=== PATIENT | female | born 1945 | race Caucasian/White ===

== ENCOUNTER 2020-10-05 08:55 | Outpatient (CLI) | payer MEDICARE, SELFPAY | END 2020-10-05 08:56 | LOC: ANHCOVIDVC 08:55 | PROVIDERS: PCP Internal Medicine | DX: Z23 Encounter for immunization (principal) | CPT/HCPCS: 0001A; 91300 ==

== ENCOUNTER 2020-10-21 09:52 | Outpatient (CLI) | payer MEDICARE, SELFPAY ==
--- NOTE | ~2020-10-21 | US_ITS ---
US retroperitoneal comp 10/21/2020 10:19 Procedure: Realtime transabdominal ultrasound of the kidneys and bladder. Indication: Chronic kidney disease Comparison: CT dated 08/24/2015 Findings: Renal echotexture is normal bilaterally without hydronephrosis, contour deforming mass or r enal calculus. There is mild renal cortical thinning bilaterally. The right kidney measures 9 cm and left kidney measures 8.1 cm. Bladder is not distended for evaluation. Impression: 1: Mild bilateral renal cortical thinning, likely related to chronic medical renal disease. Reviewed, dictated and finalized at location B. Impression: 1: Mild bilateral renal cortical thinning, likely related to chronic medical re nal disease.
== END 2020-10-21 09:53 | disposition home or self-care (01) ==
PROVIDERS: PCP Internal Medicine; Visit Provider Internal Medicine
DX: N18.1 Chronic kidney disease, stage 1 (principal); R79.89 Other specified abnormal findings of blood chemistry
CPT/HCPCS: 76770

== ENCOUNTER 2020-10-26 08:59 | Outpatient (CLI) | payer MEDICARE, SELFPAY | END 2020-10-26 09:00 | disposition home or self-care (01) | LOC: ANHCOVIDVC 08:59 | PROVIDERS: PCP Internal Medicine | DX: Z23 Encounter for immunization (principal) | CPT/HCPCS: 0002A; 91300 ==

== ENCOUNTER 2021-10-08 08:54 | Emergency (ER) | payer MEDICARE, SELFPAY ==
[2021-10-08] VITALS (8 sets, daily range): BP systolic 133–150; BP diastolic 76–109; PULSE 97–147; RESP 18–29; TEMP 36.5; O2SAT 94–96
--- NOTE | ~2021-10-08 | XR_ITS ---
EXAMINATION: XR chest 2V 10/08/2021 09:46 INDICATION: Chest palpitations. Arrhythmia. Hypertension. PROCEDURE: PA and lateral views of the chest COMPARISON: Comparison to multiple prior studies sequentially, with oldest reviewed study dated 06/24. FINDINGS: The lungs are clear. The cardiomediastinal silhouette is within normal limits. There are no pleural effusions. There is no pneumothorax suspected. There is calcified granuloma in the right lung base. Pacemaker leads are stable. IMPRESSION: 1: NO ACUTE CARDIOPULMONARY DISEASE. Reviewed, dictated and finalized at location B.
--- NOTE | 2021-10-08 09:19 | ECG_ITS ---
Measurements Intervals [place] Rate: 109 P: [place]: 0 QRS: 11 QRSD: 82 T: -87 QT: 346 QTc: 466 Interpretive Statements ATRIAL FIBRILLATION WITH RAPID VENTRICULAR RESPONSE BASELINE ARTIFACT NOTED NONSPECIFIC ST & T-WAVE ABNORMALITY NO PREVIOUS ECG AVAILABLE FOR COMPARISON Electronically Signed On 10-08-2021 16:10:31 CDT by Felipe Vieyra M.D.
[2021-10-08] MEDS: dilTIAZem HCl INJ 25 MG/5 ML VIAL 10 MG IV PUSH (09:38)
[2021-10-08 09:46] LABS: Basophils Absolute Auto 0.1 K/mm3 (0.0-0.1); Basophils Percent Auto 0.8 % (0.2-1.2); Eosinophils Absolute Auto 0.2 K/mm3 (0-0.3); Eosinophils Percent Auto 2.4 % (0-4.4); Immature Granulocyte Absolute 0.03 K/mm3 (0.00-0.031); Immature Granulocyte Percent A 0.4 % (0-0.5); Lymphocytes Absolute Auto 1.31 K/mm3 (0.9-3.2); Lymphocytes Percent Auto 16.4 % (18.3-44.2); Mean Corpuscular HGB Conc 32.6 g/dl (32-36); Mean Corpuscular Hemoglobin 31.1 pg (26-34); Mean Corpuscular Volume 95.6 fl (80-100); Mean Platelet Volume 11.1 fl (7.4-10.4); Monocytes Absolute Auto 0.7 K/mm3 (0.1-0.6); Neutrophils Absolute Auto 5.7 K/mm3 (1.3-6.7); Platelet Count Result 202 k/mm3 (150-375); Red Cell Distribution Width 12.9 % (11.5-14.5)
[2021-10-08 09:55] LABS: INR 1.4
[2021-10-08 09:56] LABS: Partial Thromboplastin Time 30.3 SECONDS (22.3-36.8)
[2021-10-08 09:58] LABS: Anion Gap 11 mmol/L (8-16); Blood Urea Nitrogen 32 mg/dL (7-17); Calcium 9.3 mg/dL (8.4-10.2); Carbon Dioxide 27 mmol/L (22-30); Chloride 100 mmol/L (98-107); Estimated CRCL calculation 35 ml/min; Estimated Glomerular Filt Rate 54; Glucose 262 mg/dL (65-110); Potassium 4.1 mmol/L (3.4-5.0); Sodium 138 mmol/L (137-145)
--- NOTE | 2021-10-08 10:50 | ED.ARRPALP ---
HPI - Arrhythmia/Palpitations General Chief Complaint: Arrhythmia/Palpitations Stated Complaint: elevated heart rate Time Seen by Provider: 10/08/21 09:02 History of Present Illness HPI narrative: Patient is a 76-year-old female who presents ER with elevated heart rate. She went to see her PCP today and is found that she is in A. fib with RVR. Patient denies any chest pain or shortness of breath. No lower extremity swelling. No exertional weakness or fatigue. She reports that she is totally asymptomatic. She has not taken her morning medications. She also reports she occasionally misses doses of her medications. She sees Dr. Holly at [facility]. Related Data Home Medications Medication Instructions Recorded Confirmed apixaban 5 mg tablet 5 mg PO BID 08/20/19 06/10/21 metoprolol tartrate 25 mg tablet 25 mg PO BID tablet 08/20/19 06/10/21 omega-3 fatty acids 1,000 mg 2,000 mg PO BID cap 01/15/20 06/10/21 capsule diltiazem HCl 60 mg 60 mg PO TID cap 05/11/20 06/10/21 capsule,extended release 12 hr Allergies Allergy/AdvReac Type Severity Reaction Status Date / Time hydrocodone Allergy Severe LIGHT Verified 02/08/21 10:23 HEADED/VERTIGO meperidine Allergy Severe NAUSEA AND Verified 02/08/21 10:23 VOMITING propoxyphene Allergy Severe HIVES Verified 02/08/21 10:23 Sulfa (Sulfonamide Allergy Severe HIVES Verified 02/08/21 10:23 Antibiotics) Contrast Media Allergy Severe HIVES Uncoded 02/08/21 10:23 Review of Systems Review of Systems: All systems reviewed & are unremarkable except as noted in HPI and below Constitutional: Constitutional: Denies chills, Denies fever(s) and Denies weakness ENT: Denies nasal congestion and Denies sore throat Cardiovascular: Cardiovascular: Denies chest pain, Reports rapid heart rate and Denies radiating jaw, neck or arm pain Respiratory: Respiratory: Denies cough and Denies dyspnea Gastrointestinal: Gastrointestinal: Denies abdominal pain, Denies nausea and Denies vomiting PMFSH Past Medical History Medical History A-fib ASHD (arteriosclerotic heart disease) Benign essential hypertension BMI 22.0-22.9, adult BMI 23.0-23.9, adult Bronchitis Cardiac pacemaker CKD (chronic kidney disease) Diabetes with retinopathy DM type 2 (diabetes mellitus, type 2) Elevated homocysteine Encounter for Medicare annual wellness exam Encounter for routine adult health examination without abnormal findings Family history of colon cancer GERD (gastroesophageal reflux disease) Gout Iron deficiency anemia Mixed hyperlipidemia Numbness of fingers of both hands 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 HEAD: Normocephalic, atraumatic. ENT: Mucous membranes moist. CHEST: Clear to auscultation. No respiratory distress. HEART: Tachycardic with an irregular regular rate and rhythm. Normal peripheral pulses. ABDOMEN: Soft, nontender, nondistended. EXTREMITIES: Normal range of motion. No edema. SKIN: Warm, dry, no rash. NEURO: Alert and oriented x3. PSYCH: Normal mood and affect. Course Course Emergency Course: Patient's heart rate originally going up into the 150s. Now her heart rate is ranging in the low 100s and 90s. Patient is asymptomatic. Recommend she comply with home medication regimen and follow-up with her shaker tender. Patient's ve
[2021-10-08] MEDS: dilTIAZem HCL 60 MG TABLET PO (11:17)
== END 2021-10-08 11:23 | disposition home or self-care (01) ==
PROVIDERS: Emergency Provider Emergency Medicine; PCP Internal Medicine
DX: I48.91 Unspecified atrial fibrillation (principal); I25.10 Atherosclerotic heart disease of native coronary artery without angina pectoris; I12.9 Hypertensive chronic kidney disease with stage 1 through stage 4 chronic kidney disease, or unspecified chronic kidney disease; E11.22 Type 2 diabetes mellitus with diabetic chronic kidney disease; N18.9 Chronic kidney disease, unspecified; E11.319 Type 2 diabetes mellitus with unspecified diabetic retinopathy without macular edema; K21.9 Gastro-esophageal reflux disease without esophagitis; M10.9 Gout, unspecified; D50.9 Iron deficiency anemia, unspecified; E78.2 Mixed hyperlipidemia; G47.33 Obstructive sleep apnea (adult) (pediatric); Z95.0 Presence of cardiac pacemaker; Z79.84 Long term (current) use of oral hypoglycemic drugs; Z79.01 Long term (current) use of anticoagulants; Z87.891 Personal history of nicotine dependence; R94.31 Abnormal electrocardiogram [ECG] [EKG]
CPT/HCPCS: 36415; 71046; 80048; 85025; 85610; 85730; 93005; 96374; 99284; A9270

== ENCOUNTER 2023-10-21 16:24 | Emergency (ER) | payer MEDICARE, SELFPAY ==
[2023-10-21] VITALS (29 sets, daily range): BP systolic 126–163; BP diastolic 72–122; PULSE 69–141; RESP 15–37; TEMP 36.2; O2SAT 89–100
--- NOTE | ~2023-10-21 | XR_ITS ---
EXAMINATION: XR chest 2V DATE: 10/21/2023 19:16 INDICATION: Dizziness. Vomiting. TECHNIQUE: Frontal and lateral views of the chest were obtained. COMPARISON: Chest 2 views 10/08/2021, chest CT 08/24/15 FINDINGS: Calcified right lung nodules and calcified right hilar and mediastinal lymph nodes are cons istent with old granulomatous disease. No pleural effusion or pneumothorax. The heart size is normal. There is a left chest wall pacer with leads in the right atrium and right ventricle. IMPRESSION: 1. No acute cardiopulmonary disease. Reviewed, dictated and finalized at location A.
--- NOTE | ~2023-10-21 | CT_ITS ---
EXAMINATION: CT brain wo con DATE: 10/21/2023 19:25 INDICATION: Dizziness. Nausea and vomiting. TECHNIQUE: Computed tomography (CT) of the head was performed without intravenous contrast. The mA wa s adjusted according to patient size. Iterative reconstruction technique was employed. The dose-lengt h product was 681.00 mGy-cm. COMPARISON: None FINDINGS: There are scattered areas of low attenuation in the cerebral white matter, which is within normal limits for the patient's age. There is no intracranial hemorrhage, acute infarction, or abnorm al intracranial mass lesion. The ventricles are normal in size. The paranasal sinuses are clear. Ther e are likely changes of ocular lens replacement surgeries. The mastoid air cells are normal. IMPRESSION: 1. Normal aging brain. Reviewed, dictated and finalized at location A. IMPRESSION: 1. Normal aging brain.
--- NOTE | 2023-10-21 18:53 | ECG_ITS ---
Measurements Intervals [place] Rate: 92 P: [place]: 0 QRS: 93 QRSD: 81 T: 118 QT: 386 QTc: 479 Interpretive Statements ATRIAL FLUTTER/TACHYCARDIA WITH NORMAL VENTRICULAR RESPONSE BASELINE ARTIFACT- I, II, III, AVR, AVL, AVF ABNORMAL ECG COMPARED TO ECG 10/08/2021 09:29:37 ATRIAL FLUTTER NOW PRESENT Electronically Signed On 10-21-2023 21:10:20 CDT by Earnest East D.O.
[2023-10-21] MEDS: ONDANSETRON INJ 4 MG/2 ML VIAL IV PUSH ×2 (19:06→22:45)
[2023-10-21] MEDS: FAMOTIDINE 20 MG/2 ML VIAL IV PUSH (19:06)
[2023-10-21] MEDS: SODIUM CHLORIDE 0.9% IV 1,000 ML 999 ML IV CONT ×2 (19:06→20:02)
--- NOTE | 2023-10-21 19:14 | ED.DIZZY ---
HPI - Dizziness General Chief Complaint: Dizziness <JULIANA Montejo Last Filed: 10/22/23 04:08> Stated Complaint: dizzy <JULIANA Montejo Last Filed: 10/22/23 04:08> Time Seen by Provider: 10/21/23 18:52 <JULIANA Montejo Last Filed: 10/22/23 04:08> Source: patient <JULIANA Montejo Last Filed: 10/22/23 04:08> Mode of arrival: ambulatory <JULIANA Montejo Last Filed: 10/22/23 04:08> Limitations: no limitations <JULIANA Montejo Last Filed: 10/22/23 04:08> History of Present Illness HPI Narrative: Patient is an 78-year-old female who presents the ED with report of nausea, vomiting, dizziness. Patient reports she began feeling unwell last night around 1:00 a.m.. Reported having nausea and vomiting at that time. Ate a small snack and went to bed. Burna slightly nauseous when she woke up this morning, but states nausea became worse around 3:00 p.m.. She began profusely vomiting. Reported having dizziness/lightheadedness, motion sickness. Symptoms continued, so she then prompted to the ED. Denies previous hx of vertigo. Denies abdominal pain, vision changes, BHAGAT, CP, SOB, focal weakness or numbness, syncope, ear pain/tinnitus, slurred speech, confusion. Patient is on Eliquis due to history of atrial fibrillation. <JULIANA Montejo Last Filed: 10/22/23 04:08> Related Data Home Medications: Home Medications Medication Instructions Recorded Confirmed apixaban 5 mg tablet (Eliquis) 5 mg PO BID 08/20/19 07/12/23 metoprolol tartrate 25 mg tablet 25 mg PO BID 08/20/19 07/12/23 diltiazem HCl 60 mg 60 mg PO TID 05/11/20 07/12/23 capsule,extended release 12 hr acetaminophen 500 mg capsule 500 mg PO Q6H PRN 07/12/23 07/12/23 <Aleyda Porter PA-C - Last Filed: 10/22/23 04:08> Allergies/Adverse Reactions: Allergies Allergy/AdvReac Type Severity Reaction Status Date / Time hydrocodone Allergy Severe LIGHT Verified 07/12/23 08:49 HEADED/VERTIGO meperidine Allergy Severe NAUSEA AND Verified 07/12/23 08:49 VOMITING propoxyphene Allergy Severe HIVES Verified 07/12/23 08:49 Sulfa (Sulfonamide Allergy Severe HIVES Verified 07/12/23 08:49 Antibiotics) Contrast Media Allergy Severe HIVES Uncoded 07/12/23 08:49 <Aleyda Porter PA-C - Last Filed: 10/22/23 04:08> Review of Systems Review of Systems: CONSTITUTIONAL: Denies fever, chills, or sweats. ENT: Denies vision changes. CARDIOVASCULAR: Denies chest pain. RESPIRATORY: Denies dyspnea. GASTROINTESTINAL: See HPI. MUSCULOSKELETAL: Denies back pain, extremity pain, myalgia. NEUROLOGIC: See HPI. <Aleyda Porter PA-C - Last Filed: 10/22/23 04:08> All systems reviewed & are unremarkable except as noted in HPI and below <Aleyda Porter PA-C - Last Filed: 10/22/23 04:08> [facility] Past Medical History Medical History: Medical History A-fib ASHD (arteriosclerotic heart disease) Benign essential hypertension BMI 20.0-20.9, adult BMI 21.0-21.9, adult BMI 22.0-22.9, adult BMI 23.0-23.9, adult Bronchitis Cardiac pacemaker CKD (chronic kidney disease) Diabetes with retinopathy DM type 2 (diabetes mellitus, type 2) Elevated homocysteine Encounter for Medicare annual wellness exam Encounter for routine adult health examination without abnormal findings Fall with injury Family history of colon cancer GERD (gastroesophageal reflux disease) Gout Hematuria Hx of pulmonary embolus Injury of head Iron deficiency anemia Mixed hyperlipidemia Numbness of fingers of both hands 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
[2023-10-21 19:42] LABS: Basophils Absolute Auto 0.1 K/mm3 (0.0-0.1); Basophils Percent Auto 0.9 % (0.2-1.2); Eosinophils Absolute Auto 0.1 K/mm3 (0-0.3); Eosinophils Percent Auto 0.6 % (0-4.4); Hematocrit 43.4 % (37.0-47.0); Immature Granulocyte Absolute 0.03 K/mm3 (0.00-0.031); Immature Granulocyte Percent A 0.3 % (0-0.5); Lymphocytes Absolute Auto 1.22 K/mm3 (0.9-3.2); Lymphocytes Percent Auto 11.6 % (18.3-44.2); Mean Corpuscular HGB Conc 32.3 g/dl (32-36); Mean Corpuscular Hemoglobin 30.7 pg (26-34); Mean Corpuscular Volume 95.2 fl (80-100); Mean Platelet Volume 10.9 fl (7.4-10.4); Monocytes Absolute Auto 0.8 K/mm3 (0.1-0.6); Monocytes Percent Auto 7.6 % (2.6-8.5); Neutrophils Absolute Auto 8.3 K/mm3 (1.3-6.7); Platelet Count Result 205 k/mm3 (150-375); Red Blood Count 4.56 M/mm3 (4.2-5.4); Red Cell Distribution Width 13.1 % (11.5-14.5); White Blood Count 10.5 K/mm3 (4.5-10.0)
[2023-10-21 19:53] LABS: Alanine Aminotransferase 15 U/L (6-35); Albumin Level 4.3 g/dL (3.5-5.1); Alkaline Phosphatase 116 U/L (38-126); Anion Gap 6 mmol/L (4-12); Aspartate Amino Transferase 20 U/L (14-36); Bilirubin,Total 1.8 mg/dL (0.2-1.3); Blood Urea Nitrogen 26 mg/dL (7-17); Calcium 9.8 mg/dL (8.4-10.2); Carbon Dioxide 27 mmol/L (22-30); Chloride 104 mmol/L (98-107); Estimated CRCL calculation 40 ml/min; Estimated Glomerular Filt Rate > 60; Glucose 204 mg/dL (65-110); Potassium 5.2 mmol/L (3.4-5.0); Sodium 137 mmol/L (137-145)
[2023-10-21 19:56] LABS: INR 1.1; Prothrombin Time 14.8 Seconds (11.1-14.7)
[2023-10-21 19:57] LABS: Partial Thromboplastin Time 28.7 Seconds (22.3-36.8)
[2023-10-21] MEDS: MECLIZINE HCL 25 MG TABLET PO (20:02)
[2023-10-21] MEDS: CARBAMIDE PEROXIDE 6.5% OT SOLN 15 ML BTL 5 DROP EACH EAR (20:02)
[2023-10-21 20:04] LABS: Troponin I < 0.012 ng/mL (0.000-0.034)
[2023-10-21 20:07] LABS: Magnesium 2.2 mg/dL (1.6-2.3)
--- NOTE | 2023-10-21 21:50 | PC.NURSE ---
pt refused valium at this time.
[2023-10-21 21:57] LABS: Anion Gap 5 mmol/L (4-12); Blood Urea Nitrogen 23 mg/dL (7-17); Calcium 8.8 mg/dL (8.4-10.2); Carbon Dioxide 26 mmol/L (22-30); Chloride 111 mmol/L (98-107); Estimated CRCL calculation 40 ml/min; Estimated Glomerular Filt Rate > 60; Glucose 153 mg/dL (65-110); Potassium 5.3 mmol/L (3.4-5.0); Sodium 142 mmol/L (137-145)
--- NOTE | 2023-10-21 22:00 | PC.NURSE ---
Pt attempted ambulation unsuccessfully. Pt increased n/v, dizziness.
--- NOTE | 2023-10-21 22:23 | ECG_ITS ---
Measurements Intervals [place] Rate: 106 P: [place]: 0 QRS: 80 QRSD: 78 T: 163 QT: 338 QTc: 450 Interpretive Statements ATRIAL FIBRILLATION WITH RAPID VENTRICULAR RESPONSE BORDERLINE ST-T WAVE ABNORMALITY- DIFFUSE LEADS BASELINE ARTIFACT- I, II, III, AVR, AVL, AVF, V1-V6 ABNORMAL ECG COMPARED TO ECG 10/21/2023 19:05:19 A[address] NOW PRESENT [address] (T WAVE) DEVIATION NOW PRESENT Electronically Signed On 10-22-2023 8:11:17 CDT by Earnest East D.O.
[2023-10-21] MEDS: METOPROLOL TARTRATE INJ 5 MG/5 ML VIAL IV PUSH (22:45)
[2023-10-21] MEDS: diazePAM INJ (*CRX) 10 MG/2 ML SYRINGE 2 MG IV PUSH (22:53)
[2023-10-21] MEDS: dilTIAZem HCl INJ 25 MG/5 ML VIAL 10 MG IV PUSH (23:15)
[2023-10-22] VITALS (47 sets, daily range): BP systolic 107–169; BP diastolic 62–107; PULSE 91–141; RESP 9–27; O2SAT 94–100
--- NOTE | 2023-10-22 01:32 | PC.NURSE ---
[facility] updated
--- NOTE | 2023-10-22 01:37 | PC.NURSE ---
pt n/v and unable to tolerate any po medications at this time. erp masood aware. ok to hold off.
[2023-10-22] MEDS: dilTIAZem HCl INJ 25 MG/5 ML VIAL 10 MG IV PUSH (02:04)
[2023-10-22] MEDS: dilTIAZem HCL 60 MG TABLET PO (04:44)
[2023-10-22] MEDS: METOPROLOL TARTRATE 25 MG TABLET PO (04:44)
[2023-10-22] MEDS: ONDANSETRON INJ 4 MG/2 ML VIAL IV PUSH (05:22)
--- NOTE | 2023-10-22 05:43 | PC.NURSE ---
Geo @ [facility] Room - [address] - A @ [facility] [phone] RN to RN Report accepting
--- NOTE | 2023-10-22 05:53 | PC.NURSE ---
RN report to [facility]
--- NOTE | 2023-10-22 07:21 | PC.NURSE ---
RN report given to [facility].
--- NOTE | 2023-10-22 07:22 | PC.NURSE ---
Karyna Grand daughter updated. [phone]
--- NOTE | 2023-10-22 07:22 | PC.NURSE ---
Pt refused compazine at this time.
== END 2023-10-22 07:23 | disposition short-term general hospital (02) ==
PROVIDERS: Emergency Provider Physician Assistant; PCP Internal Medicine
DX: R42 Dizziness and giddiness (principal); E87.5 Hyperkalemia; I48.92 Unspecified atrial flutter; R11.2 Nausea with vomiting, unspecified; Z87.891 Personal history of nicotine dependence; I70.90 Unspecified atherosclerosis; I13.10 Hypertensive heart and chronic kidney disease without heart failure, with stage 1 through stage 4 chronic kidney disease, or unspecified chronic kidney disease; E11.22 Type 2 diabetes mellitus with diabetic chronic kidney disease; N18.9 Chronic kidney disease, unspecified; Z95.0 Presence of cardiac pacemaker; K21.9 Gastro-esophageal reflux disease without esophagitis; M10.9 Gout, unspecified; E78.2 Mixed hyperlipidemia; G47.33 Obstructive sleep apnea (adult) (pediatric); Z79.01 Long term (current) use of anticoagulants
CPT/HCPCS: 36415; 70450; 71046; 80048; 80053; 83735; 84484; 85025; 85610; 85730; 93005; 96361; 96374; 96375; 96376; 99285; A9270; J2405; J3360; J7030

== ENCOUNTER 2023-11-22 15:01 | Outpatient (CLI) | payer MEDICARE, SELFPAY ==
[2023-11-22 15:43] LABS: Basophils Absolute Auto 0.1 K/mm3 (0.0-0.1); Basophils Percent Auto 0.9 % (0.2-1.2); Eosinophils Absolute Auto 0.2 K/mm3 (0-0.3); Eosinophils Percent Auto 2.8 % (0-4.4); Hematocrit 46.1 % (37.0-47.0); Hemoglobin 14.8 g/dL (12.0-15.0); Immature Granulocyte Absolute 0.03 K/mm3 (0.00-0.031); Immature Granulocyte Percent A 0.4 % (0-0.5); Lymphocytes Absolute Auto 1.68 K/mm3 (0.9-3.2); Lymphocytes Percent Auto 19.8 % (18.3-44.2); Mean Corpuscular HGB Conc 32.1 g/dl (32-36); Mean Corpuscular Hemoglobin 31.1 pg (26-34); Mean Corpuscular Volume 96.8 fl (80-100); Mean Platelet Volume 11.1 fl (7.4-10.4); Monocytes Absolute Auto 0.7 K/mm3 (0.1-0.6); Neutrophils Absolute Auto 5.8 K/mm3 (1.3-6.7); Neutrophils Percent Auto 68.1 % (45.5-73.1); Platelet Count Result 210 k/mm3 (150-375); Red Blood Count 4.76 M/mm3 (4.2-5.4); Red Cell Distribution Width 13.6 % (11.5-14.5); White Blood Count 8.5 K/mm3 (4.5-10.0)
[2023-11-22 15:54] LABS: Alanine Aminotransferase 13 U/L (6-35); Albumin Level 4.8 g/dL (3.5-5.1); Alkaline Phosphatase 95 U/L (38-126); Anion Gap 9 mmol/L (4-12); Aspartate Amino Transferase 18 U/L (14-36); Bilirubin,Total 1.5 mg/dL (0.2-1.3); Blood Urea Nitrogen 35 mg/dL (7-17); Calcium 10.2 mg/dL (8.4-10.2); Carbon Dioxide 27 mmol/L (22-30); Chloride 104 mmol/L (98-107); Cholesterol 156 mg/dL (0-200); Estimated Glomerular Filt Rate 39; Glucose 226 mg/dL (65-110); HDL Direct 58 mg/dL; Magnesium 2.4 mg/dL (1.6-2.3); Potassium 5.1 mmol/L (3.4-5.0); Sodium 140 mmol/L (137-145); Triglycerides 131 mg/dL (<150)
[2023-11-22 16:05] LABS: LDL Cholesterol Direct 83 mg/dL
[2023-11-22 16:39] LABS: Free T4 Free Thyroxine 1.55 ng/mL (0.78-2.19); Vitamin D 25 Hydroxy 46.8 ng/mL
== END 2023-11-22 15:02 | disposition home or self-care (01) ==
LOC: ANHLAB 15:08
PROVIDERS: PCP Internal Medicine; Visit Provider Internal Medicine
DX: E78.2 Mixed hyperlipidemia (principal); I10 Essential (primary) hypertension; Z13.29 Encounter for screening for other suspected endocrine disorder; Z79.899 Other long term (current) drug therapy; I48.19 Other persistent atrial fibrillation; E55.9 Vitamin D deficiency, unspecified; E11.22 Type 2 diabetes mellitus with diabetic chronic kidney disease
CPT/HCPCS: 36415; 80053; 80061; 82306; 83036; 83735; 84439; 84443; 85025

== ENCOUNTER 2024-02-06 14:54 | Inpatient (IN) | payer MEDICARE, SELFPAY ==
[2024-02-06] VITALS (14 sets, daily range): BP systolic 107–170; BP diastolic 47–104; PULSE 67–126; RESP 14–26; TEMP 36.2–36.8; O2SAT 93–97
--- NOTE | ~2024-02-06 | CT_ITS ---
EXAMINATION: CT abdomen pelvis wo con DATE: 02/06/2024 16:14 INDICATION: Abdominal trauma TECHNIQUE: Computed tomography (CT) of the abdomen and pelvis was performed without intravenous contr ast. Automated exposure control and iterative reconstruction technique were employed. The dose-length product was 428.01 mGy-cm. COMPARISON: 08/24/2015 FINDINGS: Few scattered calcified nodules at the bilateral lung bases along with calcified Mediastinal lymph nodes and numerous small splenic calcific lesions, all consistent with old granulom atous disease. Heart size is normal. Atherosclerotic coronary artery calcific calcifications. No erum cardial effusion. Dual-lead cardiac pacemaker with lead tips in the right atrium and right ventricle. Small sliding-type hiatal hernia. Liver, gallbladder and bilateral adrenal glands are normal. There is mild to moderate bilateral hydroureteronephrosis. This is likely related to compression of the ure ters with severe pelvic floor relaxation with the entire bladder vaginal vault post likely hysterecto my located at least 3 cm below the level of the pubococcygeal line. Small amount of high attenuation material which could represent milk of calcium or tiny bladder stones in the dependent aspect of the bladder. Mild scattered diverticulosis without adjacent inflammatory stranding to suggest diverticuli tis. Normal appendix. No bowel obstruction. There is calcified atherosclerosis of the aorta and many of the other arteries. No free intraperitoneal gas or fluid. No pathologically enlarged abdominal or pelvic lymphadenopathy. Mild S-shaped thoracolumbar scoliosis with severe spondylosis. 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 No acute fractures identified. 6.8 x 3.2 x 2.2 cm lobular hematoma with dependently layering mona tocrit in the subcutaneous fat overlying the proximal tip the left greater trochanter with prominent stranding consistent with additional contusion or secondary reactive edema. IMPRESSION: 1. Subcutaneous contusion and small hematoma at the lateral left pelvis. No acute fracture or evident traumatic vascular or visceral organ injury in the abdomen or pelvis. 2. Moderate bilateral hydroureteronephrosis likely related to pelvic floor relaxation and extrinsic c ompression of the distal ureters as they extend to the bladder which is completely displaced caudal t o the pubococcygeal line. Reviewed, dictated and finalized at location A. IMPRESSION: 1. Subcutaneous contusion and small hematoma at the lateral left pelvis. No acu te fracture or evident traumatic vascular or visceral organ injury in the abdom en or pelvis. 2. Moderate bilateral hydroureteronephrosis likely related to pelvic floor rela xation and extrinsic compression of the distal ureters as they extend to the bl adder which is completely displaced caudal to the pubococcygeal line.
--- NOTE | ~2024-02-06 | XR_ITS ---
EXAMINATION: [id number] DATE: 02/07/2024 08:40 INDICATION: Lower anterior left rib pain post fall TECHNIQUE: PA view of the chest and 3 views of the left ribs were obtained. COMPARISON: Chest radiograph dated 10/21/2023 FINDINGS: Suggestion of nondisplaced fractures of the lateral left 6th-8th ribs but no definitive correlate is identified on the prior CT. Calcified nodules in the right lung base and calcified right hilar and me diastinal lymph nodes consistent with old granulomatous disease. Unchanged subtle opacity along the a nterolateral left lower lung zone correspond to a small paracardial fat pad and mild lingular atelect asis on CT from one day prior. No pleural effusion or pneumothorax. Heart size is normal. Dual lead p acemaker seen with leads projecting over the expected locations of the right atrium and right ventric le. IMPRESSION: 1. Possible nondisplaced fractures of the lateral left sixth-eighth ribs. Correlate for point tendern ess at this location. 2. no acute cardiopulmonary disease. Reviewed, dictated and finalized at location A. IMPRESSION: 1. Possible nondisplaced fractures of the lateral left sixth-eighth ribs. Corre late for point tenderness at this location. 2. no acute cardiopulmonary disease.
--- NOTE | ~2024-02-06 | CT_ITS ---
EXAMINATION: CT brain wo con DATE: 02/06/2024 16:14 INDICATION: Multiple falls TECHNIQUE: Computed tomography (CT) of the head was performed without intravenous contrast. Sagittal and coronal reconstructions were performed. The mA was adjusted according to patient size. Iterative reconstruction technique was employed. The dose-length product was 605.33 mGy-cm. COMPARISON: head CT date FINDINGS: No fracture. No acute intracranial hemorrhage, acute infarction or abnormal extra axial fluid collect ion. There is mild scattered white matter hypoattenuation which is within normal limits for age and c onsistent with chronic small vessel ischemic disease. Ventricles are normal and symmetric. No mass/m ass effect. Changes of bilateral intraocular lens replacement. The orbits, paranasal sinuses and mast oid air cells are normal. IMPRESSION: 1. Enlarging brain. No fracture or acute intracranial process. Reviewed, dictated and finalized at location A.
--- NOTE | 2024-02-06 15:09 | ECG_ITS ---
Test Date: 2024-02-06 15:23:28 Measurements Intervals [place] Rate: 117 P: 0 [place]: 0 QRS: 24 QRSD: 82 T: 59 QT: 273 QTc: 382 Interpretive Statements ATRIAL FLUTTER/TACHYCARDIA WITH RAPID VENTRICULAR RESPONSE NONSPECIFIC ST & T-WAVE ABNORMALITY- DIFFUSE LEADS BASELINE ARTIFACT- I, II, III, AVR, AVL, AVF, V1-V6 ABNORMAL ECG No previous ECG available for comparison Electronically Signed On 02-06-2024 15:29:25 CDT by Earnest East D.O.
[2024-02-06 15:22] LABS: Glucose Point of Care 32 mg/dl (65-105)
[2024-02-06] MEDS: DEXTROSE 10% 1,000 ML 50 ML IV CONT (15:39)
[2024-02-06 15:47] LABS: Basophils Absolute Auto 0.1 K/mm3 (0.0-0.1); Basophils Percent Auto 0.5 % (0.2-1.2); Eosinophils Absolute Auto 0.1 K/mm3 (0-0.3); Eosinophils Percent Auto 0.4 % (0-4.4); Hematocrit 44.1 % (37.0-47.0); Hemoglobin 14.5 g/dL (12.0-15.0); Immature Granulocyte Absolute 0.08 K/mm3 (0.00-0.031); Immature Granulocyte Percent A 0.5 % (0-0.5); Lymphocytes Absolute Auto 1.11 K/mm3 (0.9-3.2); Lymphocytes Percent Auto 7.6 % (18.3-44.2); Mean Corpuscular HGB Conc 32.9 g/dl (32-36); Mean Corpuscular Volume 94.4 fl (80-100); Mean Platelet Volume 10.7 fl (7.4-10.4); Monocytes Absolute Auto 1.2 K/mm3 (0.1-0.6); Monocytes Percent Auto 8.4 % (2.6-8.5); Neutrophils Absolute Auto 12.1 K/mm3 (1.3-6.7); Neutrophils Percent Auto 82.6 % (45.5-73.1); Platelet Count Result 201 k/mm3 (150-375); Red Blood Count 4.67 M/mm3 (4.2-5.4); Red Cell Distribution Width 12.7 % (11.5-14.5); White Blood Count 14.7 K/mm3 (4.5-10.0)
[2024-02-06 16:02] LABS: Alanine Aminotransferase 14 U/L (6-35); Albumin Level 4.6 g/dL (3.5-5.1); Alkaline Phosphatase 103 U/L (38-126); Anion Gap 13 mmol/L (4-12); Aspartate Amino Transferase 24 U/L (14-36); Bilirubin,Total 1.9 mg/dL (0.2-1.3); Blood Urea Nitrogen 26 mg/dL (7-17); Calcium 9.8 mg/dL (8.4-10.2); Carbon Dioxide 28 mmol/L (22-30); Chloride 100 mmol/L (98-107); Estimated CRCL calculation 31 ml/min; Estimated Glomerular Filt Rate 53; Glucose 46 mg/dL (65-110); Potassium 3.6 mmol/L (3.4-5.0); Sodium 141 mmol/L (137-145)
[2024-02-06] MEDS: dilTIAZem HCl INJ 25 MG/5 ML VIAL 10 MG IV PUSH (16:22)
[2024-02-06 17:06] LABS: Glucose Point of Care 98 mg/dl (65-105)
--- NOTE | 2024-02-06 17:10 | ED.GENADULT ---
HPI - General Adult General Chief complaint: Fall Stated complaint: mult falls Time Seen by Provider: 02/06/24 15:12 Source: patient Mode of arrival: EMS Limitations: no limitations History of Present Illness HPI narrative: 78-year-old with a history of hypertension, diabetes, AFib, flutter for labs presents to the ER via ambulance with the complaints of multiple falls since this morning. Patient states that 1st fall she is not quite sure how she fell but the 2nd 1 she tripped and fell over the cardboard box. Complains of pain to her left hip. She denies LOC. No no history of fever or chills. Related Data Home Medications Medication Instructions Recorded Confirmed apixaban 2.5 mg tablet 2.5 mg PO BID 10/24/23 11/22/23 glimepiride 2 mg tablet 2 mg PO QAM 10/24/23 11/22/23 metformin 500 mg tablet,extended 500 mg PO BID 10/24/23 11/22/23 release 24 hr magnesium oxide 400 mg (241.3 mg 400 mg PO DAILY 11/23/23 magnesium) tablet Allergies Allergy/AdvReac Type Severity Reaction Status Date / Time hydrocodone Allergy Severe LIGHT Verified 02/06/24 15:34 HEADED/VERTIGO meperidine Allergy Severe NAUSEA AND Verified 02/06/24 15:34 VOMITING propoxyphene Allergy Severe HIVES Verified 02/06/24 15:34 Sulfa (Sulfonamide Allergy Severe HIVES Verified 02/06/24 15:34 Antibiotics) Contrast Media Allergy Severe HIVES Uncoded 02/06/24 15:34 Review of Systems Review of Systems: All systems reviewed & are unremarkable except as noted in HPI and below Constitutional: Constitutional: Reports no additional constitutional complaints Eyes: Eyes: Reports no additional eye complaints ENT: Reports system reviewed and no additional complaints, except as documented Cardiovascular: Cardiovascular: Reports no additional cardiovascular complaints Respiratory: Respiratory: Reports no additional respiratory complaints Gastrointestinal: Gastrointestinal: Reports no additional gastrointestinal complaints Genitourinary: Genitourinary: Reports no additional female genitourinary complaints Musculoskeletal: Musculoskeletal: Reports as per HPI Neurologic: Reports system reviewed and no additional complaints, except as documented [facility] Past Medical History Medical History ASHD (arteriosclerotic heart disease) Benign essential hypertension BMI 20.0-20.9, adult BMI 21.0-21.9, adult BMI 22.0-22.9, adult BMI 23.0-23.9, adult Bronchitis Cardiac pacemaker CKD (chronic kidney disease) Diabetes with retinopathy DM type 2 (diabetes mellitus, type 2) Elevated homocysteine Encounter for Medicare annual wellness exam Encounter for routine adult health examination without abnormal findings Fall with injury Family history of colon cancer GERD (gastroesophageal reflux disease) Gout Hematuria Hx of pulmonary embolus Injury of head Iron deficiency anemia Mixed hyperlipidemia Numbness of fingers of both hands On skilled nursing drug therapy JOSUE on CPAP Persistent atrial fibrillation with RVR SOB (shortness of breath) Unexplained weight loss Urinary tract infection without hematuria Vitamin D deficiency Family History Family History Father Carcinoma of colon Mother Carcinoma of colon Family history of diabetes mellitus in first degree relative Diabetes mellitus Sibling Family history of diabetes mellitus in first degree relative Diabetes mellitus Social History Social History Smoking status: Former smoker Second hand tobacco smoke exposure: Yes Smoking end date: 07/24/74 Alcohol intake: never Lack of Transportation: YES Lack of Food: Sometimes True Current Housing: I Have Housing Concerned About Future Housing: No Difficulty Paying Gas/Electric Bills: No Difficulty Paying for Meds: No Currently Unemployed: No Education: Bachelor's Degree [employer]
--- NOTE | 2024-02-06 17:10 | PC.NURSE ---
Meal tray ordered for pt
[2024-02-06 17:16] LABS: Appearance Urine Cloudy (Clear); Bacteria Urine 4+ /hpf; Bilirubin Urine Negative (Negative); Blood Urine 3+ (Negative); Glucose Urine UA Negative (Negative); Ketones Urine Negative (Negative); Leukocyte Esterase Ur 3+ LEU/UL (Negative); Need Manual Microscopic Reviewed; Nitrate Urine Negative (Negative); Non Pathogenic Casts 0-2; Protein Urine Trace mg/dL (Negative); RBC Urine >100 /hpf (0-2); Specific Grav Ur 1.011 (1.001-1.035); Squamous Epithelial Cell Urine Occasional /hpf (Few); WBC Urine 51-100 /hpf (0-3); pH Urine 5.5 (5.0-9.0)
[2024-02-06 17:17] LABS: Color Urine Light Red (Yellow)
[2024-02-06 17:18] LABS: Add Urine Microscopic? YES
[2024-02-06 17:57] LABS: Glucose Point of Care 111 mg/dl (65-105)
--- NOTE | 2024-02-06 17:57 | PC.NURSE ---
[facility] EDP to titrate dextrose 10% to 25mL/hr
--- NOTE | 2024-02-06 18:41 | PM.IMHP ---
H&P: HPI History of Present Illness Date/Time: 02/06/24 19:45 Chief Complaint: Multiple falls this morning. Narrative: This is a pleasant 78-year-old female with hypertension, atrial fibrillation and flutter on chronic anticoagulation, type 2 diabetes mellitus, chronic kidney disease stage 3, and gastroesophageal reflux disease who presented to the emergency department via EMS from home for evaluation of multiple falls this morning. The patient provides the following history. She was ambulating in the dining room with her cane when she lost her balance and fell onto her left side. She was able to get herself up but noticed that she was having pain over the left hip however that did not limit her walking. Not long prior to arrival she had another fall, slipping and falling backwards when trying to get off of the couch. She hit her head and back in the 2nd fall and her hip pain seemed to be worse after. She was also had some pain over the left lower anterior ribs and she called EMS. She denies syncope, near syncope, fever, chills, sweats, pleuritic pain, shortness of breath, nausea, vomiting, diarrhea, and dysuria. In the ED: She was afebrile on arrival with stable blood pressures. She was in atrial tachycardia with rates in the 120s. Labs were significant for WBC count of 14.7, BUN 26, creatinine 1.00, glucose 46, total bili I 0.9. Urine was positive for 3+ blood, 3+ leukocyte esterase, greater than 100 RBC, 51 to 100 WBC, and 4+ bacteria. Head CT showed normal aging brain without acute findings. CT of the abdomen and pelvis showed a subcutaneous contusion and small hematoma at the lateral left pelvis without acute fracture or evident traumatic vascular or visceral organ injury and moderate bilateral hydroureteronephrosis likely due to pelvic floor relaxation and bladder prolapse. She was given diltiazem 10 mg IV with improvement in her heart rate. She was also started on a dextrose drip. She is being admitted in this setting for further treatment and evaluation. Review of Systems Review of Systems: 12 systems were reviewed and are negative except for as per HPI. [facility] Past Medical History Medical History Arteriosclerotic heart disease Atrial fibrillation and flutter Benign essential hypertension Chronic kidney disease, stage 3 Diabetic retinopathy Gastroesophageal reflux disease Gout Iron deficiency anemia Mixed hyperlipidemia Obstructive sleep apnea on CPAP Pulmonary embolus Type 2 diabetes mellitus Vitamin D deficiency Surgical History Surgical History History of permanent cardiac pacemaker placement Family History Family History Father Carcinoma of colon Mother Carcinoma of colon Family history of diabetes mellitus in first degree relative Diabetes mellitus Sibling Family history of diabetes mellitus in first degree relative Diabetes mellitus Social History Social History (Updated 02/06/24 @ 22:15 by Seda Shannon PA-C) Social History: Surrogate medical decision maker: Felipe Jin (son) and Karyna Menon (granddaughter). Code status: Full code. Smoking status: Former smoker Second hand tobacco smoke exposure: Yes Smoking end date: 07/24/74 Alcohol intake: never Do You Feel Safe in your Home?: Yes Lack of Transportation: YES Lack of Food: Sometimes True Current Housing: I Have Housing Concerned About Future Housing: No Difficulty Paying Gas/Electric Bills: No Difficulty Paying for Meds: No Currently Unemployed: No Education: Bachelor's Degree Difficulty w/ Childcare or Family Care: No Living arrangements: alone Additional living arrangements comments: Lives alone with her black lab in [place]. Occupation/Education: retired Spiritual care concerns: No Meds Home Medications and Aller
--- NOTE | 2024-02-06 18:48 | ADMGEN ---
This patient, Saniya Jin, was admitted to IMU Room 205-01 at 1840. Patient/family oriented to hospital policies and general routines including ID bracelet, bed and alarms, visiting hours, pain management, procedures, bathroom and other care routines, personal items, smoking policy, room service/diet, and visiting hours. Information on how to activate the Rapid Response Team has been discussed. Patient/Family are encouraged to report perceived risks to care and to ask questions if they do not understand what they are told or what they should do.
[2024-02-06 20:13] LABS: Glucose Point of Care 157 mg/dl (65-105)
[2024-02-06 22:04] LABS: Glucose Point of Care 201 mg/dl (65-105)
[2024-02-06] MEDS: ONDANSETRON INJ 4 MG/2 ML VIAL IV PUSH (23:11)
--- NOTE | 2024-02-06 23:17 | PCRCNOTE ---
RT offered patient hospital cpap unit. Pt refused and stated she has not worn one since September 2020.
--- NOTE | 2024-02-06 23:23 | PC.NURSE ---
2300 Got patient up to wheelchair to transport to XRay. Pt got really dizzy and light headed. BP check 84/56 left arm. Rechecked 5 mintues later came up to 110/75. Pt refused to go down for Xray until morning.
[2024-02-06 23:32] LABS: Glucose Point of Care 183 mg/dl (65-105)
[2024-02-07] VITALS (23 sets, daily range): BP systolic 92–123; BP diastolic 40–93; PULSE 60–106; RESP 20; TEMP 36.4–37.1; O2SAT 90–97
[2024-02-07] MEDS: SODIUM CHLORIDE 0.9% IV 1,000 ML 100 ML IV CONT (01:56)
[2024-02-07 04:26] LABS: Basophils Percent Auto 0.5 % (0.2-1.2); Eosinophils Absolute Auto 0.1 K/mm3 (0-0.3); Eosinophils Percent Auto 1.1 % (0-4.4); Hematocrit 36.9 % (37.0-47.0); Hemoglobin 11.8 g/dL (12.0-15.0); Immature Granulocyte Absolute 0.04 K/mm3 (0.00-0.031); Immature Granulocyte Percent A 0.5 % (0-0.5); Lymphocytes Absolute Auto 1.56 K/mm3 (0.9-3.2); Lymphocytes Percent Auto 19.7 % (18.3-44.2); Mean Corpuscular Hemoglobin 30.6 pg (26-34); Mean Corpuscular Volume 95.8 fl (80-100); Monocytes Absolute Auto 1.2 K/mm3 (0.1-0.6); Monocytes Percent Auto 14.8 % (2.6-8.5); Neutrophils Percent Auto 63.4 % (45.5-73.1); Platelet Count Result 180 k/mm3 (150-375); Red Blood Count 3.85 M/mm3 (4.2-5.4); Red Cell Distribution Width 12.8 % (11.5-14.5); White Blood Count 7.9 K/mm3 (4.5-10.0)
[2024-02-07 04:37] LABS: Alanine Aminotransferase 12 U/L (6-35); Albumin Level 3.5 g/dL (3.5-5.1); Alkaline Phosphatase 79 U/L (38-126); Anion Gap 7 mmol/L (4-12); Aspartate Amino Transferase 17 U/L (14-36); Bilirubin,Total 1.2 mg/dL (0.2-1.3); Blood Urea Nitrogen 25 mg/dL (7-17); Calcium 8.8 mg/dL (8.4-10.2); Carbon Dioxide 28 mmol/L (22-30); Chloride 100 mmol/L (98-107); Estimated CRCL calculation 29 ml/min; Estimated Glomerular Filt Rate 48; Glucose 191 mg/dL (65-110); Magnesium 2.1 mg/dL (1.6-2.3); Potassium 4.7 mmol/L (3.4-5.0); Sodium 135 mmol/L (137-145)
[2024-02-07 04:48] LABS: Hemoglobin A1C 7.4 % (<5.7)
[2024-02-07 05:06] LABS: Glucose Point of Care 187 mg/dl (65-105)
[2024-02-07] MEDS: CHOLECALCIFEROL 1,000 UNITS TABLET 2000 UNITS BY MOUTH (08:19)
[2024-02-07] MEDS: OMEGA 3 POLYUNSAT FATTY ACIDS 1 GM CAP 2 GM PO ×2 (08:19→16:42)
[2024-02-07] MEDS: AMIODARONE HCL 200 MG TABLET BY MOUTH (08:19)
[2024-02-07] MEDS: FOLIC ACID 1 MG TABLET BY MOUTH (08:19)
[2024-02-07] MEDS: MAGNESIUM OXIDE 400 MG TABLET PO (08:20)
[2024-02-07] MEDS: PANTOPRAZOLE 40 MG TABLET BY MOUTH (08:20)
[2024-02-07] MEDS: ATORVASTATIN 40 MG TABLET BY MOUTH (08:20)
[2024-02-07] MEDS: lisinopriL 5 MG TABLET BY MOUTH (08:20)
[2024-02-07] MEDS: CYANOCOBALAMIN 1,000 MCG TABLET 1000 MCG BY MOUTH (08:21)
[2024-02-07 09:13] LABS: Glucose Point of Care 254 mg/dl (65-105)
--- NOTE | 2024-02-07 09:31 | WPDURCON ---
Assessment and Plan Assessment and plan (1) Midline cystocele: Code(s): N81.11 - Cystocele, midline Status: Acute Assessment and Plan: Patient has severe bladder prolapse. Colpocleisis recommended many years ago, though patient declined. Given persistent symptoms, highly recommend patient reconsider and proceed with outpatient colpocleisis with Dr. Rene. Patient will consider and discuss with family. Will arrange urodynamics for preoperative evaluation (2) Vaginal vault prolapse: Code(s): N81.9 - Female genital prolapse, unspecified Status: Acute Assessment and Plan: As above (3) Hydroureteronephrosis: Code(s): N13.30 - Unspecified hydronephrosis Status: Acute Assessment and Plan: Secondary to severe better prolapse causing external ureteral compression. Patient is voiding adequately and renal function is stable. No need for acute intervention at this time. Would recommend prompt prolapse repair as discussed above to prevent worsening of hydroureteronephrosis. Urology Consult Note HPI Date Seen: 02/07/24 Requesting Physician: Mingo Bright MD Primary Care Provider: Bear Horan MD Consult Narrative Narrative: Saniya Jin is a 78 year old female with history of dear bladder and vaginal vault prolapse as well as bladder stones (s/p bladder stone removal 2016) who is currently admitted for hypoglycemia and ground level fall and is being seen in consultation for evaluation of bilateral hydronephrosis. The patient presented to the ER on 02/06/2024 after suffering a ground level fall. On arrival, she was noted to be tachycardic but additional vital signs were stable, she was severely hypoglycemic with blood sugar down to 32, white blood cell count elevated at 14.7, creatinine 1.0, UA abnormal with leukocytes, blood, 51-100 WBC, 4+ bacteria. A urine culture is pending at this time. CT of the abdomen/pelvis was completed which demonstrated mild to moderate bilateral hydroureteronephrosis secondary to external compression of bilateral ureters due to severe pelvic floor relaxation with entire bladder and vaginal vault at least 3 cm below the pubococcygeal line with small amount of material in the bladder that could be indicative of tiny bladder stones versus calcium. At the time my evaluation, the patient is feeling well. She states that she is able to void spontaneously and feels that she mostly empties her bladder well, though she is frequently incontinent of urine. She has known about her severe prolapse states 2016 at which time culture local ice this was recommended though she did not which has not need further follow-up since that time. She states that in order to urinate, sometimes she has to lift the prolapse out of the way, though she is not able to reduce the prolapse in any way. She sometimes has discomfort with sitting down if she is directly on the prolapse but resolves promptly if she changes position. She denies vaginal or pelvic pain. Denies nausea, vomiting, fever, or chills. Review of Systems Review of Systems: All systems reviewed & are unremarkable except as noted in HPI and below PMFSH Past Medical History Medical History Arteriosclerotic heart disease Atrial fibrillation and flutter Benign essential hypertension Chronic kidney disease, stage 3 Diabetic retinopathy Gastroesophageal reflux disease Gout Iron deficiency anemia Mixed hyperlipidemia Obstructive sleep apnea on CPAP Pulmonary embolus Type 2 diabetes mellitus Vitamin D deficiency Surgical History Surgical History History of permanent cardiac pacemaker placement Family History Family History Father Carcinoma of colon Mother Carcinoma of colon Family history of diabetes mellitus in first
--- NOTE | 2024-02-07 09:49 | PC.NURSE ---
Alert and oriented at this time. Sitting up in bed. Very pleasant, and aware of current medication regime. Denies pain or discomfort at this time, including chest pain. Vital signs are stable at this time. Denies dizziness or lightheadedness at this time. No acute distress noted. Family at bedside.
--- NOTE | 2024-02-07 09:52 | PC.NURSE ---
D10 IV infusion stopped at 0800am related to elevated blood glucose level. aware.
[2024-02-07] MEDS: INSULIN ASPART (*BKC) 100 UNITS/ML SUB-Q (12:01)
--- NOTE | 2024-02-07 13:01 | PM.IMPN ---
Progress Note: A&P Assessment and Plan (1) Midline cystocele: Code(s): N81.11 - Cystocele, midline Status: Acute (2) Vaginal vault prolapse: Code(s): N81.9 - Female genital prolapse, unspecified Status: Acute (3) Hydroureteronephrosis: Code(s): N13.30 - Unspecified hydronephrosis Status: Acute Plan The patient presented to the emergency department for evaluation after 2 falls today as detailed in HPI. Labs, imaging, EKG, and all reports were personally reviewed. She ambulates with a cane in historically has not had issues with falls. I wonder if perhaps her falls were caused by the hypoglycemia however she reports that she was not feeling symptoms of such. She is currently on a dextrose drip with frequent Accu-Cheks. Metformin and glimepiride are on hold. She has a good size hematoma on the left lateral hip from the fall and apixaban will be held for now. She will need PT/OT evaluation once feeling better and medically cleared. Hydroureteronephrosis was noted on CT scan which may be related to her bladder prolapse and urology has been consulted for recommendations. Urine does show greater than 50 WBC and 4+ bacteria however occasional squamous cells are also noted. As her WBC count is elevated she has been started on ceftriaxone, pending urine culture. She is in a sinus rhythm currently with occasional ectopy. Continue amiodarone. Blood pressures were reviewed and they are stable. Her kidney function is stable on review of previous labs. Her home medications will be reviewed and resumed as appropriate. Findings and treatment plan were discussed with the patient. Questions were solicited and answered to satisfaction. The patient's medical management will be taken over by the hospitalist team in a.m. 02/07/24 -white count is normal. Glucose better controlled. She is not eating much. Will add Ensure. Urology has been consulted and appreciate their input. Continue Rocephin for UTI. Will stop IV fluids with dextrose given the elevated glucose now. Start PT and OT. DVT prophylaxis -SCDs Code status -full Subjective Date/time seen: 02/07/24 13:01 Interval history: 78-year-old female with hypertension, atrial fibrillation and flutter on chronic anticoagulation, type 2 diabetes mellitus, chronic kidney disease stage 3, and gastroesophageal reflux disease who presented to the emergency department via EMS from home for evaluation of multiple falls this morning and found to be hypoglycemic and hypotensive. Assuming care. Chart reviewed. Patient slept poorly last night. She has not been out of bed yet. She has a poor appetite and does state that she has had some weight loss recently. No overt hypoglycemia since she does not check her sugars but does feel nauseous at times the improved with taking hard candy. Exam Narrative: Afebrile. Systolic blood pressure supine 104, sitting 92, standing 117 General: Awake, alert, comfortable, no acute distress HEENT: Normocephalic, atraumatic Respiratory: Normal respiratory effort, no accessory muscle use CV: Irregularly irregular. Telemetry showing probable atrial flutter and paced rhythm Abdomen: Nondistended, soft, nontender : deferred; urology exam noted. Ext; no edema Skin: Normal coloration, warm and dry Neurologic: No focal neuro deficits noted Psychiatric: Appropriate mood and affect, judgment and insight intact Objective Data Vital Signs Vital Signs: Vital Signs - 24 hr 02/06/24 14:52 02/06/24 16:29 02/06/24 17:02 Temperature 97.5 F L Pulse Rate 126 H 104 H 84 Respiratory Rate 26 H 23 H 14 Blood Pressure 128/104 H 117/92 H 109/67 Pulse Oximetry 95 97 95 Oxygen Delivery Room Air 02/06/24 17:20 02/06/24 18:04 02/06/24 18:18 Temperature 97.6 F Pulse Rate 97 89 108 H Respiratory Rate 17 14 Blood Pressure 107/70 107/70 Pulse Oximetry 97 95 Oxygen Delivery 02/06/24 18:40 02/06/24 19:44 02/06/24 19:52
[2024-02-07 14:46] LABS: Glucose Point of Care 280 mg/dl (65-105)
[2024-02-07] MEDS: ACETAMINOPHEN 325 MG TABLET 650 MG PO (15:10)
[2024-02-07 16:31] LABS: Glucose Point of Care 198 mg/dl (65-105)
[2024-02-07 20:21] LABS: Glucose Point of Care 171 mg/dl (65-105)
[2024-02-08] VITALS (17 sets, daily range): BP systolic 98–114; BP diastolic 42–65; PULSE 88–117; RESP 12–20; TEMP 36.6–36.9; O2SAT 91–97
[2024-02-08 04:59] LABS: Basophils Absolute Auto 0.1 K/mm3 (0.0-0.1); Basophils Percent Auto 0.9 % (0.2-1.2); Eosinophils Absolute Auto 0.3 K/mm3 (0-0.3); Eosinophils Percent Auto 3.7 % (0-4.4); Hematocrit 32.1 % (37.0-47.0); Hemoglobin 10.1 g/dL (12.0-15.0); Immature Granulocyte Absolute 0.03 K/mm3 (0.00-0.031); Immature Granulocyte Percent A 0.4 % (0-0.5); Lymphocytes Absolute Auto 2.39 K/mm3 (0.9-3.2); Lymphocytes Percent Auto 31.6 % (18.3-44.2); Mean Corpuscular HGB Conc 31.5 g/dl (32-36); Mean Corpuscular Hemoglobin 30.7 pg (26-34); Mean Corpuscular Volume 97.6 fl (80-100); Mean Platelet Volume 10.9 fl (7.4-10.4); Monocytes Absolute Auto 1.1 K/mm3 (0.1-0.6); Monocytes Percent Auto 14.2 % (2.6-8.5); Neutrophils Absolute Auto 3.7 K/mm3 (1.3-6.7); Neutrophils Percent Auto 49.2 % (45.5-73.1); Platelet Count Result 154 k/mm3 (150-375); Red Blood Count 3.29 M/mm3 (4.2-5.4); White Blood Count 7.6 K/mm3 (4.5-10.0)
[2024-02-08 05:44] LABS: Albumin Level 3.1 g/dL (3.5-5.1); Anion Gap 8 mmol/L (4-12); Blood Urea Nitrogen 31 mg/dL (7-17); Calcium 8.8 mg/dL (8.4-10.2); Carbon Dioxide 28 mmol/L (22-30); Chloride 101 mmol/L (98-107); Estimated CRCL calculation 24 ml/min; Estimated Glomerular Filt Rate 39; Glucose 88 mg/dL (65-110); Magnesium 2.2 mg/dL (1.6-2.3); Phosphorus 4.3 mg/dL (2.5-4.5); Potassium 4.4 mmol/L (3.4-5.0); Sodium 137 mmol/L (137-145)
[2024-02-08 06:34] LABS: Glucose Point of Care 76 mg/dl (65-105)
[2024-02-08] MEDS: CHOLECALCIFEROL 1,000 UNITS TABLET 2000 UNITS BY MOUTH (08:49)
[2024-02-08] MEDS: FOLIC ACID 1 MG TABLET BY MOUTH (08:49)
[2024-02-08] MEDS: CYANOCOBALAMIN 1,000 MCG TABLET 1000 MCG BY MOUTH (08:49)
[2024-02-08] MEDS: ATORVASTATIN 40 MG TABLET BY MOUTH (08:49)
[2024-02-08] MEDS: AMIODARONE HCL 200 MG TABLET BY MOUTH (08:49)
[2024-02-08] MEDS: OMEGA 3 POLYUNSAT FATTY ACIDS 1 GM CAP 2 GM PO ×2 (08:50→17:25)
[2024-02-08] MEDS: PANTOPRAZOLE 40 MG TABLET BY MOUTH (08:50)
[2024-02-08] MEDS: MAGNESIUM OXIDE 400 MG TABLET PO (08:50)
[2024-02-08] MEDS: ACETAMINOPHEN 325 MG TABLET 650 MG PO ×2 (08:50→20:11)
--- NOTE | 2024-02-08 09:57 | WPDUROPN2 ---
Progress Note: A&P Assessment and Plan (1) Midline cystocele: Code(s): N81.11 - Cystocele, midline Status: Acute Assessment and Plan: Patient has severe bladder prolapse. Colpocleisis recommended many years ago, though patient declined. Given persistent symptoms, highly recommend patient reconsider and proceed with outpatient colpocleisis with Dr. Rene. Patient will consider and discuss with family, though unsure she would like to do this. Will arrange urodynamics for preoperative evaluation (2) Vaginal vault prolapse: Code(s): N81.9 - Female genital prolapse, unspecified Status: Acute Assessment and Plan: As above (3) Hydroureteronephrosis: Code(s): N13.30 - Unspecified hydronephrosis Status: Acute Assessment and Plan: Secondary to severe bladder prolapse causing external ureteral compression. Patient is voiding adequately and renal function is stable (slight bump today but relatively consistent with baseline - continue to monitor) No need for acute intervention at this time. Would recommend prompt prolapse repair as discussed above to prevent worsening of hydroureteronephrosis. Discussed risks of ongoing kidney injury if untreated and patient is aware Subjective Subjective Date/Time Seen: 02/08/24 09:57 Interval history: Saniya reports she is doing well today. She is voiding spontaneously, getting up to commode but reports near constant leakage aside from this. We discussed surgical intervention for her severe prolapse at length but she is unsure she would like to proceed with any type of surgery. Discussed that there are no other options for management at this point given severity. She would like to discuss with her daughter and granddaughter. Review of Systems Review of Systems: All systems reviewed & are unremarkable except as noted in HPI and below Exam Narrative: General: Awake, alert, comfortable, no acute distress HEENT: Normocephalic, atraumatic, sclerae anicteric Respiratory: Normal respiratory effort, no accessory muscle use Abdomen: Nondistended, soft, nontender Skin: Normal coloration, warm and dry Neurologic: No focal neuro deficits noted Psychiatric: Appropriate mood and affect, judgment and insight intact Objective Data Vital Signs Vital Signs: Vital Signs - 24 hr 02/07/24 10:00 02/07/24 11:40 02/07/24 12:00 Temperature 98.1 F Pulse Rate 93 97 106 H Respiratory Rate 20 Blood Pressure 103/57 L Pulse Oximetry 94 Oxygen Delivery Fraction of Inspired Oxygen 02/07/24 12:00 02/07/24 15:55 02/07/24 16:00 Temperature 98.7 F Pulse Rate 97 70 70 Respiratory Rate 20 20 Blood Pressure 99/44 L Pulse Oximetry 94 94 Oxygen Delivery Room Air Fraction of Inspired Oxygen 02/07/24 16:00 02/07/24 18:00 02/07/24 20:02 Temperature 97.6 F Pulse Rate 70 60 73 Respiratory Rate 20 20 Blood Pressure 105/48 L Pulse Oximetry 94 90 Oxygen Delivery Room Air Fraction of Inspired Oxygen 02/07/24 20:06 02/07/24 20:07 02/07/24 20:00 Temperature 97.6 F Pulse Rate 70 70 Respiratory Rate 20 Blood Pressure 105/48 L 99/40 L Pulse Oximetry 91 Oxygen Delivery Fraction of Inspired Oxygen 02/07/24 20:00 02/07/24 21:23 02/07/24 23:47 Temperature 97.6 F Pulse Rate 70 70 102 H Respiratory Rate 20 20 Blood Pressure 123/93 H Pulse Oximetry 91 97 Oxygen Delivery Room Air Fraction of Inspired Oxygen 02/08/24 00:00 02/08/24 00:00 02/08/24 02:18 Temperature Pulse Rate 117 H 117 H Respiratory Rate 20 Blood Pressure Pulse Oximetry 97 97 Oxygen Delivery Room Air Room Air Fraction of Inspired Oxygen 02/08/24 02:00 02/08/24 04:00 02/08/24 04:00 Temperature Pulse Rate 98 88 88 Respiratory Rate 20 Blood Pressure Pulse Oximetry 97 Oxygen Delivery Room Air Fraction of Inspired Oxygen 02/08/24 04:53 02/08/24 05:53 01/21
[2024-02-08 12:26] LABS: Glucose Point of Care 213 mg/dl (65-105)
[2024-02-08] MEDS: INSULIN ASPART (*BKC) 100 UNITS/ML SUB-Q ×2 (13:06→17:26)
--- NOTE | 2024-02-08 16:05 | PCPTNOTE ---
On 02/08/24, the student, [Nasra Melo], provided care and completed [facility] documentation on this patient. I have reviewed the student's documentation and agree with the findings.
[2024-02-08 16:22] LABS: Glucose Point of Care 264 mg/dl (65-105)
--- NOTE | 2024-02-08 17:23 | PM.IMPN ---
Progress Note: A&P Assessment and Plan (1) Hypotension: Code(s): I95.9 - Hypotension, unspecified Status: Acute (2) Hypoglycemia: Code(s): E16.2 - Hypoglycemia, unspecified Status: Acute (3) Atrial fibrillation and flutter: Code(s): I48.91 - Unspecified atrial fibrillation; I48.92 - Unspecified atrial flutter Status: Acute (4) Midline cystocele: Code(s): N81.11 - Cystocele, midline Status: Acute (5) Vaginal vault prolapse: Code(s): N81.9 - Female genital prolapse, unspecified Status: Acute (6) Hydroureteronephrosis: Code(s): N13.30 - Unspecified hydronephrosis Status: Acute (7) Contusion of left hip: Code(s): S70.02XA - Contusion of left hip, initial encounter Status: Acute (8) Multiple falls: Code(s): R29.6 - Repeated falls Status: Acute (9) Abnormal urinalysis: Code(s): R82.90 - Unspecified abnormal findings in urine Status: Acute (10) Type 2 diabetes mellitus: Code(s): E11.9 - Type 2 diabetes mellitus without complications Status: Acute (11) Chronic kidney disease, stage 3: Code(s): N18.30 - Chronic kidney disease, stage 3 unspecified Status: Acute (12) Obstructive sleep apnea on CPAP: Code(s): G47.33 - Obstructive sleep apnea (adult) (pediatric) Status: Acute (13) Benign essential hypertension: Code(s): I10 - Essential (primary) hypertension Status: Acute Plan The patient presented to the emergency department for evaluation after 2 falls today as detailed in HPI. Labs, imaging, EKG, and all reports were personally reviewed. She ambulates with a cane in historically has not had issues with falls. I wonder if perhaps her falls were caused by the hypoglycemia however she reports that she was not feeling symptoms of such. She is currently on a dextrose drip with frequent Accu-Cheks. Metformin and glimepiride are on hold. She has a good size hematoma on the left lateral hip from the fall and apixaban will be held for now. She will need PT/OT evaluation once feeling better and medically cleared. Hydroureteronephrosis was noted on CT scan which may be related to her bladder prolapse and urology has been consulted for recommendations. Urine does show greater than 50 WBC and 4+ bacteria however occasional squamous cells are also noted. As her WBC count is elevated she has been started on ceftriaxone, pending urine culture. She is in a sinus rhythm currently with occasional ectopy. Continue amiodarone. Blood pressures were reviewed and they are stable. Her kidney function is stable on review of previous labs. Her home medications will be reviewed and resumed as appropriate. Findings and treatment plan were discussed with the patient. Questions were solicited and answered to satisfaction. The patient's medical management will be taken over by the hospitalist team in a.m. 02/07/24 -white count is normal. Glucose better controlled. She is not eating much. Will add Ensure. Urology has been consulted and appreciate their input. Continue Rocephin for UTI. Will stop IV fluids with dextrose given the elevated glucose now. Start PT and OT. 02/08/24 - Patietn with uncontrolled rate with activity related to being off of her metoprolol. UA noted but UCx negative so will stop abx. She is not eating much still. She is on a regular diet with dietary supplements. Glucose remains normal off of her home anti-hyperglycemic meds. Check cortisol and TSH. Add midodrine and resume low dose metoprolol. DVT prophylaxis -SCDs Code status -full Subjective Date/time seen: 02/08/24 17:23 Interval history: 78-year-old female with hypertension, atrial fibrillation and flutter on chronic anticoagulation, type 2 diabetes mellitus, chronic kidney disease stage 3, and gastroesophageal reflux disease who presented to the emergency department via EMS from home for evaluation of multiple falls th
[2024-02-08] MEDS: MIDODRINE HCL 2.5 MG TABLET 5 MG PO (18:31)
[2024-02-08] MEDS: METOPROLOL TARTRATE 12.5 MG TABLET PO (20:11)
[2024-02-08 20:12] LABS: Glucose Point of Care 177 mg/dl (65-105)
[2024-02-09] VITALS (12 sets, daily range): BP systolic 106–142; BP diastolic 40–54; PULSE 70–98; RESP 16–24; TEMP 36.4–37.1; O2SAT 94–98; BMI 22.4
[2024-02-09 05:14] LABS: Anion Gap 5 mmol/L (4-12); Blood Urea Nitrogen 29 mg/dL (7-17); Calcium 9.1 mg/dL (8.4-10.2); Carbon Dioxide 33 mmol/L (22-30); Chloride 100 mmol/L (98-107); Estimated CRCL calculation 24 ml/min; Estimated Glomerular Filt Rate 39; Glucose 93 mg/dL (65-110); Potassium 5.5 mmol/L (3.4-5.0); Sodium 138 mmol/L (137-145)
[2024-02-09 06:48] LABS: Glucose Point of Care 93 mg/dl (65-105)
[2024-02-09 08:13] LABS: Glucose Point of Care 97 mg/dl (65-105)
[2024-02-09 08:27] LABS: Potassium 4.5 mmol/L (3.4-5.0)
[2024-02-09] MEDS: AMIODARONE HCL 200 MG TABLET BY MOUTH (08:44)
[2024-02-09] MEDS: CHOLECALCIFEROL 1,000 UNITS TABLET 2000 UNITS BY MOUTH (08:44)
[2024-02-09] MEDS: ATORVASTATIN 40 MG TABLET BY MOUTH (08:44)
[2024-02-09] MEDS: FOLIC ACID 1 MG TABLET BY MOUTH (08:44)
[2024-02-09] MEDS: PANTOPRAZOLE 40 MG TABLET BY MOUTH (08:44)
[2024-02-09] MEDS: MAGNESIUM OXIDE 400 MG TABLET PO (08:44)
[2024-02-09] MEDS: METOPROLOL TARTRATE 12.5 MG TABLET PO (08:44)
[2024-02-09] MEDS: CYANOCOBALAMIN 1,000 MCG TABLET 1000 MCG BY MOUTH (08:44)
[2024-02-09] MEDS: OMEGA 3 POLYUNSAT FATTY ACIDS 1 GM CAP 2 GM PO (08:45)
[2024-02-09 12:45] LABS: Glucose Point of Care 144 mg/dl (65-105)
--- NOTE | 2024-02-09 16:12 | PM.DS ---
DS: Admitting Diagnosis Discharge Date 02/09/24 Admitting Diagnosis Falls DS: Discharge Diagnosis Discharge Diagnosis (1) Hypotension: Code(s): I95.9 - Hypotension, unspecified Status: Acute (2) Hypoglycemia: Code(s): E16.2 - Hypoglycemia, unspecified Status: Acute (3) Atrial fibrillation and flutter: Code(s): I48.91 - Unspecified atrial fibrillation; I48.92 - Unspecified atrial flutter Status: Acute (4) Midline cystocele: Code(s): N81.11 - Cystocele, midline Status: Acute (5) Vaginal vault prolapse: Code(s): N81.9 - Female genital prolapse, unspecified Status: Acute (6) Hydroureteronephrosis: Code(s): N13.30 - Unspecified hydronephrosis Status: Acute (7) Contusion of left hip: Code(s): S70.02XA - Contusion of left hip, initial encounter Status: Acute (8) Multiple falls: Code(s): R29.6 - Repeated falls Status: Acute (9) Abnormal urinalysis: Code(s): R82.90 - Unspecified abnormal findings in urine Status: Acute (10) Type 2 diabetes mellitus: Code(s): E11.9 - Type 2 diabetes mellitus without complications Status: Acute (11) Chronic kidney disease, stage 3: Code(s): N18.30 - Chronic kidney disease, stage 3 unspecified Status: Acute (12) Obstructive sleep apnea on CPAP: Code(s): G47.33 - Obstructive sleep apnea (adult) (pediatric) Status: Acute (13) Benign essential hypertension: Code(s): I10 - Essential (primary) hypertension Status: Acute DS: Summary Hospital Course Reason for hospitalization: 78-year-old female with hypertension, atrial fibrillation and flutter on chronic anticoagulation, type 2 diabetes mellitus, chronic kidney disease stage 3, and gastroesophageal reflux disease who presented to the emergency department via EMS from home for evaluation of multiple falls this morning and found to be hypoglycemic and hypotensive. Please see H&P for details Hospital Course: The patient presented to the emergency department for evaluation after 2 falls. She ambulates with a cane normally and has not had issues with falls. She was noted to have hypoglycemia treated with a dextrose drip with frequent Accu-Cheks. Metformin and glimepiride were held. Head CT showing normal aging brain but no acute findings. CT Abd/pelvis showing subcutaneous contusion and small hematoma at the lateral left pelvis. No acute fracture or evident traumatic vascular or visceral organ injury in the abdomen or pelvis. She also had moderate bilateral hydroureteronephrosis likely related to pelvic floor relaxation and extrinsic compression of the distal ureters as they extend to the bladder which is completely displaced caudal to the pubococcygeal line. Urology was consulted. UA noted but UCx was negative. Ceftriaxone started but stopped after culture returned negative. EKG showing AFlutter and nonspecific ST-T wave changes. Her blood pressure became soft and metoprolol held. Blood pressure did improve and heart rate remained stable until she was active causing tachycardia. She was started on lower dose metoprolol which she tolerated well. WBC was elevated on admission but normalized and probably stress response. Glucose better controlled and was weaned off IV dextrose fluids. She was not eating much so supplements added. Urology recommended patient reconsider surgery for her prolapse. She worked with PT and OT and has been up walking in the halls without symptoms. Her heart rate has remained stable. Cortisol and TSH levels okay. She did well and was able to be discharged on 02/09/24 Status at Discharge Cognitive/behavioral status at discharge: stable Time Spent with Patient Time attestation: Total time spent providing and/or coordinating discharge services: 36 minutes Time spent: Greater than 30 minutes Exam Narrative: AF 98.2 141/51 70 24 98% ra Gen - NARD Chest -
== END 2024-02-09 17:45 | disposition home health service (06) | DRG 315 ==
LOC: ANHED 17:16 → ANHIMU 17:53
PROVIDERS: Physician Assistant; Admitting Provider Internal Medicine; Emergency Provider Family Medicine; PCP Internal Medicine; Visit Provider Internal Medicine
DX: I95.9 Hypotension, unspecified (principal); I48.19 Other persistent atrial fibrillation; I48.92 Unspecified atrial flutter; N13.30 Unspecified hydronephrosis; E11.649 Type 2 diabetes mellitus with hypoglycemia without coma; I25.10 Atherosclerotic heart disease of native coronary artery without angina pectoris; I12.9 Hypertensive chronic kidney disease with stage 1 through stage 4 chronic kidney disease, or unspecified chronic kidney disease; N18.30 Chronic kidney disease, stage 3 unspecified; D50.9 Iron deficiency anemia, unspecified; E11.319 Type 2 diabetes mellitus with unspecified diabetic retinopathy without macular edema; E11.22 Type 2 diabetes mellitus with diabetic chronic kidney disease; E55.9 Vitamin D deficiency, unspecified; E78.2 Mixed hyperlipidemia; S70.02XA Contusion of left hip, initial encounter; W01.0XXA Fall on same level from slipping, tripping and stumbling without subsequent striking against object, initial encounter; N81.11 Cystocele, midline; R82.90 Unspecified abnormal findings in urine; K21.9 Gastro-esophageal reflux disease without esophagitis; G47.33 Obstructive sleep apnea (adult) (pediatric); R00.0 Tachycardia, unspecified; R29.6 Repeated falls; M10.9 Gout, unspecified; Z79.01 Long term (current) use of anticoagulants; Z95.0 Presence of cardiac pacemaker; Z80.0 Family history of malignant neoplasm of digestive organs; Z86.711 Personal history of pulmonary embolism; Z79.899 Other long term (current) drug therapy
CPT/HCPCS: 36415; 70450; 71101; 74176; 80048; 80053; 80069; 80076; 81001; 82533; 82948; 83036; 83735; 84132; 84443; 85025; 87086; 93005; 96366; 96367; 96374; 96375; 97110; 97161; 97165; 97530; 99285; A9270; G0378; J0696; J1815; J2405; J7030

== ENCOUNTER 2024-02-27 11:46 | Outpatient (CLI) | payer MEDICARE, SELFPAY ==
[2024-02-27 12:32] LABS: Anion Gap 10 mmol/L (4-12); Blood Urea Nitrogen 32 mg/dL (7-17); Calcium 9.9 mg/dL (8.4-10.2); Carbon Dioxide 29 mmol/L (22-30); Chloride 98 mmol/L (98-107); Estimated Glomerular Filt Rate 39; Glucose 356 mg/dL (65-110); Potassium 5.3 mmol/L (3.4-5.0); Sodium 137 mmol/L (137-145)
== END 2024-02-27 11:47 | disposition home or self-care (01) ==
LOC: ANHLAB 11:52
PROVIDERS: PCP Internal Medicine; Visit Provider Internal Medicine
DX: I10 Essential (primary) hypertension (principal)
CPT/HCPCS: 36415; 80048

== ENCOUNTER 2024-04-10 14:57 | Outpatient (CLI) | payer MEDICARE, SELFPAY ==
[2024-04-10 16:44] LABS: Alanine Aminotransferase 15 U/L (6-35); Albumin Level 4.4 g/dL (3.5-5.1); Alkaline Phosphatase 107 U/L (38-126); Anion Gap 13 mmol/L (4-12); Aspartate Amino Transferase 19 U/L (14-36); Bilirubin,Total 1.1 mg/dL (0.2-1.3); Blood Urea Nitrogen 39 mg/dL (7-17); Calcium 9.9 mg/dL (8.4-10.2); Carbon Dioxide 26 mmol/L (22-30); Chloride 96 mmol/L (98-107); Cholesterol 183 mg/dL (0-200); Estimated Glomerular Filt Rate 43; Glucose 365 mg/dL (65-110); HDL Direct 72 mg/dL; Potassium 4.6 mmol/L (3.4-5.0); Sodium 135 mmol/L (137-145); Triglycerides 143 mg/dL (<150)
[2024-04-10 16:55] LABS: LDL Cholesterol Direct 88 mg/dL
[2024-04-10 17:12] LABS: Thyroid Stimulating Hormone 0.812 uIU/mL (0.465-4.680)
[2024-04-10 19:20] LABS: Free T4 Free Thyroxine 2.05 ng/mL (0.78-2.19)
[2024-04-10 20:54] LABS: Hemoglobin A1C 11.6 % (<5.7)
== END 2024-04-10 14:58 | disposition home or self-care (01) ==
LOC: ANHLAB 15:02
PROVIDERS: PCP Internal Medicine; Visit Provider Internal Medicine
DX: I12.9 Hypertensive chronic kidney disease with stage 1 through stage 4 chronic kidney disease, or unspecified chronic kidney disease (principal); N18.30 Chronic kidney disease, stage 3 unspecified; E11.9 Type 2 diabetes mellitus without complications
CPT/HCPCS: 36415; 80053; 80061; 83036; 84439; 84443

== ENCOUNTER 2025-01-08 17:39 | Inpatient (IN) | payer MEDICARE, SELFPAY ==
[2025-01-08] VITALS (9 sets, daily range): BP systolic 74–118; BP diastolic 46–96; PULSE 68–84; RESP 13–18; TEMP 36.4; O2SAT 94–100
--- NOTE | ~2025-01-08 | US_ITS ---
US renal BI Ordering provider: Ricarda Encarnacion APRN History: . RENETTA, hx hydronephrosis . Comparison: None. Technique: Ultrasound bilateral kidneys. Findings: RIGHT KIDNEY: Measures 11x 5.5x 5.3 cm in length which is normal in size. No renal cysts. No renal ma ss or visualized echogenic stones. Otherwise, normal echotexture and contour. Severe hydronephrosis. Normal renal cortical thickness. LEFT KIDNEY: Measures 9.4x 5.6x 4.7 cm in length which is normal in size. No renal cysts. No renal ma ss or visualized echogenic stones. Otherwise, normal echotexture and contour. Severe hydronephrosis. Normal renal cortical thickness. BLADDER: Wall thickness is 0.5 cm. Large amount of echogenic material seen. Ureteral jets were not se en bilaterally. IMPRESSION: Bilateral severe hydronephrotic changes. Echogenic material in the urinary bladder which may be blood or due to infection. Further evaluation advised. Thickened wall of the urinary bladder which may indicate cystitis. Reviewed, dictated and finalized at location A. IMPRESSION: Bilateral severe hydronephrotic changes. Echogenic material in the urinary bladder which may be blood or due to infectio n. Further evaluation advised. Thickened wall of the urinary bladder which may indicate cystitis.
--- NOTE | ~2025-01-08 | XR_ITS ---
CHEST RADIOGRAPH CLINICAL HISTORY: WEAKNESS . COMPARISON: 02/07/2024 TECHNIQUE: Single portable view of the chest. FINDINGS The left mid lung is partially obscured due to pacemaker generator. Wires project over the right atrium and right ventricle. The remainder of the cardiomediastinal silhouette is otherwise unremarkable. Calcified granuloma projects over the right lower lobe. Increased interstitial markings are identified bilaterally, findings suggesting mild pulmonary vascul ar congestion. The lungs are otherwise clear. IMPRESSION: Mild pulmonary vascular congestion, without focal infiltrate or effusion. Reviewed, dictated and finalized at location A.
--- NOTE | ~2025-01-08 | XR_ITS ---
EXAMINATION: XR chest 1V portable Exam Date/Time: 01/18/2025 12:30 CDT HISTORY: new oxygen requirement Comparison: 01/08/2025. RESULT: Lines, tubes, and devices: Left chest pacer with intact leads. Lungs and pleura: Segmental right lower airspace disease. Streaky left upper lung opacities. Streaky and patchy opacities in the right upper lung. Mild bilateral costophrenic angle blunting. Moderate d iffuse reticular opacities. Senescent/emphysematous change. Calcified granuloma in the right lower jason ng. Cardiomediastinal silhouette: Stable. Other: No acute osseous or upper abdominal finding. IMPRESSION: Segmental right lower lung and subsegmental bilateral upper lung atelectasis/consolidation. Moderate interstitial edema. Small bilateral pleural effusions. Reviewed, dictated and finalized at location K. IMPRESSION: Segmental right lower lung and subsegmental bilateral upper lung atelectasis/co nsolidation. Moderate interstitial edema. Small bilateral pleural effusions.
--- OUTSIDE RECORDS SUMMARY | 2025-01-08 17:51 | XMS_ITS | Clinical Summary ---
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 Dyehouse Worker Name Role Phone Bear Horan MD Primary Care Provider [phone] Allergies Active Allergy Reactions Criticality Noted Date Comments Iodinated Contrast Media Hives Medium 10/22/2023 Propoxyphene Nausea only Low 09/16/2014 Sulfa (Sulfonamide Antibiotics) Medications atorvastatin (LIPITOR) 40 mg tablet Take 1 tablet (40 mg total) by mouth daily Active cholecalciferol (VITAMIN D-3) 2000 unit tablet Take 1 tablet (2,000 Units total) by mouth daily Active cyanocobalamin (Vitamin B-12) 1,000 mcg sublingual tablet Take 1 tablet (1,000 mcg total) by mouth daily Active folic acid (FOLVITE) 1 mg tablet Take 1 tablet (1,000 mcg total) by mouth daily Active furosemide (LASIX) 20 mg tablet Take 1 tablet (20 mg total) by mouth every other day Active lisinopriL (PRINIVIL,ZESTRI L) 5 mg tablet Take 1 tablet (5 mg total) by mouth daily Active metFORMIN XR (GLUCOPHAGE XR) 500 mg 24 hr tablet Take 1 tablet (500 mg total) by mouth 2 (two) times a day Active pantoprazole DR (PROTONIX) 40 mg EC tablet Take 1 tablet (40 mg total) by mouth every morning Active magnesium oxide (MAG-OX) 400 mg (241.3 mg elemental magnesium) tablet Take 1 tablet (400 mg total) by mouth 2 (two) times a day 3 Active apixaban (Eliquis) 5 mg tablet Take 0.5 tablets (2.5 mg total) by mouth 2 (two) times a day 4 Active ferrous fumarate 325 mg (106 mg iron) tablet Take 1 tablet (325 mg total) by mouth daily with breakfast Active fish ova-oxwbf-3-vit C-vit E 2,000-650-12 mg/2.5 gram emulsion in packet Take by mouth Active metoprolol tartrate (LOPRESSOR) 25 mg immediate release tablet Take 0.5 tablets (12.5 mg total) by mouth 2 (two) times a day 4 Active amiodarone (PACERONE) 200 mg tabletIndication s:Essential (primary) hypertension,Atr ial fibrillation and flutter (HCC),Hypertensi on associated with diabetes (HCC),Chronic systolic CHF (congestive heart failure) (HCC) Take 1 tablet (200 mg total) by mouth daily 30 tablet 3 5 12/28/19 26 Active amiodarone (PACERONE) 200 mg tabletIndication s:Essential (primary) hypertension,Atr ial fibrillation and flutter (HCC),Hypertensi on associated with diabetes (HCC),Chronic systolic CHF (congestive heart failure) (HCC) Take 1 tablet (200 mg total) by mouth daily 30 tablet 11 4 12/28/19 25 Discontin ued(Reord er) Active Problems Problem Noted Date Diagnosed Date Chronic anticoagulation 01/09/2024 JOSUE (obstructive sleep apnea) 01/09/2024 Dizziness 10/22/2023 Assessment & Plan (10/23/2023 2:00 PM CDT): Pro-dromal: patient recalled position change, nausea, and vomiting, but denied stress, heat exposure, noxious stimuli, micturition, and defecation Post-dromal: patient noted to have fatigue, but denied urinary incontinence and fecal incontinence Neurological exam: unremarkable Cardiac exam: irregular rhythm, no murmur Medications that could have contributed include: metoprolol, diltiazem Labs: NTproBNP >7000, electrolytes okay EKG: Afib with occasional PVCs TTE: 03/2023: Abnormal septal motion consistent with pacemaker or ICD implant , elevated LVEDP, LVEF 50% , non-specific thickening of the mitral valve leaflets, mild to moderate mitral valve regurgitation, right ventricular systolic pressure is consistent with mild pulmonary hypertension. Imaging: Per OSH, CTH WO Contrast with NAIA. CXR with very mild bibasilar atelectasis. Differential diagnosis includes: dysrhythmia, hypovolemic orthostatic hypotension, idiopathic, or medication-related syncope. Unlikely that dysrhythmia is causing these episodes as she has had Afib/aflutter with intermittent RVR since February per most recent pacemaker interrogation. Given that her symptoms have occurred following in the same pattern following taking her diltiazem in the setting of having low PO fluid intake, it is likely that her symptoms are secondary to hypovolemic orthostatic hypotension and/or medication-related. Plan: -orthostatic vital signs -PT evaluation -fall precautions -telemetry Hyperlipidemia associated with type 2 diabetes rina knowles 10/22/2023 Assessment & Plan (10/22/2023 2:47 PM CDT): Home meds: atorvastatin 40 mg daily. -continue atorvastatin Elevated bilirubin 10/22/2023 Assessment & Plan (10/23/2023 2:05 PM CDT): Initial labs on 10/22/2023 notable for elevated total Bilirubin 1.7. Albumin 4.2; Alk phos 113; ALT 12; AST 20. Repeat labs later that day revealed normalization with total bilirubin 1.2; direct 0.3. Albumin, Alk phos, ALT and AST remained wnl. Cardiac pacemaker in situ 10/22/2023 Overview (01/12/2024): Biotronik Edora Dual Pacemaker. Dx; Tachy/Bob, Afib/Aflutter. DOI 01/03/2018-elsewhere. Biotronik remote. Assessment & Plan (10/23/2023 2:05 PM CDT): Type: PPM; DDD No. of leads: 2 Yardage Control Clerk: Biotronik via Pacemaker Annemarie Last interrogation on file: 10/23/2023 - Showed high burden of Atrial flutter. Patient's heart rate has been in the 100s since February. Chronic systolic CHF (congestive heart failure) 12/23/2022 Assessment & Plan (10/23/2023 2:03 PM CDT): 03/2023: Abnormal septal motion consistent with pacemaker or ICD implant , elevated LVEDP, LVEF 50% , non-specific thickening of the mitral valve leaflets, mild to moderate mitral valve regurgitation, right ventricular systolic pressure is consistent with mild pulmonary hypertension. 10/22/2023: NT-proBNP 7,095 Home GDMT: lisinopril 5 mg daily, metoprolol tartrate 25 mg BID Plan -continue lisinopril. 10/22 increase metoprolol to 50 mg BID (see Atrial fibrillation and flutter for assessment). -10/21 furosemide 20 mg started due to concern for HF exacerbation. 10/22 exam showed no evidence of volume overload and creatinine increased from 0.97 -> 1.23. Decision was made to hold furosemide due to lack of clinical evidence of HF exacerbation. -telemetry -trend BMP, Mg -low Na diet Primary pulmonary hypertension 01/03/2020 Tricuspid regurgitation 01/03/2020 Iron deficiency anemia, unspecified 03/22/2019 Atrial fibrillation and flutter 09/16/2014 Assessment & Plan (10/23/2023 3:08 PM CDT): Home meds: apixaban 5 mg BID, metoprolol tartrate 25 mg BID, diltiazem 60 mg TID. -continue apixaban -10/22 increase metoprolol to 50 mg BID. Patient has been tachycardic to the 110- 130s while on the floor. Since we decided to discontinue diltiazem, we sought to better rate control her afib with RVR by increasing her metoprolol. -Discontinue diltiazem as it is counterproductive to treatment of her HFrEF. - Based off of pharmacy recommendations we decreased her Apixaban from 5mg BID to 2.5mg BID Diabetes mellitus 09/16/2014 Assessment & Plan (10/23/2023 2:04 PM CDT): 10/22/2023: Hgb A1C 7.4 Home meds: metformin 500 mg BID. -HOLD metformin, will continue on discharge -bee check SGLT2i is $500, so will not switch to SGLT2i -SSI Hypertension associated with diabetes 09/16/2014 Assessment & Plan (10/23/2023 2:04 PM CDT): Home meds: lisinopril 5 mg daily, metoprolol tartrate 25 mg BID, diltiazem 60 mg TID. - Continue lisinopril. 10/22 Increased metoprolol to 50 mg BID (see Atrial fibrillation and flutter for assessment). - Discontinued diltiazem as it is counterproductive to treatment of her HFrEF. Encounters Date Type Department Care Team Description 01/07/2025 Telephone [facility] [address] [place] [phone] Flavio Royal MD 12/27/2024 Telephone [facility] [address] [place] [phone] Flavio Royal MD Amiodarone refill 11/05/2024 9:45 AM CDT Ancillary Procedure [facility] [address] [place] [phone] Atrial fibrillation and flutter (HCC) [I48.91, I48.92] (Primary Dx); Cardiac pacemaker in situ; Tachy-bob syndrome (HCC) from Last 3 Months Surgical History Surgery Date Site/Laterality Comments INSERT / REPLACE / REMOVE PACEMAKER Medical History Medical History Date Comments Diabetes mellitus (HCC) Hyperlipidemia Hypertension Anemia Arthritis Family History Medical History Relation Name Comments Cancer Father Family history of malignant neoplasm - (Added by TW Conv) Cancer Mother Family history of malignant neoplasm - (Added by TW Conv) Diabetes Mother Family history of diabetes mellitus - (Added by TW Conv) Hypertension Mother Family history of hypertension - (Added by TW Conv) Relation Name Status Comments Father Mother Social History Tobacco Use Types Packs/Day Years Used Date Smoking Tobacco: Former Smokeless Tobacco: Never Tobacco Cessation:Counseling Given: Not Answered PHQ-2 Answer Date Recorded PHQ-2 Total Score (If total score is 3 or more points, staff should administer the PHQ-9) 0 10/22/2023 PHQ-9 Answer Date Recorded PHQ-9 Total Score 3 10/22/2023 Personal Safety Answer Date Recorded Have you ever been in or are you currently in a harmful physical or emotional relationship or is someone making you feel afraid or unsafe? 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 Gender Identity Not on file Sexual Orientation Not on file Obstetrics History Last Filed Vital Signs Vital Sign Reading Time Taken Comments Blood Pressure 140/62 02/23/2024 1:39 PM CDT Pulse 70 02/23/2024 1:39 PM CDT Temperature 36.6 C (97.9 F) 10/23/2023 3:18 PM CDT Respiratory Rate 18 10/23/2023 3:18 PM CDT Oxygen Saturation 95% 02/23/2024 1:13 PM CDT Inhaled Oxygen Concentration - - Weight 52.6 kg (116 lb) 02/23/2024 1:13 PM CDT Height 162.6 cm (5' 4) 02/23/2024 1:13 PM CDT Body Mass Index 19.91 02/23/2024 1:13 PM CDT Plan of Treatment Health Maintenance Due Date Last Done Comments Albumin Creatinine Ratio, Urine 1943 Osteoporosis Screening-Bone Density Scan 1943 Dilated Eye Exam 1943 Foot Exam 1943 DTaP/Tdap/Td Vaccine (1 - Tdap) 1954 Hepatitis B Screening 1961 Pneumococcal vaccine 65+ (1 of 2 - PCV) 1962 Zoster Vaccine (1 of 2) 1993 Well Visit 65+ 2008 Covid-19 Vaccine (4 - 2023-2 5 season) 2024 07/15/2021, 10/26/2020, 10/05/2020 Hemoglobin A1C 04/22/2024 10/22/2023 Depression Screening 10/21/2024 10/22/2023, 10/22/19 24 eGFR 10/21/2024 10/22/2023, 10/22/2023 Fall Risk Assessment 10/22/2024 10/23/2023 Lipid Panel 11/21/2024 11/22/2023, 03/07/2023, 08/11/2014 Influenza Vaccine (Season Ended) 2025 05/31/2023, 05/13/2022, 05/11/2021, Additional history exists Procedures Procedure Name Priority Date/Time Associated Diagnosis Comments DEVICE CHECK - REMOTE Routine 11/05/2024 9:35 AM CDT 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 Dx; Tachy/Bob, Afib/Aflutter. DOI 01/03/2018-elsewhere. Biotronik remote. Routine DDD Pacemaker Remote. Transmission attached. Battery status: Ok, 40% remaining battery life to CONSTANZA. Stable lead impedances, pacing and sensing thresholds. Presenting rhythm: AP VS. AP-88%, MANAGER OF IT-3%. No AT/AF episodes noted. No Ventricular high rate episodes detected. Medications: Eliquis, Pacerone, Lopressor. See scanned report. Office pacemaker follow up: 02/05/2025. Biotronik remote f/u due in 6 months. Deborah Kothari RN Flavio Royal MD [facility] Final Result * Lipid panel (11/22/2023 11:55 AM CDT) SCRIBED Cholesterol, Total 156 0 - 200 EXTERNAL LAB SCRIBED HDL 58 40 - 100 EXTERNAL LAB SCRIBED LDL 83 0 - 100 EXTERNAL LAB SCRIBED Triglycerides 131 0 - 150 EXTERNAL LAB Blood Historical Provider LAB BLOOD ORDERABLES Edit ed Result - Final EXTERNAL LAB * (ABNORMAL) eGFR (10/22/2023 9:05 AM CDT) eGFR 59(L) >=60 mL/min/1. 73 m2 Comment: Interpretive Data Reference Interval Normal >/= 90 mL/min/1.73m2 Mildly decreased* 60 - 89 mL/min/1.73m2 Mildly to moderately decreased 45 - 59 mL/min/1.73m2 Moderately to severely decreased 30 - 44 mL/min/1.73m2 Severely decreased 15 - 29 mL/min/1.73m2 Kidney Failure < 15 mL/min/1.73m2 *Relative to young adult level Estimated glomerular filtration rate is determined by the 2020 CKD-EPI equation recommended by the National Kidney Foundation (A Unifying Approach to GFR Estimation: Recommendations of the NKF-ASK Task Force on Reassessing the Inclusion of Race in Diagnosing Kidney Disease, JASN 2020). The CKD-EPI equation should not be used for patients with unstable renal function and has not been validated in children and those over 70. Current interpretive data was last reviewed 2021. Blood 10/22/2023 9:05 AM CDT 10/22/2023 9:45 AM CDT us Richard Newsome MD LAB BLOOD ORDERABLES Final Resul t [facility] Department [place] [address] * (ABNORMAL) Hemoglobin A1c (10/22/2023 9:05 AM CDT) Hgb A1C 7.4(H) 4.0 - 5.6 % Estimated Average Glucose 166 mg/dL [facility] Comment: The ADA recommends reporting an estimated Average Glucose (eAG) with all Hemoglobin A1c results using the equation derived from a study of 507 normal and diabetic adults. Minority populations were underrepresented and children were not included. (Diabetes Care 2020; 43(S1): S66-S76). The eAG is not equivalent to a fasting glucose. Blood 10/22/2023 9:05 AM CDT 10/22/2023 9:34 AM CDT us Richard Newsome MD LAB BLOOD ORDERABLES Final Resul t [facility] Department [place] [address] from Last 3 Months or Most Recently Relevant to Health Maintenance Insurance MEDICARE [facility] [id number] [facility] MEDICARE SUPPLEMENT Advance Directives For more information, please contact: [phone] * Full Code (Latest Code Status on File) Date Activated Date Inactivated Comments 10/22/2023 8:14 AM 10/23/2023 9:30 PM Care Teams Dyehouse Worker Relationship Specialty Start Date End Date Bear Horan MD [address] [facility] [address] [place] [address] PCP - General Internal Medicine 07/13/23
--- OUTSIDE RECORDS SUMMARY | 2025-01-08 17:51 | XMS_ITS | CONTINUITY OF CARE DOCUMENT ---
Author Name caesar maynard Address Unknown Organization [facility] Address [address] [place] [address] Phone [phone] Care Team Providers Care Continuous Improvement Lead Name Role Phone Jose OLIVARES, Timo Hess Unavailable HARITHA OLIVARES, MARCEL Unavailable [phone] HARITHA OLIVARES, MARCEL Unavailable PROBLEMS Condition Status Date Provider Notes Shortness of breath (SOB) active Charlie Verdugo DualPacemaker (MRI safe) - Biotronik active Dimitri Ortiz Other symptoms involving cardiovascular system active Joe Barnhart MD Atrial fib active Joe Barnhart MD Diabetes mellitus active Joe Barnhart MD HTN essential active Joe Barnhart MD Hyperlipidemia active ? Joe Barnhart MD Hypertension active ? Joe Barnhart MD HTN essential active Timo Garcia MD Atrial fib paroxysmal active Timo moreno MD Fatigue active Timo Garcia MD Abnormal echocardiogram-NOS active Timo Garcia MD Fatigue active Timo Garcia MD Preop cardiovasc. examination completed 20 09/05/16 - Josef Kyte Dizziness active Essence Munoz Anemia iron deficiency active Timo grant MD Pulmonary HTN idiopathic active Timo mitchell MD Tricuspid regurgitation active Timo swann MD CHF - systolic active Timo Garcia MD Valvular heart disease active Kiran bailey ENCOUNTERS Date Type Provider Location Encounter Diag nosis - In-person encounter Office Visit Timo Garcia MD [facility] - In-person encounter Office Visit Timo Garcia MD [facility] Valvular heart disease - In-person encounter Office Visit Timo Garcia MD [facility] CHF - systolic - In-person encounter Office Visit Timo Garcia MD [facility] - In-person encounter Office Visit Timo Garcia MD [facility] - In-person encounter Office Visit Timo Garcia MD [facility] - In-person encounter Office Visit Timo Garcia MD [facility] - In-person encounter Office Visit Timo Garcia MD [facility] - In-person encounter Office Visit Timo Garcia MD [facility] Pulmonary HTN idiopathicTricuspid regurgitation - In-person encounter Office Visit Timo Garcia MD [facility] - In-person encounter Office Visit Timo Garcia MD [facility] Anemia iron deficiency - In-person encounter Office Visit Timo Garcia MD [facility] - In-person encounter Office Visit Timo Garcia MD [facility] - In-person encounter Office Visit Hernán Oliva MD [facility] - In-person encounter Office Visit Hernán Oliva MD [facility] Preop cardiovasc. examination - In-person encounter Office Visit Phyllis Ramos MD [facility] - In-person encounter Office Visit Timo Garcia MD [facility] - In-person encounter Office Visit Timo Garcia MD [facility] Dizziness - In-person encounter Office Visit Timo Garcia MD [facility] - In-person encounter Office Visit Timo Garcia MD [facility] - In-person encounter Office Visit Timo Garcia MD [facility] Abnormal echocardiogram-NOSFatigue - In-person encounter Office Visit Timo Garcia MD [facility] - In-person encounter Office Visit Timo Garcia MD [facility] Fatigue - In-person encounter Office Visit Timo Garcia MD [facility] - In-person encounter Office Visit Timo Garcia MD [facility] HTN essentialAtrial fib paroxysmal - In-person encounter Office Visit Joe Barnhart MD [facility] Other symptoms involving cardiovascular systemAtrial fibDiabetes mellitusHTN essentialHyperlipidemiaHypertension VITAL SIGNS Date Observation Value Provider Body Mass Index (Ratio) 19.30 kg/m2 Nick as Bar blood pressure, diastolic 67 mm[Hg] Li nkLogic blood pressure, systolic 120 mm[Hg] Kalpana kLogic weight E&M 116 [lb_av] Britney Schaefer respiratory rate E&M 16 /min Britney Villatoro iller pulse rate 70 /min Britney Schaefer blood pressure, cuff size regular Fa cornel Schaefer blood pressure, diastolic 67 mm[Hg] Darrion Schaefer blood pressure, systolic 120 mm[Hg] Dickson christensen Silvano oxygen saturation, oximetry 94 % Britney Schaefer height E&M 65 [in_i] Britney Schaefer Body Mass Index (Ratio) 19.80 kg/m2 Marissa Malone blood pressure, diastolic 60 mm[Hg] Li nkLogic blood pressure, systolic 106 mm[Hg] Kalpana kLogic weight E&M 119 [lb_av] Juana Reynoso pulse rate 70 /min Juanareginaldo Reynoso blood pressure, diastolic 60 mm[Hg] Sh paula Reynoso blood pressure, systolic 106 mm[Hg] She rry Angeles respiratory rate E&M 20 /min Juana Reynoso oxygen saturation, oximetry 96 % Juana Reynoso blood pressure, cuff size regular paula Reynoso height E&M 65 [in_i] Juana Reynoso Body Mass Index (Ratio) 19.63 kg/m2 Mariusz Garcia MD blood pressure, diastolic -1 mm[Hg] Li nkLogic blood pressure, systolic 120 mm[Hg] Kalpana kLogic blood pressure, diastolic -1 mm[Hg] Li nkLog blood pressure, systolic 120 mm[Hg] Kalpana kLogic blood pressure, diastolic 62 mm[Hg] paula Reynoso blood pressure, systolic 120 mm[Hg] She rry [place] pulse rate 70 /min Juana Reynoso respiratory rate E&M 18 /min Juana Reynoso oxygen saturation, oximetry 96 % Juanareginaldo Reynoso weight E&M 118 [lb_av] Juana Reynoso blood pressure, cuff size regular paula Reynoso height E&M 65 [in_i] Juana Reynoso Body Mass Index (Ratio) 19.80 kg/m2 Dakota Pelayo blood pressure, diastolic 62 mm[Hg] An gabby Sabino blood pressure, systolic 114 mm[Hg] Any betito Sabino pulse rate 69 /min Marsha Sabino oxygen saturation, oximetry 98 % Marsha Sabino blood pressure, cuff size large An gabby Sabino weight E&M 119 [lb_av] Marsha Sabino height E&M 65 [in_i] Marsha Sabino Body Mass Index (Ratio) 19.13 kg/m2 Mariusz Garcia MD blood pressure, diastolic 71 mm[Hg] Zenia [facility] blood pressure, systolic 113 mm[Hg] Kalpana [facility] blood pressure, diastolic 71 mm[Hg] [facility] blood pressure, systolic 113 mm[Hg] Kalpana [facility] pulse rate 114 /min Gen wilkerson blood pressure, cuff size regular Ch ristopher Jessup blood pressure, diastolic 71 mm[Hg] Ch ristopher Jessup blood pressure, systolic 113 mm[Hg] [facility], oximetry 98 % [facility] weight E&M 115 [lb_av] Gen wilkerson height E&M 65 [in_i] Gen wilkerson Body Mass Index (Ratio) 21.13 kg/m2 Mariusz Garcia MD blood pressure, diastolic 58 mm[Hg] Li nkLogcory blood pressure, systolic 109 mm[Hg] Kalpana [facility] blood pressure, diastolic 58 mm[Hg] Ca therine Vaiden blood pressure, systolic 109 mm[Hg] Cat herine Remberto oxygen saturation, oximetry 97 % Saray Remberto respiratory rate E&M 16 /min Catheri ne Remberto pulse rate 75 /min Saray Vaiden weight E&M 127 [lb_av] Saray Remberto blood pressure, cuff size regular Ca therine Remberto height E&M 65 [in_i] Saray Vaiden Body Mass Index (Ratio) 21.80 kg/m2 Mariusz Garcia MD blood pressure, diastolic 69 mm[Hg] Rh onda Mervat blood pressure, systolic 126 mm[Hg] Rho ndbetito Crowell oxygen saturation, oximetry 96 % Deedee Crowell pulse rate 90 /min Deedee Crowell weight E&M 131 [lb_av] Deedeebetito Crowell respiratory rate E&M 18 /min Deedee Crowell blood pressure, resting Yes Britany Queen blood pressure, cuff size regular Rh onaxel Crowell height E&M 65 [in_i] Deedeeebtito Crowell Body Mass Index (Ratio) 21.63 kg/m2 Mariusz Garcia MD blood pressure, diastolic 60 mm[Hg] Zeina Bond blood pressure, systolic 102 mm[Hg] Ilana Bond oxygen saturation, oximetry 95 % Robin Bond respiratory rate E&M 16 /min Madai Bond pulse rate 84 /min Robin hendrix weight E&M 130 [lb_av] Robin Nghia ruma height E&M 65 [in_i] Robin hendrix Body Mass Index (Ratio) 21.63 kg/m2 Mariusz Garcia MD blood pressure, diastolic 74 mm[Hg] To keren Govea blood pressure, systolic 131 mm[Hg] Ton juan Govea oxygen saturation, oximetry 96 % Tonsha Govea weight E&M 130 [lb_av] Tonsha Govea respiratory rate E&M 16 /min Tonsha Govea pulse rate 71 /min Tonsha Govea height E&M 65 [in_i] Tonsha Govea temperature site temporal Meera Tank sley temperature E&M 97.5 [degF] Meera Tanks vaishnavi Body Mass Index (Ratio) 21.30 kg/m2 Mariusz Garcia MD oxygen saturation, oximetry 94 % Chastity Yecenia pulse rate 71 /min Chastity Yecenia blood pressure, diastolic 64 mm[Hg] Ch astity Yecenia blood pressure, systolic 130 mm[Hg] Betsy stity Yecenia respiratory rate E&M 16 /min Chastit y Yecenia weight E&M 128 [lb_av] Chastity Yecenia height E&M 65 [in_i] Chastity Yecenia Body Mass Index (Ratio) 21.46 kg/m2 Mariusz Garcia MD blood pressure, diastolic 66 mm[Hg] Er ica Ken-Sergio blood pressure, systolic 188 mm[Hg] Cinthia ag Rogers-Sergio oxygen saturation, oximetry 96 % Penny Rollins pulse rate 69 /min Penny Kne- Sergio weight E&M 129 [lb_av] Penny Ken- Sergio height E&M 65 [in_i] Penny Ken- Sergio Body Mass Index (Ratio) 21.80 kg/m2 Mariusz Garcia MD blood pressure, cuff size regular Ke rri Sugey blood pressure, diastolic 70 mm[Hg] Ke rri Sugey blood pressure, systolic 140 mm[Hg] Ker ri Sugey oxygen saturation, oximetry 96 % Soni Leighlissluanronal respiratory rate E&M 18 /min Soni Vick anishaundreaselvin pulse rate 70 /min Soni Sewell celinaer weight E&M 131 [lb_av] Soni Sewell lder height E&M 65 [in_i] Soni Sewell er Body Mass Index (Ratio) 22.36 kg/m2 Mariusz Garcia MD blood pressure, diastolic 63 mm[Hg] Zeina Bond blood pressure, systolic 110 mm[Hg] Ilana Bond oxygen saturation, oximetry 97 % Robin Bond respiratory rate E&M 18 /min Madai Bond pulse rate 77 /min Robin Agrawal yonihemant weight E&M 134.4 [lb_av] Robin mancinion height E&M 65 [in_i] Robin Agrawal yonion Body Mass Index (Ratio) 20.30 kg/m2 Willy Blue NP blood pressure, cuff size regular Cy ambrosio Lentz blood pressure, diastolic 60 mm[Hg] Cy ambrosio Lentz blood pressure, systolic 138 mm[Hg] Courtney Lentz oxygen saturation, oximetry 97 % Brielle Lentz respiratory rate E&M 16 /min Brielle Lentz pulse rate 71 /min Brielle Ivanbel l weight E&M 122 [lb_av] Brielle Campbel l height E&M 65 [in_i] Brielle Campbel l Body Mass Index (Ratio) 20.30 kg/m2 Primitivo Wilkins blood pressure, cuff size large Ke rri Gruenenfelder blood pressure, diastolic 80 mm[Hg] Ke rri Gruenenfelder blood pressure, systolic 130 mm[Hg] Kaur Lundelder oxygen saturation, oximetry 98 % Soni Lundelder respiratory rate E&M 20 /min Soni guptanfelder pulse rate 143 /min Soni Sewell er weight E&M 122 [lb_av] Soni Sewell er height E&M 65 [in_i] Soni Sewell [facility] Body Mass Index (Ratio) 19.63 kg/m2 Mariusz Garcia MD oxygen saturation, oximetry 96 % Kel [facility] blood pressure, diastolic 60 mm[Hg] Kiko Corderoadvanced care [facility] mex[facility]opaul blood pressure, systolic 140 mm[Hg] Cindy guillen [facility] pulse rate 57 /min [facility] weight E&M 118 [lb_av] [facility] respiratory rate E&M 16 /min [facility] height E&M 65 [in_i] [facility] Body Mass Index (Ratio) 35.34 kg/m2 Yessy Munoz blood pressure, diastolic 66 mm[Hg] Zeina Bond blood pressure, systolic 116 mm[Hg] Ilana Bond oxygen saturation, oximetry 96 % Robin Bond respiratory rate E&M 18 /min Madai Bond pulse rate 127 /min Robin hendrix weight E&M 212.4 [lb_av] Robin mishra height E&M 65 [in_i] Robin hendrix Body Mass Index (Ratio) 19.63 kg/m2 Mariusz Garcia MD blood pressure, diastolic 58 mm[Hg] Da radha Muñoz blood pressure, systolic 112 mm[Hg] Dac ia Toni oxygen saturation, oximetry 94 % Any Toni respiratory rate E&M 16 /min Any V oss pulse rate 63 /min Any Toni weight E&M 118 [lb_av] Any Toni height E&M 65 [in_i] Any Toni Body Mass Index (Ratio) 19.67 kg/m2 Mariusz Garcia MD blood pressure, resting Yes Liliya Quinonez Varun blood pressure, diastolic 55 mm[Hg] Zeina Cummingsjimena Bond blood pressure, systolic 129 mm[Hg] Ilana Washington Varun oxygen saturation, oximetry 98 % Robin Bond respiratory rate E&M 20 /min Madai agustin Bond pulse rate 65 /min Robin Agrawal ruma weight E&M 118.2 [lb_av] Robin Nascimento danica height E&M 65 [in_i] Robin Agrawal nshemant Body Mass Index (Ratio) 18.64 kg/m2 Mariusz Garcia MD blood pressure, diastolic 60 mm[Hg] Da radha Toni blood pressure, systolic 108 mm[Hg] Dac ia Toni oxygen saturation, oximetry 96 % Any Toni respiratory rate E&M 16 /min Any V oss pulse rate 72 /min Any Toni weight E&M 112 [lb_av] Any Toni height E&M 65 [in_i] Any Toni blood pressure, diastolic 60 mm[Hg] Dereje Mayes blood pressure, systolic 110 mm[Hg] Kaur Mayes pulse rate 73 /min Soni palumbo oxygen saturation, oximetry 96 % Soni Mayes respiratory rate E&M 16 /min Soni Vick kizzy Body Mass Index (Ratio) 18.47 kg/m2 Mo higuera Sugey weight E&M 111 [lb_av] Soni Tompkinsluanbill er blood pressure, diastolic 60 mm[Hg] Zeina Keagan Nascimentoenson blood pressure, systolic 148 mm[Hg] Ilana Felix Bond pulse rate 69 /min Robin Nascimentoe nson oxygen saturation, oximetry 96 % Robin Bond respiratory rate E&M 16 /min LiliyaGiuliana velez Bond Body Mass Index (Ratio) 18.80 kg/m2 Liliya Bond weight E&M 113 [lb_av] Robin Nascimentoe nson blood pressure, diastolic 76 mm[Hg] Zeina Keagan Bond blood pressure, systolic 161 mm[Hg] Ilana Felix Bond pulse rate 71 /min Robin Nascimentoe nson oxygen saturation, oximetry 97 % Robin Varun respiratory rate E&M 16 /min LiliyaGiuliana velez Bond Body Mass Index (Ratio) 18.34 kg/m2 Liliya Bond weight E&M 110.2 [lb_av] Robin Azam enson blood pressure, diastolic 80 mm[Hg] Zeina Keagan Nascimentoenson blood pressure, systolic 196 mm[Hg] Ilana Felix Nascimentoenson pulse rate 81 /min Robin Nghia nson oxygen saturation, oximetry 97 % Robin Nascimentoenson respiratory rate E&M 16 /min Madai Nascimentoenson Body Mass Index (Ratio) 18.97 kg/m2 Jennifer Bond weight E&M 114 [lb_av] Robin Nascimentoe nson Body Mass Index (Ratio) 21.63 kg/m2 Anea christina Brown blood pressure, diastolic, left arm 81 mm [Hg] Aneatris [facility] blood pressure, systolic, left arm 155 mm [Hg] Aneatris [facility] blood pressure, diastolic, right arm 82 m m[Hg] Aneatris [facility] blood pressure, systolic, right arm 166 m m[Hg] Aneatris [facility] blood pressure, diastolic 82 mm[Hg] An eatris [facility] blood pressure, systolic 166 mm[Hg] Ane atris [facility] pulse rate 89 /min Aneatris [facility] oxygen saturation, oximetry 98 % Aneatris [facility] respiratory rate E&M 18 /min Aneatri s [facility] weight E&M 130 [lb_av] Aneatris [facility] height E&M 65 [in_i] [facility] ALLERGIES Allergy Name Onset Date Reaction Criticality Status DARVON Low Criticality active SULFA Low Criticality active IVP DYE Low Criticality active RESULTS Date Observation Value Provider Reference Range Interpretation Location B-type natriuretic peptide 440 pg/mL LinkLogic <100 High alanine aminotransferase (SGPT), serum 11 1/L LinkLogic 6-29 Normal aspartate aminotransferase (SGOT), serum 13 1/L LinkLogic 10-35 Normal alkaline phosphatase, serum 105 1/L LinkLogic 37-153 Normal bilirubin, serum, total 1.0 mg/dL LinkLogic 0.2-1.2 Normal albumin/globulin ratio, serum 1.4 (calc) LinkLogic 1.0-2.5 Normal globulins, serum, total 3.0 G/DL (CALC) LinkLogic 1.9-3.7 Normal albumin, serum 4.2 g/dL LinkLogic 3.6-5.1 Normal protein, total, serum 7.2 g/dL LinkLogic 6.1-8.1 Normal calcium, serum 9.8 mg/dL LinkLogic 8.6-10.4 Normal carbon dioxide, venous blood 29 mmol/L LinkLogic 20-32 Normal chloride, serum 105 mmol/L Link[facility]ic 98-110 Normal potassium, serum 4.4 mmol/L LinkLogic 3.5-5.3 Normal sodium, serum 143 mmol/L LinkLogic 135-146 Normal urea nitrogen/creatinine ratio, serum 25 (calc) LinkLogic 6-22 High Estimated Glomerular Filtration Rate (calc) 53 mL/min/{1 .73_m2} LinkLogic > OR = 60 Low creatinine, serum 1.16 mg/dL LinkLogic 0.60-0.93 High urea nitrogen, blood 29 mg/dL LinkLogic 7-25 High blood glucose, random 150 mg/dL LinkLogic 65-99 High cholesterol, non-HDL, total 73 MG/DL (CALC) LinkLogic <130 Normal cholesterol/HDL ratio, serum, percent 2.3 (calc) LinkLogic <5.0 Normal LDL cholesterol, serum 56 MG/DL (CALC) LinkLogic Normal triglyceride, serum, fasting 83 mg/dL LinkLogic <150 Normal HDL cholesterol, serum 55 mg/dL LinkLogic > OR = 50 Normal cholesterol, serum 128 mg/dL LinkLogic <200 Normal magnesium, serum 2.1 mg/dL LinkLogic 1.6-2.3 prothrombin time (patient) 11.4 s LinkLogic 9.1-12.0 international normalized ratio (INR) 1.1 LinkLogic 0.8-1.2 calcium, serum 9.5 mg/dL LinkLogic 8.7-10.3 carbon dioxide, venous blood 25 mmol/L LinkLogic 20-29 chloride, serum 103 mmol/L LinkLogic 96-106 potassium, serum 4.7 mmol/L LinkLogic 3.5-5.2 sodium, serum 142 mmol/L LinkLogic 051-137 2539/07 /06 urea nitrogen/creatinine ratio, serum 22 LinkLogic 12-28 eGFR if 76 mL/min/{1 .73_m2} LinkLogic >59 eGFR if not 66 mL/min/{1 .73_m2} LinkLogic >59 creatinine, serum 0.87 mg/dL LinkLogic 0.57-1.00 urea nitrogen, blood 19 mg/dL LinkLogic 8-27 blood glucose, random 163 mg/dL LinkLogic 65-99 High coagulation managed by Eduardo Herron RN international normalized ratio (INR) 1.5 Any Toni Normal prothrombin time (patient) 17.4 s Any Toni coagulation managed by Trina Patino RN international normalized ratio (INR) 1.9 Soni Grjavineselvin Normal prothrombin time (patient) 22.7 s Soni Sugey international normalized ratio (INR) 1.6 Any Toni Normal prothrombin time (patient) 19.1 s Any Toni prothrombin time (patient) 51.1 s Kel Corbin international normalized ratio (INR) 4.3 Kel Corbin High coagulation managed by Iqra Vanessa international normalized ratio (INR) 2.9 Any Toni Normal prothrombin time (patient) 34.9 s Any Toni coagulation managed by Eduardo Herron RN international normalized ratio (INR) 2.4 Any Toni Normal prothrombin time (patient) 2.4 s Any Toni coagulation managed by Eduardo Herron RN international normalized ratio (INR) 4.2 Any Toni Normal prothrombin time (patient) 51.0 s Any Toni coagulation managed by Preeti Stokes RN Preeti Stokes RN coagulation managed by Eduardo Herron RN international normalized ratio (INR) 2.0 Any Toni Normal prothrombin time (patient) 24.1 s Any Toni HISTORY OF MEDICATION USE Medication Status Instructions Dates Provider Indications Com [facility] metoprolol tartrate 25 mg tablet active TAKE 1 TABLET BY MOUTH TWICE DAILY Marsha Gallo Eliquis 5 mg tablet active Take 1 tablet by mouth twice a day Deedee Valencia [id number] inderjit/apixaban completed - Deedee Valencia diltiazem HCl 60 mg tablet active TAKE 1 TABLET BY MOUTH THREE TIMES DAILY [facility] Specialist atorvastatin 40 mg tablet active TAKE 1 TABLET BY MOUTH AT BEDTIME Janna [place] lisinopril 5 mg tablet active TAKE 1 TABLET BY MOUTH EVERY DAY Wendy Beck diltiazem HCl 60 mg tablet completed Take 1 tablet by mouth three times a day - [facility] Specialist magnesium oxide 400 mg (241.3 mg magnesium) tablet active Take 1 tablet by mouth twice a day Soni Mayes metoprolol tartrate 25 mg tablet completed Take 1 tablet by mouth twice a day - Marsha Gallo cholecalciferol (vitamin D3) 50 mcg (2,000 unit) tablet active TAKE 1 TABLET BY MOUTH DAILY Misti TIMMONS metoprolol tartrate 25 mg tablet completed TAKE 1 TABLET BY MOUTH TWICE A DAY - Soni Mayes diltiazem HCl 60 mg tablet completed TAKE 1 TABLET BY MOUTH THREE TIMES A DAY - Soni Mayes magnesium oxide 400 mg (241.3 mg magnesium) tablet completed TAKE 1 TABLET BY MOUTH TWICE A DAY - Soni Mayes furosemide 20 mg tablet active Misti Álvarezmiglia [facility] metformin 500 mg tablet extended release 24 hr active TAKE 2 TABLETS BY MOUTH ONCE DAILY Misti Henriramyabbetty [facility] lisinopril 5 mg tablet completed - Janna [place] cyanocobalamin (vitamin B-12) 1,000 mcg tablet, sublingual active PLACE 1 TABLET UNDER THE TONGUE ONCE DAILY, LET DISSOLVE FOR AT LEAST 30 SECONDS BEFORE SWALLOWING Misti Clint REZAP atorvastatin 40 mg tablet completed - Janna [place] folic acid 1 mg tablet active TAKE 1 TABLET BY MOUTH EVERY DAY Misti Clint [facility] glimepiride 2 mg tablet active TAKE 1 TABLET BY MOUTH EVERY DAY [facility] Fish Oil 120-180 mg capsule active Take 1 capsule by mouth once a day Misti Clint [facility] Xarelto 20 mg tablet completed Take 1 tablet by mouth once a day - Roly Damon RN Januvia 100 mg tablet completed Take 1 tablet by mouth once a day - Timo Garcia MD Amaryl 2 mg tablet completed TAKE 1 TABLET BY MOUTH EVERY DAY - Timo Garcia MD lisinopril 5 mg tablet completed TAKE 1 TABLET BY MOUTH EVERY DAY - Timo Garcia MD Lipitor 40 mg tablet completed TAKE 1 TABLET BY MOUTH EVERY NIGHT AT BEDTIME - Timo Garcia MD Lasix 20 mg tablet completed TAKE 1 TABLET BY MOUTH DAILY - Timo Garcia MD Eliquis 5 mg tablet completed Take 1 tablet by mouth twice a day TAKE ONE TABLET BY MOUTH TWICE DAILY - Timo Garcia MD Januvia 100 mg tablet completed once a day - Robin Bond Amaryl 2 mg tablet completed once a day - Robin Bond Lipitor 40 mg tablet completed 1 tablet once a day - Paula Keene Lasix 20 mg tablet completed 1 once a day - Timo Garcia MD magnesium oxide 400 mg (241.3 mg magnesium) tablet completed Take 1 tablet by mouth twice a day - Timo Garcia MD diltiazem HCl 60 mg tablet completed 1 tablet three times a day - Timo Garcia MD Eliquis 5 mg tablet completed 1 tablet twice a day - Soni Mayes COUMADIN 3 MG ORAL TABLET completed one tab on - - Mon- Mon-Mon ONLY - Soni Mayes COUMADIN 2 MG ORAL TABLET completed one tab on Mon and Wed ONLY - Soni Mayes ASPIRIN ADULT LOW DOSE 81 MG ORAL TABLET DELAYED RELEASE completed One Tab By Mouth Daily - Soni Maeys COUMADIN 5 MG ORAL TABLET completed 1/2 tab daily - Eduardo Herron RN STARTING COUMADIN PER SS ACTOS 30 MG ORAL TABLET completed take one tablet daily - Penny Rollins JANUVIA 100 MG ORAL TABLET completed take one tablet daily - Timo Garcia MD TRADJENTA 5 MG ORAL TABLET completed once daily - Any Toni NORVASC 5 MG ORAL TABLET completed ONE TAB. DAILY - Soni Mayes AMLODIPINE BESYLATE 5 MG ORAL TABLET completed one a day instad of nifedipine - Soni Mayes PROCARDIA XL 30 MG ORAL TABLET EXTENDED RELEASE 24 HOUR completed one per day - Liliya Huntley RN lisinopril 5 mg tablet completed 1 tablet once a day - Timo Garcia MD GLIMEPIRIDE 2 MG ORAL TABLET completed once daily - Robin Bond METOCLOPRAMIDE HCL 5 MG ORAL TABLET completed 1 tab three times daily - Robin Bond DOCQLACE 100 MG ORAL CAPSULE completed 1 tab twice daily - Soni Mayes TRAMADOL HCL 50 MG ORAL TABLET completed 1 tab every 8 hours - Robin Bond ASPIRIN 325 MG ORAL TABLET completed ONE TAB. DAILY - Preeti Stokes RN Changed to 81mg daily, on coumadin as well. PRAVASTATIN SODIUM 80 MG ORAL TABLET completed 1 tab once daily - Paula Keene metoprolol tartrate 25 mg tablet completed Take 1 tablet twice a day - Timo Garcia MD TYLENOL EXTRA STRENGTH TABLET active as needed Deedee Crowell VITAMIN D (ERGOCALCIFEROL) 79516 UNIT ORAL CAPSULE completed once weekly - Soni Mayes [facility] SENNA 8.6 MG ORAL TABLET completed twice daily - Robin Bond Protonix 40 mg tablet,delayed release (DR/EC) active once a day Deedee Valencia METFORMIN HCL 500 MG ORAL TABLET completed twice daily - Robin Bond SOCIAL HISTORY Date Observation Value Provider drug use no [facility] alcohol use no [facility] passive cigarette sm dodie exposure no [facility] smoking/tobacco cessation, patient education and counseling contraindicated [facility] smoking, year quit 1971 [facility] smoking, date started 1960 [facility] smoking history, tot al pack/year 10 [facility] smoking history, tot al pack/day 1pk we [facility] cigarette use yes [facility] smoking status Former smoker [facility] smoking history, tot al pack/year 10 Deedee Valencia smoking history, tot al pack/year 10 Deedee Valencia social history revie wed E&M reviewed - no changes required Mai Segovialeo SAMPLE PASTER social history E&M Marital Statu s: John su: 2 O ccupation: retired Smoking History: P atjcarlos is a former smoker. Mai Segovialeo SAMPLE PASTER smoking status Former smoker Mai Segovia leo SAMPLE PASTER social history E&M Marital Statu s: John su: 2 O ccupation: retired Smoking History: U nknown if patient has ever smoked. 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 Timo Garcia MD social history revie wed E&M reviewed - no changes required Timo Garcia MD social history E&M Marital Statu s: John su: 2 O ccupation: retired Smoking History: P uzma is a former smoker. Timo Garcia MD social history revie wed E&M reviewed - no changes required Timo Garcia MD passive cigarette sm dodie exposure no Saray Vaiden smoking, year quit 1971 Saray Vaiden smoking, date started 1960 Kojo brown Vaiden smoking history, tot al pack/year 57 Saray Vaiden smoking history, tot al pack/day 1pk we Saray Remberto cigarette use yes Saray Vaiden smoking status Former smoker Saray Ot is social history E&M Marital Statu s: John cartwrighten: 2 O ccupation: retired Smoking History: P atient is a former smoker. Timo Garcia MD social history revie wed E&M reviewed - no changes required Timo Garcia MD smoking status Former smoker Deedee Crowell social history E&M Marital Statu s: John cartwrighten: 2 O ccupation: retired Smoking History: P atient is a former smoker. Timo Garcia MD social history revie wed E&M reviewed - no changes required Timo Garcia MD passive cigarette sm dodie exposure no Robin Bond smoking, year quit 1971 Robin Bond smoking, date started 1960 Danny Bond smoking history, tot al pack/year 57 Robin Bond smoking history, tot al pack/day 1pk we Robin Bond cigarette use yes Robin mishra smoking status Former smoker Robin Leonardo social history E&M Marital Statu s: John su: 2 O ccupation: retired Smoking History: P atient is a former smoker. Timo Garcia MD social history revie wed E&M reviewed - no changes required Timo Garcia MD passive cigarette sm dodie exposure no Tonsha Govea smoking, year quit 1971 Tonsha Mo ss smoking, date started 1960 Tonsha Govea smoking history, tot al pack/year 57 Tonsha Govea smoking history, tot al pack/day 1pk we Tonsha Govea cigarette use yes Tonsha Govea smoking status Former smoker Tonsha Govea social history E&M Marital Statu s: John su: 2 O ccupation: retired Smoking History: Naun gusman is a former smoker. Timo Garcia MD social history revie wed E&M reviewed - no changes required Timo Garcia MD passive cigarette sm dodie exposure no Chastity Yecenia smoking, year quit 1970 Chastity Yecenia smoking, date started 1960 Chasti ty Yecenia smoking history, tot al pack/year 57 Chastity Yecenia smoking history, tot al pack/day 1pk we Chastity Yecenia cigarette use yes Chastity Yecenia smoking status Former smoker Chastity Hog ue social history E&M Marital Statu s: John su: 2 O ccupation: retired Smoking History: Naun gusman is a former smoker. Timo Garcia MD passive cigarette sm dodie exposure no Penny Rogers-Sergio smoking, year quit 1971 Penny glasson-Sergio smoking, date started 1962 Penny Rogers-Sergio smoking history, tot al pack/year 57 Penny Rogers-Sergio smoking history, tot al pack/day 1pk we Penny Rogers-Sergio cigarette use yes Penny Rogers -Sergio smoking status Former smoker Penny Evonne on-Sergio social history revie wed E&M reviewed - no changes required Penny Rogers-Sergio social history revie wed E&M reviewed - no changes required Timo Garcia MD social history E&M Marital Statu s: C hildren: 2 O ccupation: retired Smoking History: P uzma is a former smoker. Timo Garcia MD alcohol use no Soni Lulissharjit palumbo passive cigarette sm dodie exposure no Soni Currannegraluanronal smoking, year quit 1970 Soni Hoffmann teresa smoking, date started 1960 Soni Curranjavilissselvin smoking history, tot al pack/year 57 Soni Lunddayoer smoking history, tot al pack/day 1pk we Soni Curranaure cigarette use yes Soni Curranjavilissluan villeda smoking status Former smoker Soni Tompkins selvin alcohol use no Izzy garcia passive cigarette sm dodie exposure no Izzy Rasmussen smoking, year quit 1970 Izzy Luna smoking, date started 1960 Izzy Rasmussen smoking history, tot al pack/year 57 Izzy Rasmussen smoking history, tot al pack/day 1pk we Izzyhemant Rasmussen smoking status Former smoker Izzy Charity muse cigarette use yes Izzy conley number of grandchildren Timo Garcia MD social history E&M Marital Statu s: C garzynadren: 2 O ccupation: retired Smoking History: P uzma is a former smoker. Timo Garcia MD social history revie wed E&M reviewed - no changes required Timo Garcia MD alcohol use no Robin hendrix passive cigarette sm dodie exposure no Robin Bond smoking, year quit 1971 Robin Bond smoking, date started 1960 Danny Bond smoking history, tot al pack/year 57 Robin Bond smoking history, tot al pack/day 1pk we Robin Bond cigarette use yes Robin mishra smoking status Former smoker Robin Leonardo alcohol use no Brielle weiss passive cigarette sm dodie exposure no Brielle Lentz smoking, year quit 1971 Brielle crum smoking, date started 1960 Nataly Lentz smoking history, tot al pack/year 57 Brielle Lentz smoking history, tot al pack/day 1pk we Brielle Lentz cigarette use yes Brielle Luque ll smoking status Former smoker Brielle monson number of grandchildren Hernán Wilkins social history E&M Marital Statu s: John su: 2 O ccupation: retired Smoking History: Naun gusman is a former smoker. Josef Wilkins social history revie wed E&M reviewed - no changes required Josef Wilkins alcohol use no Soni Tompkinsluanbill celinaer passive cigarette sm dodie exposure no Soni Curranaure smoking, year quit 1970 Soni Curranbrandi moore smoking, date started 1960 Soni Curranjanaer smoking history, tot al pack/year 57 Sonileo Alemaner smoking history, tot al pack/day 1pk we Soni Sugey cigarette use yes Soni Lund ronal smoking status Former smoker Soni Currannegra rolandelder smoking history, tot al pack/year 57 Dimitri Ortiz social history revie wed E&M reviewed - no changes required Timo Garcia MD smoking history, tot al pack/year 57 Preeti Stokes RN smoking history, tot al pack/year 57 Preeti Stokes RN social history E&M Marital Statu s: C hildren: 2 O ccupation: retired Smoking History: Naun gusman is a former smoker. Timo Garcia MD social history revie wed E&M reviewed - no changes required Timo Garcia MD alcohol use no Robin Agrawal nson passive cigarette sm dodie exposure no Robin Bond smoking, year quit 1971 Robin Bond smoking, date started 1960 Danny Bond smoking history, tot al pack/day 1pk we Robin Bond cigarette use yes Robin Nascimento on smoking status Former smoker Robin Agrawal kandy social history E&M Marital Statu s: John cartwrighten: 2 O ccupation: retired Smoking History: Naun gusman is a former smoker. Timo Garcia MD social history revie wed E&M reviewed - no changes required Timo Garcia MD alcohol use no Any Toni passive cigarette sm dodie exposure no Any Toni smoking, year quit 1971 Any Apncho s smoking, date started 1960 Any Toni smoking history, tot al pack/day 1pk we Any Toni cigarette use yes Any Toni smoking status Former smoker Any Toni Underweight no Timo cisse MD number of grandchildren Timo Garcia MD social history revie wed E&M reviewed - no changes required Timo Garcia MD alcohol use no Robin Agrawal yonion passive cigarette sm dodie exposure no Robin Bond smoking, year quit 1971 Robin Bond smoking, date started 1960 Danny Bond smoking history, tot al pack/day 1pk we Robin Bond cigarette use yes Robin Nascimento enson smoking status Former smoker Robin Leonardo Underweight yes Timo cisse MD social history revie wed E&M reviewed - no changes required Timo Garcia MD alcohol use no Any Toni passive cigarette sm dodie exposure no Any Toni smoking, year quit 1971 Any Pancho s smoking, date started 1960 Any Toni smoking history, tot al pack/day 1pk we Any Toni cigarette use yes Any Toni smoking status Former smoker Any Toni social history revie wed E&M reviewed - no changes required Timo Garcia MD alcohol use no Soni Tompkinsharjit lder smoking status Former smoker Soni Tompkins nfelder social history revie wed E&M reviewed - no changes required Timo Garcia MD alcohol use no Robin Agrawal nson passive cigarette sm dodie exposure no Robin Bond smoking, year quit 1971 Robin Bond smoking, date started 1960 Danny Bond smoking history, tot al pack/day 1pk we Robinjimena Bond cigarette use yes RobinDevi mancinion smoking status Former smoker Robin Leonardo alcohol use no Robin Nascimentoe nson passive cigarette sm dodie exposure no Robin Nascimentoenson smoking, year quit 1971 RobinDevi Nascimentoenson smoking, date started 1960 Danny Nascimentoenson smoking history, tot al pack/day 1pk we Robin Bond cigarette use yes Robin Nascimento on smoking status Former smoker Robin Leonardo social history revie wed E&M reviewed - no changes required Timo Garcia MD alcohol use no Robin hendrix passive cigarette sm dodie exposure no Robin Bond smoking, year quit 1971 Robin Bond smoking, date started 1960 Danny Bond smoking history, tot al pack/day 1pk we Robin Bond cigarette use yes Robin mishra smoking status Former smoker Robin Leonardo smoking/tobacco cessation, patient education and counseling No Joe Barnhart MD alcohol use no Joe Sexton passive cigarette sm dodie exposure no Joe Barnhart MD social history E&M Marital Statu s: John su: 2 O ccupation: retired Joe Barnhart MD social history revie wed E&M reviewed - no changes required Joe Barnhart MD smoking, year quit 1971 Nannette Damon smoking, date started 1962 Guicho Damon smoking history, tot al pack/day 1pk we Shruthicelestino Damon cigarette use yes Nannette Damon smoking status Former smoker Nannette esquivel FAMILY HISTORY Family Member Condition Father Family History of Co bere Cancer: Mother Family History of Yvonne ng Cancer: Mother Family History of Co bere Cancer: INSURANCE PROVIDERS Payer name Policy type / Coverage type [place] red green party ID [facility] [id number] [place] Medicare [id number] ADVANCE DIRECTIVES Name Date DISCUSSED - NO DECISION MADE TREATMENT PLAN Date Name Performer [id number],C, H ad an echo done today. Final report pending. W ill order WILFREDO to eval MR and TR noted on echo. Mai Woo NP [id number],C, M ildly reduced EF in the past. Had an echo done today, final report pending. Mai Woo NP [id number],C, N ormal device function on device check 03/31/23 Mai Woo NP [id number],C, H er updated medication list for this problem includes: Atorvastatin 40 Mg Tablet (Atorvastatin) ..... Take 1 tablet by mouth at bedtime Mai Woo KELECHI [id number],C, B P today: 106/60 P rior BP: 120/-1 (12/23/2022) Mai Woo KELECHI [id number],C, On AC with OCEANs AFib. N o bleeding concerns/issues S he is A-paced on EKG today Mai Segovialeo LORENZ [id number],C, M ildly reduced EF in the past, has not had Echo done for evalu Timo Garcia MD [id number],C, w ith normal device function per last remote check December 23, 2022 O n Paced rhythm today. Timo Garcia MD [id number],B, Timo swann MD [id number],C, H er updated medication list for this problem includes: Atorvastatin 40 Mg Tablet (Atorvastatin) Timo Garcia MD [id number],C, H as not had Echo done recently. O n AC with OCEANs AFib. Timo Garcia MD [id number],C, B P today: 120/62 P rior BP: 114/62 (09/28/2022) Prior 10 Yr Risk Heart Disease: Not enough information (07/10/2015) Labs Reviewed: C reat: 1.16 (01/11/2020) C hol: 128 (01/11/2020) HDL: 55 (01/11/2020) LDL: 56 MG/DL (CALC) (01/11/2020) T (01/11/2020) Timo Garcia MD [id number],C, H er updated medication list for this problem includes: Metformin 500 Mg Tablet Extended Release 24 Hr (Metformin) ..... Take 2 tablets by mouth once daily Lisinopril 5 Mg Tablet (Lisinopril) Glimepiride 2 Mg Tablet (Glimepiride) ..... Take 1 tablet by mouth every day [facility] [id number],C,w ith normal device function per last remote check [facility] [id number],C, H er updated medication list for this problem includes: Atorvastatin 40 Mg Tablet (Atorvastatin) [facility] [id number],C,B P 114/62 today and at goal. Will continue present medication regimen. H er updated medication list for this problem includes: Metoprolol Tartrate 25 Mg Tablet (Metoprolol tartrate) ..... Take 1 tablet by mouth twice a day Diltiazem Hcl 60 Mg Tablet (Diltiazem hcl) ..... Take 1 tablet by mouth three times a day Furosemide 20 Mg Tablet (Furosemide) Lisinopril 5 Mg Tablet (Lisinopril) [facility] [id number],C,r emains in AF on EKG today. AF burden is 76% of the time on device check. She remains on Eliquis for AC as her CHADSVASC2 score is 5. She does have trouble affording medication and will plan to enroll her in [place] AF study. H er updated medication list for this problem includes: Metoprolol Tartrate 25 Mg Tablet (Metoprolol tartrate) ..... Take 1 tablet by mouth twice a day [facility] [id number],C, H er updated medication list for this problem includes: Januvia 100 Mg Tablet (Sitagliptin) ..... Take 1 tablet by mouth once a day Amaryl 2 Mg Tablet (Glimepiride) ..... Take 1 tablet by mouth every day Lisinopril 5 Mg Tablet (Lisinopril) ..... Take 1 tablet by mouth every day Labs Reviewed: C reat: 1.16 (01/11/2020) Timo Garcia MD [id number],C, H er updated medication list for this problem includes: Metoprolol Tartrate 25 Mg Tablet (Metoprolol tartrate) ..... Take 1 tablet twice a day Diltiazem Hcl 60 Mg Tablet (Diltiazem hcl) ..... 1 tablet three times a day Lisinopril 5 Mg Tablet (Lisinopril) ..... Take 1 tablet by mouth every day Lasix 20 Mg Tablet (Furosemide) ..... Take 1 tablet by mouth daily Timo Garcia MD [id number],C, n ormal function ppn April 12, 2022 6 0% left on pacer Timo Garcia MD [id number],C, r ate control with carlos barnhart Her updated medication list for this problem includes: Metoprolol Tartrate 25 Mg Tablet (Metoprolol tartrate) ..... 1 tablet twice a day April 12, 2022 N eeds to switch from Eliquis to Xarelto if pricing is better Timo Garcia MD [id number],C, H as improved since she has been getting supplementaton of vitamins. Timo Garcia MD [id number],C, n ormal function ppn Timo Garcia MD [id number],C,7 .6 A1c L abs Reviewed: C reat: 1.16 (01/11/2020) Her updated medication list for this problem includes: Januvia 100 Mg Tablet (Sitagliptin) ..... Take 1 tablet by mouth once a day Amaryl 2 Mg Tablet (Glimepiride) ..... Take 1 tablet by mouth every day Lisinopril 5 Mg Tablet (Lisinopril) ..... Take 1 tablet by mouth every day Timo Garcia MD [id number],C, r ate control with carlos barnhart Her updated medication list for this problem includes: Metoprolol Tartrate 25 Mg Tablet (Metoprolol tartrate) ..... 1 tablet twice a day Timo Garcia MD [id number],C, B P today: 109/58 P rior BP: 126/69 (02/24/2021) Prior 10 Yr Risk Heart Disease: Not enough information (07/10/2015) Labs Reviewed: C reat: 1.16 (01/11/2020) C hol: 128 (01/11/2020) HDL: 55 (01/11/2020) LDL: 56 MG/DL (CALC) (01/11/2020) T (01/11/2020) Timo Garcia MD [id number],C, G ets iron from PCP. Timo Garcia MD [id number],S,normal functi on ppn Timo Garcia MD [id number],C, T tisha Yates. Rate controlled overall. EF was roughly 50%. H er updated medication list for this problem includes: Metoprolol Tartrate 25 Mg Oral Tablet (Metoprolol tartrate) ..... One tab twice daily Timo Garcia MD [id number],C, H er updated medication list for this problem includes: Lipitor 40 Mg Tablet (Atorvastatin) ..... 1 tablet once a day Timo Garcia MD [id number],C,r ate control with carlos barnhart Her updated medication list for this problem includes: Metoprolol Tartrate 25 Mg Tablet (Metoprolol tartrate) ..... 1 tablet twice a day Timo Garcia MD [id number],C, B P today: 126/69 P rior BP: 102/60 (07/31/2020) Prior 10 Yr Risk Heart Disease: Not enough information (07/10/2015) Labs Reviewed: C reat: 1.16 (01/11/2020) C hol: 128 (01/11/2020) HDL: 55 (01/11/2020) LDL: 56 MG/DL (CALC) (01/11/2020) T (01/11/2020) Her updated medication list for this problem includes: Lasix 20 Mg Tablet (Furosemide) ..... 1 once a day Metoprolol Tartrate 25 Mg Tablet (Metoprolol tartrate) ..... 1 tablet twice a day Diltiazem Hcl 60 Mg Tablet (Diltiazem hcl) ..... 1 tablet three times a day Lisinopril 5 Mg Tablet (Lisinopril) ..... 1 tablet once a day Timo Garcia MD Cardiology: H er updated medication list for this problem includes: Lisinopril 5 Mg Tablet (Lisinopril) ..... Take 1 tablet by mouth every day Metformin 500 Mg Tablet Extended Release 24 Hr (Metformin) ..... Take 2 tablets by mouth once daily Glimepiride 2 Mg Tablet (Glimepiride) ..... Take 1 tablet by mouth every day Timo Garcia MD Cardiology:Issues wi th affording eliquis, was in [employer] study that is now closed. Will see if we can provide eliquis samples H er updated medication list for this problem includes: Metoprolol Tartrate 25 Mg Tablet (Metoprolol tartrate) ..... Take 1 tablet by mouth twice daily Timo Garcia MD Cardiology: H er updated medication list for this problem includes: Atorvastatin 40 Mg Tablet (Atorvastatin) ..... Take 1 tablet by mouth at bedtime C HOL: 128 (01/11/2020) LDL: 56 MG/DL (CALC) (01/11/2020) HDL: 55 (01/11/2020) T (01/11/2020) Timo Garcia MD Cardiology Timo Garcia MD Cardiology:Echo revi ewed from 04/15 C ONCLUSIONS: 1 . Abnormal septal motion consistent with pacemaker or ICD implant . Normal left ventricular size. Normal left ventricular w all thickness. Mitral inflow Doppler demonstrates pseudonormal pattern consistent with diastolic dysfunction. Abnormal E /E`, suggestive of elevated LVEDP. 16.3 Left ventricular ejection fraction is measured at 50 %. 2 . Normal right ventricular size. Normal right ventricular systolic function. Linear artifact seen in the right ventricle is s uggestive of a catheter, pacer lead, or ICD lead. 3 . There is non-specific thickening of the mitral valve leaflets. Mild to moderate mitral valve regurgitation. 4 . Normal appearing tricuspid valve leaflets. There is mild to moderate tricuspid regurgitation. Right ventricular systolic p ressure is consistent with mild pulmonary hypertension. IVC is normal in size with normal respiratory response. The RA p ressure is estimated at 5.0 mmHg Estimated peak pulmonary artery systolic pressure is 52.0 mmHg. 5 . The pulmonic valve is not well visualized. Normal pulmonic valve velocities by Doppler. There is mild pulmonic r egurgitation. Timo Garcia MD Cardiology: H er updated medication list for this problem includes: Metoprolol Tartrate 25 Mg Tablet (Metoprolol tartrate) ..... Take 1 tablet by mouth twice daily Diltiazem Hcl 60 Mg Tablet (Diltiazem hcl) ..... Take 1 tablet by mouth three times daily Lisinopril 5 Mg Tablet (Lisinopril) ..... Take 1 tablet by mouth every day Furosemide 20 Mg Tablet (Furosemide) BP today: 120/67 P rior BP: 106/60 (03/31/2023) Prior 10 Yr Risk Heart Disease: Not enough information (07/10/2015) Labs Reviewed: C reat: 1.16 (01/11/2020) C hol: 128 (01/11/2020) HDL: 55 (01/11/2020) LDL: 56 MG/DL (CALC) (01/11/2020) T (01/11/2020) Timo Garcia MD Cardiology: H ad an echo done today. Final report pending. W ill order WILFREDO to eval MR and TR noted on echo. Mai Woo NP Cardiology: M ildly reduced EF in the past. Had an echo done today, final report pending. Mai Woo NP Cardiology: N ormal device function on device check 03/31/23 Mai Woo NP Cardiology: H er updated medication list for this problem includes: Atorvastatin 40 Mg Tablet (Atorvastatin) ..... Take 1 tablet by mouth at bedtime Mai Segovialeo LORENZ Cardiology: B P today: 106/60 P rior BP: 120/-1 (12/23/2022) Mai Woo SAMPLE PASTER Cardiology: On AC with OCEANs AFib. N o bleeding concerns/issues S he is A-paced on EKG today Mai Segovialeo LORENZ Cardiology: M ildly reduced EF in the past, has not had Echo done for evalu Timo Garcia MD Cardiology: w ith normal device function per last remote check December 23, 2022 O n Paced rhythm today. Timo Garcia MD Cardiology Timo Garcia MD Cardiology: H er updated medication list for this problem includes: Atorvastatin 40 Mg Tablet (Atorvastatin) Timo Garcia MD Cardiology: H as not had Echo done recently. O n AC with OCEANs AFib. Timo Garcia MD Cardiology: B P today: 120/62 P rior BP: 114/62 (09/28/2022) Prior 10 Yr Risk Heart Disease: Not enough information (07/10/2015) Labs Reviewed: C reat: 1.16 (01/11/2020) Chol: 128 (01/11/2020) HDL: 55 (01/11/2020) LDL: 56 MG/DL (CALC) (01/11/2020) T (01/11/2020) Timo Garcia MD Cardiology: H er updated medication list for this problem includes: Metformin 500 Mg Tablet Extended Release 24 Hr (Metformin) ..... Take 2 tablets by mouth once daily Lisinopril 5 Mg Tablet (Lisinopril) Glimepiride 2 Mg Tablet (Glimepiride) ..... Take 1 tablet by mouth every day Misti Jaramillo [facility] Cardiology:with norm al device function per last remote check Misti Jaramillo [facility] Cardiology: H er updated medication list for this problem includes: Atorvastatin 40 Mg Tablet (Atorvastatin) Mistijuan a Jaramillo [facility] Cardiology:BP 114/62 today and at goal. Will continue present medication regimen. H er updated medication list for this problem includes: Metoprolol Tartrate 25 Mg Tablet (Metoprolol tartrate) ..... Take 1 tablet by mouth twice a day Diltiazem Hcl 60 Mg Tablet (Diltiazem hcl) ..... Take 1 tablet by mouth three times a day Furosemide 20 Mg Tablet (Furosemide) Lisinopril 5 Mg Tablet (Lisinopril) Mistijuan a Jaramillo [facility] Cardiology:remains i n AF on EKG today. AF burden is 76% of the time on device check. She remains on Eliquis for AC as her CHADSVASC2 score is 5. She does have trouble affording medication and will plan to enroll her in [place] AF study. H er updated medication list for this problem includes: Metoprolol Tartrate 25 Mg Tablet (Metoprolol tartrate) ..... Take 1 tablet by mouth twice a day Mistijuan a Jaramillo [facility] Cardiology: H er updated medication list for this problem includes: Januvia 100 Mg Tablet (Sitagliptin) ..... Take 1 tablet by mouth once a day Amaryl 2 Mg Tablet (Glimepiride) ..... Take 1 tablet by mouth every day Lisinopril 5 Mg Tablet (Lisinopril) ..... Take 1 tablet by mouth every day Labs Reviewed: C reat: 1.16 (01/11/2020) Timo Garcia MD Cardiology: H er updated medication list for this problem includes: Metoprolol Tartrate 25 Mg Tablet (Metoprolol tartrate) ..... Take 1 tablet twice a day Diltiazem Hcl 60 Mg Tablet (Diltiazem hcl) ..... 1 tablet three times a day Lisinopril 5 Mg Tablet (Lisinopril) ..... Take 1 tablet by mouth every day Lasix 20 Mg Tablet (Furosemide) ..... Take 1 tablet by mouth daily Timo Garcia MD Cardiology: n ormal function ppn April 12, 2022 6 0% left on pacer Timo Garcia MD Cardiology: r ate control with carlos barnhart Her updated medication list for this problem includes: Metoprolol Tartrate 25 Mg Tablet (Metoprolol tartrate) ..... 1 tablet twice a day April 12, 2022 N eeds to switch from Eliquis to Xarelto if pricing is better Timo Garcia MD Cardiology: H as improved since she has been getting supplementaton of vitamins. Timo aGrcia MD Cardiology: n ormal function ppn Timo Garcia MD Cardiology:7.6 A1c L abs Reviewed: C reat: 1.16 (01/11/2020) Her updated medication list for this problem includes: Januvia 100 Mg Tablet (Sitagliptin) ..... Take 1 tablet by mouth once a day Amaryl 2 Mg Tablet (Glimepiride) ..... Take 1 tablet by mouth every day Lisinopril 5 Mg Tablet (Lisinopril) ..... Take 1 tablet by mouth every day Timo Garcia MD Cardiology: r ate control with carlos barnhart Her updated medication list for this problem includes: Metoprolol Tartrate 25 Mg Tablet (Metoprolol tartrate) ..... 1 tablet twice a day Timo Garcia MD Cardiology: B P today: 109/58 P rior BP: 126/69 (02/24/2021) Prior 10 Yr Risk Heart Disease: Not enough information (07/10/2015) Labs Reviewed: C reat: 1.16 (01/11/2020) Chol: 128 (01/11/2020) HDL: 55 (01/11/2020) LDL: 56 MG/DL (CALC) (01/11/2020) T (01/11/2020) Timo Garcia MD Cardiology: G ets iron from PCP. Timo Garcia MD Cardiology:normal function ppn S naman Garcia MD Cardiology: Abdirahman Yates. Rate controlled overall. EF was roughly 50%. H er updated medication list for this problem includes: Metoprolol Tartrate 25 Mg Oral Tablet (Metoprolol tartrate) ..... One tab twice daily Timo Garcia MD Cardiology: H er updated medication list for this problem includes: Lipitor 40 Mg Tablet (Atorvastatin) ..... 1 tablet once a day Timo Garcia MD Cardiology:rate cont rol with carlos barnhart Her updated medication list for this problem includes: Metoprolol Tartrate 25 Mg Tablet (Metoprolol tartrate) ..... 1 tablet twice a day Timo Garcia MD Cardiology: B P today: 126/69 P rior BP: 102/60 (07/31/2020) Prior 10 Yr Risk Heart Disease: Not enough information (07/10/2015) Labs Reviewed: C reat: 1.16 (01/11/2020) Chol: 128 (01/11/2020) HDL: 55 (01/11/2020) LDL: 56 MG/DL (CALC) (01/11/2020) T (01/11/2020) Her updated medication list for this problem includes: Lasix 20 Mg Tablet (Furosemide) ..... 1 once a day Metoprolol Tartrate 25 Mg Tablet (Metoprolol tartrate) ..... 1 tablet twice a day Diltiazem Hcl 60 Mg Tablet (Diltiazem hcl) ..... 1 tablet three times a day Lisinopril 5 Mg Tablet (Lisinopril) ..... 1 tablet once a day Timo Garcia MD Cardiology: H as improved since she has been getting supplementaton of vitamins. Timo Garcia MD Cardiology: H er updated medication list for this problem includes: Lipitor 40 Mg Oral Tablet (Atorvastatin calcium) ..... One tab once daily C HOL: 128 (01/11/2020) LDL: 56 MG/DL (CALC) (01/11/2020) HDL: 55 (01/11/2020) T (01/11/2020) Timo Garcia MD Cardiology: H er updated medication list for this problem includes: Lasix 20 Mg Oral Tablet (Furosemide) ..... One once daily Diltiazem Hcl 60 Mg Oral Tablet (Diltiazem hcl) ..... One tab three times a day Lisinopril 5 Mg Oral Tablet (Lisinopril) ..... One tab. daily Metoprolol Tartrate 25 Mg Oral Tablet (Metoprolol tartrate) ..... One tab twice daily BP today: 102/60 P rior BP: 131/74 (01/03/2020) Prior 10 Yr Risk Heart Disease: Not enough information (07/10/2015) Labs Reviewed: C reat: 1.16 (01/11/2020) C hol: 128 (01/11/2020) HDL: 55 (01/11/2020) LDL: 56 MG/DL (CALC) (01/11/2020) T (01/11/2020) Timo Garcia MD Cardiology: C ould be related to afib. January 03, 2020 H as improved compared to before. Has PA pressures that is up. Timo Garcia MD Cardiology: B iotronik. Dual chamber. Timo Garcia MD Cardiology:Moderate to severe on Echo, PAP 56. Timo Garcia MD Cardiology:Gets iron from PCP. S naman Garcia MD Cardiology:PA pressu res are up, they have been persistently elevated on several echos. Current RVSP is 56, was as high as 70 before. Has mild MR and moderate to severe TR. Will check home sleep. Timo Garcia MD Cardiology:Takes Vicenta fanny. Rate controlled overall. EF was roughly 50%. H er updated medication list for this problem includes: Metoprolol Tartrate 25 Mg Oral Tablet (Metoprolol tartrate) ..... One tab twice daily Timo Garcia MD Cardiology: H er updated medication list for this problem includes: Lisinopril 5 Mg Oral Tablet (Lisinopril) ..... One tab. daily Timo Garcia MD Cardiology: H er updated medication list for this problem includes: Lipitor 40 Mg Oral Tablet (Atorvastatin calcium) ..... One tab once daily Timo Garcia MD Cardiology: H er updated medication list for this problem includes: Lasix 20 Mg Oral Tablet (Furosemide) ..... One once daily Diltiazem Hcl 60 Mg Oral Tablet (Diltiazem hcl) ..... One tab three times a day Lisinopril 5 Mg Oral Tablet (Lisinopril) ..... One tab. daily Metoprolol Tartrate 25 Mg Oral Tablet (Metoprolol tartrate) ..... One tab twice daily BP today: 131/74 P rior BP: 130/64 (09/27/2019) Prior 10 Yr Risk Heart Disease: Not enough information (07/10/2015) Labs Reviewed: C reat: 0.87 (01/26/2018) Timo Garcia MD Cardiology:Has impro placido since she has been getting supplementaton of vitamins. Timo Garcia MD Cardiology: B iotronik. Dual chamber. Timo Garcia MD Cardiology: C ould be related to afib. January 03, 2020 H as improved compared to before. Has PA pressures that is up. Timo Garcia MD Cardiology:Iron deff iciency anemia. Will need EGDM: ok to proceed. Timo Garcia MD Cardiology:Eliquis f or AC. H er updated medication list for this problem includes: Metoprolol Tartrate 25 Mg Oral Tablet (Metoprolol tartrate) ..... One tab twice daily Timo Garcia MD Cardiology:May benef it from either iron infusion or iron supplements. Seeing GI. OK for colonoscopy from my standpoint and OK to hold Elifanny in the interm of 5 days pre and post foir procedure. Timo Garcia MD Cardiology:Biotronik. Dual chamb er. Timo Garcia MD Cardiology: A trially paced. Timo Garcia MD Cardiology:Could be related to afib. Timo Garcia MD Cardiology Hospital Follow up : A serg had sleep study done at [facility] and was told she had moderate JOSUE, advised her to be started on CPAP. H er updated medication list for this problem includes: Diltiazem Hcl 60 Mg Oral Tablet (Diltiazem hcl) ..... One tab three times a day Lisinopril 5 Mg Oral Tablet (Lisinopril) ..... One tab. daily Metoprolol Tartrate 25 Mg Oral Tablet (Metoprolol tartrate) ..... One tab three times daily Timo Garcia MD Cardiology Hospital Follow up : H er updated medication list for this problem includes: Pravastatin Sodium 80 Mg Oral Tablet (Pravastatin sodium) ..... 1 tab once daily Timo Garcia MD Cardiology Hospital Follow up : H er updated medication list for this problem includes: Actos 30 Mg Oral Tablet (Pioglitazone hcl) ..... Take one tablet daily Januvia 100 Mg Oral Tablet (Sitagliptin phosphate) ..... Take one tablet daily Lisinopril 5 Mg Oral Tablet (Lisinopril) ..... One tab. daily Timo Garcia MD Cardiology Hospital Follow up :She can come off of eliquis as needed if she needs injections for her back pain. H er updated medication list for this problem includes: Metoprolol Tartrate 25 Mg Oral Tablet (Metoprolol tartrate) ..... One tab three times daily Timo Garcia MD Cardiology Hospital Follow up :Seems to have majority of it driven from pain in lower back, where she sustained a traumatic injury to L hip. Currently experiencing pain from that, that is limiting ambulation. She is not inclined to have ortho surgery b/c she does not want to undergo anesthesia. Ideally, she needs to get surgery done, but in reality, if she chooses not to, she needs to see a pain specialist. Timo Garcia MD Cardiology Hospital Follow up :A trially paced. Timo Garcia MD Cardiology: H er updated medication list for this problem includes: Pravastatin Sodium 80 Mg Oral Tablet (Pravastatin sodium) ..... 1 tab once daily Timo Garcia MD Cardiology:BP well-c ontrolled. Her updated medication list for this problem includes: Diltiazem Hcl 60 Mg Oral Tablet (Diltiazem hcl) ..... One tab three times a day Lisinopril 5 Mg Oral Tablet (Lisinopril) ..... One tab. daily Metoprolol Tartrate 25 Mg Oral Tablet (Metoprolol tartrate) ..... One tab three times daily BP today: 110/63 P rior BP: 138/60 (02/16/2018) Prior 10 Yr Risk Heart Disease: Not enough information (07/10/2015) Labs Reviewed: C reat: 0.87 (01/26/2018) Timo Garcia MD Cardiology:Belia hankins had sleep study done at [facility] and was told she had moderate JOSUE, advised her to be started on CPAP. H er updated medication list for this problem includes: Diltiazem Hcl 60 Mg Oral Tablet (Diltiazem hcl) ..... One tab three times a day Lisinopril 5 Mg Oral Tablet (Lisinopril) ..... One tab. daily Metoprolol Tartrate 25 Mg Oral Tablet (Metoprolol tartrate) ..... One tab three times daily Timo Garcia MD Cardiology: R ecommend WILFREDO/CV. Her updated medication list for this problem includes: Metoprolol Tartrate 25 Mg Oral Tablet (Metoprolol tartrate) ..... One tab three times daily Orders: E KG (CPT-13810) 9 9245 HIGH Complex (CPT-38891) F VC - 27916 (31164) F RC - 99423 (00314) D LCO - 19486 (27153) T EE/CV - GC (*) B ASIC METABOLIC PANEL W/EGFR (51647) P ROTHROMBIN TIME WITH INR (8847) M AGNESIUM (622) Timo Garcia MD Cardiology Hospital follow up :Manged per PCP H er updated medication list for this problem includes: Actos 30 Mg Oral Tablet (Pioglitazone hcl) ..... Take one tablet daily Januvia 100 Mg Oral Tablet (Sitagliptin phosphate) ..... Take one tablet daily Lisinopril 5 Mg Oral Tablet (Lisinopril) ..... One tab. daily Juana Mirza NP Cardiology Hospital follow up :BP stable. H er updated medication list for this problem includes: Diltiazem Hcl 60 Mg Oral Tablet (Diltiazem hcl) ..... One tab three times a day Lisinopril 5 Mg Oral Tablet (Lisinopril) ..... One tab. daily Metoprolol Tartrate 25 Mg Oral Tablet (Metoprolol tartrate) ..... One tab three times daily Juana Mirza LORENZ Cardiology Hospital follow up :Pacer interrogation shows spontaneous conversion to NSR at [id number] today. Continue BB, CCB and Trudy Her updated medication list for this problem includes: Metoprolol Tartrate 25 Mg Oral Tablet (Metoprolol tartrate) ..... One tab three times daily Juana Mirza LORENZ Electrophysiology Fo llow up :Recommend WILFREDO/CV. Her updated medication list for this problem includes: Metoprolol Tartrate 25 Mg Oral Tablet (Metoprolol tartrate) ..... One tab three times daily Orders: E KG (CPT-34415) 9 9245 HIGH Complex (CPT-15285) F VC - 41431 (41086) F RC - 88092 (92052) D LCO - 88926 (55364) T EE/CV - GC (*) B ASIC METABOLIC PANEL W/EGFR (55478) P ROTHROMBIN TIME WITH INR (8847) M AGNESIUM (622) Josef Kyte Electrophysiology Fo llow up : O rders: 9 9245 HIGH Complex (CPT-81490) B ASIC METABOLIC PANEL W/EGFR (00736) P ROTHROMBIN TIME WITH INR (8847) M AGNESIUM (622) Josef Kyte Electrophysiology Fo llow up : O rders: 9 9245 HIGH Complex (CPT-24948) Josef Kyte Electrophysiology Fo llow up :Healing well. Orders: 9 9245 HIGH Complex (CPT-01219) T EE/CV - GC (*) Josef Kyte Electrophysiology Fo llow up :Recommend WILFREDO/CV. Her updated medication list for this problem includes: Metoprolol Tartrate 25 Mg Oral Tablet (Metoprolol tartrate) ..... One tab three times daily Josefrebecca Wilkins Cardiology:Negative carotid. C T head without acute events. Timo Garcia MD Cardiology:Echo EF 5 5%, nl. H eart valves with mild TR, PAP 41. Timo Garcia MD Cardiology:Currently SR has tele on. On AC. Timo Garcia MD Cardiology:Still non compliant Timo Garcia MD Cardiology Essence Paris hess Cardiology Timo Garcia MD Cardiology:Get CT of the head done today to exclude presence of CVA. She has been having episodes of dizziness. Timo Garcia MD Cardiology:Controlle d. H er updated medication list for this problem includes: Amlodipine Besylate 5 Mg Oral Tablet (Amlodipine besylate) ..... One a day instad of nifedipine Lisinopril 5 Mg Oral Tablet (Lisinopril) ..... One tab. daily Aspirin 325 Mg Oral Tablet (Aspirin) ..... One tab. daily Metoprolol Tartrate 25 Mg Oral Tablet (Metoprolol tartrate) ..... One tab three times daily Timo Garcia MD Cardiology:Currently in afib. Has a right eye bleed. Spoke with PCP. Needs to be on A/C Eliquis. High CHADS score.High risk for CVA. JOSUE untreated is likely the underlying problem. She does not want to pursue CPAP. Discusses with PCP, he will contact eye surgeon regarding her retinal bleed. Ideally, we would like A/C started MELCHOR. Timo Garcia MD Cardiology:Currently in afib. Has a right eye bleed. Spoke with PCP. Needs to be on A/C Eliquis. High CHADS score.High risk for CVA. JOSUE untreated is likely the underlying problem. She does not want to pursue CPAP. Discusses with PCP, he will contact eye surgeon regarding her retinal bleed. Ideally, we would like A/C started MELCHOR. CONTINUE WITH ASA FOR NOW AND IF ABLE TO GET ON ANTICOAGULATION THE PCP WILL START YOU ON ELIQUIS WAS DISCUSSED WITH HIM TODAY H er updated medication list for this problem includes: Aspirin 325 Mg Oral Tablet (Aspirin) ..... One tab. daily Metoprolol Tartrate 25 Mg Oral Tablet (Metoprolol tartrate) ..... One tab three times daily Timo Garcia MD Cardiology follow up :Controlled. H er updated medication list for this problem includes: Amlodipine Besylate 5 Mg Oral Tabs (Amlodipine besylate) ..... One a day instad of nifedipine Lisinopril 5 Mg Tabs (Lisinopril) ..... One tab. daily Aspirin 325 Mg Tabs (Aspirin) ..... One tab. daily Metoprolol Tartrate 25 Mg Tabs (Metoprolol tartrate) ..... One tab three times daily Timo Garcia MD Cardiology follow up :Nuclear Stress January 21, 2016 1 . Normal myocardial perfusion imaging after vasodilator stress with Regadenoson. 2 . Normal left ventricular systolic function with a calculated ejection fraction of 66%. 3 . No obvious significant scintigraphic evidence of myocardial ischemia or scar. Echo 01/21/2016: 1 . There is hypokinesis in the : basal anteroseptal wall and mid anteroseptal wall. Left ventricular s ystolic function is at the lower limits of normal. Normal left ventricular size. Normal left ventricular w all thickness. There is E to A wave reversal consistent with impaired LV relaxation. Normal E/E` 1 1.9. Left ventricular ejection fraction is estimated at 50 %. 2 . The left atrium is normal in size. 3 . There is non-specific thickening of the mitral valve leaflets. Moderate mitral valve regurgitation. 4 . Mildly thickened aortic valve leaflets. Velocities, as well as gradients across the aortic valve are n ormal. No evidence of aortic insufficiency. 5 . Normal appearing tricuspid valve leaflets. There is mild tricuspid regurgitation. Right ventricular s ystolic pressure is within normal limits. IVC is normal in size with normal respiratory response. E stimated peak pulmonary artery systolic pressure is 26. Patient has elected not to proceed with CT angio or cardiac cath due to dye allergy issues and hence testing is based on noninvasive studies. REVIEWED PTS NONINVASIVE TESTING. PT IS DEEMED AN ACCEPTABLE CANDIDATE FOR THE PLANNED SURGICAL PROCEDURE WITH THE LIMITED INFORMATION THAT IS AVAIABLE LISTED ABOVE. RECOMMEND TO KEEP HEART RATE IN RANGE OF 60-100BPM AND SYSTOLIC BLOOD PRESSURE IN RANGE OF 110-140MMHG. OK TO USE BETA BLOCKERS/ CALCIUM CHANNEL BLOCKERS/ NITRATES/ AFTERLOAD REDUCING AGENTS TO MAINTAIN THE AFOREMENTIONED HEMODYNAMIC PARAMETERS. RECOMMEND PERIOPERATIVE TELE MONITORING IF PATIENT HAS HISTORY OF ARRHYTHMIA AND A POSTOPERATIVE EKG. Timo Garcia MD Cardiology:Will need to evaluate for CPAP Timo Garcia MD Cardiology: C urrently in sinus rhythm. No palpitations. H er updated medication list for this problem includes: Aspirin 325 Mg Tabs (Aspirin) ..... One tab. daily Metoprolol Tartrate 25 Mg Tabs (Metoprolol tartrate) ..... One tab three times daily Timo Garcia MD Cardiology Timo Garcia MD Cardiology:For pre-o p eval, will need to have either a cath or CT angio done. Timo Garcia MD Cardiology Timo Garcia MD Cardiology follow up :Currently in sinus rhythm. No palpitations. H er updated medication list for this problem includes: Aspirin 325 Mg Tabs (Aspirin) ..... One tab. daily Metoprolol Tartrate 25 Mg Tabs (Metoprolol tartrate) ..... One tab three times daily Timo Garcia MD Cardiology follow up : H er updated medication list for this problem includes: Actos 30 Mg Oral Tabs (Pioglitazone hcl) ..... Take one tablet daily Januvia 100 Mg Oral Tabs (Sitagliptin phosphate) ..... Take one tablet daily Tradjenta 5 Mg Oral Tabs (Linagliptin) ..... Once daily Lisinopril 5 Mg Tabs (Lisinopril) ..... One tab. daily Aspirin 325 Mg Tabs (Aspirin) ..... One tab. daily Timo Garcia MD Cardiology follow up Timo mitchell MD Cardiology follow up :fatigue has improved, most likely related to sleep apnea. Sleep testing has been done at [place], will have them follow up on it. Timo Garcia MD Cardiology follow up :At present although she has had a normal stress test does not want to pursue invasive workup on the basis of the abnormal echo Timo Garcia MD Cardiology Follow up : H er updated medication list for this problem includes: Tradjenta 5 Mg Oral Tabs (Linagliptin) ..... Once daily Lisinopril 5 Mg Tabs (Lisinopril) ..... One tab. daily Aspirin 325 Mg Tabs (Aspirin) ..... One tab. daily Timo Garcia MD Cardiology Follow up Timo mitchell MD Cardiology Follow up Timo mitchell MD Cardiology:SCHEDULE NUCLEAR STRESS ADENOSINE TO EVAL FOR ISCHEMIA SHE HAS FATUGUE AND BACK PAIN WITH TEXERTION Timo Garcia MD Cardiology: T he following medications were removed from the medication list: Glimepiride 2 Mg Tabs (Glimepiride) ..... Once daily Metformin Hcl 500 Mg Tabs (Metformin hcl) ..... Twice daily Her updated medication list for this problem includes: Tradjenta 5 Mg Oral Tabs (Linagliptin) ..... Once daily Lisinopril 5 Mg Tabs (Lisinopril) ..... One tab. daily Aspirin 325 Mg Tabs (Aspirin) ..... One tab. daily Orders: 9 9215 HIGH Complex (CPT-92865) S TR - Adenosine (68622) C omplete Echo (CPT-83142) H EMOGLOBIN A1c (496) Timo Garcia MD Cardiology: H er updated medication list for this problem includes: Norvasc 5 Mg Tabs (Amlodipine besylate) ..... One tab. daily Amlodipine Besylate 5 Mg Oral Tabs (Amlodipine besylate) ..... One a day instad of nifedipine Lisinopril 5 Mg Tabs (Lisinopril) ..... One tab. daily Aspirin 325 Mg Tabs (Aspirin) ..... One tab. daily Metoprolol Tartrate 25 Mg Tabs (Metoprolol tartrate) ..... One tab three times daily Timo Garcia MD Cardiology:SR ON EKG ON ASA H er updated medication list for this problem includes: Aspirin 325 Mg Tabs (Aspirin) ..... One tab. daily Metoprolol Tartrate 25 Mg Tabs (Metoprolol tartrate) ..... One tab three times daily Orders: S NOMED-CT: [id number] Current Medications Documented ([id number]) E KG (CPT-61272) Timo Garcia MD Cardiology: H er updated medication list for this problem includes: Pravastatin Sodium 80 Mg Oral Tabs (Pravastatin sodium) ..... 1/2 tab twice daily [facility] Cardiology: H er updated medication list for this problem includes: Procardia Xl 30 Mg Tb24 (Nifedipine) ..... One per day Lisinopril 5 Mg Tabs (Lisinopril) ..... One tab. daily Aspirin 325 Mg Tabs (Aspirin) ..... One tab. daily Metoprolol Tartrate 25 Mg Tabs (Metoprolol tartrate) ..... One tab three times daily [facility] Cardiology: H er updated medication list for this problem includes: Lisinopril 5 Mg Tabs (Lisinopril) ..... One tab. daily Glimepiride 2 Mg Tabs (Glimepiride) ..... Once daily Aspirin 325 Mg Tabs (Aspirin) ..... One tab. daily Metformin Hcl 500 Mg Tabs (Metformin hcl) ..... Twice daily [facility] Cardiology:remains i n NSR H er updated medication list for this problem includes: Aspirin 325 Mg Tabs (Aspirin) ..... One tab. daily Metoprolol Tartrate 25 Mg Tabs (Metoprolol tartrate) ..... One tab three times daily [facility] Cardiology: H er updated medication list for this problem includes: Lisinopril 5 Mg Tabs (Lisinopril) ..... One tab. daily Glimepiride 2 Mg Tabs (Glimepiride) ..... Once daily Aspirin 325 Mg Tabs (Aspirin) ..... One tab. daily Metformin Hcl 500 Mg Tabs (Metformin hcl) ..... 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 One tab. daily Metoprolol Tartrate 25 Mg Tabs (Metoprolol tartrate) ..... One tab three times daily Joe Barnhart MD hospital follow up Joe Barnhart MD hospital follow up Joe Barnhart MD hospital follow up Joe Barnhart MD Date Name EKG Complete Echo EKG EKG Sleep Study Home B TYPE NATRIURETIC P EPTIDE (BNP) LIPID PANEL COMPREHENSIVE METABO LIC PANEL, W/EGFR Complete Echo MAGNESIUM PROTHROMBIN TIME WIT H INR BASIC METABOLIC PANE L W/EGFR WILFREDO/CV - GC DLCO - 31784 FRC - 81930 FVC - 92680 Mobile Cardiac Tele Carotid Duplex Bilat eral Complete Echo CT Head without cont rast Sleep Study Home HEMOGLOBIN A1c Complete Echo STR - Adenosine STR - Adenosine HISTORY OF PROCEDURES Procedure Date Procedure Name Provider Procedure Notes S tatus EKG Timo Garcia MD completed EKG Timo Garcia MD completed EKG Timo Garcia MD completed EKG Timo Garcia MD completed EKG Timo Garcia MD completed EKG Timo Garcia MD completed ICM Interrogation, Remote (Prof) Timo Garcia MD INTERROGATION EVAL REMOTE </30 D CV MNTR SYS completed ICM Interrogation, Remote (Tech) Timo Garcia MD INTERROGATION EVAL REMOTE </30 D TECH REVIEW completed EKG Timo Garcia MD completed ICM Interrogation, Remote (Prof) Timo Garcia MD INTERROGATION EVAL REMOTE </30 D CV MNTR SYS completed ICM Interrogation, Remote (Tech) Timo Garcia MD INTERROGATION EVAL REMOTE </30 D TECH REVIEW completed ICM Interrogation, Remote (Prof) Timo Garcia MD INTERROGATION EVAL REMOTE </30 D CV MNTR SYS completed Pacemaker Interrogation, Remote (Tech) Timo Garcia MD INTERROGATION REMOTE </90 D MAGNETIC PROSPECTOR REVIEW completed Pacemaker Interrogation, Remote (Prof) Timo Garcia MD INTERROGATION EVAL REMOTE </90 D 1/2/CRIME DATA SPECIALIST LEAD P completed ICM Interrogation, Remote (Prof) Timo Garcia MD INTERROGATION EVAL REMOTE </30 D CV MNTR SYS completed ICM Interrogation, Remote (Tech) Timo Garcia MD INTERROGATION EVAL REMOTE </30 D TECH REVIEW completed ICM Interrogation, Remote (Prof) Timo Garcia MD INTERROGATION EVAL REMOTE </30 D CV MNTR SYS completed ICM Interrogation, Remote (Tech) Timo Garcia MD INTERROGATION EVAL REMOTE </30 D TECH REVIEW completed EKG Timo Garcia MD completed ICM Interrogation, Remote (Prof) Timo Garcia MD INTERROGATION EVAL REMOTE </30 D CV MNTR SYS completed Pacemaker Interrogation, Remote (Tech) Timo Garcia MD INTERROGATION REMOTE </90 D MAGNETIC PROSPECTOR REVIEW completed Pacemaker Interrogation, Remote (Prof) Timo Garcia MD INTERROGATION EVAL REMOTE </90 D 1/2/CRIME DATA SPECIALIST LEAD P completed ICM Interrogation, Remote (Prof) Timo Garcia MD INTERROGATION EVAL REMOTE </30 D CV MNTR SYS completed ICM Interrogation, Remote (Tech) Timo Garcia MD INTERROGATION EVAL REMOTE </30 D TECH REVIEW completed ICM Interrogation, Remote (Prof) Timo Garcia MD INTERROGATION EVAL REMOTE </30 D CV MNTR SYS completed ICM Interrogation, Remote (Tech) Timo Garcia MD INTERROGATION EVAL REMOTE </30 D TECH REVIEW completed EKG Timo Garcia MD completed ICM Interrogation, Remote (Prof) Timo Garcia MD INTERROGATION EVAL REMOTE </30 D CV MNTR SYS completed Pacemaker Interrogation, Remote (Tech) Timo Garcia MD INTERROGATION REMOTE </90 D MAGNETIC PROSPECTOR REVIEW completed Pacemaker Interrogation, Remote (Prof) Timo Garcia MD INTERROGATION EVAL REMOTE </90 D 1/2/CRIME DATA SPECIALIST LEAD P completed ICM Interrogation, Remote (Prof) Timo Garcia MD INTERROGATION EVAL REMOTE </30 D CV MNTR SYS completed ICM Interrogation, Remote (Tech) Timo Garcia MD INTERROGATION EVAL REMOTE </30 D TECH REVIEW completed ICM Interrogation, Remote (Prof) Timo Garcia MD INTERROGATION EVAL REMOTE </30 D CV MNTR SYS completed ICM Interrogation, Remote (Tech) Timo Garcia MD INTERROGATION EVAL REMOTE </30 D TECH REVIEW completed EKG Timo Garcia MD completed FVC / MVV with bronchodilator - 84129 Timo Garcia MD completed BLOOD COUNT HEMOGLOBIN Timo Garcia MD completed FRC - 60322 Timo Garcia MD completed SpO2 w/o 6min walk/titration Timo Garcia MD completed DLCO - 03926 Timo Garcia MD completed ICM Interrogation, Remote (Prof) Hernán Oliva MD INTERROGATION EVAL REMOTE </30 D CV MNTR SYS completed Pacemaker Interrogation, Remote (Tech) Hernán Oliva MD INTERROGATION REMOTE </90 D MAGNETIC PROSPECTOR REVIEW completed Pacemaker Interrogation, Remote (Prof) Hernán Oliva MD INTERROGATION EVAL REMOTE </90 D 1/2/CRIME DATA SPECIALIST LEAD P completed EKG Hernán doty MD completed Protjeffrey Garcia MD completed Protjeffrey Garcia MD completed Ariadna Garcia MD completed Ariadna doty MD completed EKG Timo Garcia MD completed Ariadna Garcia MD completed Ariadna Garcia MD completed Protjeffrey Garcia MD completed Protime Timo Garcia MD completed Mobile Cardiac Telemetry - Tech Daljit Lara completed Mobile Cardiac Telemetry - Prof Daljit Lara completed EKG Timo Garcia MD completed EKG Timo Garcia MD completed SNOMED-CT: [id number] Current Medications Documented Timo Garcia MD completed EKG Timo Garcia MD completed SNOMED-CT: 306973543445874 Current Medications Documented Timo Gracia MD completed EKG Timo Garcia MD completed SNOMED-CT: 276413868736994 Current Medications Documented Timo Garcia MD completed SNOMED-CT: 66695478 Physical Exam, Performed: Pulse Exam of Foot Timo Garcia MD completed EKG Timo Garcia MD completed SNOMED-CT: 248566308428808 Current Medications Documented Timo Garcia MD completed Stress EKG Leandro Pinedo MD complete d Regadenoson, 4 units Timo mitchell MD completed Cardiolite, 2 units Timo swann MD completed SPECT Images Timo Garcia MD completed SNOMED-CT: 697130193715120 Current Medications Documented Timo Garcia MD completed SNOMED-CT: 29336627 Physical Exam, Performed: Pulse Exam of Foot Timo Garcia MD completed EKG Timo Garcia MD completed SNOMED-CT: 678871479782018 Current Medications Documented Timo Garcia MD completed SNOMED-CT: 741965829322986 Current Medications Documented Timo Garcia MD completed EKG Timo Garcia MD completed SNOMED-CT: 243129637220136 Current Medications Documented Timo Garcia MD completed EKG Timo Garcia MD completed
--- OUTSIDE RECORDS SUMMARY | 2025-01-08 17:51 | XMS_ITS | Continuity of Care Document ---
Author Organization [facility] Address [address] [place] [address] [place] [address] Phone Care Team Providers Care Apprentice Technician Name Role Phone [facility] [employer] Unavailable Unavail able Gerson Bustamante Unavailable Unavailable Advance Directives Directive Yes / No Effective Date File Name No Information Encounters Encounter Description Practice Location Reason(s) For Visit Diagnoses Date Provider Providers Copied on Encounter Merged with [facility], [address], [place], [place], [id number], [place] tel:[phone] [facility] No Information Aug- [address] [facility] [address] [facility], [address], [place], [place], [id number] , [place]. tel:[phone] Consulting Provider: Gerson Bustamante, [address] [facility], [place], [address]. tel:[phone] Family History Family Member Type Diagnosis Age At Onset No Information Payers Payer name Insurance type Covered green party ID Authoriza tion(s) No Information Social History Type Description Quantity Date Captured Comments Sex Female Smoking Status No Information Chief Complaint And Reason For Visit No Information Reason For Referral Reason For Referral No Information History Of Present Illness Encounter Date Complaint History Of Prese nt Illness No Information Functional Status Date Functional Assessmen t No Information Instructions Date Instruction Additional Infor mation No Information Assessments Type Assessment Date No Information Patient Care Teams Name Effective Dates (start - stop) Status Members No Information
--- OUTSIDE RECORDS SUMMARY | 2025-01-08 17:51 | XMS_ITS | Referral Summary ---
Author Organization [facility] [address] [place] Address [address] [place] [address] Care Team Providers Care Lacer And Tier Name Role Phone Bear Horan MD Primary Care Provider [phone] Encounters Date Type Department Care Team Description 01/07/2025 Telephone [facility] Cardiology [address] [place] [phone] Flavio Royal MD 12/27/2024 Telephone [facility] Cardiology [address] [place] [address] [place] [phone] Flavio Royal MD Amiodarone refill 11/05/2024 9:45 AM CDT Ancillary Procedure [facility] Cardiology [address] [place] [phone] Atrial fibrillation and flutter (HCC) [I48.91, I48.92] (Primary Dx); Cardiac pacemaker in situ; Tachy-bob syndrome (HCC) from Last 3 Months Allergies Active Allergy Reactions Criticality Noted Date [...] by mouth daily with breakfast Active fish vnp-griou-2-vit C-vit E 2,000-650-12 mg/2.5 gram emulsion in [...] Type: PPM; DDD No. of leads: 2 Unit Leader: [employer] via Pacemaker Annemarie Last interrogation on [...] is counterproductive to treatment of her HFrEF. 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 Presenting rhythm: AP VS. 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 No AT/AF episodes noted. No Ventricular high rate episodes detected. Medications: Eliquis, Pacerone, Lopressor. See scanned report. Office pacemaker follow up: 02/05/2025. Bi[employer]ronik remote f/u due in 6 months. Deborah Kothari RN Flavio Royal MD CV CARDIAC SERVICES PROCE [facility] Final Result * Lipid panel (11/22/2023 11:55 AM CDT) SCRIBED Cholesterol, Total 156 0 - 200 EXTERNAL LAB SCRIBED HDL 58 40 - 100 EXTERNAL LAB SCRIBED LDL 83 0 - 100 EXTERNAL LAB SCRIBED Triglycerides 131 0 - 150 EXTERNAL LAB Blood us Historical Provider LAB BLOOD ORDERABLES Edit ed [...] LAB BLOOD ORDERABLES Final Resul t [facility] Department [place] [address] * (ABNORMAL) Hemoglobin A1c (10/22/2023 9:05 AM CDT) Hgb A1C 7.4(H) 4.0 - 5.6 % Estimated Average Glucose 166 mg/dL [facility] Comment: The ADA recommends reporting an estimated [...] LAB BLOOD ORDERABLES Final Resul t [facility] [place] [address] from Last 3 Months or Most Recently Relevant to Health Maintenance Insurance MEDICARE [facility] MEDICARE [facility] MEDICARE SUPPLEMENT Advance Directives For more information, please contact: [phone] * Full Code (Latest Code Status on File) Date Activated Date Inactivated Comments 10/22/2023 8:14 AM 10/23/2023 9:30 PM Care Teams Lacer And Tier Relationship Specialty Start Date End Date Bear Horan MD [address] [facility] [address] [facility] [address] [place] [address] PCP - General Internal Medicine 07/13/23
--- OUTSIDE RECORDS SUMMARY | 2025-01-08 17:51 | XMS_ITS | Encounter Summary ---
Author Organization [facility] Healthcare Address [address] [place] [address] Care Team Providers Care Target Trimmer Name Role Phone Bear Horan MD Primary Care Provider [phone] Encounter Details Date Type Department Care Team (Late st Contact Info) Description 01/07/2025 Telephone [facility] Medical Group Cardiology [address] [place] [phone] Flavio Royal MD [address] [place] [address] [address] [place] [address] Social History Tobacco Use Types Packs/Day Years Used Date Smoking Tobacco: Former Smokeless Tobacco: Never PHQ-2 Answer Date Recorded PHQ-2 Total Score [...] on file 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 and I wanted to inform her that her pacemaker remote monitor is not communicating with her pacemaker. It appears that her remote monitor is disconnected per website notification. However I was unable to leave a message due to her phone memory is full. documented in this encounter Plan of Treatment Not on file documented as of this encounter Visit Diagnoses Not on filedocumented in this encounter Care Teams Target Trimmer Relationship Specialty Start Date End Date Bear Horan MD [address] [place] [address] PCP - General Internal Medicine 07/13/23 documented as of this encounter
--- NOTE | 2025-01-08 18:49 | ED.WEAKNESS ---
HPI - Weakness General Chief complaint: Weakness Stated complaint: Nausea/vomiting, weakness for past week.BS 580 Time Seen by Provider: 01/08/25 18:49 Source: patient and EMS Mode of arrival: EMS Limitations: no limitations History of Present Illness HPI Narrative: 79 years old white female came from home with her family complaining of general weakness, multiple falls in the last 4 weeks. History of diabetes, hypertension, hyperlipidemia, atrial fibrillation and pacemaker. Patient does not take her medication as prescribed because cannot afford does not remember when the last time had metformin or Eliquis or her blood pressure medication She denies any fever, chills, nausea, vomiting, chest pain or shortness of breath. Related Data Home Medications ?Medication ?Instructions ?Recorded ?Confirmed ?Last Taken ?Type apixaban 2.5 mg tablet 2.5 mg PO BID 10/24/23 05/23/24 Unknown History amiodarone 200 mg tablet 200 mg DAILY 02/06/24 05/23/24 Unknown History omega-3 fatty acids 2,000 mg PO BID 02/06/24 05/23/24 Unknown History acetaminophen 500 mg capsule 1,000 mg PO Q6H PRN 02/13/24 05/23/24 Unknown History Allergies Allergy/AdvReac Type Severity Reaction Status Date / Time hydrocodone Allergy Severe LIGHT Verified 01/08/25 19:01 HEADED/VERTIGO meperidine Allergy Severe NAUSEA AND Verified 01/08/25 19:01 VOMITING propoxyphene Allergy Severe HIVES Verified 01/08/25 19:01 Sulfa (Sulfonamide Allergy Severe HIVES Verified 01/08/25 19:01 Antibiotics) Contrast Media Allergy Severe HIVES Uncoded 01/08/25 19:01 Review of Systems Review of Systems: All systems reviewed & are unremarkable except as noted in HPI and below PMFSH Past Medical History Medical History Impaired functional mobility, balance, gait, and endurance Kyphosis HUI (dyspnea on exertion) Adult BMI 19-24 kg/sq m Chronic kidney disease, stage 3 Hydroureteronephrosis Atrial fibrillation and flutter Diabetic retinopathy Pulmonary embolus Type 2 diabetes mellitus Arteriosclerotic heart disease Contusion of hip, left Vitamin D deficiency Gout Iron deficiency anemia Mixed hyperlipidemia Benign essential hypertension Surgical History Surgical History History of permanent cardiac pacemaker placement Family History Family History Father Carcinoma of colon Mother Carcinoma of colon Family history of diabetes mellitus in first degree relative Diabetes mellitus Sibling Family history of diabetes mellitus in first degree relative Diabetes mellitus Social History Social History Social History: Surrogate medical decision maker: Felipe Jin (son) and Karyna Menon (granddaughter). Code status: Full code. Smoking status: Former smoker Second hand tobacco smoke exposure: Yes Smoking end date: 07/24/74 Alcohol intake: never Do You Feel Safe in your Home?: Yes Lack of Transportation: YES Lack of Food: Sometimes True Current Housing: I Have Housing Concerned About Future Housing: No Difficulty Paying Gas/Electric Bills: No Difficulty Paying for Meds: No Currently Unemployed: No Education: Bachelor's Degree Difficulty w/ Childcare or Family Care: No Living arrangements: alone Additional living arrangements comments: Lives alone with her black tete in [place]. Occupation/Education: retired Spiritual care concerns: No Exam Narrative: General appearance: Well-developed, well-nourished Skin: Normal color Head: Normocephalic, nontraumatic Eyes: Clear conjunctiva ENT: Oropharynx normal, ears normal, nose normal Neck: Supple, nontender Chest and respiratory: Airway patent, no respiratory distress, no accessory muscle use Heart: Regular rate/rhythm Abdomen: Soft, nontender, no organomegaly, quiet bowel sounds Vascular: Normal peripheral pulses, normal capillary refill. 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[employer] is normal as tested, no gross motor deficit Course Vital Signs Vital signs: Vital Signs Temperature 36.4 C L 01/08/25 18:20 Pulse Rate 68 01/08/25 18:20 Respiratory Rate 16 01/08/25 18:20 Blood Pressure 74/47 L 01/08/25 18:20 Pulse Oximetry 100 01/08/25 18:20 Oxygen Delivery Room Air 01/08/25 18:20 Temperature 36.4 C L 01/08/25 18:20 Pulse Rate 84 01/08/25 22:44 Respiratory Rate 15 01/08/25 22:30 Blood Pressure 100/52 L 01/08/25 22:30 Pulse Oximetry 95 01/08/25 22:30 Oxygen Delivery Room Air 01/08/25 19:45 MDM - Weakness MDM Narrative Medical decision making narrative: Patient came with general weakness and multiple falls. Patient does not take her medications because cannot afford. Vital signs showing blood pressure 74/47, otherwise within normal limit Physical examination showing malnourished patient, pacemaker in place, otherwise unremarkable Differential diagnosis include diabetic hyperglycemia, electrolyte imbalance, dehydration, noncompliance with medications Blood workup today includes CBC, CMP, of showed WBC 12.6, BLOOD GLUCOSE 418, VENOUS BLOOD GAS SHOWED PH OF 7.34 Urinalysis showed EVIDENCE OF INFECTION EKG showed A FLUTTER/TACHYCARDIA WITH RVR, NONSPECIFIC ST T-WAVE ABNORMALITY DIAGNOSIS FAILURE TO THRIVE, NONCOMPLIANCE WITH MEDICATION, URINARY TRACT INFECTION, DEHYDRATION ADMIT TO HOSPITALIST Differential Diagnosis Differential diagnosis: Likely other ( ABOVE) Lab Data Attestation: I reviewed the patient's lab results. 01/08/25 20:01 01/08/25 22:17 Labs: Lab Results 01/08/25 01/08/25 01/08/25 Range/Units 18:45 19:38 20:01 WBC 12.6 H (4.5-10.0) K/mm3 RBC 4.60 (4.2-5.4) M/mm3 Hgb 14.2 D (12.0-15.0) g/dL Hct 43.5 (37.0-47.0) % MCV 94.6 (80-100) fl MCH 30.9 (26-34) pg MCHC 32.6 (32-36) g/dl RDW 12.6 (11.5-14.5) % Plt Count 226 (150-375) k/mm3 MPV 10.9 H (7.4-10.4) fl Immature Gran % (Auto) 1.0 H (0-0.5) % Neut % (Auto) 80.1 H (45.5-73.1) % Lymph % (Auto) 8.1 L (18.3-44.2) % Carver % (Auto) 10.0 H (2.6-8.5) % Eos % (Auto) 0.3 (0-4.4) % Baso % (Auto) 0.5 (0.2-1.2) % Lymph # (Auto) 1.02 (0.9-3.2) K/mm3 Carver # (Auto) 1.3 H (0.1-0.6) K/mm3 Eos # (Auto) 0.0 (0-0.3) K/mm3 Baso # (Auto) 0.1 (0.0-0.1) K/mm3 Abs Immat Gran (auto) 0.12 H (0.00-0.031) K/mm3 Absolute Neuts (auto) 10.1 H (1.3-6.7) K/mm3 Absolute Nucleated RBC 0.000 (0.0-0.012) K/mm3 Nucleated RBC % 0.0 (0.0-0.2) % Sodium (137-145) mmol/L Potassium (3.4-5.0) mmol/L Chloride (98-107) mmol/L Carbon Dioxide (22-30) mmol/L Anion Gap (4-12) mmol/L BUN (7-17) mg/dL Creatinine (0.7-1.0) mg/dL Estim Creat Clear Calc ml/min Estimated GFR (59 - ) Glucose (65-110) mg/dL POC Capillary Glucose > 500 H* 418 H (65-105) mg/dl Calcium (8.4-10.2) mg/dL Phosphorus (2.5-4.5) mg/dL Magnesium (1.6-2.3) mg/dL Total Bilirubin (0.2-1.3) mg/dL AST (14-36) U/L ALT (6-35) U/L Alkaline Phosphatase (38-126) U/L Total Protein (6.3-8.2) g/dL Albumin (3.5-5.1) g/dL Beta-Hydroxybutyrate/Acetoacetate (0.02-0.27) mmol/L Urine Color (Yellow) Urine Appearance (Clear) Urine pH (5.0-9.0) Ur Specific S[place] (1.001-1.035) Urine Protein (Negative) mg/dL Urine Glucose (UA) (Negative) mg/dL Urine Ketones (Negative) mg/dL Ur Blood (Man) (Negative) Urine Nitrate (Negative) Urine Bilirubin (Negative) Urine Urobilinogen (<2.0) mg/dL Leukocyte Esterase Rfl (Negative) GERARD/UL Urine RBC (0-2) /hpf Urine WBC (0-3) /hpf Urine WBC Clumps (None) /HPF Ur Squamous Epith Cells (Few) /hpf Urine Bacteria /hpf Urine Casts Urine Yeast (Budding) (None) /hpf 01/08/25 01/08/25 Range/Units 20:44 22:17 WBC (4.5-10.0) K/mm3 RBC (4.2-5.4) M/mm3 Hgb (12.0-15.0) g/dL Hct (37.0-47.0) % MCV (80-100) fl MCH (26-34) pg MCHC (32-36) g/dl RDW (11.5-14.5) % Plt Count (150-375) k/mm3 MPV (7.4-10.4) fl Immature Gran % (Auto) (0-0.5) % Neut % (Auto) (45.5-73.1) % Lymph % (Auto) (18.3-44.2) % Carver % (Auto) (2.6-8.5) % Eos % (Auto) (0-4.4) % Baso % (Auto) (0.2-1.2) % Lymph # (Auto) (0.9-3.2) K/mm3 Carver # (Auto) (0.1-0.6) K/mm3 Eos # (Auto) (0-0.3) K/mm3 Baso # (Auto) (0.0-0.1) K/mm3 Abs Immat Gran (auto) (0.00-0.031) K/mm3 Absolute Neuts (auto) (1.3-6.7) K/mm3 Absolute Nucleated RBC (0.0-0.012) K/mm3 Nucleated RBC % (0.0-0.2) % Sodium 136 L (137-145) mmol/L Potassium 4.2 (3.4-5.0) mmol/L Chloride 102 (98-107) mmol/L Carbon Dioxide 24 (22-30) mmol/L Anion Gap 10 (4-12) mmol/L BUN 32 H (7-17) mg/dL Creatinine 1.22 H (0.7-1.0) mg/dL Estim Creat Clear Calc 25 ml/min Estimated GFR 42 L (59 - ) Glucose 300 H (65-110) mg/dL POC Capillary Glucose (65-105) mg/dl Calcium 9.3 (8.4-10.2) mg/dL Phosphorus 3.6 (2.5-4.5) mg/dL Magnesium 2.0 (1.6-2.3) mg/dL Total Bilirubin 1.0 (0.2-1.3) mg/dL AST 91 H (14-36) U/L ALT 144 H (6-35) U/L Alkaline Phosphatase 104 (38-126) U/L Total Protein 6.7 (6.3-8.2) g/dL Albumin 3.4 L (3.5-5.1) g/dL Beta-Hydroxybutyrate/Acetoacetate 1.11 H (0.02-0.27) mmol/L Urine Color Yellow (Yellow) Urine Appearance Turbid H (Clear) Urine pH 5.0 (5.0-9.0) Ur Specific Saco 1.026 (1.001-1.035) Urine Protein 1+ H (Negative) mg/dL Urine Glucose (UA) 3+ H (Negative) mg/dL Urine Ketones Negative (Negative) mg/dL Ur Blood (Man) 3+ H (Negative) Urine Nitrate Negative (Negative) Urine Bilirubin Negative (Negative) Urine Urobilinogen 0.2 (<2.0) mg/dL Leukocyte Esterase Rfl 2+ H (Negative) GERARD/UL Urine RBC >100 H (0-2) /hpf Urine WBC >100 H (0-3) /hpf Urine WBC Clumps Present H (None) /HPF Ur Squamous Epith Cells Few (Few) /hpf Urine Bacteria 4+ H /hpf Urine Casts 11-20 Urine Yeast (Budding) Present H (None) /hpf ABG Data ABG results: 01/08/25 20:01 VBG pH 7.346 VBG pCO2 41.7 L VBG pO2 33.0 L VBG HCO3 22.3 L O2 Delivery Device Not Reportable O2 Liters/Min Not Reportable FiO2 21 Critical Care Time Critical Care Time Critical Care Time: Yes Total Critical Care Time: 30 Discharge Plan Discharge Clinical Impression: Urinary tract infection, Dehydration, Non-compliance Patient Disposition: Still a Patient Condition: Stable Patient Language: Hungarian Prescriptions: No Action mirtazapine 30 mg tablet 30 mg PO QHS Qty: 90 1RF Rx Instructions: Please D/C the Mirtazapine 15mg. Thank you metformin 500 mg tablet extended release 24 hr 500 mg PO BID Qty: 180 1RF omega-3 fatty acids Capsule 2,000 mg PO BID amiodarone 200 mg tablet 200 mg DAILY ferrous sulfate 325 mg (65 mg iron) tablet See Rx Instructions .ROUTE .COMPLEX Qty: 180 0RF Dose Instruction: TAKE 1 TABLET BY MOUTH TWICE A DAY Rx Instructions: TAKE 1 TABLET BY MOUTH TWICE A DAY furosemide 20 mg tablet See Rx Instructions .ROUTE .COMPLEX Qty: 90 0RF Dose Instruction: TAKE 1 TABLET BY MOUTH EVERY DAY IN THE MORNING Rx Instructions: TAKE 1 TABLET BY MOUTH EVERY OTHER MORNING apixaban 2.5 mg tablet 2.5 mg PO BID acetaminophen 500 mg capsule 1,000 mg PO Q6H PRN Rx Instructions: do not exceed 4,000 mg in 24 hours cyanocobalamin (vitamin B-12) 1,000 mcg lozenge See Rx Instructions .ROUTE .COMPLEX Qty: 90 0RF Dose Instruction: PLACE 1 TABLET UNDER THE TONGUE ONCE DAILY, LET DISSOLVE FOR AT LEAST 30 SECONDS BEFORE SWALLOWING Rx Instructions: PLACE 1 TABLET UNDER THE TONGUE ONCE DAILY, LET DISSOLVE FOR AT LEAST 30 SECONDS BEFORE SWALLOWING lisinopril 5 mg tablet See Rx Instructions .ROUTE .COMPLEX Qty: 90 1RF Dose Instruction: TAKE 1 TABLET BY MOUTH EVERY DAY Rx Instructions: TAKE 1 TABLET BY MOUTH EVERY DAY cholecalciferol (vitamin D3) 50 mcg (2,000 unit) tablet See Rx Instructions .ROUTE .COMPLEX Qty: 90 0RF Dose Instruction: TAKE 1 TABLET BY MOUTH DAILY Rx Instructions: TAKE 1 TABLET BY MOUTH DAILY metoprolol tartrate 25 mg tablet 12.5 mg PO Q12H Qty: 45 3RF pantoprazole 40 mg tablet,delayed release (DR/EC) See Rx Instructions .ROUTE .COMPLEX Qty: 90 1RF Dose Instruction: TAKE 1 TABLET BY MOUTH EVERY MORNING Rx Instructions: TAKE 1 TABLET BY MOUTH EVERY MORNING atorvastatin 40 mg tablet See Rx Instructions .ROUTE .COMPLEX Qty: 90 1RF Dose Instruction: TAKE 1 TABLET BY MOUTH EVERY DAY Rx Instructions: TAKE 1 TABLET BY MOUTH EVERY DAY folic acid 1 mg tablet See Rx Instructions .ROUTE .COMPLEX Qty: 90 1RF Dose Instruction: TAKE 1 TABLET BY MOUTH EVERY DAY Rx Instructions: TAKE 1 TABLET BY MOUTH EVERY DAY magnesium oxide 400 mg (241.3 mg magnesium) tablet 400 mg PO DAILY Qty: 90 1RF Follow-up/Referrals: Bear Horan MD [Primary Care Provider] -
[2025-01-08] MEDS: SODIUM CHLORIDE 0.9% IV 1,000 ML 999 ML IV CONT (18:58)
[2025-01-08] MEDS: INSULIN HUMAN REGULAR (*BKC) 100 UNITS/ML 7 UNITS IV PUSH (18:58)
[2025-01-08 20:06] LABS: Hematocrit 43.5 % (37.0-47.0); Hemoglobin 14.2 g/dL (12.0-15.0); Immature Granulocyte Percent A 1.0 % (0-0.5); Lymphocytes Absolute Auto 1.02 K/mm3 (0.9-3.2); Mean Corpuscular HGB Conc 32.6 g/dl (32-36); Mean Corpuscular Hemoglobin 30.9 pg (26-34); Mean Corpuscular Volume 94.6 fl (80-100); Nucleated Red Blood Cells Absolute Auto 0.000 K/mm3 (0.0-0.012); Nucleated Red Blood Cells Perc 0.0 % (0.0-0.2); Platelet Count Result 226 k/mm3 (150-375); Red Blood Count 4.60 M/mm3 (4.2-5.4); White Blood Count 12.6 K/mm3 (4.5-10.0)
--- NOTE | 2025-01-08 20:10 | PC.NURSE ---
This RN to bedside to attempt lab draw. Per staff, pt has been stuck multiple times without success. This RN unsuccessful as well x 2. Placed call to phlebotomy with no answer. Dr Erickson notified and states he will attempt femoral stick to obtain labs.
--- OUTSIDE RECORDS SUMMARY | 2025-01-08 20:13 | XMS_ITS | Encounter Summary ---
Author Organization [facility] Healthcare Address [address] [place] [address] Care Team Providers Care Coating Technician Name Role Phone Bear Horan MD Primary Care Provider [phone] Encounter Details Date Type Department Care Team (Late st Contact Info) Description 01/07/2025 Telephone [facility] Medical Group Cardiology [address] [place] [phone] Flavio Royal MD [address] [place] [address] [address] [place] [address] Social History Tobacco Use Types Packs/Day Years [...] on file 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
--- OUTSIDE RECORDS SUMMARY | 2025-01-08 20:13 | XMS_ITS | Clinical Summary ---
Author Organization [facility] [address] [place] Address [address] [place] [id number] Care Team Providers Care National Facilities Manager Name Role Phone Bear Horan MD Primary Care Provider [phone] Allergies Active Allergy Reactions Criticality Noted Date [...] by mouth daily with breakfast Active fish ovy-tvtzo-4-vit C-vit E 2,000-650-12 mg/2.5 gram emulsion in [...] Type: PPM; DDD No. 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 Presenting rhythm: AP VS. 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 No AT/AF episodes noted. No Ventricular high [...] MD LAB BLOOD ORDERABLES Final Resul t [facility] Department [place] [address] * (ABNORMAL) Hemoglobin A1c (10/22/2023 9:05 AM CDT) Hgb A1C 7.4(H) 4.0 - 5.6 % Estimated Average Glucose 166 mg/dL [facility] Comment: The ADA recommends reporting an estimated [...] LAB BLOOD ORDERABLES Final Resul t [facility] Department [place] [address] from Last 3 Months or Most Recently Relevant to Health Maintenance Insurance MEDICARE [facility] [id number] MEDICARE [facility] MEDICARE SUPPLEMENT Advance Directives For more information, please contact: [phone] * Full Code (Latest Code Status on File) Date Activated Date Inactivated Comments 10/22/2023 8:14 AM 10/23/2023 9:30 PM Care Teams National Facilities Manager Relationship Specialty Start Date End Date Bear Horan MD [address] [facility] [address] [place] [address] PCP - General Internal Medicine 07/13/23
--- OUTSIDE RECORDS SUMMARY | 2025-01-08 20:13 | XMS_ITS | Referral Summary ---
Author Organization [facility] [address] [place] Address [address] [place] [phone] Care Team Providers Care Inspector Conveyor Line Name Role Phone Bear Horan MD Primary Care Provider [phone] Encounters Date Type Department Care Team Description 01/07/2025 Telephone [facility] Cardiology [address] [place] [phone] Flavio Royal MD 12/27/2024 Telephone [facility] Cardiology [address] [place] [address] [place] [phone] Flavio Royal MD Amiodarone refill 11/05/2024 9:45 AM CDT Ancillary Procedure [facility] Cardiology [address] [place] [phone] Atrial fibrillation and flutter (HCC) [I48.91, [...] by mouth daily with breakfast Active fish lio-megbw-9-vit C-vit E 2,000-650-12 mg/2.5 gram emulsion in [...] Type: PPM; DDD No. 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 Presenting rhythm: AP VS. AP-88%, SERVICE OFFICER-3%. No AT/AF episodes noted. No Ventricular high rate episodes detected. Medications: Eliquis, Pacerone, Lopressor. See scanned report. Office pacemaker follow up: 02/05/2025. Biotronik remote f/u due in 6 months. Deborah Kothari RN Flavio Royal MD [facility]E [facility] Final Result * Lipid panel (11/22/2023 11:55 [...] LAB BLOOD ORDERABLES Final Resul t [facility] Department [place] [address] * (ABNORMAL) Hemoglobin A1c (10/22/2023 9:05 AM [...] ORDERABLES Final Resul t [facility] [place] [address] from Last 3 Months or Most Recently Relevant to Health Maintenance Insurance MEDICARE [facility] MEDICARE [facility] MEDICARE SUPPLEMENT Advance Directives For more information, please contact: [phone] * Full Code (Latest Code Status on File) Date Activated Date Inactivated Comments 10/22/2023 8:14 AM 10/23/2023 9:30 PM Care Teams Inspector Conveyor Line Relationship Specialty Start Date End Date Bear Horan MD [address] [facility] [address] [facility] [address] [place] [address] PCP - General Internal Medicine 07/13/23
--- OUTSIDE RECORDS SUMMARY | 2025-01-08 20:13 | XMS_ITS | Continuity of Care Document ---
Author Organization [facility] Address [address] [place] [address] [place] [address] [place] [address] Phone Care Team Providers Care Assistant Press Operator Offset Name Role Phone [facility] [employer] Unavailable Unavail able Gerson Bustamante Unavailable Unavailable Advance Directives Directive Yes / No Effective Date File Name No Information Encounters Encounter Description Practice Location Reason(s) For Visit Diagnoses Date Provider Providers Copied on Encounter [facility], [address], [place], [place], [id number], [place] tel:[phone] SEC [facility] No Information Aug- [address] [facility] [address] [facility], [address], [place], [place], [id number] , [place]. tel:[phone] Consulting Provider: Gerson Bustamante, [address] [facility], [place], [address]. tel:[phone] Family History Family Member Type Diagnosis Age At Onset No Information Payers Payer name Insurance type Covered republican ID Authoriza tion(s) No Information Social History [...]
[2025-01-08 20:18] LABS: Fractional Inspired Oxygen 21 %; HCO3 VBG 22.3 mEq/l (24.0-30.0); PCO2 VBG 41.7 mmHg (42.0-48.0); PO2 VBG 33.0 mmHg (35.0-45.0); pH VBG 7.346 (7.300-7.400)
--- NOTE | 2025-01-08 20:30 | PC.NURSE ---
This RN attempted to ge a urine sample from pt. Pt currently has a prolapsed uterus and states that she was at a hospital before and they couldn't do a straight catheter on her then so she does not want one now. This RN attempted to have pt use a hat and sent urine sample down.
[2025-01-08 21:25] LABS: Add Urine Microscopic? YES; Appearance Urine Turbid (Clear); Glucose Urine UA 3+ mg/dL (Negative); Leukocyte Esterase Ur 2+ LEU/UL (Negative); Nitrate Urine Negative (Negative); Specific Grav Ur 1.026 (1.001-1.035)
[2025-01-08 21:26] LABS: Budding Yeast Urine Present /hpf
[2025-01-08 22:32] LABS: Alanine Aminotransferase 144 U/L (6-35); Albumin Level 3.4 g/dL (3.5-5.1); Alkaline Phosphatase 104 U/L (38-126); Anion Gap 10 mmol/L (4-12); Aspartate Amino Transferase 91 U/L (14-36); Bilirubin,Total 1.0 mg/dL (0.2-1.3); Blood Urea Nitrogen 32 mg/dL (7-17); Calcium 9.3 mg/dL (8.4-10.2); Carbon Dioxide 24 mmol/L (22-30); Chloride 102 mmol/L (98-107); Estimated CRCL calculation 25 ml/min; Estimated Glomerular Filt Rate 42; Glucose 300 mg/dL (65-110); Magnesium 2.0 mg/dL (1.6-2.3); Potassium 4.2 mmol/L (3.4-5.0); Sodium 136 mmol/L (137-145); Total Protein 6.7 g/dL (6.3-8.2)
[2025-01-08 22:37] LABS: Beta-Hydroxybutyrate/Acetoace. 1.11 mmol/L (0.02-0.27)
[2025-01-09] VITALS (13 sets, daily range): BP systolic 104–162; BP diastolic 47–84; PULSE 68–76; RESP 16–22; TEMP 36.3–36.6; O2SAT 95–100; BMI 16.0
[2025-01-09] MEDS: SODIUM CHLORIDE 0.9% IV 1,000 ML 150 ML IV CONT ×3 (01:02→16:23)
--- NOTE | 2025-01-09 01:41 | PC.NURSE ---
Pt states her daughter in law has her medication list.
--- NOTE | 2025-01-09 01:48 | ADMGEN ---
This patient, Saniya Jin, was admitted to Medical Room 255-. Patient/family oriented to hospital policies and general routines including ID bracelet, bed and alarms, visiting hours, pain management, procedures, bathroom and other care routines, personal items, smoking policy, room service/diet, and visiting hours. Information on how to activate the Rapid Response Team has been discussed. Patient/Family are encouraged to report perceived risks to care and to ask questions if they do not understand what they are told or what they should do.
[2025-01-09 06:32] LABS: Hemoglobin A1C 12.9 % (<5.7)
[2025-01-09] MEDS: MAGNESIUM OXIDE 400 MG TABLET PO (08:43)
[2025-01-09] MEDS: METOPROLOL TARTRATE 12.5 MG TABLET PO ×2 (08:43→21:29)
[2025-01-09] MEDS: APIXABAN 2.5 MG TABLET PO ×2 (08:43→16:23)
[2025-01-09] MEDS: AMIODARONE HCL 200 MG TABLET PO (08:43)
[2025-01-09] MEDS: FOLIC ACID 1 MG TABLET PO (08:43)
[2025-01-09] MEDS: ATORVASTATIN 40 MG TABLET PO (08:43)
[2025-01-09] MEDS: PANTOPRAZOLE 40 MG TABLET PO (08:44)
[2025-01-09 08:46] LABS: Hematocrit 37.3 % (37.0-47.0); Hemoglobin 12.0 g/dL (12.0-15.0); Immature Granulocyte Percent A 1.1 % (0-0.5); Lymphocytes Absolute Auto 1.54 K/mm3 (0.9-3.2); Mean Corpuscular HGB Conc 32.2 g/dl (32-36); Mean Corpuscular Hemoglobin 31.3 pg (26-34); Mean Corpuscular Volume 97.1 fl (80-100); Nucleated Red Blood Cells Absolute Auto 0.000 K/mm3 (0.0-0.012); Nucleated Red Blood Cells Perc 0.0 % (0.0-0.2); Platelet Count Result 205 k/mm3 (150-375); Red Blood Count 3.84 M/mm3 (4.2-5.4); White Blood Count 8.5 K/mm3 (4.5-10.0)
[2025-01-09] MEDS: INSULIN ASPART (*BKC) 100 UNITS/ML SUB-Q ×4 (08:50→21:30)
[2025-01-09 08:55] LABS: Iron 75 ug/dL (37-170)
[2025-01-09 09:05] LABS: Alanine Aminotransferase 137 U/L (6-35); Albumin Level 3.1 g/dL (3.5-5.1); Alkaline Phosphatase 90 U/L (38-126); Anion Gap 8 mmol/L (4-12); Aspartate Amino Transferase 93 U/L (14-36); Bilirubin,Total 0.9 mg/dL (0.2-1.3); Blood Urea Nitrogen 33 mg/dL (7-17); Calcium 8.9 mg/dL (8.4-10.2); Carbon Dioxide 24 mmol/L (22-30); Chloride 105 mmol/L (98-107); Estimated CRCL calculation 23 ml/min; Estimated Glomerular Filt Rate 47; Glucose 243 mg/dL (65-110); Magnesium 2.0 mg/dL (1.6-2.3); Percent Iron Saturation 43 % (20-50); Potassium 3.8 mmol/L (3.4-5.0); Sodium 137 mmol/L (137-145); Total Protein 6.4 g/dL (6.3-8.2)
[2025-01-09 09:45] LABS: Vitamin B12 > 1000.0 pg/mL (239-931)
[2025-01-09] MEDS: FERROUS SULFATE 325 MG TABLET DR BY MOUTH ×2 (10:07→16:23)
[2025-01-09] MEDS: OMEGA 3 POLYUNSAT FATTY ACIDS 1 GM CAP 2 GM PO ×2 (10:07→16:23)
[2025-01-09] MEDS: CHOLECALCIFEROL (VITAMIN D3) 25 MCG (1,000 UNITS) TABLET 50 MCG PO (10:07)
--- NOTE | 2025-01-09 10:16 | P.HP_ITS ---
H&P: HPI History of Present Illness Date/Time: 01/09/25 10:16 Chief Complaint: Nausea/vomiting, weakness for past week. Narrative: Patient is an 79 year old female that came to the hospital with weakness, nausea, and vomiting. Patient denies chest pain, palpitations, headache, dizziness, nausea, or vomiting. Patient reports that she has had a decreased appetite for a year. Patient knows that in April of last year her weight was 109 lb. Patient reports falling twice recently at sons. Patient reports lower back pain that is a 3, frequent, and aching. Patients granddaughter buys her groceries. Patient reports that she has not been taking all of her medications due to cost. Patient taking Metformin off and on due to causing diarrhea. Patient reports that her doctor told her to eat whatever she would like. ED work up showed: WBC 12.6. Blood gas: pH 7.346, pC02 41.7, p02 33.0, HCO3 22.3. Na+ 136, BUN 32, Creatinine 1.22, GFR 42, HgbA1C 12.9%, AST 91, ALT 144. Urine turbid with 1+ protein, 3+ glucose, 3+ blood, 2+ leukocytes, RBC >100. WBC >100, WBC clumps present, 4+ bacteria, and yeast present. Urine culture pending. Chest X-ray showed mild pulmonary vascular congestion, without focal infiltrate or effusion. Review of Systems Review of Systems: All systems reviewed & are unremarkable except as noted in HPI and below PMFSH Past Medical History Medical History Impaired functional mobility, balance, gait, and endurance Kyphosis HUI (dyspnea on exertion) Adult BMI 19-24 kg/sq m Chronic kidney disease, stage 3 Hydroureteronephrosis Atrial fibrillation and flutter Diabetic retinopathy Pulmonary embolus Type 2 diabetes mellitus Arteriosclerotic heart disease Contusion of hip, left Vitamin D deficiency Gout Iron deficiency anemia Mixed hyperlipidemia Benign essential hypertension Surgical History Surgical History History of permanent cardiac pacemaker placement Family History Family History (Updated 01/09/25 @ 02:18 by Jacqui Arciniega RN) Father Carcinoma of colon Mother Diabetes mellitus Family history of diabetes mellitus in first degree relative Carcinoma of colon Lung cancer Sibling Alzheimer dementia Diabetes mellitus Heart disease Family history of diabetes mellitus in first degree relative Social History Social History Social History: Surrogate medical decision maker: Felipe Jin (son) and Karyna Menon (granddaughter). Code status: Full code. Smoking packs per day: 0 Smoking cigarettes per day: 0.0 Years smoked: 10 Smoking pack-years: 0.00 Smoking status: Former smoker Tobacco type: cigarettes Second hand tobacco smoke exposure: Yes Smoking end date: 07/24/74 Alcohol intake: former Substance use: never Substance use type: does not use Do You Feel Safe in your Home?: Yes Lack of Transportation: No Lack of Food: Never True Current Housing: I Have Housing Concerned About Future Housing: No Difficulty Paying Gas/Electric Bills: No Difficulty Paying for Meds: YES Currently Unemployed: No Education: Trade/Vocational Certificate Difficulty w/ Childcare or Family Care: No Living arrangements: alone Additional living arrangements comments: Lives alone with her black tete in [place]. Occupation/Education: retired Spiritual care concerns: No Meds Home Medications and Allergies Home Medications ?Medication ?Instructions ?Recorded ?Confirmed ?Type ferrous sulfate 325 mg (65 mg See Rx Instructions .Route 12/28/22 01/09/25 Rx iron) tablet .COMPLEX #180 tabs furosemide 20 mg tablet See Rx Instructions .Route 04/10/23 01/09/25 Rx .COMPLEX #90 tabs apixaban 2.5 mg tablet 2.5 mg PO BID 10/24/23 01/09/25 History amiodarone 200 mg tablet 200 mg PO DAILY 02/06/24 01/09/25 History omega-3 fatty acids 2,000 mg PO BID 02/06/24 01/09/25 History acetaminophen 500 mg capsule 1,000 mg PO Q6H PRN pain 02/13/24 01/09/25 History cyanocobalamin (vitamin B-12) See Rx Instructions .Route 02/22/24 01/09/25 Rx 1,000 mcg sublingual lozenge .COMPLEX #90 sandro lisinopril 5 mg tablet See Rx Instructions .Route 02/26/24 01/09/25 Rx .COMPLEX #90 tabs metformin 500 mg tablet,extended 500 mg PO BID #180 tabs 04/10/24 01/09/25 Rx release 24 hr mirtazapine 30 mg tablet 30 mg PO QHS #90 tabs 05/23/24 01/09/25 Rx cholecalciferol (vitamin D3) 50 See Rx Instructions .Route 06/18/24 01/09/25 Rx mcg (2,000 unit) tablet .COMPLEX #90 tabs metoprolol tartrate 25 mg tablet 12.5 mg (1/2 x 25 mg) PO Q12H #45 09/30/24 01/09/25 Rx tabs atorvastatin 40 mg tablet See Rx Instructions .Route 12/23/24 01/09/25 Rx .COMPLEX #90 tabs folic acid 1 mg tablet See Rx Instructions .Route 12/23/24 01/09/25 Rx .COMPLEX #90 tabs magnesium oxide 400 mg (241.3 mg 400 mg PO DAILY #90 tabs 12/23/24 01/09/25 Rx magnesium) tablet pantoprazole 40 mg tablet,delayed See Rx Instructions .Route 12/23/24 01/09/25 Rx release .COMPLEX #90 tabs Allergies Allergy/AdvReac Type Severity Reaction Status Date / Time hydrocodone Allergy Severe LIGHT Verified 01/09/25 02:26 HEADED/VERTIGO iohexol (From contrast - CT, Allergy Severe Anaphylaxis Verified 01/09/25 02:26 X-RAY) meperidine Allergy Severe NAUSEA AND Verified 01/09/25 02:26 VOMITING propoxyphene Allergy Severe HIVES Verified 01/09/25 02:26 Sulfa (Sulfonamide Allergy Severe HIVES Verified 01/09/25 02:26 Antibiotics) Contrast Media Allergy Severe HIVES Uncoded 01/09/25 02:26 Vital Signs Vital Signs - 24 hr 01/08/25 18:20 01/08/25 18:43 01/08/25 19:45 Temperature 97.5 F L Pulse Rate 68 70 Respiratory Rate 16 13 Blood Pressure 74/47 L 118/65 Pulse Oximetry 100 97 94 Oxygen Delivery Room Air Room Air 01/08/25 20:45 01/08/25 21:01 01/08/25 21:16 Temperature Pulse Rate 70 70 70 Respiratory Rate 14 16 18 Blood Pressure 116/96 H 115/46 L 107/48 L Pulse Oximetry 100 96 95 Oxygen Delivery 01/08/25 22:30 01/08/25 22:44 01/08/25 23:30 Temperature Pulse Rate 70 84 70 Respiratory Rate 15 13 Blood Pressure 100/52 L 112/51 L Pulse Oximetry 95 97 Oxygen Delivery 01/09/25 00:00 01/09/25 01:00 01/09/25 01:37 Temperature Pulse Rate 70 70 70 Respiratory Rate 16 22 H 18 Blood Pressure 104/51 L 120/47 L 123/50 L Pulse Oximetry 95 98 96 Oxygen Delivery 01/09/25 01:55 01/09/25 02:58 01/09/25 04:00 Temperature 97.8 F Pulse Rate 72 70 Respiratory Rate 16 Blood Pressure 162/84 H Pulse Oximetry 100 Oxygen Delivery Room Air 01/09/25 08:43 01/09/25 08:43 01/09/25 08:45 Temperature Pulse Rate 76 76 Respiratory Rate Blood Pressure Pulse Oximetry Oxygen Delivery Room Air Exam Const: General: comfortable and no acute distress Eyes: Sclera: sclerae normal Resp: Effort & Inspection: normal respiratory effort Auscultation: clear to auscultation bilaterally Cardio: Rate: regular rate Rhythm: regular rhythm Other: Paced 70. GI: GI Palp: Yes Soft to palpation Auscultation: normal bowel sounds Neuro: Speech: normal speech Extrem: General: no pedal edema Psych: Mental Status: mental status grossly normal Affect: normal affect H&P: Results Labs Labs: Short CBC 01/08/25 01/09/25 Range/Units 20:01 08:24 WBC 12.6 H 8.5 (4.5-10.0) K/mm3 Hgb 14.2 D 12.0 (12.0-15.0) g/dL Hct 43.5 37.3 (37.0-47.0) % Plt Count 226 205 (150-375) k/mm3 [facility] 01/08/25 01/09/25 22:17 08:24 Sodium 136 L 137 Potassium 4.2 3.8 Chloride 102 105 Carbon Dioxide 24 24 BUN 32 H 33 H Creatinine 1.22 H 1.12 H Glucose 300 H 243 H Calcium 9.3 8.9 Liver Function 01/08/25 01/09/25 Range/Units 22:17 08:24 Total Bilirubin 1.0 0.9 (0.2-1.3) mg/dL AST 91 H 93 H (14-36) U/L ALT 144 H 137 H (6-35) U/L Alkaline Phosphatase 104 90 (38-126) U/L Albumin 3.4 L 3.1 L (3.5-5.1) g/dL Urine 01/08/25 Range/Units 20:44 Urine Color Yellow (Yellow) Urine Appearance Turbid H (Clear) Urine pH 5.0 (5.0-9.0) Ur Specific [place] 1.026 (1.001-1.035) Urine Protein 1+ H (Negative) mg/dL Urine Glucose (UA) 3+ H (Negative) mg/dL Assessment and Plan Assessment and plan (1) Urinary tract infection: Code(s): N39.0 - Urinary tract infection, site not specified Status: Acute Assessment and Plan: * Urine turbid with 1+ protein, 3+ glucose, 3+ blood, 2+ leukocytes, RBC >100. WBC >100, WBC clumps present, 4+ bacteria, and yeast present. * Urine culture pending. * Ceftriaxone 1 gram IVPB daily. * Encourage water intake. * NS @ 150 ml/hour. (2) RENETTA (acute kidney injury): Code(s): N17.9 - Acute kidney failure, unspecified Status: Acute Assessment and Plan: * Creatinine 1.22 on admission, last check 1.12. * Normal saline 150 ml/hr. (3) Transaminitis: Code(s): R74.01 - Elevation of levels of liver transaminase levels Status: Acute Assessment and Plan: * AST 91>93 * ALT 144>137. (4) Multiple falls: Code(s): R29.6 - Repeated falls Status: Acute Assessment and Plan: * PT/OT for strengthening and balance. (5) DM type 2 (diabetes mellitus, type 2): Qualifiers: Diabetes mellitus remote computer terminal operator insulin use: without custodial use Diabetes mellitus complication status: with kidney complications Diabetes mellitus complication detail: with chronic kidney disease Chronic kidney disease stage: stage 2 (mild) Qualified Code(s): E11.22 - Type 2 diabetes mellitus with diabetic chronic kidney disease; N18.2 - Chronic kidney disease, stage 2 (mild) Code(s): E11.9 - Type 2 diabetes mellitus without complications Status: Acute Assessment and Plan: * HgbA1C 12.9%. * High dose SSI, hypoglycemic protocol, and accuchecks qid. * nurse informatics educator. (6) Severe protein-calorie malnutrition: Code(s): E43 - Unspecified severe protein-calorie malnutrition Status: Acute Assessment and Plan: * Increased protein-energy needs in setting of chronic disease as evidenced by minimal oral intake for >1-2 months, significant weight loss 21 lbs(18%) 10 months: moderate subcutaneous fat loss (orbital fat pads) and severe muscle wasting (temporalis, clavicle). * Protein level 6.4. * Mold Designer consult, appreciate recommendations. * Glucerna 1 bottle BID. * Encourage oral intake. (7) BMI < 18.5: Code(s): Z68.1 - Body mass index [BMI] 19.9 or less, adult Status: Acute Assessment and Plan: * Encourage oral intake. * Mold Designer consult. * Glucerna shake BID. Quality VTE Prophylaxis VTE prophylaxis: pharmacologic ordered Hospitalist MIPS Advance Care Plan I have confirmed that the patient's Advanced Care Plan is present, code status is documented, or surrogate decision maker is listed in patient medical record.: Yes Medication Reconciliation I have utilized all available resources to obtain, update and review the patients current medications (includes all prescriptions, OTC, herbals, can nabis, and nutritional supplements).: Yes
[2025-01-09] MEDS: MIRTAZAPINE 15 MG TABLET PO (21:29)
[2025-01-10] VITALS (10 sets, daily range): BP systolic 133–140; BP diastolic 55–63; PULSE 69–80; RESP 18–20; TEMP 36.3–36.4; O2SAT 97–100; BMI 17.2
[2025-01-10] MEDS: SODIUM CHLORIDE 0.9% IV 1,000 ML 150 ML IV CONT ×2 (00:01→07:45)
[2025-01-10 05:38] LABS: Hematocrit 35.3 % (37.0-47.0); Hemoglobin 11.2 g/dL (12.0-15.0); Immature Granulocyte Percent A 1.3 % (0-0.5); Lymphocytes Absolute Auto 1.69 K/mm3 (0.9-3.2); Mean Corpuscular HGB Conc 31.7 g/dl (32-36); Mean Corpuscular Hemoglobin 30.9 pg (26-34); Mean Corpuscular Volume 97.5 fl (80-100); Nucleated Red Blood Cells Absolute Auto 0.000 K/mm3 (0.0-0.012); Nucleated Red Blood Cells Perc 0.0 % (0.0-0.2); Platelet Count Result 180 k/mm3 (150-375); Red Blood Count 3.62 M/mm3 (4.2-5.4); White Blood Count 7.2 K/mm3 (4.5-10.0)
[2025-01-10 05:51] LABS: Alanine Aminotransferase 98 U/L (6-35); Albumin Level 2.6 g/dL (3.5-5.1); Alkaline Phosphatase 75 U/L (38-126); Anion Gap 2 mmol/L (4-12); Aspartate Amino Transferase 60 U/L (14-36); Bilirubin,Total 0.4 mg/dL (0.2-1.3); Blood Urea Nitrogen 25 mg/dL (7-17); Calcium 8.2 mg/dL (8.4-10.2); Carbon Dioxide 25 mmol/L (22-30); Chloride 109 mmol/L (98-107); Estimated CRCL calculation 23 ml/min; Estimated Glomerular Filt Rate 46; Glucose 206 mg/dL (65-110); Magnesium 1.8 mg/dL (1.6-2.3); Potassium 3.5 mmol/L (3.4-5.0); Sodium 136 mmol/L (137-145); Total Protein 5.4 g/dL (6.3-8.2)
[2025-01-10] MEDS: ATORVASTATIN 40 MG TABLET PO (08:40)
[2025-01-10] MEDS: FOLIC ACID 1 MG TABLET PO (08:40)
[2025-01-10] MEDS: METOPROLOL TARTRATE 12.5 MG TABLET PO ×2 (08:40→21:14)
[2025-01-10] MEDS: PANTOPRAZOLE 40 MG TABLET PO (08:41)
[2025-01-10] MEDS: FERROUS SULFATE 325 MG TABLET DR BY MOUTH ×2 (08:41→17:18)
[2025-01-10] MEDS: OMEGA 3 POLYUNSAT FATTY ACIDS 1 GM CAP 2 GM PO ×2 (08:41→17:18)
[2025-01-10] MEDS: APIXABAN 2.5 MG TABLET PO ×2 (08:41→17:18)
[2025-01-10] MEDS: MAGNESIUM OXIDE 400 MG TABLET PO (08:41)
[2025-01-10] MEDS: CHOLECALCIFEROL (VITAMIN D3) 25 MCG (1,000 UNITS) TABLET 50 MCG PO (08:41)
[2025-01-10] MEDS: AMIODARONE HCL 200 MG TABLET PO (08:41)
--- NOTE | 2025-01-10 10:11 | P.PNIM_ITS ---
Progress Note: A&P Assessment and Plan (1) Urinary tract infection: Code(s): N39.0 - Urinary tract infection, site not specified Status: Acute Assessment and Plan: * Urine turbid with 1+ protein, 3+ glucose, 3+ blood, 2+ leukocytes, RBC >100. WBC >100, WBC clumps present, 4+ bacteria, and yeast present. * Urine culture negative, recollect UA with reflex. * Ceftriaxone 1 gram IVPB daily. * Encourage water intake. * NS @ 75 ml/hour. (2) RENETTA (acute kidney injury): Code(s): N17.9 - Acute kidney failure, unspecified Status: Acute Assessment and Plan: * Creatinine 1.22 on admission, last check 1.12. * Normal saline 150 ml/hr. (3) Transaminitis: Code(s): R74.01 - Elevation of levels of liver transaminase levels Status: Acute Assessment and Plan: * AST 91>93>60. * ALT 144>137>98. (4) Multiple falls: Code(s): R29.6 - Repeated falls Status: Acute Assessment and Plan: * PT/OT for strengthening and balance. 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 * High dose SSI, hypoglycemic protocol, and accuchecks qid. 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 (6) Severe protein-calorie malnutrition: Code(s): E43 - Unspecified severe protein-calorie malnutrition Status: Acute Assessment and Plan: * Increased protein-energy needs in setting of chronic disease as evidenced by minimal oral intake for >1-2 months, significant weight loss 21 lbs(18%) 10 months: moderate subcutaneous fat loss (orbital fat pads) and severe muscle wasting (temporalis, clavicle). * Protein level 5.4. * Dehydration Plant Operator consult, appreciate recommendations. * Glucerna 1 bottle BID. * Encourage oral intake. * Mirtazapine 15 mg PO HS. (7) BMI < 18.5: Code(s): Z68.1 - Body mass index [BMI] 19.9 or less, adult Status: Acute Assessment and Plan: * Encourage oral intake. * Dehydration Plant Operator consult. * Glucerna shake BID. * Mirtazapine 15 mg PO HS. Subjective Date/time seen: 01/10/25 10:11 Interval history: Patient sitting up. Patient denies chest pain, palpitations, headache, dizziness, nausea, or vomiting. Patient reports not a big appetite for breakfast. Review of Systems Review of Systems: All systems reviewed & are unremarkable except as noted in HPI and below Exam Const: General: comfortable and no acute distress Resp: Effort & Inspection: normal respiratory effort Auscultation: clear to auscultation bilaterally Cardio: Rate: regular rate Rhythm: regular rhythm Other: Telemetry-SR 73. GI: GI Palp: Yes Soft to palpation Auscultation: normal bowel sounds Neuro: Speech: normal speech Extrem: General: no pedal edema Psych: Mental Status: mental status grossly normal Affect: normal affect Objective Data Vital Signs Vital Signs: Vital Signs - 24 hr 01/09/25 12:00 01/09/25 14:00 01/09/25 14:33 Temperature 97.9 F Pulse Rate 70 68 Respiratory Rate 16 Blood Pressure 131/57 L Pulse Oximetry 98 Oxygen Delivery Room Air 01/09/25 15:31 01/09/25 16:00 01/09/25 20:00 Temperature Pulse Rate 70 70 Respiratory Rate Blood Pressure Pulse Oximetry Oxygen Delivery Room Air 01/09/25 20:44 01/09/25 21:18 01/09/25 21:29 Temperature 97.4 F L Pulse Rate 70 70 Respiratory Rate 20 Blood Pressure 149/56 H Pulse Oximetry 100 Oxygen Delivery Room Air 01/10/25 00:00 01/10/25 04:00 01/10/25 04:35 Temperature 97.6 F Pulse Rate 70 70 70 Respiratory Rate 18 Blood Pressure 135/55 L Pulse Oximetry 97 Oxygen Delivery 01/10/25 08:40 01/10/25 08:40 01/10/25 08:41 Temperature Pulse Rate 76 80 Respiratory Rate Blood Pressure Pulse Oximetry Oxygen Delivery Room Air Intake/Output Intake/Output: Intake & Output 06/01/08/25 01/09/25 01/10/25 23:59 23:59 23:59 23:59 Intake Total 1000 3890 1290 Output Total 0 Balance 1000 3890 1290 Meds/Results Medications: Active Medications Generic Name Dose Route Start Last Admin Trade Name Freq PRN Reason Stop Dose Admin Acetaminophen 1,000 mg 01/09/25 07:38 Acetaminophen 500 Mg Tablet PO Q6H PRN pain Amiodarone HCl 200 mg 01/09/25 09:00 01/10/25 08:41 Amiodarone Hcl 200 Mg Tablet PO 200 mg DAILY JACKIE Administration Apixaban 2.5 mg 01/09/25 09:00 01/10/25 08:41 Apixaban 2.5 Mg Tablet PO 2.5 mg BID JACKIE Administration Atorvastatin Calcium 40 mg 01/09/25 09:00 01/10/25 08:40 Atorvastatin 40 Mg Tablet PO 40 mg DAILY JACKIE Administration Dextrose 12.5 gm 01/09/25 01:22 Dextrose 50% 25 Gm/50 Ml Syringe IV PUSH PRN PRN Hypoglycemia Protocol Docusate Sodium 100 mg 01/09/25 10:33 Docusate Sodium 100 Mg Capsule PO Q12H PRN Constipation Ferrous Sulfate 325 mg 01/09/25 09:15 01/10/25 08:41 Ferrous Sulfate [address] BY MOUTH 325 mg BID JACKIE Administration Fish Oil 2 gm 01/09/25 09:45 01/10/25 08:41 [place] 3 Polyunsat Fatty Acids 1 Gm Cap PO 2 gm BID JACKIE Administration Folic Acid 1 mg 01/09/25 09:00 01/10/25 08:40 Folic Acid 1 Mg Tablet PO 1 mg DAILY JACKIE Administration Glucagon 1 mg 01/09/25 01:22 Glucagon For Inj 1 Mg Vial IM PRN PRN Hypoglycemia Protocol Glucose 15 gm 01/09/25 01:22 Glucose Oral Gel 15 Gm Of Glucse In 37.5 Gm Tube PO PRN PRN Hypoglycemia Protocol Ceftriaxone Sodium 1 gm in 50 mls @ 100 mls/hr 01/09/25 23:00 01/10/25 00:31 Rocephin 1 Gm/Ns 50 Ml IVPB Infused Q24H JACKIE Infusion Sodium Chloride 1,000 mls @ 150 mls/hr 01/08/25 23:40 01/10/25 09:06 Normal Saline Iv IV CONT Not Given .[id number] [facility] Dextrose 1,000 mls @ 100 mls/hr 01/09/25 01:22 Dextrose 5% 1,000 Ml IVPB PRN PRN Hypoglycemia Protocol Insulin Aspart 4 - 8 units 01/09/25 08:00 01/10/25 08:02 Insulin Aspart (*Bkc) 100 Units/Ml SUB-Q Not Given TIDWM [facility] Protocol Insulin Aspart 2 - 4 units 01/09/25 21:00 01/09/25 21:30 Insulin Aspart (*Bkc) 100 Units/Ml SUB-Q 2 units HS JACKIE Administration Protocol Lisinopril 5 mg 01/09/25 09:00 01/10/25 08:41 Lisinopril 5 Mg Tablet PO 5 mg DAILY JACKIE Administration Magnesium Oxide 400 mg 01/09/25 09:00 01/10/25 08:41 Magnesium Oxide 400 Mg Tablet PO 400 mg DAILY JACKIE Administration Metoprolol Tartrate 12.5 mg 01/09/25 09:00 01/10/25 08:40 Metoprolol Tartrate 12.5 Mg Tablet PO 12.5 mg Q12HR JACKIE Administration Mirtazapine 15 mg 01/09/25 21:00 01/09/25 21:29 Mirtazapine 15 Mg Tablet PO 15 mg HS JACKIE Administration Ondansetron HCl 4 mg 01/09/25 10:39 Ondansetron Inj 4 Mg/2 Ml Vial IV PUSH Q6H PRN Nausea And Vomiting Pantoprazole Sodium 40 mg 01/09/25 09:00 01/10/25 08:41 Pantoprazole 40 Mg Tablet PO 40 mg DAILY JACKIE Administration Polyethylene Glycol 17 gm 01/09/25 10:35 01/10/25 08:42 Polyethylene Glycol 3350 17 Gm Powd.Pack PO 17 gm QAM JACKIE Administration Vitamin D 50 mcg 01/09/25 09:45 01/10/25 08:41 Cholecalciferol (Vitamin D3) 25 Mcg (1,000 Units) Tablet PO 50 mcg DAILY JACKIE Administration Radiology Results: ITS Impressions Chest X-Ray 01/09/25 00:04 IMPRESSION: Mild pulmonary vascular congestion, without focal infiltrate or effusion. Labs Labs: Laboratory Results - last 24 hr 01/09/25 01/09/25 01/09/25 12:23 16:50 20:43 WBC RBC Hgb Hct MCV MCH MCHC RDW Plt Count MPV Immature Gran % (Auto) Neut % (Auto) Lymph % (Auto) [place] % (Auto) Eos % (Auto) Baso % (Auto) Lymph # (Auto) [place] # (Auto) Eos # (Auto) Baso # (Auto) Abs Immat Gran (auto) Absolute Neuts (auto) Absolute Nucleated RBC Nucleated RBC % Sodium Potassium Chloride Carbon Dioxide Anion Gap BUN Creatinine Estim Creat Clear Calc Estimated GFR Glucose POC Capillary Glucose 379 H 224 H 274 H Calcium Magnesium Total Bilirubin AST ALT Alkaline Phosphatase Total Protein Albumin 01/10/25 01/10/25 05:18 07:47 WBC 7.2 RBC 3.62 L Hgb 11.2 L Hct 35.3 L MCV 97.5 MCH 30.9 MCHC 31.7 L RDW 12.7 Plt Count 180 MPV 10.3 Immature Gran % (Auto) 1.3 H Neut % (Auto) 60.7 Lymph % (Auto) 23.6 [place] % (Auto) 10.1 H Eos % (Auto) 3.5 Baso % (Auto) 0.8 Lymph # (Auto) 1.69 [place] # (Auto) 0.7 H Eos # (Auto) 0.3 Baso # (Auto) 0.1 Abs Immat Gran (auto) 0.09 H Absolute Neuts (auto) 4.4 Absolute Nucleated RBC 0.000 Nucleated RBC % 0.0 Sodium 136 L Potassium 3.5 Chloride 109 H Carbon Dioxide 25 Anion Gap 2 L BUN 25 H Creatinine 1.13 H Estim Creat Clear Calc 23 Estimated GFR 46 L Glucose 206 H POC Capillary Glucose 198 H Calcium 8.2 L Magnesium 1.8 Total Bilirubin 0.4 AST 60 H ALT 98 H Alkaline Phosphatase 75 Total Protein 5.4 L Albumin 2.6 L Quality VTE Prophylaxis VTE prophylaxis: pharmacologic ordered
[2025-01-10] MEDS: INSULIN ASPART (*BKC) 100 UNITS/ML SUB-Q ×2 (12:53→17:18)
[2025-01-10 18:11] LABS: Add Urine Microscopic? YES; Appearance Urine Turbid (Clear); Budding Yeast Urine Present /hpf; Glucose Urine UA 3+ mg/dL (Negative); Leukocyte Esterase Ur 3+ LEU/UL (Negative); Need Manual Microscopic Reviewed; Nitrate Urine Negative (Negative); Non Pathogenic Casts 0-2; Specific Grav Ur 1.016 (1.001-1.035)
[2025-01-10] MEDS: MIRTAZAPINE 15 MG TABLET PO (21:14)
[2025-01-11] VITALS (7 sets, daily range): BP systolic 150–157; BP diastolic 57–70; PULSE 68–70; RESP 16–20; TEMP 36.4–36.9; O2SAT 91–99
[2025-01-11] MEDS: SODIUM CHLORIDE 0.9% IV 1,000 ML 75 ML IV CONT (01:12)
[2025-01-11 05:58] LABS: Hematocrit 34.2 % (37.0-47.0); Hemoglobin 10.8 g/dL (12.0-15.0); Immature Granulocyte Percent A 1.8 % (0-0.5); Lymphocytes Absolute Auto 1.95 K/mm3 (0.9-3.2); Mean Corpuscular HGB Conc 31.6 g/dl (32-36); Mean Corpuscular Hemoglobin 30.7 pg (26-34); Mean Corpuscular Volume 97.2 fl (80-100); Nucleated Red Blood Cells Absolute Auto 0.000 K/mm3 (0.0-0.012); Nucleated Red Blood Cells Perc 0.0 % (0.0-0.2); Platelet Count Result 172 k/mm3 (150-375); Red Blood Count 3.52 M/mm3 (4.2-5.4); White Blood Count 8.8 K/mm3 (4.5-10.0)
[2025-01-11 06:18] LABS: Alanine Aminotransferase 84 U/L (6-35); Albumin Level 2.5 g/dL (3.5-5.1); Alkaline Phosphatase 73 U/L (38-126); Anion Gap 3 mmol/L (4-12); Aspartate Amino Transferase 42 U/L (14-36); Bilirubin,Total 0.4 mg/dL (0.2-1.3); Blood Urea Nitrogen 18 mg/dL (7-17); Calcium 8.5 mg/dL (8.4-10.2); Carbon Dioxide 26 mmol/L (22-30); Chloride 109 mmol/L (98-107); Estimated CRCL calculation 30 ml/min; Estimated Glomerular Filt Rate 57; Glucose 210 mg/dL (65-110); Magnesium 1.8 mg/dL (1.6-2.3); Potassium 4.9 mmol/L (3.4-5.0); Sodium 138 mmol/L (137-145); Total Protein 5.3 g/dL (6.3-8.2)
[2025-01-11] MEDS: CHOLECALCIFEROL (VITAMIN D3) 25 MCG (1,000 UNITS) TABLET 50 MCG PO (08:43)
[2025-01-11] MEDS: APIXABAN 2.5 MG TABLET PO ×2 (08:43→17:37)
[2025-01-11] MEDS: AMIODARONE HCL 200 MG TABLET PO (08:44)
[2025-01-11] MEDS: ATORVASTATIN 40 MG TABLET PO (08:44)
[2025-01-11] MEDS: FERROUS SULFATE 325 MG TABLET DR BY MOUTH ×2 (08:44→17:37)
[2025-01-11] MEDS: FOLIC ACID 1 MG TABLET PO (08:44)
[2025-01-11] MEDS: OMEGA 3 POLYUNSAT FATTY ACIDS 1 GM CAP 2 GM PO ×2 (08:44→17:37)
[2025-01-11] MEDS: MAGNESIUM OXIDE 400 MG TABLET PO (08:44)
[2025-01-11] MEDS: PANTOPRAZOLE 40 MG TABLET PO (08:44)
[2025-01-11] MEDS: METOPROLOL TARTRATE 12.5 MG TABLET PO ×2 (08:44→21:15)
--- NOTE | 2025-01-11 12:00 | P.PNIM_ITS ---
Progress Note: A&P Assessment and Plan (1) Urinary tract infection: Code(s): N39.0 - Urinary tract infection, site not specified Status: Acute Assessment and Plan: * Urine turbid with 1+ protein, 3+ glucose, 3+ blood, 2+ leukocytes, RBC >100. WBC >100, WBC clumps present, 4+ bacteria, and yeast present. * Urine culture negative, recollect UA with reflex. Urine culture pending. * Ceftriaxone 1 gram IVPB daily. * Encourage water intake. * NS @ 75 ml/hour. (2) RENETTA (acute kidney injury): Code(s): N17.9 - Acute kidney failure, unspecified Status: Acute Assessment and Plan: * Creatinine 1.22 on admission, last check 0.94. * Normal saline 75 ml/hr. (3) Transaminitis: Code(s): R74.01 - Elevation of levels of liver transaminase levels Status: Acute Assessment and Plan: * AST 91>93>60>42. * ALT 144>137>98>84. (4) Multiple falls: Code(s): R29.6 - Repeated falls Status: Acute Assessment and Plan: * PT/OT for strengthening and balance. 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 * High dose SSI, hypoglycemic protocol, and accuchecks qid. 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 (6) Severe protein-calorie malnutrition: Code(s): E43 - Unspecified severe protein-calorie malnutrition Status: Acute Assessment and Plan: * Increased protein-energy needs in setting of chronic disease as evidenced by minimal oral intake for >1-2 months, significant weight loss 21 lbs(18%) 10 months: moderate subcutaneous fat loss (orbital fat pads) and severe muscle wasting (temporalis, clavicle). * Protein level 5.3. * Training Personnel Supervisor consult, appreciate recommendations. * Glucerna 1 bottle BID. * Encourage oral intake. * Mirtazapine 15 mg PO HS. (7) BMI < 18.5: Code(s): Z68.1 - Body mass index [BMI] 19.9 or less, adult Status: Acute Assessment and Plan: * Encourage oral intake. * Training Personnel Supervisor consult. * Glucerna shake BID. * Mirtazapine 15 mg PO HS. Subjective Date/time seen: 01/11/25 12:00 Interval history: Patient lying in bed. Patient denies chest pain, palpitations, headache, dizziness, nausea, or vomiting. Patient reports not a big appetite for breakfast. Review of Systems Review of Systems: All systems reviewed & are unremarkable except as noted in HPI and below Exam Const: General: comfortable and no acute distress Resp: Effort & Inspection: normal respiratory effort Auscultation: clear to auscultation bilaterally Cardio: Rate: regular rate Rhythm: regular rhythm GI: GI Palp: Yes Soft to palpation Auscultation: normal bowel sounds Neuro: Speech: normal speech Extrem: General: no pedal edema Psych: Mental Status: mental status grossly normal Affect: normal affect Objective Data Vital Signs Vital Signs: Vital Signs - 24 hr 01/10/25 13:32 01/10/25 20:00 01/10/25 20:53 Temperature 97.3 F L 97.5 F L Pulse Rate 69 70 70 Respiratory Rate 18 20 20 Blood Pressure 140/62 133/63 Pulse Oximetry 100 98 98 Oxygen Delivery Room Air 01/10/25 21:14 01/11/25 04:21 01/11/25 08:44 Temperature 97.8 F Pulse Rate 70 70 70 Respiratory Rate 20 Blood Pressure 150/57 H Pulse Oximetry 91 Oxygen Delivery 01/11/25 08:44 01/11/25 08:50 Temperature Pulse Rate 70 Respiratory Rate Blood Pressure Pulse Oximetry Oxygen Delivery Room Air Intake/Output Intake/Output: Intake & Output 01/08/25 01/09/25 01/10/25 01/11/25 23:59 23:59 23:59 23:59 Intake Total 1000 3890 2700 480 Output Total 0 200 Balance 1000 3890 2500 480 Meds/Results Medications: Active Medications Generic Name Dose Route Start Last Admin Trade Name Freq PRN Reason Stop Dose Admin Acetaminophen 1,000 mg 01/09/25 07:38 Acetaminophen 500 Mg Tablet PO Q6H PRN pain Amiodarone HCl 200 mg 01/09/25 09:00 01/11/25 08:44 Amiodarone Hcl 200 Mg Tablet PO 200 mg DAILY JACKIE Administration Apixaban 2.5 mg 01/09/25 09:00 01/11/25 08:43 Apixaban 2.5 Mg Tablet PO 2.5 mg BID JACKIE Administration Atorvastatin Calcium 40 mg 01/09/25 09:00 01/11/25 08:44 Atorvastatin 40 Mg Tablet PO 40 mg DAILY JACKIE Administration Dextrose 12.5 gm 01/09/25 01:22 Dextrose 50% 25 Gm/50 Ml Syringe IV PUSH PRN PRN Hypoglycemia Protocol Docusate Sodium 100 mg 01/09/25 10:33 Docusate Sodium 100 Mg Capsule PO Q12H PRN Constipation Ferrous Sulfate 325 mg 01/09/25 09:15 01/11/25 08:44 Ferrous Sulfate [address] BY MOUTH 325 mg BID JACKIE Administration Fish Oil 2 gm 01/09/25 09:45 01/11/25 08:44 [place] 3 Polyunsat Fatty Acids 1 Gm Cap PO 2 gm BID JACKIE Administration Folic Acid 1 mg 01/09/25 09:00 01/11/25 08:44 Folic Acid 1 Mg Tablet PO 1 mg DAILY JACKIE Administration Glucagon 1 mg 01/09/25 01:22 Glucagon For Inj 1 Mg Vial IM PRN PRN Hypoglycemia Protocol Glucose 15 gm 01/09/25 01:22 Glucose Oral Gel 15 Gm Of Glucse In 37.5 Gm Tube PO PRN PRN Hypoglycemia Protocol Ceftriaxone Sodium 1 gm in 50 mls @ 100 mls/hr 01/09/25 23:00 01/10/25 23:42 Rocephin 1 Gm/Ns 50 Ml IVPB Infused Q24H JACKIE Infusion Sodium Chloride 1,000 mls @ 75 mls/hr 01/08/25 23:40 01/11/25 01:12 Normal Saline Iv IV CONT 75 mls/hr .[id number] JACKIE Administration Dextrose 1,000 mls @ 100 mls/hr 01/09/25 01:22 Dextrose 5% 1,000 Ml IVPB PRN PRN Hypoglycemia Protocol Insulin Aspart 4 - 8 units 01/09/25 08:00 01/11/25 08:43 Insulin Aspart (*Bkc) 100 Units/Ml SUB-Q Not Given TIDWM [facility] Protocol Insulin Aspart 1 - 2 units 01/10/25 21:00 01/10/25 21:15 Insulin Aspart (*Bkc) 100 Units/Ml SUB-Q Not Given HS [facility] Protocol Lisinopril 5 mg 01/09/25 09:00 01/11/25 08:44 Lisinopril 5 Mg Tablet PO 5 mg DAILY JACKIE Administration Magnesium Oxide 400 mg 01/09/25 09:00 01/11/25 08:44 Magnesium Oxide 400 Mg Tablet PO 400 mg DAILY JACKIE Administration Metoprolol Tartrate 12.5 mg 01/09/25 09:00 01/11/25 08:44 Metoprolol Tartrate 12.5 Mg Tablet PO 12.5 mg Q12HR JACKIE Administration Mirtazapine 15 mg 01/09/25 21:00 01/10/25 21:14 Mirtazapine 15 Mg Tablet PO 15 mg HS JACKIE Administration Ondansetron HCl 4 mg 01/09/25 10:39 Ondansetron Inj 4 Mg/2 Ml Vial IV PUSH Q6H PRN Nausea And Vomiting Pantoprazole Sodium 40 mg 01/09/25 09:00 01/11/25 08:44 Pantoprazole 40 Mg Tablet PO 40 mg DAILY JACKIE Administration Polyethylene Glycol 17 gm 01/09/25 10:35 01/11/25 08:44 Polyethylene Glycol 3350 17 Gm Powd.Pack PO 17 gm QAM JACKIE Administration Vitamin D 50 mcg 01/09/25 09:45 01/11/25 08:43 Cholecalciferol (Vitamin D3) 25 Mcg (1,000 Units) Tablet PO 50 mcg DAILY JACKIE Administration Radiology Results: ITS Impressions Chest X-Ray 01/09/25 00:04 IMPRESSION: Mild pulmonary vascular congestion, without focal infiltrate or effusion. Labs Labs: Laboratory Results - last 24 hr 01/10/25 01/10/25 01/10/25 12:11 17:16 17:52 WBC RBC Hgb Hct MCV MCH MCHC RDW Plt Count MPV Immature Gran % (Auto) Neut % (Auto) Lymph % (Auto) [place] % (Auto) Eos % (Auto) Baso % (Auto) Lymph # (Auto) [place] # (Auto) Eos # (Auto) Baso # (Auto) Abs Immat Gran (auto) Absolute Neuts (auto) Absolute Nucleated RBC Nucleated RBC % Sodium Potassium Chloride Carbon Dioxide Anion Gap BUN Creatinine Estim Creat Clear Calc Estimated GFR Glucose POC Capillary Glucose 273 H 299 H Calcium Magnesium Total Bilirubin AST ALT Alkaline Phosphatase Total Protein Albumin Urine Color Yellow Urine Appearance Turbid H Urine pH 5.0 Ur Specific [place] 1.016 Urine Protein Trace Urine Glucose (UA) 3+ H Urine Ketones Negative Ur Blood (Man) 1+ H Urine Nitrate Negative Urine Bilirubin Negative Urine Urobilinogen 0.2 Add Ur Microanalysis Reviewed Leukocyte Esterase Rfl 3+ H Urine RBC 21-50 H Urine WBC >100 H Ur Squamous Epith Cells None seen Urine Bacteria 4+ H Urine Casts 0-2 Urine Mucus Present Urine Yeast (Budding) Present H 01/10/25 01/11/25 01/11/25 21:00 05:33 07:55 WBC 8.8 RBC 3.52 L Hgb 10.8 L Hct 34.2 L MCV 97.2 MCH 30.7 MCHC 31.6 L RDW 12.9 Plt Count 172 MPV 10.8 H Immature Gran % (Auto) 1.8 H Neut % (Auto) 62.7 Lymph % (Auto) 22.2 [place] % (Auto) 9.4 H Eos % (Auto) 3.0 Baso % (Auto) 0.9 Lymph # (Auto) 1.95 [place] # (Auto) 0.8 H Eos # (Auto) 0.3 Baso # (Auto) 0.1 Abs Immat Gran (auto) 0.16 H Absolute Neuts (auto) 5.5 Absolute Nucleated RBC 0.000 Nucleated RBC % 0.0 Sodium 138 Potassium 4.9 Chloride 109 H Carbon Dioxide 26 Anion Gap 3 L BUN 18 H Creatinine 0.94 Estim Creat Clear Calc 30 Estimated GFR 57 L Glucose 210 H POC Capillary Glucose 173 H 187 H Calcium 8.5 Magnesium 1.8 Total Bilirubin 0.4 AST 42 H ALT 84 H Alkaline Phosphatase 73 Total Protein 5.3 L Albumin 2.5 L Urine Color Urine Appearance Urine pH Ur Specific [place] Urine Protein Urine Glucose (UA) Urine Ketones Ur Blood (Man) Urine Nitrate Urine Bilirubin Urine Urobilinogen Add Ur Microanalysis Leukocyte Esterase Rfl Urine RBC Urine WBC Ur Squamous Epith Cells Urine Bacteria Urine Casts Urine Mucus Urine Yeast (Budding) Quality VTE Prophylaxis VTE prophylaxis: pharmacologic ordered
[2025-01-11] MEDS: INSULIN ASPART (*BKC) 100 UNITS/ML SUB-Q ×3 (12:14→21:15)
[2025-01-11] MEDS: MIRTAZAPINE 15 MG TABLET PO (21:15)
[2025-01-12] VITALS (7 sets, daily range): BP systolic 134–157; BP diastolic 60–75; PULSE 69–76; RESP 16–17; TEMP 36.3–36.4; O2SAT 96–98
[2025-01-12] MEDS: SODIUM CHLORIDE 0.9% IV 1,000 ML 75 ML IV CONT ×2 (04:35→17:32)
[2025-01-12 06:02] LABS: Alanine Aminotransferase 72 U/L (6-35); Albumin Level 2.5 g/dL (3.5-5.1); Alkaline Phosphatase 70 U/L (38-126); Anion Gap 8 mmol/L (4-12); Aspartate Amino Transferase 41 U/L (14-36); Bilirubin,Total 0.5 mg/dL (0.2-1.3); Blood Urea Nitrogen 18 mg/dL (7-17); Calcium 8.7 mg/dL (8.4-10.2); Carbon Dioxide 18 mmol/L (22-30); Chloride 110 mmol/L (98-107); Estimated CRCL calculation 29 ml/min; Estimated Glomerular Filt Rate 57; Glucose 200 mg/dL (65-110); Magnesium 2.1 mg/dL (1.6-2.3); Potassium 4.4 mmol/L (3.4-5.0); Sodium 136 mmol/L (137-145); Total Protein 5.2 g/dL (6.3-8.2)
[2025-01-12 06:26] LABS: Hematocrit 34.9 % (37.0-47.0); Hemoglobin 11.2 g/dL (12.0-15.0); Immature Granulocyte Percent A 1.8 % (0-0.5); Lymphocytes Absolute Auto 1.59 K/mm3 (0.9-3.2); Mean Corpuscular HGB Conc 32.1 g/dl (32-36); Mean Corpuscular Hemoglobin 30.8 pg (26-34); Mean Corpuscular Volume 95.9 fl (80-100); Nucleated Red Blood Cells Absolute Auto 0.000 K/mm3 (0.0-0.012); Nucleated Red Blood Cells Perc 0.0 % (0.0-0.2); Platelet Count Result 168 k/mm3 (150-375); Red Blood Count 3.64 M/mm3 (4.2-5.4); White Blood Count 9.0 K/mm3 (4.5-10.0)
[2025-01-12] MEDS: PANTOPRAZOLE 40 MG TABLET PO (08:41)
[2025-01-12] MEDS: ATORVASTATIN 40 MG TABLET PO (08:42)
[2025-01-12] MEDS: OMEGA 3 POLYUNSAT FATTY ACIDS 1 GM CAP 2 GM PO ×2 (08:42→16:51)
[2025-01-12] MEDS: FOLIC ACID 1 MG TABLET PO (08:42)
[2025-01-12] MEDS: FERROUS SULFATE 325 MG TABLET DR BY MOUTH ×2 (08:42→16:52)
[2025-01-12] MEDS: METOPROLOL TARTRATE 12.5 MG TABLET PO ×2 (08:42→21:20)
[2025-01-12] MEDS: AMIODARONE HCL 200 MG TABLET PO (08:42)
[2025-01-12] MEDS: CHOLECALCIFEROL (VITAMIN D3) 25 MCG (1,000 UNITS) TABLET 50 MCG PO (08:42)
[2025-01-12] MEDS: MAGNESIUM OXIDE 400 MG TABLET PO (08:43)
[2025-01-12] MEDS: APIXABAN 2.5 MG TABLET PO ×2 (08:43→16:52)
[2025-01-12] MEDS: INSULIN ASPART (*BKC) 100 UNITS/ML SUB-Q ×3 (12:00→21:21)
--- NOTE | 2025-01-12 13:05 | P.PNIM_ITS ---
Progress Note: A&P Assessment and Plan (1) Urinary tract infection: Code(s): N39.0 - Urinary tract infection, site not specified Status: Acute Assessment and Plan: * Urine turbid with 1+ protein, 3+ glucose, 3+ blood, 2+ leukocytes, RBC >100. WBC >100, WBC clumps present, 4+ bacteria, and yeast present. * Urine culture negative, recollect UA with reflex. Urine culture pending. * Ceftriaxone 1 gram IVPB daily. * Encourage water intake. * NS @ 75 ml/hour. (2) RENETTA (acute kidney injury): Code(s): N17.9 - Acute kidney failure, unspecified Status: Acute Assessment and Plan: * Creatinine 1.22 on admission, last check 0.94. * Normal saline 75 ml/hr. (3) Transaminitis: Code(s): R74.01 - Elevation of levels of liver transaminase levels Status: Acute Assessment and Plan: * AST 91>93>60>42>41. * ALT 144>137>98>84>72. (4) Multiple falls: Code(s): R29.6 - Repeated falls Status: Acute Assessment and Plan: * PT/OT for strengthening and balance. (5) DM type 2 (diabetes mellitus, type 2): Qualifiers: Diabetes mellitus watermelon inspector insulin use: without halfway use Diabetes mellitus complication status: with kidney complications Diabetes mellitus complication detail: with chronic kidney disease Chronic kidney disease stage: stage 2 (mild) Qualified Code(s): E11.22 - Type 2 diabetes mellitus with diabetic chronic kidney disease; N18.2 - Chronic kidney disease, stage 2 (mild) Code(s): E11.9 - Type 2 diabetes mellitus without complications Status: Acute Assessment and Plan: * HgbA1C 12.9%. * High dose SSI, hypoglycemic protocol, and accuchecks qid. * certified adapted physical educator. (6) Severe protein-calorie malnutrition: Code(s): E43 - Unspecified severe protein-calorie malnutrition Status: Acute Assessment and Plan: * Increased protein-energy needs in setting of chronic disease as evidenced by minimal oral intake for >1-2 months, significant weight loss 21 lbs(18%) 10 months: moderate subcutaneous fat loss (orbital fat pads) and severe muscle wasting (temporalis, clavicle). * Protein level 5.3. * Credit Office Manager consult, appreciate recommendations. * Glucerna 1 bottle BID. * Encourage oral intake. * Mirtazapine 15 mg PO HS. (7) BMI < 18.5: Code(s): Z68.1 - Body mass index [BMI] 19.9 or less, adult Status: Acute Assessment and Plan: * Encourage oral intake. * Credit Office Manager consult. * Glucerna shake BID. * Mirtazapine 15 mg PO HS. * Weight 97 pounds today. Subjective Date/time seen: 01/12/25 13:05 Interval history: Patient sitting up in chair. Patient reports back pain that is a 5, frequent, and aching. Patient reports that her appetite is a little better today but her legs feel like rubber when she got up to the bathroom. Patient denies chest pain, palpitations, headache, dizziness, nausea, or vomiting. Review of Systems Review of Systems: All systems reviewed & are unremarkable except as noted in HPI and below Exam Const: General: comfortable and no acute distress Resp: Effort & Inspection: normal respiratory effort Auscultation: clear to auscultation bilaterally Cardio: Rate: regular rate Rhythm: regular rhythm GI: GI Palp: Yes Soft to palpation Auscultation: normal bowel sounds Neuro: Speech: normal speech Extrem: General: no pedal edema Psych: Mental Status: mental status grossly normal Affect: normal affect Objective Data Vital Signs Vital Signs: Vital Signs - 24 hr 01/11/25 14:00 01/11/25 20:00 01/11/25 21:07 Temperature 97.6 F 98.4 F Pulse Rate 68 70 70 Respiratory Rate 18 16 16 Blood Pressure 157/70 H 151/60 H Pulse Oximetry 99 97 97 Oxygen Delivery Room Air 01/11/25 21:15 01/12/25 04:40 01/12/25 08:42 Temperature 97.6 F Pulse Rate 70 70 76 Respiratory Rate 16 Blood Pressure 157/75 H Pulse Oximetry 96 Oxygen Delivery 01/12/25 08:42 01/12/25 08:43 Temperature Pulse Rate 76 Respiratory Rate 16 Blood Pressure Pulse Oximetry 96 Oxygen Delivery Room Air Intake/Output Intake/Output: Intake & Output 01/09/25 01/10/25 01/11/25 01/12/25 23:59 23:59 23:59 23:59 Intake Total 3890 2700 2009 780 Output Total 0 200 Balance 3890 2500 2009 780 Meds/Results Medications: Active Medications Generic Name Dose Route Start Last Admin Trade Name Freq PRN Reason Stop Dose Admin Acetaminophen 1,000 mg 01/09/25 07:38 Acetaminophen 500 Mg Tablet PO Q6H PRN pain Amiodarone HCl 200 mg 01/09/25 09:00 01/12/25 08:42 Amiodarone Hcl 200 Mg Tablet PO 200 mg DAILY JACKIE Administration Apixaban 2.5 mg 01/09/25 09:00 01/12/25 08:43 Apixaban 2.5 Mg Tablet PO 2.5 mg BID JACKIE Administration Atorvastatin Calcium 40 mg 01/09/25 09:00 01/12/25 08:42 Atorvastatin 40 Mg Tablet PO 40 mg DAILY JACKIE Administration Dextrose 12.5 gm 01/09/25 01:22 Dextrose 50% 25 Gm/50 Ml Syringe IV PUSH PRN PRN Hypoglycemia Protocol Docusate Sodium 100 mg 01/09/25 10:33 Docusate Sodium 100 Mg Capsule PO Q12H PRN Constipation Ferrous Sulfate 325 mg 01/09/25 09:15 01/12/25 08:42 Ferrous Sulfate [address] BY MOUTH 325 mg BID JACKIE Administration Fish Oil 2 gm 01/09/25 09:45 01/12/25 08:42 [place]cels[place] 3 Polyunsat Fatty Acids 1 Gm Cap PO 2 gm BID JACKIE Administration Folic Acid 1 mg 01/09/25 09:00 01/12/25 08:42 Folic Acid 1 Mg Tablet PO 1 mg DAILY JACKIE Administration Glucagon 1 mg 01/09/25 01:22 Glucagon For Inj 1 Mg Vial IM PRN PRN Hypoglycemia Protocol Glucose 15 gm 01/09/25 01:22 Glucose Oral Gel 15 Gm Of Glucse In 37.5 Gm Tube PO PRN PRN Hypoglycemia Protocol Ceftriaxone Sodium 1 gm in 50 mls @ 100 mls/hr 01/09/25 23:00 01/11/25 23:45 Rocephin 1 Gm/Ns 50 Ml IVPB Infused Q24H JACKIE Infusion Sodium Chloride 1,000 mls @ 75 mls/hr 01/08/25 23:40 01/12/25 04:35 Normal Saline Iv IV CONT 75 mls/hr .[id number] JACKIE Administration Dextrose 1,000 mls @ 100 mls/hr 01/09/25 01:22 Dextrose 5% 1,000 Ml IVPB PRN PRN Hypoglycemia Protocol Insulin Aspart 4 - 8 units 01/09/25 08:00 01/12/25 12:00 Insulin Aspart (*Bkc) 100 Units/Ml SUB-Q 6 units TIDWM JACKIE Administration Protocol Insulin Aspart 1 - 2 units 01/10/25 21:00 01/11/25 21:15 Insulin Aspart (*Bkc) 100 Units/Ml SUB-Q 1 units HS JACKIE Administration Protocol Lisinopril 5 mg 01/09/25 09:00 01/12/25 08:42 Lisinopril 5 Mg Tablet PO 5 mg DAILY JACKIE Administration Magnesium Oxide 400 mg 01/09/25 09:00 01/12/25 08:43 Magnesium Oxide 400 Mg Tablet PO 400 mg DAILY JACKIE Administration Metoprolol Tartrate 12.5 mg 01/09/25 09:00 01/12/25 08:42 Metoprolol Tartrate 12.5 Mg Tablet PO 12.5 mg Q12HR JACKIE Administration Mirtazapine 15 mg 01/09/25 21:00 01/11/25 21:15 Mirtazapine 15 Mg Tablet PO 15 mg HS JACKIE Administration Ondansetron HCl 4 mg 01/09/25 10:39 Ondansetron Inj 4 Mg/2 Ml Vial IV PUSH Q6H PRN Nausea And Vomiting Pantoprazole Sodium 40 mg 01/09/25 09:00 01/12/25 08:41 Pantoprazole 40 Mg Tablet PO 40 mg DAILY JACKIE Administration Polyethylene Glycol 17 gm 01/09/25 10:35 01/12/25 08:43 Polyethylene Glycol 3350 17 Gm Powd.Pack PO 17 gm QAM JACKIE Administration Vitamin D 50 mcg 01/09/25 09:45 01/12/25 08:42 Cholecalciferol (Vitamin D3) 25 Mcg (1,000 Units) Tablet PO 50 mcg DAILY JACKIE Administration Radiology Results: ITS Impressions Chest X-Ray 01/09/25 00:04 IMPRESSION: Mild pulmonary vascular congestion, without focal infiltrate or effusion. Labs Labs: Laboratory Results - last 24 hr 01/11/25 01/11/25 01/12/25 16:54 21:09 04:52 WBC RBC Hgb Hct MCV MCH MCHC RDW Plt Count MPV Immature Gran % (Auto) Neut % (Auto) Lymph % (Auto) [place] % (Auto) Eos % (Auto) Baso % (Auto) Lymph # (Auto) [place] # (Auto) Eos # (Auto) Baso # (Auto) Abs Immat Gran (auto) Absolute Neuts (auto) Absolute Nucleated RBC Nucleated RBC % Sodium 136 L Potassium 4.4 Chloride 110 H Carbon Dioxide 18 L Anion Gap 8 BUN 18 H Creatinine 0.94 Estim Creat Clear Calc 29 Estimated GFR 57 L Glucose 200 H POC Capillary Glucose 269 H 228 H Calcium 8.7 Magnesium 2.1 Total Bilirubin 0.5 AST 41 H ALT 72 H Alkaline Phosphatase 70 Total Protein 5.2 L Albumin 2.5 L 01/12/25 01/12/25 01/12/25 06:22 08:09 11:42 WBC 9.0 RBC 3.64 L Hgb 11.2 L Hct 34.9 L MCV 95.9 MCH 30.8 MCHC 32.1 RDW 12.9 Plt Count 168 MPV 10.3 Immature Gran % (Auto) 1.8 H Neut % (Auto) 66.2 Lymph % (Auto) 17.7 L [place] % (Auto) 10.7 H Eos % (Auto) 2.8 Baso % (Auto) 0.8 Lymph # (Auto) 1.59 [place] # (Auto) 1.0 H Eos # (Auto) 0.3 Baso # (Auto) 0.1 Abs Immat Gran (auto) 0.16 H Absolute Neuts (auto) 5.9 Absolute Nucleated RBC 0.000 Nucleated RBC % 0.0 Sodium Potassium Chloride Carbon Dioxide Anion Gap BUN Creatinine Estim Creat Clear Calc Estimated GFR Glucose POC Capillary Glucose 193 H 323 H Calcium Magnesium Total Bilirubin AST ALT Alkaline Phosphatase Total Protein Albumin Quality VTE Prophylaxis VTE prophylaxis: pharmacologic ordered
[2025-01-12] MEDS: MIRTAZAPINE 15 MG TABLET PO (21:20)
[2025-01-13] VITALS (8 sets, daily range): BP systolic 136–194; BP diastolic 54–80; PULSE 70–107; RESP 16–24; TEMP 36.3–37.2; O2SAT 91–97
[2025-01-13 05:13] LABS: Hematocrit 35.6 % (37.0-47.0); Hemoglobin 11.4 g/dL (12.0-15.0); Immature Granulocyte Percent A 1.0 % (0-0.5); Lymphocytes Absolute Auto 2.19 K/mm3 (0.9-3.2); Mean Corpuscular HGB Conc 32.0 g/dl (32-36); Mean Corpuscular Hemoglobin 31.9 pg (26-34); Mean Corpuscular Volume 99.7 fl (80-100); Nucleated Red Blood Cells Absolute Auto 0.020 K/mm3 (0.0-0.012); Nucleated Red Blood Cells Perc 0.2 % (0.0-0.2); Platelet Count Result 209 k/mm3 (150-375); Red Blood Count 3.57 M/mm3 (4.2-5.4); White Blood Count 10.9 K/mm3 (4.5-10.0)
[2025-01-13 05:32] LABS: Alanine Aminotransferase 67 U/L (6-35); Albumin Level 2.8 g/dL (3.5-5.1); Alkaline Phosphatase 79 U/L (38-126); Anion Gap 8 mmol/L (4-12); Aspartate Amino Transferase 40 U/L (14-36); Bilirubin,Total 0.4 mg/dL (0.2-1.3); Blood Urea Nitrogen 16 mg/dL (7-17); Calcium 9.1 mg/dL (8.4-10.2); Carbon Dioxide 24 mmol/L (22-30); Chloride 106 mmol/L (98-107); Estimated CRCL calculation 30 ml/min; Estimated Glomerular Filt Rate 56; Glucose 268 mg/dL (65-110); Magnesium 2.0 mg/dL (1.6-2.3); Potassium 4.5 mmol/L (3.4-5.0); Sodium 138 mmol/L (137-145); Total Protein 5.9 g/dL (6.3-8.2)
[2025-01-13] MEDS: SODIUM CHLORIDE 0.9% IV 1,000 ML 75 ML IV CONT ×2 (08:00→21:25)
[2025-01-13] MEDS: INSULIN ASPART (*BKC) 100 UNITS/ML SUB-Q ×4 (08:27→21:25)
[2025-01-13] MEDS: PANTOPRAZOLE 40 MG TABLET PO (09:14)
[2025-01-13] MEDS: FERROUS SULFATE 325 MG TABLET DR BY MOUTH ×2 (09:14→16:23)
[2025-01-13] MEDS: APIXABAN 2.5 MG TABLET PO ×2 (09:14→16:23)
[2025-01-13] MEDS: METOPROLOL TARTRATE 12.5 MG TABLET PO ×2 (09:14→21:26)
[2025-01-13] MEDS: ATORVASTATIN 40 MG TABLET PO (09:14)
[2025-01-13] MEDS: FOLIC ACID 1 MG TABLET PO (09:14)
[2025-01-13] MEDS: CHOLECALCIFEROL (VITAMIN D3) 25 MCG (1,000 UNITS) TABLET 50 MCG PO (09:15)
[2025-01-13] MEDS: MAGNESIUM OXIDE 400 MG TABLET PO (09:15)
[2025-01-13] MEDS: AMIODARONE HCL 200 MG TABLET PO (09:15)
[2025-01-13] MEDS: OMEGA 3 POLYUNSAT FATTY ACIDS 1 GM CAP 2 GM PO ×2 (09:15→16:23)
[2025-01-13] MEDS: ACETAMINOPHEN 500 MG TABLET 1000 MG PO (09:23)
--- NOTE | 2025-01-13 09:57 | P.PNIM_ITS ---
Progress Note: A&P Assessment and Plan (1) Urinary tract infection: Code(s): N39.0 - Urinary tract infection, site not specified Status: Acute Assessment and Plan: * Urine turbid with 1+ protein, 3+ glucose, 3+ blood, 2+ leukocytes, RBC >100. WBC >100, WBC clumps present, 4+ bacteria, and yeast present. * Urine culture negative, recollect UA with reflex. Urine grew Alexia Glabrata. Fluconazole 100 mg PO QAM for 14 days started. * Ceftriaxone 1 gram IVPB daily discontinued today, switched to Augmentin 875- 125 mg 1 tab q 12. * Encourage water intake. * NS @ 75 ml/hour. (2) RENETTA (acute kidney injury): Code(s): N17.9 - Acute kidney failure, unspecified Status: Acute Assessment and Plan: * Creatinine 1.22 on admission, last check 0.95. * Normal saline 75 ml/hr. (3) Transaminitis: Code(s): R74.01 - Elevation of levels of liver transaminase levels Status: Acute Assessment and Plan: * AST 91>93>60>42>41>40. * ALT 144>137>98>84>72>67. (4) Multiple falls: Code(s): R29.6 - Repeated falls Status: Acute Assessment and Plan: * PT/OT for strengthening and balance. (5) DM type 2 (diabetes mellitus, type 2): Qualifiers: Diabetes mellitus remote computer terminal operator insulin use: without remote computer terminal operator use Diabetes mellitus complication status: with kidney complications Diabetes mellitus complication detail: with chronic kidney disease Chronic kidney disease stage: stage 2 (mild) Qualified Code(s): E11.22 - Type 2 diabetes mellitus with diabetic chronic kidney disease; N18.2 - Chronic kidney disease, stage 2 (mild) Code(s): E11.9 - Type 2 diabetes mellitus without complications Status: Acute Assessment and Plan: * HgbA1C 12.9%. * High dose SSI, hypoglycemic protocol, and accuchecks qid. * ict educator. (6) Severe protein-calorie malnutrition: Code(s): E43 - Unspecified severe protein-calorie malnutrition Status: Acute Assessment and Plan: * Increased protein-energy needs in setting of chronic disease as evidenced by minimal oral intake for >1-2 months, significant weight loss 21 lbs(18%) 10 months: moderate subcutaneous fat loss (orbital fat pads) and severe muscle wasting (temporalis, clavicle). * Protein level 5.9. * Ring Maker consult, appreciate recommendations. * Glucerna 1 bottle BID. * Encourage oral intake. * Mirtazapine 15 mg PO HS. (7) BMI < 18.5: Code(s): Z68.1 - Body mass index [BMI] 19.9 or less, adult Status: Acute Assessment and Plan: * Encourage oral intake. * Ring Maker consult. * Glucerna shake BID. * Mirtazapine 15 mg PO HS. * Weight 102 lb 5 oz today. (8) JOSUE on CPAP: Code(s): G47.33 - Obstructive sleep apnea (adult) (pediatric); Z99.89 - Dependence on other enabling machines and devices Status: Acute Assessment and Plan: * CPAP Subjective Date/time seen: 01/13/25 09:57 Interval history: Patient sitting up in chair. Patient reports back pain that is a 5, frequent, and aching. Patient reports that her legs feel like rubber when she got up to the bathroom on her way back from the bathroom. Patient denies chest pain, palpitations, headache, dizziness, nausea, or vomiting. Review of Systems Review of Systems: All systems reviewed & are unremarkable except as noted in HPI and below Exam Const: General: no acute distress and uncomfortable Resp: Effort & Inspection: normal respiratory effort Auscultation: clear to auscultation bilaterally Cardio: Rate: regular rate Rhythm: regular rhythm GI: GI Palp: Yes Soft to palpation Auscultation: normal bowel sounds Neuro: Speech: normal speech Extrem: General: no pedal edema Psych: Mental Status: mental status grossly normal Affect: normal affect Objective Data Vital Signs Vital Signs: Vital Signs - 24 hr 01/12/25 14:00 01/12/25 19:43 01/12/25 20:00 Temperature 97.6 F 97.4 F L Pulse Rate 73 69 69 Respiratory Rate 16 17 17 Blood Pressure 134/60 150/65 H Pulse Oximetry 97 98 98 Oxygen Delivery Room Air 01/12/25 21:20 01/13/25 04:55 01/13/25 09:14 Temperature 97.4 F L Pulse Rate 69 70 72 Respiratory Rate 16 Blood Pressure 159/67 H Pulse Oximetry 93 Oxygen Delivery 01/13/25 09:15 Temperature Pulse Rate 72 Respiratory Rate Blood Pressure Pulse Oximetry Oxygen Delivery Intake/Output Intake/Output: Intake & Output 01/10/25 01/11/25 01/12/25 01/13/25 23:59 23:59 23:59 23:59 Intake Total 2700 2009 2401.3 1340 Output Total 200 Balance 2500 2009 2401.3 1340 Meds/Results Medications: Active Medications Generic Name Dose Route Start Last Admin Trade Name Freq PRN Reason Stop Dose Admin Acetaminophen 1,000 mg 01/09/25 07:38 01/13/25 09:23 Acetaminophen 500 Mg Tablet PO 1,000 mg Q6H PRN Administration pain Amiodarone HCl 200 mg 01/09/25 09:00 01/13/25 09:15 Amiodarone Hcl 200 Mg Tablet PO 200 mg DAILY JACKIE Administration Apixaban 2.5 mg 01/09/25 09:00 01/13/25 09:14 Apixaban 2.5 Mg Tablet PO 2.5 mg BID JACKIE Administration Atorvastatin Calcium 40 mg 01/09/25 09:00 01/13/25 09:14 Atorvastatin 40 Mg Tablet PO 40 mg DAILY JACKIE Administration Dextrose 12.5 gm 01/09/25 01:22 Dextrose 50% 25 Gm/50 Ml Syringe IV PUSH PRN PRN Hypoglycemia Protocol Docusate Sodium 100 mg 01/09/25 10:33 Docusate Sodium 100 Mg Capsule PO Q12H PRN Constipation Ferrous Sulfate 325 mg 01/09/25 09:15 01/13/25 09:14 Ferrous Sulfate [address] BY MOUTH 325 mg BID JACKIE Administration Fish Oil 2 gm 01/09/25 09:45 01/13/25 09:15 [place] 3 Polyunsat Fatty Acids 1 Gm Cap PO 2 gm BID JACKIE Administration Folic Acid 1 mg 01/09/25 09:00 01/13/25 09:14 Folic Acid 1 Mg Tablet PO 1 mg DAILY JACKIE Administration Glucagon 1 mg 01/09/25 01:22 Glucagon For Inj 1 Mg Vial IM PRN PRN Hypoglycemia Protocol Glucose 15 gm 01/09/25 01:22 Glucose Oral Gel 15 Gm Of Glucse In 37.5 Gm Tube PO PRN PRN Hypoglycemia Protocol Ceftriaxone Sodium 1 gm in 50 mls @ 100 mls/hr 01/09/25 23:00 01/12/25 23:09 Rocephin 1 Gm/Ns 50 Ml IVPB Infused Q24H JACKIE Infusion Sodium Chloride 1,000 mls @ 75 mls/hr 01/08/25 23:40 01/13/25 08:00 Normal Saline Iv IV CONT 75 mls/hr .[id number] JACKIE Administration Dextrose 1,000 mls @ 100 mls/hr 01/09/25 01:22 Dextrose 5% 1,000 Ml IVPB PRN PRN Hypoglycemia Protocol Insulin Aspart 4 - 8 units 01/09/25 08:00 01/13/25 08:27 Insulin Aspart (*Bkc) 100 Units/Ml SUB-Q 5 units TIDWM JACKIE Administration Protocol Insulin Aspart 1 - 2 units 01/10/25 21:00 01/12/25 21:21 Insulin Aspart (*Bkc) 100 Units/Ml SUB-Q 2 units HS JACKIE Administration Protocol Lisinopril 5 mg 01/09/25 09:00 01/13/25 09:15 Lisinopril 5 Mg Tablet PO 5 mg DAILY JACKIE Administration Magnesium Oxide 400 mg 01/09/25 09:00 01/13/25 09:15 Magnesium Oxide 400 Mg Tablet PO 400 mg DAILY JACKIE Administration Metoprolol Tartrate 12.5 mg 01/09/25 09:00 01/13/25 09:14 Metoprolol Tartrate 12.5 Mg Tablet PO 12.5 mg Q12HR JACKIE Administration Mirtazapine 15 mg 01/09/25 21:00 01/12/25 21:20 Mirtazapine 15 Mg Tablet PO 15 mg HS JACKIE Administration Ondansetron HCl 4 mg 01/09/25 10:39 Ondansetron Inj 4 Mg/2 Ml Vial IV PUSH Q6H PRN Nausea And Vomiting Pantoprazole Sodium 40 mg 01/09/25 09:00 01/13/25 09:14 Pantoprazole 40 Mg Tablet PO 40 mg DAILY JACKIE Administration Polyethylene Glycol 17 gm 01/09/25 10:35 01/13/25 09:15 Polyethylene Glycol 3350 17 Gm Powd.Pack PO Not Given QAM JACKIE Vitamin D 50 mcg 01/09/25 09:45 01/13/25 09:15 Cholecalciferol (Vitamin D3) 25 Mcg (1,000 Units) Tablet PO 50 mcg DAILY JACKIE Administration Radiology Results: ITS Impressions Chest X-Ray 01/09/25 00:04 IMPRESSION: Mild pulmonary vascular congestion, without focal infiltrate or effusion. Labs Labs: Laboratory Results - last 24 hr 01/12/25 01/12/25 01/12/25 11:42 16:47 19:40 WBC RBC Hgb Hct MCV MCH MCHC RDW Plt Count MPV Immature Gran % (Auto) Neut % (Auto) Lymph % (Auto) [place] % (Auto) Eos % (Auto) Baso % (Auto) Lymph # (Auto) [place] # (Auto) Eos # (Auto) Baso # (Auto) Abs Immat Gran (auto) Absolute Neuts (auto) Absolute Nucleated RBC Nucleated RBC % Sodium Potassium Chloride Carbon Dioxide Anion Gap BUN Creatinine Estim Creat Clear Calc Estimated GFR Glucose POC Capillary Glucose 323 H 311 H 310 H Calcium Magnesium Total Bilirubin AST ALT Alkaline Phosphatase Total Protein Albumin 01/13/25 01/13/25 04:57 08:01 WBC 10.9 H RBC 3.57 L Hgb 11.4 L Hct 35.6 L MCV 99.7 MCH 31.9 MCHC 32.0 RDW 13.1 Plt Count 209 MPV 11.7 H Immature Gran % (Auto) 1.0 H Neut % (Auto) 64.5 Lymph % (Auto) 20.1 [place] % (Auto) 10.9 H Eos % (Auto) 2.7 Baso % (Auto) 0.8 Lymph # (Auto) 2.19 [place] # (Auto) 1.2 H Eos # (Auto) 0.3 Baso # (Auto) 0.1 Abs Immat Gran (auto) 0.11 H Absolute Neuts (auto) 7.0 H Absolute Nucleated RBC 0.020 H Nucleated RBC % 0.2 Sodium 138 Potassium 4.5 Chloride 106 Carbon Dioxide 24 Anion Gap 8 BUN 16 Creatinine 0.95 Estim Creat Clear Calc 30 Estimated GFR 56 L Glucose 268 H POC Capillary Glucose 267 H Calcium 9.1 Magnesium 2.0 Total Bilirubin 0.4 AST 40 H ALT 67 H Alkaline Phosphatase 79 Total Protein 5.9 L Albumin 2.8 L Quality VTE Prophylaxis VTE prophylaxis: pharmacologic ordered
[2025-01-13] MEDS: FLUCONAZOLE 100 MG TABLET PO (11:09)
--- NOTE | 2025-01-13 18:30 | PCRCNOTE ---
Pt. was asked if she would like an S9 she stated that she hasn't worn a cpap device since 2020 and is not going to start now. Device not in room.
[2025-01-13] MEDS: MIRTAZAPINE 15 MG TABLET PO (21:26)
[2025-01-14 04:17] VITALS: BP 170/60; PULSE 70; RESP 20; TEMP 36.6; O2SAT 92
[2025-01-14 05:34] LABS: Hematocrit 31.1 % (37.0-47.0); Hemoglobin 10.1 g/dL (12.0-15.0); Immature Granulocyte Percent A 1.1 % (0-0.5); Lymphocytes Absolute Auto 1.48 K/mm3 (0.9-3.2); Mean Corpuscular HGB Conc 32.5 g/dl (32-36); Mean Corpuscular Hemoglobin 31.5 pg (26-34); Mean Corpuscular Volume 96.9 fl (80-100); Nucleated Red Blood Cells Absolute Auto 0.000 K/mm3 (0.0-0.012); Nucleated Red Blood Cells Perc 0.0 % (0.0-0.2); Platelet Count Result 188 k/mm3 (150-375); Red Blood Count 3.21 M/mm3 (4.2-5.4); White Blood Count 9.1 K/mm3 (4.5-10.0)
[2025-01-14] MEDS: MAGNESIUM OXIDE 400 MG TABLET PO (08:10)
[2025-01-14] MEDS: FERROUS SULFATE 325 MG TABLET DR BY MOUTH ×2 (08:10→17:02)
[2025-01-14] MEDS: PANTOPRAZOLE 40 MG TABLET PO (08:10)
[2025-01-14] MEDS: ATORVASTATIN 40 MG TABLET PO (08:10)
[2025-01-14] MEDS: APIXABAN 2.5 MG TABLET PO ×2 (08:10→17:02)
[2025-01-14] MEDS: CHOLECALCIFEROL (VITAMIN D3) 25 MCG (1,000 UNITS) TABLET 50 MCG PO (08:10)
[2025-01-14 08:11] VITALS: PULSE 70; RESP 20; O2SAT 92
[2025-01-14] MEDS: FLUCONAZOLE 100 MG TABLET PO (08:11)
[2025-01-14] MEDS: METOPROLOL TARTRATE 12.5 MG TABLET PO ×2 (08:11→21:12)
[2025-01-14] MEDS: AMIODARONE HCL 200 MG TABLET PO (08:11)
[2025-01-14] MEDS: FOLIC ACID 1 MG TABLET PO (08:11)
[2025-01-14 08:24] LABS: Alanine Aminotransferase 55 U/L (6-35); Albumin Level 2.5 g/dL (3.5-5.1); Alkaline Phosphatase 75 U/L (38-126); Anion Gap 5 mmol/L (4-12); Aspartate Amino Transferase 38 U/L (14-36); Bilirubin,Total 0.4 mg/dL (0.2-1.3); Blood Urea Nitrogen 16 mg/dL (7-17); Calcium 8.5 mg/dL (8.4-10.2); Carbon Dioxide 21 mmol/L (22-30); Chloride 110 mmol/L (98-107); Estimated CRCL calculation 30 ml/min; Estimated Glomerular Filt Rate 54; Glucose 242 mg/dL (65-110); Magnesium 1.8 mg/dL (1.6-2.3); Potassium 3.5 mmol/L (3.4-5.0); Sodium 136 mmol/L (137-145); Total Protein 5.5 g/dL (6.3-8.2)
[2025-01-14] MEDS: INSULIN ASPART (*BKC) 100 UNITS/ML SUB-Q ×3 (08:24→21:13)
--- NOTE | 2025-01-14 09:29 | PCNFU ---
Nutrition Follow-Up Complete: Severe Protein Calorie Malnutrition as related to inadequate protein energy intake with increased protein-energy needs in setting of chronic disease as evidenced by minimal oral intake for > 1-2 months; significant weight loss 21 ibs (18%) 10 months; moderate subcutaneous fat loss (orbital fat pads) and severe muscle wasting (temporalis, clavicle). Goal: Meet estimated nutritional needs Patient is progressing towards goal. We will continue current goal. Pt current nutrition is DBCC with Glucerna shakes BID. Last recorded weight is 48.2 kg, up from 42.4 kg on admit. Bowel Motility: +BM reported 01/13 Labs Reviewed:Glu 268 Meds Noted:Miralax, Fish Oil, Vit D, Lipitor, NovoLog Skin: WNL Additional Notes:Patient remains on a DBCC diet. Tolerating current diet orders with 25-100% of meals consumed. Diet supplements provided BID for additional 240 kcal and 10 gm protein. Agree with diet orders. Will monitor weight, labs, skin, diet orders, meds every 5 days.
[2025-01-14] MEDS: SODIUM CHLORIDE 0.9% IV 1,000 ML 75 ML IV CONT (10:14)
--- NOTE | 2025-01-14 11:18 | P.PNIM_ITS ---
Progress Note: A&P Assessment and Plan (1) Urinary tract infection: Code(s): N39.0 - Urinary tract infection, site not specified Status: Acute Assessment and Plan: * Urine turbid with 1+ protein, 3+ glucose, 3+ blood, 2+ leukocytes, RBC >100. WBC >100, WBC clumps present, 4+ bacteria, and yeast present. * Urine culture negative, recollect UA with reflex. Urine grew Alexia Glabrata. Fluconazole 100 mg PO QAM for 14 days started. * Ceftriaxone 1 gram IVPB daily discontinued today, switched to Augmentin 875- 125 mg 1 tab q 12. * Encourage water intake. (2) CHF (congestive heart failure): Code(s): I50.9 - Heart failure, unspecified Status: Acute Assessment and Plan: * BNP 7,610. * Furosemide 20 mg ivp x 1 given. * Start Furosemide 20 mg PO daily tomorrow. (3) RENETTA (acute kidney injury): Code(s): N17.9 - Acute kidney failure, unspecified Status: Acute Assessment and Plan: * Creatinine 1.22 on admission, last check 0.98. (4) Transaminitis: Code(s): R74.01 - Elevation of levels of liver transaminase levels Status: Acute Assessment and Plan: * AST 91>93>60>42>41>40>38. * ALT 144>137>98>84>72>67>55. (5) Multiple falls: Code(s): R29.6 - Repeated falls Status: Acute Assessment and Plan: * PT/OT for strengthening and balance. (6) DM type 2 (diabetes mellitus, type 2): Qualifiers: Diabetes mellitus learn to swim instructor insulin use: without learn to swim instructor use Diabetes mellitus complication status: with kidney complications Diabetes mellitus complication detail: with chronic kidney disease Chronic kidney disease stage: stage 2 (mild) Qualified Code(s): E11.22 - Type 2 diabetes mellitus with diabetic chronic kidney disease; N18.2 - Chronic kidney disease, stage 2 (mild) Code(s): E11.9 - Type 2 diabetes mellitus without complications Status: Acute Assessment and Plan: * HgbA1C 12.9%. * High dose SSI, hypoglycemic protocol, and accuchecks qid. * community health educator. (7) Severe protein-calorie malnutrition: Code(s): E43 - Unspecified severe protein-calorie malnutrition Status: Acute Assessment and Plan: * Increased protein-energy needs in setting of chronic disease as evidenced by minimal oral intake for >1-2 months, significant weight loss 21 lbs(18%) 10 months: moderate subcutaneous fat loss (orbital fat pads) and severe muscle wasting (temporalis, clavicle). * Protein level 5.5. * Sludge Filtration Operator consult, appreciate recommendations. * Glucerna 1 bottle BID. * Encourage oral intake. * Mirtazapine 15 mg PO HS. (8) BMI < 18.5: Code(s): Z68.1 - Body mass index [BMI] 19.9 or less, adult Status: Acute Assessment and Plan: * Encourage oral intake. * Sludge Filtration Operator consult. * Glucerna shake BID. * Mirtazapine 15 mg PO HS. * Weight 106 lb 4 oz today. (9) JOSUE on CPAP: Code(s): G47.33 - Obstructive sleep apnea (adult) (pediatric); Z99.89 - Dependence on other enabling machines and devices Status: Acute Assessment and Plan: * CPAP patient having difficulty wearing. * Check apnea link overnight. Subjective Date/time seen: 01/14/25 11:18 Interval history: Patient sitting up in chair. Patient reports shortness of breath earlier while in bed. Patient reports lightheadedness at times when getting up. Patient agreeable to start Metformin 500 mg PO twice daily, she does not think she could do insulin at home due to her sight. Patient cannot afford over $ 500 a month for Apixaban or Xarelto patient is going to discuss with family and think about if she wants to go on Warfarin. Patient denies chest pain, palpitations, headache, dizziness, nausea, or vomiting. Review of Systems Review of Systems: All systems reviewed & are unremarkable except as noted in HPI and below Exam Const: General: no acute distress Resp: Effort & Inspection: normal respiratory effort Auscultation: diminished lung sounds Cardio: Rate: regular rate Rhythm: regular rhythm GI: GI Palp: Yes Soft to palpation Auscultation: normal bowel sounds Neuro: Speech: normal speech Extrem: General: no pedal edema Psych: Mental Status: mental status grossly normal Affect: normal affect Objective Data Vital Signs Vital Signs: Vital Signs - 24 hr 01/13/25 14:01 01/13/25 19:49 01/13/25 20:00 Temperature 97.5 F L 98.9 F Pulse Rate 70 107 H 70 Respiratory Rate 17 24 H 20 Blood Pressure 136/54 L 136/80 Pulse Oximetry 97 91 91 Oxygen Delivery Room Air 01/13/25 20:30 01/13/25 21:26 01/14/25 04:17 Temperature 97.5 F L 97.9 F Pulse Rate 87 70 70 Respiratory Rate 20 20 Blood Pressure 194/69 H 170/60 H Pulse Oximetry 91 92 Oxygen Delivery 01/14/25 08:11 01/14/25 08:11 Temperature Pulse Rate 70 70 Respiratory Rate Blood Pressure Pulse Oximetry Oxygen Delivery Intake/Output Intake/Output: Intake & Output 01/11/25 01/12/25 01/13/25 01/14/25 23:59 23:59 23:59 23:59 Intake Total 2009 2401.3 3180 1381.3 Balance 2009 2401.3 3180 1381.3 Meds/Results Medications: Active Medications Generic Name Dose Route Start Last Admin Trade Name Freq PRN Reason Stop Dose Admin Acetaminophen 1,000 mg 01/09/25 07:38 01/13/25 09:23 Acetaminophen 500 Mg Tablet PO 1,000 mg Q6H PRN Administration pain Amiodarone HCl 200 mg 01/09/25 09:00 01/14/25 08:11 Amiodarone Hcl 200 Mg Tablet PO 200 mg DAILY JACKIE Administration Amoxicillin/Clavulanate Potassium 1 tablet 01/13/25 21:00 01/14/25 08:09 Amoxicillin/Clavulanate K 875-125 Mg Tab PO 01/15/25 09:01 1 tablet Q12HR JACKIE Administration Apixaban 2.5 mg 01/09/25 09:00 01/14/25 08:10 Apixaban 2.5 Mg Tablet PO 2.5 mg BID JACKIE Administration Atorvastatin Calcium 40 mg 01/09/25 09:00 01/14/25 08:10 Atorvastatin 40 Mg Tablet PO 40 mg DAILY JACKIE Administration Dextrose 12.5 gm 01/09/25 01:22 Dextrose 50% 25 Gm/50 Ml Syringe IV PUSH PRN PRN Hypoglycemia Protocol Docusate Sodium 100 mg 01/09/25 10:33 Docusate Sodium 100 Mg Capsule PO Q12H PRN Constipation Ferrous Sulfate 325 mg 01/09/25 09:15 01/14/25 08:10 Ferrous Sulfate [address] BY MOUTH 325 mg BID JACKIE Administration Fish Oil 2 gm 01/09/25 09:45 01/14/25 08:16 [place] 3 Polyunsat Fatty Acids 1 Gm Cap PO Not Given BID JACKIE Fluconazole 100 mg 01/13/25 10:00 01/14/25 08:11 Fluconazole 100 Mg Tablet PO 01/26/25 09:01 100 mg QAM JACKIE Administration Folic Acid 1 mg 01/09/25 09:00 01/14/25 08:11 Folic Acid 1 Mg Tablet PO 1 mg DAILY JACKIE Administration Glucagon 1 mg 01/09/25 01:22 Glucagon For Inj 1 Mg Vial IM PRN PRN Hypoglycemia Protocol Glucose 15 gm 01/09/25 01:22 Glucose Oral Gel 15 Gm Of Glucse In 37.5 Gm Tube PO PRN PRN Hypoglycemia Protocol Sodium Chloride 1,000 mls @ 75 mls/hr 01/08/25 23:40 01/14/25 10:14 Normal Saline Iv IV CONT 75 mls/hr .[id number] JACKIE Administration Dextrose 1,000 mls @ 100 mls/hr 01/09/25 01:22 Dextrose 5% 1,000 Ml IVPB PRN PRN Hypoglycemia Protocol Insulin Aspart 4 - 8 units 01/09/25 08:00 01/14/25 08:24 Insulin Aspart (*Bkc) 100 Units/Ml SUB-Q 4 units TIDWM JACKIE Administration Protocol Insulin Aspart 1 - 2 units 01/10/25 21:00 01/13/25 21:25 Insulin Aspart (*Bkc) 100 Units/Ml SUB-Q 2 units HS JACKIE Administration Protocol Lisinopril 5 mg 01/09/25 09:00 01/14/25 08:11 Lisinopril 5 Mg Tablet PO 5 mg DAILY JACKIE Administration Magnesium Oxide 400 mg 01/09/25 09:00 01/14/25 08:10 Magnesium Oxide 400 Mg Tablet PO 400 mg DAILY JACKIE Administration Metoprolol Tartrate 12.5 mg 01/09/25 09:00 01/14/25 08:11 Metoprolol Tartrate 12.5 Mg Tablet PO 12.5 mg Q12HR JACKIE Administration Mirtazapine 15 mg 01/09/25 21:00 01/13/25 21:26 Mirtazapine 15 Mg Tablet PO 15 mg HS JACKIE Administration Ondansetron HCl 4 mg 06/19/25 10:39 Ondansetron Inj 4 Mg/2 Ml Vial IV PUSH Q6H PRN Nausea And Vomiting Pantoprazole Sodium 40 mg 01/09/25 09:00 01/14/25 08:10 Pantoprazole 40 Mg Tablet PO 40 mg DAILY JACKIE Administration Polyethylene Glycol 17 gm 01/09/25 10:35 01/14/25 08:12 Polyethylene Glycol 3350 17 Gm Powd.Pack PO Not Given QAM JACKIE Vitamin D 50 mcg 01/09/25 09:45 01/14/25 08:10 Cholecalciferol (Vitamin D3) 25 Mcg (1,000 Units) Tablet PO 50 mcg DAILY JACKIE Administration Radiology Results: ITS Impressions Chest X-Ray 01/09/25 00:04 IMPRESSION: Mild pulmonary vascular congestion, without focal infiltrate or effusion. Labs Labs: Laboratory Results - last 24 hr 01/13/25 01/13/25 01/13/25 12:23 17:16 20:06 WBC RBC Hgb Hct MCV MCH MCHC RDW Plt Count MPV Immature Gran % (Auto) Neut % (Auto) Lymph % (Auto) [place] % (Auto) Eos % (Auto) Baso % (Auto) Lymph # (Auto) [place] # (Auto) Eos # (Auto) Baso # (Auto) Abs Immat Gran (auto) Absolute Neuts (auto) Absolute Nucleated RBC Nucleated RBC % Sodium Potassium Chloride Carbon Dioxide Anion Gap BUN Creatinine Estim Creat Clear Calc Estimated GFR Glucose POC Capillary Glucose 202 H 283 H 315 H Calcium Magnesium Total Bilirubin AST ALT Alkaline Phosphatase Total Protein Albumin 01/14/25 01/14/25 05:07 08:04 WBC 9.1 RBC 3.21 L Hgb 10.1 L Hct 31.1 L MCV 96.9 MCH 31.5 MCHC 32.5 RDW 13.2 Plt Count 188 MPV 10.6 H Immature Gran % (Auto) 1.1 H Neut % (Auto) 66.5 Lymph % (Auto) 16.4 L [place] % (Auto) 12.0 H Eos % (Auto) 3.2 Baso % (Auto) 0.8 Lymph # (Auto) 1.48 [place] # (Auto) 1.1 H Eos # (Auto) 0.3 Baso # (Auto) 0.1 Abs Immat Gran (auto) 0.10 H Absolute Neuts (auto) 6.0 Absolute Nucleated RBC 0.000 Nucleated RBC % 0.0 Sodium 136 L Potassium 3.5 Chloride 110 H Carbon Dioxide 21 L Anion Gap 5 BUN 16 Creatinine 0.98 Estim Creat Clear Calc 30 Estimated GFR 54 L Glucose 242 H POC Capillary Glucose 240 H Calcium 8.5 Magnesium 1.8 Total Bilirubin 0.4 AST 38 H ALT 55 H Alkaline Phosphatase 75 Total Protein 5.5 L Albumin 2.5 L Quality VTE Prophylaxis VTE prophylaxis: pharmacologic ordered
[2025-01-14 11:56] LABS: NT Pro B Type Natriuretic Pept 7610 pg/mL (19.9-100)
[2025-01-14] MEDS: FUROSEMIDE INJ 40 MG/4 ML VIAL 20 MG IV PUSH (12:33)
[2025-01-14 14:00] VITALS: BP 136/60; PULSE 70; RESP 12; TEMP 37; O2SAT 97
[2025-01-14] MEDS: MIRTAZAPINE 15 MG TABLET PO (21:12)
[2025-01-14 21:34] VITALS: BP 141/51; PULSE 70; RESP 18; TEMP 36.6; O2SAT 96
[2025-01-14 23:11] VITALS: PULSE 70; O2SAT 96
[2025-01-15 05:53] LABS: Hematocrit 31.7 % (37.0-47.0); Hemoglobin 10.0 g/dL (12.0-15.0); Immature Granulocyte Percent A 1.0 % (0-0.5); Lymphocytes Absolute Auto 1.70 K/mm3 (0.9-3.2); Mean Corpuscular HGB Conc 31.5 g/dl (32-36); Mean Corpuscular Hemoglobin 30.8 pg (26-34); Mean Corpuscular Volume 97.5 fl (80-100); Nucleated Red Blood Cells Absolute Auto 0.000 K/mm3 (0.0-0.012); Nucleated Red Blood Cells Perc 0.0 % (0.0-0.2); Platelet Count Result 195 k/mm3 (150-375); Red Blood Count 3.25 M/mm3 (4.2-5.4); White Blood Count 9.0 K/mm3 (4.5-10.0)
[2025-01-15 06:00] VITALS: BP 150/60; PULSE 69; RESP 20; TEMP 36.8; O2SAT 95
[2025-01-15 06:36] LABS: Alanine Aminotransferase 55 U/L (6-35); Albumin Level 2.6 g/dL (3.5-5.1); Alkaline Phosphatase 66 U/L (38-126); Anion Gap 5 mmol/L (4-12); Aspartate Amino Transferase 44 U/L (14-36); Bilirubin,Total 0.5 mg/dL (0.2-1.3); Blood Urea Nitrogen 17 mg/dL (7-17); Calcium 8.5 mg/dL (8.4-10.2); Carbon Dioxide 26 mmol/L (22-30); Chloride 107 mmol/L (98-107); Estimated CRCL calculation 28 ml/min; Estimated Glomerular Filt Rate 47; Glucose 147 mg/dL (65-110); Magnesium 1.8 mg/dL (1.6-2.3); Potassium 4.4 mmol/L (3.4-5.0); Sodium 138 mmol/L (137-145); Total Protein 5.6 g/dL (6.3-8.2)
[2025-01-15 08:35] VITALS: PULSE 76
[2025-01-15] MEDS: METOPROLOL TARTRATE 12.5 MG TABLET PO ×2 (08:35→21:07)
[2025-01-15] MEDS: PANTOPRAZOLE 40 MG TABLET PO (08:35)
[2025-01-15 08:36] VITALS: PULSE 76
[2025-01-15] MEDS: APIXABAN 2.5 MG TABLET PO ×2 (08:36→17:26)
[2025-01-15] MEDS: ATORVASTATIN 40 MG TABLET PO (08:36)
[2025-01-15] MEDS: AMIODARONE HCL 200 MG TABLET PO (08:36)
[2025-01-15] MEDS: FERROUS SULFATE 325 MG TABLET DR BY MOUTH ×2 (08:36→17:26)
[2025-01-15] MEDS: FOLIC ACID 1 MG TABLET PO (08:36)
[2025-01-15] MEDS: CHOLECALCIFEROL (VITAMIN D3) 25 MCG (1,000 UNITS) TABLET 50 MCG PO (08:36)
[2025-01-15] MEDS: FUROSEMIDE 20 MG TABLET PO (08:36)
[2025-01-15] MEDS: FLUCONAZOLE 100 MG TABLET PO (08:36)
[2025-01-15] MEDS: MAGNESIUM OXIDE 400 MG TABLET PO (08:36)
[2025-01-15] MEDS: OMEGA 3 POLYUNSAT FATTY ACIDS 1 GM CAP 2 GM PO ×2 (08:36→17:26)
--- NOTE | 2025-01-15 09:16 | P.PNIM_ITS ---
Progress Note: A&P Assessment and Plan (1) Urinary tract infection: Code(s): N39.0 - Urinary tract infection, site not specified Status: Acute Assessment and Plan: * Urine turbid with 1+ protein, 3+ glucose, 3+ blood, 2+ leukocytes, RBC >100. WBC >100, WBC clumps present, 4+ bacteria, and yeast present. * Urine culture negative, recollect UA with reflex. Urine grew Alexia Glabrata. Fluconazole 100 mg PO QAM for 14 days started. * Ceftriaxone 1 gram IVPB daily discontinued today, switched to Augmentin 875- 125 mg 1 tab q 12. * Encourage water intake. (2) CHF (congestive heart failure): Code(s): I50.9 - Heart failure, unspecified Status: Acute Assessment and Plan: * BNP 7,610. * Furosemide 20 mg ivp x 1 given. * Start Furosemide 20 mg PO daily tomorrow. (3) RENETTA (acute kidney injury): Code(s): N17.9 - Acute kidney failure, unspecified Status: Acute Assessment and Plan: * Creatinine 1.22 on admission, last check 0.98. (4) Transaminitis: Code(s): R74.01 - Elevation of levels of liver transaminase levels Status: Acute Assessment and Plan: * AST 91>93>60>42>41>40>38. * ALT 144>137>98>84>72>67>55. (5) Multiple falls: Code(s): R29.6 - Repeated falls Status: Acute Assessment and Plan: * PT/OT for strengthening and balance. (6) DM type 2 (diabetes mellitus, type 2): Qualifiers: Chronic kidney disease stage: stage 2 (mild) Diabetes mellitus complication detail: with chronic kidney disease Diabetes mellitus complication status: with kidney complications Diabetes mellitus custodial insulin use: without custodial use Qualified Code(s): E11.22 - Type 2 diabetes mellitus with diabetic chronic kidney disease; N18.2 - Chronic kidney disease, stage 2 (mild) Code(s): E11.9 - Type 2 diabetes mellitus without complications Status: Acute Assessment and Plan: * HgbA1C 12.9%. * High dose SSI, hypoglycemic protocol, and accuchecks qid. * director cpg. (7) Severe protein-calorie malnutrition: Code(s): E43 - Unspecified severe protein-calorie malnutrition Status: Acute Assessment and Plan: * Increased protein-energy needs in setting of chronic disease as evidenced by minimal oral intake for >1-2 months, significant weight loss 21 lbs(18%) 10 months: moderate subcutaneous fat loss (orbital fat pads) and severe muscle wasting (temporalis, clavicle). * Protein level 5.5. * Building Architect consult, appreciate recommendations. * Glucerna 1 bottle BID. * Encourage oral intake. * Mirtazapine 15 mg PO HS. (8) BMI < 18.5: Code(s): Z68.1 - Body mass index [BMI] 19.9 or less, adult Status: Acute Assessment and Plan: * Encourage oral intake. * Building Architect consult. * Glucerna shake BID. * Mirtazapine 15 mg PO HS. * Weight 106 lb 4 oz today. (9) JOSUE on CPAP: Code(s): G47.33 - Obstructive sleep apnea (adult) (pediatric); Z99.89 - Dependence on other enabling machines and devices Status: Acute Assessment and Plan: * CPAP patient having difficulty wearing. * Check apnea link overnight. Time Spent With Patient Time: 59 Subjective Date/time seen: 01/15/25 09:16 Interval history: Transient nausea this morning and poor appetite. Otherwise no acute complaints Apixaban monthly cost is $500. Patient hesitant to pay for it. Discussed bee checking home INR device because part of the barrier to warfarin is transportation Review of Systems Review of Systems: All systems reviewed & are unremarkable except as noted in HPI and below Exam Narrative: General - Awake and alert. No acute distress Eyes - PERRLA, EOM intact ENT - No thrush, No erythema Neck - No noticeable or palpable swelling Lymph Nodes - No lymphadenopathy Cardiovascular - RRR no m/r/g, no JVD Lungs: Clear to auscultation, No wheezing, use of accessory muscles, no crackles Skin - Skin warm and dry, no wounds or rashes Abdomen - Normal bowel sounds, abdomen soft and nontender Extremities - No edema, cyanosis or clubbing Musculoskeletal - 5/5 strength, normal range of motion, no swollen or erythematous joints. Neurological ? Alert and oriented x 3, CN 2-12 grossly intact. Psych: Normal mood and affect Objective Data Vital Signs Vital Signs: Vital Signs - 24 hr 01/14/25 14:00 01/14/25 21:34 01/14/25 23:11 Temperature 98.6 F 98 F Pulse Rate 70 70 70 Respiratory Rate 12 18 Blood Pressure 136/60 141/51 H Pulse Oximetry 97 96 96 Oxygen Delivery Room Air 01/15/25 06:00 01/15/25 08:35 01/15/25 08:36 Temperature 98.3 F Pulse Rate 69 76 76 Respiratory Rate 20 Blood Pressure 150/60 H Pulse Oximetry 95 Oxygen Delivery 01/15/25 08:40 Temperature Pulse Rate Respiratory Rate Blood Pressure Pulse Oximetry Oxygen Delivery Room Air Intake/Output Intake/Output: Intake & Output 01/12/25 01/13/25 01/14/25 01/15/25 23:59 23:59 23:59 23:59 Intake Total 2401.3 3180 3273.3 560 Balance 2401.3 3180 3273.3 560 Meds/Results Medications: Active Medications Generic Name Dose Route Start Last Admin Trade Name Freq PRN Reason Stop Dose Admin Acetaminophen 1,000 mg 01/09/25 07:38 01/13/25 09:23 Acetaminophen 500 Mg Tablet PO 1,000 mg Q6H PRN Administration pain Albuterol 2 puff 01/14/25 11:20 Albuterol Sulfate (*Sp) Aerosol 1 Puff INHALATION Q6HRT PRN Shortness Of Breath Amiodarone HCl 200 mg 01/09/25 09:00 01/15/25 08:36 Amiodarone Hcl 200 Mg Tablet PO 200 mg DAILY JACKIE Administration Apixaban 2.5 mg 01/09/25 09:00 01/15/25 08:36 Apixaban 2.5 Mg Tablet PO 2.5 mg BID JACKIE Administration Atorvastatin Calcium 40 mg 01/09/25 09:00 01/15/25 08:36 Atorvastatin 40 Mg Tablet PO 40 mg DAILY JACKIE Administration Dextrose 12.5 gm 01/09/25 01:22 Dextrose 50% 25 Gm/50 Ml Syringe IV PUSH PRN PRN Hypoglycemia Protocol Docusate Sodium 100 mg 01/09/25 10:33 Docusate Sodium 100 Mg Capsule PO Q12H PRN Constipation Ferrous Sulfate 325 mg 01/09/25 09:15 01/15/25 08:36 Ferrous Sulfate [address] BY MOUTH 325 mg BID JACKIE Administration Fish Oil 2 gm 01/09/25 09:45 01/15/25 08:36 [place] 3 Polyunsat Fatty Acids 1 Gm Cap PO 2 gm BID JACKIE Administration Fluconazole 100 mg 01/13/25 10:00 01/15/25 08:36 Fluconazole 100 Mg Tablet PO 01/26/25 09:01 100 mg QAM JACKIE Administration Folic Acid 1 mg 01/09/25 09:00 01/15/25 08:36 Folic Acid 1 Mg Tablet PO 1 mg DAILY JACKIE Administration Furosemide 20 mg 01/15/25 09:00 01/15/25 08:36 Furosemide 20 Mg Tablet PO 20 mg DAILY JACKIE Administration Glucagon 1 mg 01/09/25 01:22 Glucagon For Inj 1 Mg Vial IM PRN PRN Hypoglycemia Protocol Glucose 15 gm 01/09/25 01:22 Glucose Oral Gel 15 Gm Of Glucse In 37.5 Gm Tube PO PRN PRN Hypoglycemia Protocol Dextrose 1,000 mls @ 100 mls/hr 01/09/25 01:22 Dextrose 5% 1,000 Ml IVPB PRN PRN Hypoglycemia Protocol Insulin Aspart 4 - 8 units 01/09/25 08:00 01/15/25 08:35 Insulin Aspart (*Bkc) 100 Units/Ml SUB-Q Not Given TIDWM JACKIE Protocol Insulin Aspart 1 - 2 units 01/10/25 21:00 01/14/25 21:13 Insulin Aspart (*Bkc) 100 Units/Ml SUB-Q 2 units HS JACKIE Administration Protocol Lisinopril 5 mg 01/09/25 09:00 01/15/25 08:36 Lisinopril 5 Mg Tablet PO 5 mg DAILY JACKIE Administration Magnesium Oxide 400 mg 01/09/25 09:00 01/15/25 08:36 Magnesium Oxide 400 Mg Tablet PO 400 mg DAILY JACKIE Administration Metformin HCl 500 mg 01/14/25 17:00 01/15/25 08:36 Metformin Hcl 500 Mg Tablet PO 500 mg BIDWM JACKIE Administration Metoprolol Tartrate 12.5 mg 01/09/25 09:00 01/15/25 08:35 Metoprolol Tartrate 12.5 Mg Tablet PO 12.5 mg Q12HR JACKIE Administration Mirtazapine 15 mg 01/09/25 21:00 01/14/25 21:12 Mirtazapine 15 Mg Tablet PO 15 mg HS JACKIE Administration Ondansetron HCl 4 mg 01/09/25 10:39 Ondansetron Inj 4 Mg/2 Ml Vial IV PUSH Q6H PRN Nausea And Vomiting Pantoprazole Sodium 40 mg 01/09/25 09:00 01/15/25 08:35 Pantoprazole 40 Mg Tablet PO 40 mg DAILY JACKIE Administration Polyethylene Glycol 17 gm 01/09/25 10:35 01/15/25 08:36 Polyethylene Glycol 3350 17 Gm Powd.Pack PO 17 gm QAM JACKIE Administration Vitamin D 50 mcg 01/09/25 09:45 01/15/25 08:36 Cholecalciferol (Vitamin D3) 25 Mcg (1,000 Units) Tablet PO 50 mcg DAILY JACKIE Administration Radiology Results: ITS Impressions Chest X-Ray 01/09/25 00:04 IMPRESSION: Mild pulmonary vascular congestion, without focal infiltrate or effusion. Labs Labs: Laboratory Results - last 24 hr 01/14/25 01/14/25 01/14/25 05:03 12:03 16:34 WBC RBC Hgb Hct MCV MCH MCHC RDW Plt Count MPV Immature Gran % (Auto) Neut % (Auto) Lymph % (Auto) [place] % (Auto) Eos % (Auto) Baso % (Auto) Lymph # (Auto) [place] # (Auto) Eos # (Auto) Baso # (Auto) Abs Immat Gran (auto) Absolute Neuts (auto) Absolute Nucleated RBC Nucleated RBC % Sodium Potassium Chloride Carbon Dioxide Anion Gap BUN Creatinine Estim Creat Clear Calc Estimated GFR Glucose POC Capillary Glucose 154 H 328 H Calcium Magnesium Total Bilirubin AST ALT Alkaline Phosphatase NT-Pro-B Natriuret Pep 7610 H Total Protein Albumin 01/14/25 01/15/25 01/15/25 20:57 05:40 08:07 WBC 9.0 RBC 3.25 L Hgb 10.0 L Hct 31.7 L MCV 97.5 MCH 30.8 MCHC 31.5 L RDW 13.3 Plt Count 195 MPV 10.0 Immature Gran % (Auto) 1.0 H Neut % (Auto) 63.5 Lymph % (Auto) 18.9 [place] % (Auto) 12.8 H Eos % (Auto) 3.0 Baso % (Auto) 0.8 Lymph # (Auto) 1.70 [place] # (Auto) 1.2 H Eos # (Auto) 0.3 Baso # (Auto) 0.1 Abs Immat Gran (auto) 0.09 H Absolute Neuts (auto) 5.7 Absolute Nucleated RBC 0.000 Nucleated RBC % 0.0 Sodium 138 Potassium 4.4 Chloride 107 Carbon Dioxide 26 Anion Gap 5 BUN 17 Creatinine 1.11 H Estim Creat Clear Calc 28 Estimated GFR 47 L Glucose 147 H POC Capillary Glucose 216 H 154 H Calcium 8.5 Magnesium 1.8 Total Bilirubin 0.5 AST 44 H ALT 55 H Alkaline Phosphatase 66 NT-Pro-B Natriuret Pep Total Protein 5.6 L Albumin 2.6 L Quality VTE Prophylaxis VTE prophylaxis: pharmacologic ordered
[2025-01-15] MEDS: INSULIN ASPART (*BKC) 100 UNITS/ML SUB-Q ×2 (12:51→17:26)
[2025-01-15] MEDS: ACETAMINOPHEN 500 MG TABLET 1000 MG PO (12:53)
--- NOTE | 2025-01-15 13:16 | P.CDI_ITS ---
CDI Query Clarification Request Please specify type and acuity of heart failure if known. * Acute * Chronic * Acute on Chronic * Unknown * Systolic * Diastolic * Combined Systolic and Diastolic * Unknown The medical chart reflects the following: (2) CHF (congestive heart failure): Code(s): I50.9 - Heart failure, unspecified Status: Acute Assessment and Plan: * BNP 7,610. * Furosemide 20 mg ivp x 1 given. * Start Furosemide 20 mg PO daily tomorrow. <Misti Hernandez RN - Last Filed: 01/15/25 13:17> Clarified Diagnosis Clarified Diagnosis: heart failure exacerbation likely fluid overload 2/2 RENETTA, acute on chronic urinary obstruction <Ricarda Encarnacion APRN - Last Filed: 01/19/25 18:45>
--- NOTE | 2025-01-15 13:16 | WPDCDIQUERY2 ---
CDI Query Clarification Request Please specify type and acuity of heart failure if known. Acute Chronic Acute on Chronic Unknown Systolic Diastolic Combined Systolic and Diastolic Unknown The medical chart reflects the following: (2) CHF (congestive heart failure): Code(s): I50.9 - Heart failure, unspecified Status: Acute Assessment and Plan: BNP 7,610. Furosemide 20 mg ivp x 1 given. Start Furosemide 20 mg PO daily tomorrow. <Misti Hernandez RN - Last Filed: 01/15/25 13:17> Clarified Diagnosis Clarified Diagnosis: heart failure exacerbation likely fluid overload 2/2 RENETTA, acute on chronic urinary obstruction <Ricarda Encarnacion APRN - Last Filed: 01/19/25 18:45>
[2025-01-15 14:00] VITALS: BP 126/57; PULSE 68; RESP 12; TEMP 37.3; O2SAT 100
[2025-01-15] MEDS: MIRTAZAPINE 15 MG TABLET PO (21:07)
[2025-01-15 21:20] VITALS: BP 150/56; PULSE 70; RESP 18; TEMP 36.4; O2SAT 96
[2025-01-15 21:27] VITALS: PULSE 69; RESP 20; O2SAT 90
[2025-01-16] VITALS (7 sets, daily range): BP systolic 133–154; BP diastolic 51–64; PULSE 70–85; RESP 16–20; TEMP 36.4–36.9; O2SAT 95–96
[2025-01-16 05:52] LABS: Hematocrit 32.9 % (37.0-47.0); Hemoglobin 10.3 g/dL (12.0-15.0); Immature Granulocyte Percent A 1.4 % (0-0.5); Lymphocytes Absolute Auto 1.65 K/mm3 (0.9-3.2); Mean Corpuscular HGB Conc 31.3 g/dl (32-36); Mean Corpuscular Hemoglobin 31.1 pg (26-34); Mean Corpuscular Volume 99.4 fl (80-100); Nucleated Red Blood Cells Absolute Auto 0.000 K/mm3 (0.0-0.012); Nucleated Red Blood Cells Perc 0.0 % (0.0-0.2); Platelet Count Result 221 k/mm3 (150-375); Red Blood Count 3.31 M/mm3 (4.2-5.4); White Blood Count 10.4 K/mm3 (4.5-10.0)
[2025-01-16 06:18] LABS: Alanine Aminotransferase 55 U/L (6-35); Albumin Level 2.7 g/dL (3.5-5.1); Alkaline Phosphatase 74 U/L (38-126); Anion Gap 6 mmol/L (4-12); Aspartate Amino Transferase 46 U/L (14-36); Bilirubin,Total 0.6 mg/dL (0.2-1.3); Blood Urea Nitrogen 19 mg/dL (7-17); Calcium 9.0 mg/dL (8.4-10.2); Carbon Dioxide 24 mmol/L (22-30); Chloride 107 mmol/L (98-107); Estimated CRCL calculation 21 ml/min; Estimated Glomerular Filt Rate 36; Glucose 125 mg/dL (65-110); Magnesium 1.8 mg/dL (1.6-2.3); Potassium 4.4 mmol/L (3.4-5.0); Sodium 137 mmol/L (137-145); Total Protein 5.8 g/dL (6.3-8.2)
[2025-01-16] MEDS: OMEGA 3 POLYUNSAT FATTY ACIDS 1 GM CAP 2 GM PO (08:11)
[2025-01-16] MEDS: PANTOPRAZOLE 40 MG TABLET PO (08:11)
[2025-01-16] MEDS: APIXABAN 2.5 MG TABLET PO ×2 (08:11→16:57)
[2025-01-16] MEDS: FERROUS SULFATE 325 MG TABLET DR BY MOUTH ×2 (08:11→16:57)
[2025-01-16] MEDS: FUROSEMIDE 20 MG TABLET PO (08:11)
[2025-01-16] MEDS: MAGNESIUM OXIDE 400 MG TABLET PO (08:11)
[2025-01-16] MEDS: METOPROLOL TARTRATE 12.5 MG TABLET PO ×2 (08:11→20:18)
[2025-01-16] MEDS: ATORVASTATIN 40 MG TABLET PO (08:11)
[2025-01-16] MEDS: FLUCONAZOLE 100 MG TABLET PO (08:11)
[2025-01-16] MEDS: AMIODARONE HCL 200 MG TABLET PO (08:11)
[2025-01-16] MEDS: CHOLECALCIFEROL (VITAMIN D3) 25 MCG (1,000 UNITS) TABLET 50 MCG PO (08:11)
[2025-01-16] MEDS: FOLIC ACID 1 MG TABLET PO (08:11)
--- NOTE | 2025-01-16 09:47 | P.PNIM_ITS ---
Progress Note: A&P Assessment and Plan (1) Urinary tract infection: Code(s): N39.0 - Urinary tract infection, site not specified Status: Acute Assessment and Plan: * Completed Ceftriaxone 1 gram IVPB changed to Augmentin 875-125 mg 1 tab q 12 * Urine turbid with 1+ protein, 3+ glucose, 3+ blood, 2+ leukocytes, RBC >100. WBC >100, WBC clumps present, 4+ bacteria, and yeast present. * Urine culture negative, recollect UA with reflex. Urine grew Alexia Glabrata. Fluconazole 100 mg started but unclear if true infection since no dysuria, so discontinued. If grows again would send for susceptibilities since not always susceptible to fluconazole * 1 liter NS today * Repeat UA/Culture (2) CHF (congestive heart failure): Code(s): I50.9 - Heart failure, unspecified Status: Acute Assessment and Plan: * BNP 7,610. * Furosemide 20 mg ivp x 1 given. * Start Furosemide 20 mg PO daily tomorrow. 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 Urology had been consulted and Chronic changes likely contributing to UTI's * Creatinine 1.22 on admission> 0.98, Up to 1.42 * Of note, patient would be not be interested in dialysis, although not a short term concern * Renal US done today, showed: Bilateral severe hydronephrotic changes.Echogenic material in the urinary bladder which may be blood or due to infection. Further evaluation advised. Thickened wall of the urinary bladder which may indicate cystitis. * Repeat UA, Na, Creatinine. Urine culture pending * Holding off on repeat CT 2/2 RENETTA * Urology consult for hydronephrosis. Hold apixaban (4) Transaminitis: Code(s): R74.01 - Elevation of levels of liver transaminase levels Status: Acute Assessment and Plan: * AST 91>93>60>42>41>40>38. * ALT 144>137>98>84>72>67>55. (5) Multiple falls: Code(s): R29.6 - Repeated falls Status: Acute Assessment and Plan: * PT/OT for strengthening and balance. (6) DM type 2 (diabetes mellitus, type 2): Qualifiers: Diabetes mellitus fci insulin use: without roasterman use Diabetes mellitus complication status: with kidney complications Diabetes mellitus complication detail: with chronic kidney disease Chronic kidney disease stage: stage 2 (mild) Qualified Code(s): E11.22 - Type 2 diabetes mellitus with diabetic chronic kidney disease; N18.2 - Chronic kidney disease, stage 2 (mild) Code(s): E11.9 - Type 2 diabetes mellitus without complications Status: Acute Assessment and Plan: * HgbA1C 12.9%. * High dose SSI, hypoglycemic protocol, and accuchecks qid. 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 (7) Severe protein-calorie malnutrition: Code(s): E43 - Unspecified severe protein-calorie malnutrition Status: Acute Assessment and Plan: * Increased protein-energy needs in setting of chronic disease as evidenced by minimal oral intake for >1-2 months, significant weight loss 21 lbs(18%) 10 months: moderate subcutaneous fat loss (orbital fat pads) and severe muscle wasting (temporalis, clavicle). * Protein level 5.5. * Associate Professor Of Philosophy consult, appreciate recommendations. * Glucerna 1 bottle BID. * Encourage oral intake. * Mirtazapine 15 mg PO HS. (8) BMI < 18.5: Code(s): Z68.1 - Body mass index [BMI] 19.9 or less, adult Status: Acute Assessment and Plan: * Encourage oral intake. * Associate Professor Of Philosophy consult. * Glucerna shake BID. * Mirtazapine 15 mg PO HS. * Weight 106 lb 4 oz today. (9) JOSUE on CPAP: Code(s): G47.33 - Obstructive sleep apnea (adult) (pediatric); Z99.89 - Dependence on other enabling machines and devices Status: Acute Assessment and Plan: * CPAP patient having difficulty wearing. * Check apnea link evaluation period was too short. Outpatitn sleep study Time Spent With Patient Time: 46 minutes Subjective Date/time seen: 01/16/25 09:47 Interval history: Feeling fatigued but no urinary symptoms. Reports she was drinking well yesterday but nauseated today Creatinine up to 1.4. Started fluidsx 1 L Interested in warfarin for home if meter is affordable, sent a bee check Review of Systems Review of Systems: All systems reviewed & are unremarkable except as noted in HPI and below Exam Narrative: General - Awake and alert. No acute distress Eyes - PERRLA, EOM intact ENT - No thrush, No erythema Neck - No noticeable or palpable swelling Lymph Nodes - No lymphadenopathy Cardiovascular - RRR no m/r/g, no JVD Lungs: Clear to auscultation, No wheezing, use of accessory muscles, no crackles Skin - Skin warm and dry, no wounds or rashes Abdomen - Normal bowel sounds, abdomen soft and nontender Extremities - No edema, cyanosis or clubbing Musculoskeletal - 5/5 strength, normal range of motion, no swollen or erythematous joints. Neurological ? Alert and oriented x 3, CN 2-12 grossly intact. Psych: Normal mood and affect Objective Data Vital Signs Vital Signs: Vital Signs - 24 hr 01/15/25 14:00 01/15/25 20:00 01/15/25 21:20 Temperature 99.1 F 97.5 F L Pulse Rate 68 70 Respiratory Rate 12 18 Blood Pressure 126/57 L 150/56 H Pulse Oximetry 100 96 Oxygen Delivery Room Air Fraction of Inspired Oxygen 01/15/25 21:27 01/16/25 05:28 01/16/25 08:11 Temperature 97.7 F Pulse Rate 69 70 70 Respiratory Rate 20 20 Blood Pressure 142/56 H Pulse Oximetry 90 95 Oxygen Delivery Room Air Fraction of Inspired Oxygen 01/16/25 08:11 01/16/25 08:15 Temperature Pulse Rate 70 Respiratory Rate Blood Pressure Pulse Oximetry Oxygen Delivery Room Air Fraction of Inspired Oxygen Intake/Output Intake/Output: Intake & Output 01/13/25 01/14/25 01/15/25 01/16/25 23:59 23:59 23:59 23:59 Intake Total 3180 3273.3 1360 350 Balance 3180 3273.3 1360 350 Meds/Results Medications: Active Medications Generic Name Dose Route Start Last Admin Trade Name Freq PRN Reason Stop Dose Admin Acetaminophen 1,000 mg 01/09/25 07:38 01/15/25 12:53 Acetaminophen 500 Mg Tablet PO 1,000 mg Q6H PRN Administration pain Albuterol 2 puff 01/14/25 11:20 Albuterol Sulfate (*Sp) Aerosol 1 Puff INHALATION Q6HRT PRN Shortness Of Breath Amiodarone HCl 200 mg 01/09/25 09:00 01/16/25 08:11 Amiodarone Hcl 200 Mg Tablet PO 200 mg DAILY JACKIE Administration Apixaban 2.5 mg 01/09/25 09:00 01/16/25 08:11 Apixaban 2.5 Mg Tablet PO 2.5 mg BID JACKIE Administration Atorvastatin Calcium 40 mg 01/09/25 09:00 01/16/25 08:11 Atorvastatin 40 Mg Tablet PO 40 mg DAILY JACKIE Administration Dextrose 12.5 gm 01/09/25 01:22 Dextrose 50% 25 Gm/50 Ml Syringe IV PUSH PRN PRN Hypoglycemia Protocol Docusate Sodium 100 mg 01/09/25 10:33 Docusate Sodium 100 Mg Capsule PO Q12H PRN Constipation Ferrous Sulfate 325 mg 01/09/25 09:15 01/16/25 08:11 Ferrous Sulfate [address] BY MOUTH 325 mg BID JACKIE Administration Fish Oil 2 gm 01/09/25 09:45 01/16/25 08:11 [place] 3 Polyunsat Fatty Acids 1 Gm Cap PO 2 gm BID JACKIE Administration Folic Acid 1 mg 01/09/25 09:00 01/16/25 08:11 Folic Acid 1 Mg Tablet PO 1 mg DAILY JACKIE Administration Furosemide 20 mg 01/15/25 09:00 01/16/25 08:11 Furosemide 20 Mg Tablet PO 20 mg DAILY JACKIE Administration Glucagon 1 mg 01/09/25 01:22 Glucagon For Inj 1 Mg Vial IM PRN PRN Hypoglycemia Protocol Glucose 15 gm 01/09/25 01:22 Glucose Oral Gel 15 Gm Of Glucse In 37.5 Gm Tube PO PRN PRN Hypoglycemia Protocol Dextrose 1,000 mls @ 100 mls/hr 01/09/25 01:22 Dextrose 5% 1,000 Ml IVPB PRN PRN Hypoglycemia Protocol Sodium Chloride 1,000 mls @ 100 mls/hr 01/16/25 09:30 Normal Saline Iv IV CONT .Q10H [facility] Insulin Aspart 4 - 8 units 01/09/25 08:00 01/16/25 07:51 Insulin Aspart (*Bkc) 100 Units/Ml SUB-Q Not Given TIDWM [facility] Protocol Insulin Aspart 1 - 2 units 01/10/25 21:00 01/15/25 21:06 Insulin Aspart (*Bkc) 100 Units/Ml SUB-Q Not Given HS [facility] Protocol Lisinopril 5 mg 01/09/25 09:00 01/16/25 08:11 Lisinopril 5 Mg Tablet PO 5 mg DAILY JACKIE Administration Magnesium Oxide 400 mg 01/09/25 09:00 01/16/25 08:11 Magnesium Oxide 400 Mg Tablet PO 400 mg DAILY JACKIE Administration Metformin HCl 500 mg 01/14/25 17:00 01/16/25 08:11 Metformin Hcl 500 Mg Tablet PO 500 mg BIDWM JACKIE Administration Metoprolol Tartrate 12.5 mg 01/09/25 09:00 01/16/25 08:11 Metoprolol Tartrate 12.5 Mg Tablet PO 12.5 mg Q12HR JACKIE Administration Mirtazapine 15 mg 01/09/25 21:00 01/15/25 21:07 Mirtazapine 15 Mg Tablet PO 15 mg HS JACKIE Administration Ondansetron HCl 4 mg 01/09/25 10:39 Ondansetron Inj 4 Mg/2 Ml Vial IV PUSH Q6H PRN Nausea And Vomiting Pantoprazole Sodium 40 mg 01/09/25 09:00 01/16/25 08:11 Pantoprazole 40 Mg Tablet PO 40 mg DAILY JACKIE Administration Polyethylene Glycol 17 gm 01/09/25 10:35 01/16/25 08:11 Polyethylene Glycol 3350 17 Gm Powd.Pack PO 17 gm QAM JACKIE Administration Vitamin D 50 mcg 01/09/25 09:45 01/16/25 08:11 Cholecalciferol (Vitamin D3) 25 Mcg (1,000 Units) Tablet PO 50 mcg DAILY JACKIE Administration Radiology Results: ITS Impressions Chest X-Ray 01/09/25 00:04 IMPRESSION: Mild pulmonary vascular congestion, without focal infiltrate or effusion. Labs Labs: Laboratory Results - last 24 hr 01/15/25 01/15/25 01/15/25 12:18 16:54 20:14 WBC RBC Hgb Hct MCV MCH MCHC RDW Plt Count MPV Immature Gran % (Auto) Neut % (Auto) Lymph % (Auto) [place] % (Auto) Eos % (Auto) Baso % (Auto) Lymph # (Auto) [place] # (Auto) Eos # (Auto) Baso # (Auto) Abs Immat Gran (auto) Absolute Neuts (auto) Absolute Nucleated RBC Nucleated RBC % Sodium Potassium Chloride Carbon Dioxide Anion Gap BUN Creatinine Estim Creat Clear Calc Estimated GFR Glucose POC Capillary Glucose 269 H 236 H 153 H Calcium Magnesium Total Bilirubin AST ALT Alkaline Phosphatase Total Protein Albumin 01/16/25 01/16/25 05:33 07:49 WBC 10.4 H RBC 3.31 L Hgb 10.3 L Hct 32.9 L MCV 99.4 MCH 31.1 MCHC 31.3 L RDW 13.7 Plt Count 221 MPV 10.1 Immature Gran % (Auto) 1.4 H Neut % (Auto) 67.6 Lymph % (Auto) 15.9 L [place] % (Auto) 11.8 H Eos % (Auto) 2.4 Baso % (Auto) 0.9 Lymph # (Auto) 1.65 [place] # (Auto) 1.2 H Eos # (Auto) 0.3 Baso # (Auto) 0.1 Abs Immat Gran (auto) 0.15 H Absolute Neuts (auto) 7.0 H Absolute Nucleated RBC 0.000 Nucleated RBC % 0.0 Sodium 137 Potassium 4.4 Chloride 107 Carbon Dioxide 24 Anion Gap 6 BUN 19 H Creatinine 1.42 H Estim Creat Clear Calc 21 Estimated GFR 36 L Glucose 125 H POC Capillary Glucose 122 H Calcium 9.0 Magnesium 1.8 Total Bilirubin 0.6 AST 46 H ALT 55 H Alkaline Phosphatase 74 Total Protein 5.8 L Albumin 2.7 L Quality VTE Prophylaxis VTE prophylaxis: pharmacologic ordered Hospitalist MIPS Advance Care Plan I have confirmed that the patient's Advanced Care Plan is present, code status is documented, or surrogate decision maker is listed in patient medical record.: Yes Medication Reconciliation I have utilized all available resources to obtain, update and review the patients current medications (includes all prescriptions, OTC, herbals, cannabis, and nutritional supplements).: Yes
[2025-01-16] MEDS: INSULIN ASPART (*BKC) 100 UNITS/ML SUB-Q (12:16)
[2025-01-16] MEDS: SODIUM CHLORIDE 0.9% IV 1,000 ML 100 ML IV CONT (12:18)
[2025-01-16 13:55] LABS: Add Urine Microscopic? YES; Appearance Urine Turbid (Clear); Budding Yeast Urine Present /hpf; Glucose Urine UA Negative (Negative); Leukocyte Esterase Ur 3+ LEU/UL (Negative); Nitrate Urine Negative (Negative); Non Pathogenic Casts 0-2; Specific Grav Ur 1.010 (1.001-1.035)
[2025-01-16] MEDS: ONDANSETRON INJ 4 MG/2 ML VIAL IV PUSH (20:18)
[2025-01-16] MEDS: MIRTAZAPINE 15 MG TABLET PO (20:18)
--- NOTE | 2025-01-16 22:40 | PM.EVENT ---
Event Note Event Note Event Note: I am called to the bedside of this patient this evening by the RN after patient had a near fall. Patient was up in the restroom and upon standing from the toilet felt weak in the legs as they were going to give out and was lowered by the tech to the floor. Patient did not sustain a traumatic ground level fall. She states she is generally weak and that is 1 reason why she is here for physical therapy. Patient with current treatment for UTI, heart failure exacerbation, RENETTA, transaminitis with concurrent management of her diabetes mellitus, malnutrition and sleep apnea. She denies any complaints of pain, dizziness, lightheadedness or any chest pain or dyspnea. BRIEF PHYSICAL EXAM: General: Elderly female pt lying supine in bed without any acute distress. Cardiac: RRR, No M,R,G,H Respiratory: CTAB in all boss. Musculoskeletal: FROM actively of all extremities. Patient without any signs of acute injury or distress. Neurological: No focal deficit. A&Ox3 VS were reviewed and noted as follows: Temperature 98.4?, pulse 70, respirations 16, pulse ox 96% on room air, blood pressure 133/64 Recommend: Bed alarm, fall precautions
[2025-01-17 05:35] VITALS: BP 135/53; PULSE 71; RESP 18; TEMP 36.9; O2SAT 93
[2025-01-17 06:24] LABS: Hematocrit 29.0 % (37.0-47.0); Hemoglobin 9.2 g/dL (12.0-15.0); Immature Granulocyte Percent A 1.0 % (0-0.5); Lymphocytes Absolute Auto 1.40 K/mm3 (0.9-3.2); Mean Corpuscular HGB Conc 31.7 g/dl (32-36); Mean Corpuscular Hemoglobin 31.3 pg (26-34); Mean Corpuscular Volume 98.6 fl (80-100); Nucleated Red Blood Cells Absolute Auto 0.000 K/mm3 (0.0-0.012); Nucleated Red Blood Cells Perc 0.0 % (0.0-0.2); Platelet Count Result 209 k/mm3 (150-375); Red Blood Count 2.94 M/mm3 (4.2-5.4); White Blood Count 9.7 K/mm3 (4.5-10.0)
[2025-01-17 06:49] LABS: Procalcitonin 0.2 ng/mL
--- NOTE | 2025-01-17 08:07 | P.PNIM_ITS ---
Progress Note: A&P Assessment and Plan (1) Urinary tract infection: Code(s): N39.0 - Urinary tract infection, site not specified Status: Acute Assessment and Plan: * Completed Ceftriaxone 1 gram IVPB changed to Augmentin 875-125 mg 1 tab q 12 * Urine turbid with 1+ protein, 3+ glucose, 3+ blood, 2+ leukocytes, RBC >100. WBC >100, WBC clumps present, 4+ bacteria, and yeast present. * Urine culture negative, recollect UA with reflex. Urine grew Alexia Glabrata. Fluconazole 100 mg started but unclear if true infection since no dysuria, so discontinued. If grows again would send for susceptibilities since not always susceptible to fluconazole. Repeat UA/Culture consistent with contamination but no urinary symptoms * With large uterine prolapse midstream urine is likely impossible but straight cath for urine is also reportedly very difficult (2) CHF (congestive heart failure): Code(s): I50.9 - Heart failure, unspecified Status: Acute Assessment and Plan: * BNP 7,610 01/14. Furosemide 20 mg ivp x 1 given. * Continue Furosemide 20 mg PO daily. * Caution with fluids. Seems slightly short of breath today with activity and >crackles. Will continue lasix and monitor but obstructive symptoms also possibly contributing (3) RENETTA (acute kidney injury): Code(s): N17.9 - Acute kidney failure, unspecified Status: Acute Assessment and Plan: CT abd/pelvis last year showed moderate bilateral hydroureteronephrosis likely related to pelvic floor relaxation and extrinsic compression of the distal ureters as they extend to the bladder which is completely displaced caudal to the pubococcygeal line. Urology saw her at during a prior admission but she hasn't followed up because she was not interested in surgery. Spoke with her and she is reconsidering. Chronic changes likely contributing to UTI's and contaminated urine specimens. * Creatinine 1.22 on admission> 0.98, Up to 1.42 * Of note, patient would be not be interested in dialysis, although not a short term concern * Renal US done today, showed: Bilateral severe hydronephrotic changes.Echogenic material in the urinary bladder which may be blood or due to infection. Further evaluation advised. Thickened wall of the urinary bladder which may indicate cystitis. * Repeat UA, Na, Creatinine. Urine culture pending but patient asymptomatic * Holding off on CT with IV contrast 2/2 RENETTA * Urology consulted for hydronephrosis, appreciate recommendations. Discussing colpocleisis * Bladder scan, considering straight cath vs Maguire placement (4) Transaminitis: Code(s): R74.01 - Elevation of levels of liver transaminase levels Status: Acute Assessment and Plan: * AST 91>93>60>42>41>40>38. * ALT 144>137>98>84>72>67>55. (5) Multiple falls: Code(s): R29.6 - Repeated falls Status: Acute Assessment and Plan: * PT/OT for strengthening and balance. (6) DM type 2 (diabetes mellitus, type 2): Qualifiers: Chronic kidney disease stage: stage 2 (mild) Diabetes mellitus complication detail: with chronic kidney disease Diabetes mellitus complication status: with kidney complications Diabetes mellitus extermination supervisor insulin use: without extermination supervisor use Qualified Code(s): E11.22 - Type 2 diabetes mellitus with diabetic chronic kidney disease; N18.2 - Chronic kidney disease, stage 2 (mild) Code(s): E11.9 - Type 2 diabetes mellitus without complications Status: Acute Assessment and Plan: * HgbA1C 12.9%. Blood sugars above goal * High dose SSI, hypoglycemic protocol, and accuchecks qid. 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 (7) Severe protein-calorie malnutrition: Code(s): E43 - Unspecified severe protein-calorie malnutrition Status: Acute Assessment and Plan: * Increased protein-energy needs in setting of chronic disease as evidenced by minimal oral intake for >1-2 months, significant weight loss 21 lbs(18%) 10 months: moderate subcutaneous fat loss (orbital fat pads) and severe muscle wasting (temporalis, clavicle). * Protein level 5.5. * Portfolio Director consult, appreciate recommendations. * Glucerna 1 bottle BID. * Encourage oral intake. * Mirtazapine 15 mg PO HS. (8) BMI < 18.5: Code(s): Z68.1 - Body mass index [BMI] 19.9 or less, adult Status: Acute Assessment and Plan: * Encourage oral intake. * Portfolio Director consult. * Glucerna shake BID. * Mirtazapine 15 mg PO HS. * Weight 106 lb 4 oz today. (9) JOSUE on CPAP: Code(s): G47.33 - Obstructive sleep apnea (adult) (pediatric); Z99.89 - Dependence on other enabling machines and devices Status: Acute Assessment and Plan: * CPAP patient having difficulty wearing. * Check apnea link evaluation period was too short. Outpatitn sleep study (10) Atrial fibrillation and flutter: Code(s): I48.91 - Unspecified atrial fibrillation; I48.92 - Unspecified atrial flutter Status: Acute Assessment and Plan: Afib rate controlled Unable to arrange warfarin meter for home but home health will do blood draws at home. Spoke with patient and she is deciding between apixaban, warfarin with lab draws and consider meter for home, and aspirin (with a higher stroke risk). 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 Saw her twice and had a long talk with her about options. Also reviewed the chart extensively twice Subjective Date/time seen: 01/17/25 15:19 Interval history: Considering surgery recommended by urology No improvement in creatinine after fluids. Creatinine up to 1.4. Short of breath with activity. Reports not voiding well today. Unable to arrange warfarin meter for home but home health will do blood draws at home. Spoke with patient and she is deciding between apixaban, warfarin with lab draws and consider meter for home, and aspirin (with a higher stroke risk) Review of Systems Review of Systems: All systems reviewed & are unremarkable except as noted in HPI and below Exam Narrative: General - Awake and alert. No acute distress Eyes - PERRLA, EOM intact ENT - No thrush, No erythema Neck - No noticeable or palpable swelling Lymph Nodes - No lymphadenopathy Cardiovascular - RRR no m/r/g, no JVD Lungs: Clear to auscultation, No wheezing, use of accessory muscles, no crackles Skin - Skin warm and dry, no wounds or rashes Abdomen - Normal bowel sounds, abdomen soft and nontender Extremities - No edema, cyanosis or clubbing Musculoskeletal - 4/5 strength, normal range of motion, no swollen or erythematous joints. Neurological ? Alert and oriented x 3, CN 2-12 grossly intact. Psych: Normal mood and affect Uterine prolapse Objective Data Vital Signs Vital Signs: Vital Signs - 24 hr 01/16/25 08:11 01/16/25 08:11 01/16/25 08:15 Temperature Pulse Rate 70 70 Respiratory Rate Blood Pressure Pulse Oximetry Oxygen Delivery Room Air 01/16/25 13:36 01/16/25 19:31 01/16/25 20:00 Temperature 97.5 F L 98 F Pulse Rate 70 70 Respiratory Rate 16 18 Blood Pressure 142/57 H 154/51 H Pulse Oximetry 95 95 Oxygen Delivery Room Air 01/16/25 20:18 01/16/25 22:17 01/16/25 22:32 Temperature 98.4 F 98.4 F Pulse Rate 85 70 70 Respiratory Rate 16 16 Blood Pressure 133/64 133/64 Pulse Oximetry 96 96 Oxygen Delivery 01/17/25 05:35 Temperature 98.5 F Pulse Rate 71 Respiratory Rate 18 Blood Pressure 135/53 L Pulse Oximetry 93 Oxygen Delivery Intake/Output Intake/Output: Intake & Output 01/14/25 01/15/25 01/16/25 01/17/25 23:59 23:59 23:59 23:59 Intake Total 3273.3 1360 890 50 Balance 3273.3 1360 890 50 Meds/Results Medications: Active Medications Generic Name Dose Route Start Last Admin Trade Name Freq PRN Reason Stop Dose Admin Acetaminophen 1,000 mg 01/09/25 07:38 01/15/25 12:53 Acetaminophen 500 Mg Tablet PO 1,000 mg Q6H PRN Administration pain Albuterol 2 puff 01/14/25 11:20 Albuterol Sulfate (*Sp) Aerosol 1 Puff INHALATION Q6HRT PRN Shortness Of Breath Amiodarone HCl 200 mg 01/09/25 09:00 01/16/25 08:11 Amiodarone Hcl 200 Mg Tablet PO 200 mg DAILY JACKIE Administration Apixaban 2.5 mg 01/09/25 09:00 01/16/25 16:57 Apixaban 2.5 Mg Tablet PO 2.5 mg BID JACKIE Administration Atorvastatin Calcium 40 mg 01/09/25 09:00 01/16/25 08:11 Atorvastatin 40 Mg Tablet PO 40 mg DAILY JACKIE Administration Dextrose 12.5 gm 01/09/25 01:22 Dextrose 50% 25 Gm/50 Ml Syringe IV PUSH PRN PRN Hypoglycemia Protocol Docusate Sodium 100 mg 01/09/25 10:33 Docusate Sodium 100 Mg Capsule PO Q12H PRN Constipation Ferrous Sulfate 325 mg 01/09/25 09:15 01/16/25 16:57 Ferrous Sulfate [address] BY MOUTH 325 mg BID JACKIE Administration Fish Oil 2 gm 01/09/25 09:45 01/16/25 16:58 [place] 3 Polyunsat Fatty Acids 1 Gm Cap PO Not Given BID JACKIE Folic Acid 1 mg 01/09/25 09:00 01/16/25 08:11 Folic Acid 1 Mg Tablet PO 1 mg DAILY JACKIE Administration Furosemide 20 mg 01/15/25 09:00 01/16/25 08:11 Furosemide 20 Mg Tablet PO 20 mg DAILY JACKIE Administration Glucagon 1 mg 01/09/25 01:22 Glucagon For Inj 1 Mg Vial IM PRN PRN Hypoglycemia Protocol Glucose 15 gm 01/09/25 01:22 Glucose Oral Gel 15 Gm Of Glucse In 37.5 Gm Tube PO PRN PRN Hypoglycemia Protocol Dextrose 1,000 mls @ 100 mls/hr 01/09/25 01:22 Dextrose 5% 1,000 Ml IVPB PRN PRN Hypoglycemia Protocol Insulin Aspart 4 - 8 units 01/09/25 08:00 01/17/25 08:01 Insulin Aspart (*Bkc) 100 Units/Ml SUB-Q Not Given TIDWM JACKIE Protocol Insulin Aspart 1 - 2 units 01/10/25 21:00 01/16/25 20:23 Insulin Aspart (*Bkc) 100 Units/Ml SUB-Q Not Given HS JACKIE Protocol Lisinopril 5 mg 01/09/25 09:00 01/16/25 08:11 Lisinopril 5 Mg Tablet PO 5 mg DAILY JACKIE Administration Magnesium Oxide 400 mg 01/09/25 09:00 01/16/25 08:11 Magnesium Oxide 400 Mg Tablet PO 400 mg DAILY JACKIE Administration Metformin HCl 500 mg 01/14/25 17:00 01/16/25 08:11 Metformin Hcl 500 Mg Tablet PO 500 mg BIDWM JACKIE Administration Metoprolol Tartrate 12.5 mg 01/09/25 09:00 01/16/25 20:18 Metoprolol Tartrate 12.5 Mg Tablet PO 12.5 mg Q12HR JACKIE Administration Mirtazapine 15 mg 01/09/25 21:00 01/16/25 20:18 Mirtazapine 15 Mg Tablet PO 15 mg HS JACKIE Administration Ondansetron HCl 4 mg 01/09/25 10:39 01/16/25 20:18 Ondansetron Inj 4 Mg/2 Ml Vial IV PUSH 4 mg Q6H PRN Administration Nausea And Vomiting Pantoprazole Sodium 40 mg 01/09/25 09:00 01/16/25 08:11 Pantoprazole 40 Mg Tablet PO 40 mg DAILY JACKIE Administration Polyethylene Glycol 17 gm 01/09/25 10:35 01/16/25 08:11 Polyethylene Glycol 3350 17 Gm Powd.Pack PO 17 gm QAM JACKIE Administration Vitamin D 50 mcg 01/09/25 09:45 01/16/25 08:11 Cholecalciferol (Vitamin D3) 25 Mcg (1,000 Units) Tablet PO 50 mcg DAILY JACKIE Administration Radiology Results: ITS Impressions Chest X-Ray 01/09/25 00:04 IMPRESSION: Mild pulmonary vascular congestion, without focal infiltrate or effusion. Renal Ultrasound 01/16/25 12:11 IMPRESSION: Bilateral severe hydronephrotic changes. Echogenic material in the urinary bladder which may be blood or due to infection. Further evaluation advised. Thickened wall of the urinary bladder which may indicate cystitis. Labs Labs: Laboratory Results - last 24 hr 01/16/25 01/16/25 01/16/25 07:49 12:08 13:17 WBC RBC Hgb Hct MCV MCH MCHC RDW Plt Count MPV Immature Gran % (Auto) Neut % (Auto) Lymph % (Auto) [place] % (Auto) Eos % (Auto) Baso % (Auto) Lymph # (Auto) [place] # (Auto) Eos # (Auto) Baso # (Auto) Abs Immat Gran (auto) Absolute Neuts (auto) Absolute Nucleated RBC Nucleated RBC % POC Capillary Glucose 122 H 210 H Procalcitonin Urine Color Yellow Urine Appearance Turbid H Urine pH 5.0 Ur Specific [place] 1.010 Urine Protein Trace Urine Glucose (UA) Negative Urine Ketones Negative Ur Blood (Man) 3+ H Urine Nitrate Negative Urine Bilirubin Negative Urine Urobilinogen 0.2 Leukocyte Esterase Rfl 3+ H Urine RBC >100 H Urine WBC >100 H Ur Squamous Epith Cells Moderate Urine Bacteria 4+ H Urine Casts 0-2 Urine Yeast (Budding) Present H Ur Random Sodium 71 Urine Creatinine 42.2 01/16/25 01/16/25 01/17/25 16:57 19:34 05:54 WBC 9.7 RBC 2.94 L Hgb 9.2 L Hct 29.0 L MCV 98.6 MCH 31.3 MCHC 31.7 L RDW 13.8 Plt Count 209 MPV 10.0 Immature Gran % (Auto) 1.0 H Neut % (Auto) 70.7 Lymph % (Auto) 14.5 L [place] % (Auto) 10.5 H Eos % (Auto) 2.6 Baso % (Auto) 0.7 Lymph # (Auto) 1.40 [place] # (Auto) 1.0 H Eos # (Auto) 0.3 Baso # (Auto) 0.1 Abs Immat Gran (auto) 0.10 H Absolute Neuts (auto) 6.8 H Absolute Nucleated RBC 0.000 Nucleated RBC % 0.0 POC Capillary Glucose 156 H 147 H Procalcitonin 0.2 Urine Color Urine Appearance Urine pH Ur Specific [place] Urine Protein Urine Glucose (UA) Urine Ketones Ur Blood (Man) Urine Nitrate Urine Bilirubin Urine Urobilinogen Leukocyte Esterase Rfl Urine RBC Urine WBC Ur Squamous Epith Cells Urine Bacteria Urine Casts Urine Yeast (Budding) Ur Random Sodium Urine Creatinine 01/17/25 07:53 WBC RBC Hgb Hct MCV MCH MCHC RDW Plt Count MPV Immature Gran % (Auto) Neut % (Auto) Lymph % (Auto) [place] % (Auto) Eos % (Auto) Baso % (Auto) Lymph # (Auto) [place] # (Auto) Eos # (Auto) Baso # (Auto) Abs Immat Gran (auto) Absolute Neuts (auto) Absolute Nucleated RBC Nucleated RBC % POC Capillary Glucose 110 H Procalcitonin Urine Color Urine Appearance Urine pH Ur Specific [place] Urine Protein Urine Glucose (UA) Urine Ketones Ur Blood (Man) Urine Nitrate Urine Bilirubin Urine Urobilinogen Leukocyte Esterase Rfl Urine RBC Urine WBC Ur Squamous Epith Cells Urine Bacteria Urine Casts Urine Yeast (Budding) Ur Random Sodium Urine Creatinine Quality VTE Prophylaxis VTE prophylaxis: pharmacologic ordered Hospitalist MIPS Advance Care Plan I have confirmed that the patient's Advanced Care Plan is present, code status is documented, or surrogate decision maker is listed in patient medical record.: Yes Medication Reconciliation I have utilized all available resources to obtain, update and review the patients current medications (includes all prescriptions, OTC, herbals, cannabis, and nutritional supplements).: Yes
[2025-01-17 08:42] VITALS: PULSE 76
[2025-01-17] MEDS: METOPROLOL TARTRATE 12.5 MG TABLET PO ×2 (08:42→20:48)
[2025-01-17] MEDS: MAGNESIUM OXIDE 400 MG TABLET PO (08:42)
[2025-01-17] MEDS: OMEGA 3 POLYUNSAT FATTY ACIDS 1 GM CAP 2 GM PO ×2 (08:42→17:29)
[2025-01-17] MEDS: FERROUS SULFATE 325 MG TABLET DR BY MOUTH ×2 (08:42→17:29)
[2025-01-17] MEDS: FOLIC ACID 1 MG TABLET PO (08:42)
[2025-01-17] MEDS: PANTOPRAZOLE 40 MG TABLET PO (08:42)
[2025-01-17] MEDS: AMIODARONE HCL 200 MG TABLET PO (08:42)
[2025-01-17] MEDS: CHOLECALCIFEROL (VITAMIN D3) 25 MCG (1,000 UNITS) TABLET 50 MCG PO (08:42)
[2025-01-17] MEDS: ATORVASTATIN 40 MG TABLET PO (08:42)
--- NOTE | 2025-01-17 11:08 | P.CONUR_ITS ---
Assessment and Plan Assessment and plan (1) Complete uterine prolapse: Code(s): N81.3 - Complete uterovaginal prolapse Status: Acute Assessment and Plan: Extremely large stage IV uterine prolapse. Not a candidate for pessary due to large size of her prolapse. Would only be a candidate for colpocleisis. She has been declining the surgery for at least since 2017. I again discussed with her the risks of worsening renal function, urinary tract infections, bladder stones. She continues to decline surgery. Will try to get her in the office in the future after discharge and rediscuss these issues with her once again (2) Acute kidney injury: Code(s): N17.9 - Acute kidney failure, unspecified Status: Acute Assessment and Plan: Likely due to significant vaginal prolapse (3) Abnormal urinalysis: Code(s): R82.90 - Unspecified abnormal findings in urine Status: Acute Assessment and Plan: No symptoms of urinary tract infection. Urine culture shows Alexia. I am not sure if this is a cath specimen or clean catch. She is unable to give a clean- catch due to the large size of her prolapse. If suspicion for urinary tract infection I recommend a catheterized specimen (4) Hydronephrosis: Code(s): N13.30 - Unspecified hydronephrosis Status: Acute Assessment and Plan: Due to her prolapse. I have recommended a procedure to correct her prolapse on numerous occasions all the way back to 2017. I would not place ureteral stents on her as I question her compliance with stent placement. Would only consider ureteral stents if show signs of urosepsis. Currently that is not the case. The ultimate resolution for her hydronephrosis would be a procedure to reduce her prolapse. She understands the prolapse is likely the cause of her worsening renal function. She has declined a procedure for her prolapse. She is not a candidate for a pessary. She has not had issues with bladder emptying in the past. Would recommend a bladder scan to document that she has no incomplete bladder emptying. If elevated residuals would need to place a Maguire catheter Urology Consult Note HPI Date Seen: 01/17/25 Requesting Physician: Ricarda Encarnacion APRN Primary Care Provider: Bear Horan MD Consult Narrative Narrative: Saniya Jin is a 79 year old female she is known to me. She is admitted with basically falls and failure to thrive. She has an extremely large uterine prolapse. She has had this for 10-15 years. I have not seen her in several years. I treated her back in 2016. I noted an extremely large stage IV uterine prolapse. She had a large bladder stone at that time. I removed the bladder stone and recommended a surgical procedure to correct her prolapse. She has declined that surgery. She was in the hospital in January 2024. She was seen then. Again surgery for her pelvic organ prolapse was recommended she declined. At that time she had hydronephrosis but preserved renal function and no history of recurrent infections. She is now back in the hospital. Her urinalysis is positive for Alexia. Unless this is a catheterized specimen it is completely inaccurate if he cannot give a clean-catch due to the large size of her prolapse. She does not have a symptomatic infection. Renal ultrasound shows hydronephrosis which is likely stable in nature. She is not having flank pain. She is not getting recurrent urinary tract infections. I again recommended doing something for her prolapse. She is not a candidate for a pessary to the large size of her prolapse. She would only be a candidate for colpocleisis. She continues to decline that procedure. She understands the risks of renal failure, infection, recurrent bladder stones. [facility] Past Medical History Medical History (Updated 01/17/25 @ 11:13 by Kevan Rene MD) RENETTA (acute kidney injury) Abnormal urinalysis Impaired functional mobility, balance, gait, and endurance Kyphosis HUI (dyspnea on exertion) Adult BMI 19-24 kg/sq m Chronic kidney disease, stage 3 Hydroureteronephrosis Atrial fibrillation and flutter Diabetic retinopathy Pulmonary embolus Type 2 diabetes mellitus Arteriosclerotic heart disease Contusion of hip, left Vitamin D deficiency Gout Iron deficiency anemia Mixed hyperlipidemia Benign essential hypertension Surgical History Surgical History History of permanent cardiac pacemaker placement Family History Family History Father Carcinoma of colon Mother Diabetes mellitus Family history of diabetes mellitus in first degree relative Carcinoma of colon Lung cancer Sibling Alzheimer dementia Diabetes mellitus Heart disease Family history of diabetes mellitus in first degree relative Social History Social History Social History: Surrogate medical decision maker: Felipe Jin (son) and Karyna Menon (granddaughter). Code status: Full code. Smoking packs per day: 0 Smoking cigarettes per day: 0.0 Years smoked: 10 Smoking pack-years: 0.00 Smoking status: Former smoker Tobacco type: cigarettes Second hand tobacco smoke exposure: Yes Smoking end date: 07/24/74 Alcohol intake: former Substance use: never Substance use type: does not use Do You Feel Safe in your Home?: Yes Lack of Transportation: No Lack of Food: Never True Current Housing: I Have Housing Concerned About Future Housing: No Difficulty Paying Gas/Electric Bills: No Difficulty Paying for Meds: YES Currently Unemployed: No Education: Trade/Vocational Certificate Difficulty w/ Childcare or Family Care: No Living arrangements: alone Additional living arrangements comments: Lives alone with her juancho epstein in [place]. Occupation/Education: retired Spiritual care concerns: No Meds Home Medications and Allergies Home Medications ?Medication ?Instructions ?Recorded ?Confirmed ?Type ferrous sulfate 325 mg (65 mg See Rx Instructions .Route 12/28/22 01/09/25 Rx iron) tablet .COMPLEX #180 tabs furosemide 20 mg tablet See Rx Instructions .Route 04/10/23 01/09/25 Rx .COMPLEX #90 tabs amiodarone 200 mg tablet 200 mg PO DAILY 02/06/24 01/09/25 History omega-3 fatty acids 2,000 mg PO BID 02/06/24 01/09/25 History acetaminophen 500 mg capsule 1,000 mg PO Q6H PRN pain 02/13/24 01/09/25 History cyanocobalamin (vitamin B-12) See Rx Instructions .Route 02/22/24 01/09/25 Rx 1,000 mcg sublingual lozenge .COMPLEX #90 sandro lisinopril 5 mg tablet See Rx Instructions .Route 02/26/24 01/09/25 Rx .COMPLEX #90 tabs metformin 500 mg tablet,extended 500 mg PO BID #180 tabs 04/10/24 01/09/25 Rx release 24 hr mirtazapine 30 mg tablet 30 mg PO QHS #90 tabs 05/23/24 01/09/25 Rx cholecalciferol (vitamin D3) 50 See Rx Instructions .Route 06/18/24 01/09/25 Rx mcg (2,000 unit) tablet .COMPLEX #90 tabs metoprolol tartrate 25 mg tablet 12.5 mg (1/2 x 25 mg) PO Q12H #45 09/30/24 01/09/25 Rx tabs atorvastatin 40 mg tablet See Rx Instructions .Route 12/23/24 01/09/25 Rx .COMPLEX #90 tabs folic acid 1 mg tablet See Rx Instructions .Route 12/23/24 01/09/25 Rx .COMPLEX #90 tabs magnesium oxide 400 mg (241.3 mg 400 mg PO DAILY #90 tabs 12/23/24 01/09/25 Rx magnesium) tablet pantoprazole 40 mg tablet,delayed See Rx Instructions .Route 12/23/24 01/09/25 Rx release .COMPLEX #90 tabs apixaban 2.5 mg tablet 2.5 mg PO BID #60 tabs 01/10/25 Rx prothrombin time/INR test metr #1 ea 01/16/25 Rx Allergies Allergy/AdvReac Type Severity Reaction Status Date / Time hydrocodone Allergy Severe LIGHT Verified 01/09/25 02:26 HEADED/VERTIGO iohexol (From contrast - CT, Allergy Severe Anaphylaxis Verified 01/09/25 02:26 X-RAY) meperidine Allergy Severe NAUSEA AND Verified 01/09/25 02:26 VOMITING propoxyphene Allergy Severe HIVES Verified 01/09/25 02:26 Sulfa (Sulfonamide Allergy Severe HIVES Verified 01/09/25 02:26 Antibiotics) Contrast Media Allergy Severe HIVES Uncoded 01/09/25 02:26 Vital Signs Vital Signs - 24 hr 01/16/25 13:36 01/16/25 19:31 01/16/25 20:00 Temperature 97.5 F L 98 F Pulse Rate 70 70 Respiratory Rate 16 18 Blood Pressure 142/57 H 154/51 H Pulse Oximetry 95 95 Oxygen Delivery Room Air 01/16/25 20:18 01/16/25 22:17 01/16/25 22:32 Temperature 98.4 F 98.4 F Pulse Rate 85 70 70 Respiratory Rate 16 16 Blood Pressure 133/64 133/64 Pulse Oximetry 96 96 Oxygen Delivery 01/17/25 05:35 01/17/25 08:00 01/17/25 08:42 Temperature 98.5 F Pulse Rate 71 76 Respiratory Rate 18 Blood Pressure 135/53 L Pulse Oximetry 93 Oxygen Delivery Room Air 01/17/25 08:42 Temperature Pulse Rate 76 Respiratory Rate Blood Pressure Pulse Oximetry Oxygen Delivery Exam 2 Const: General: cooperative, alert, awake, Physically active, tired appearing and underweight; No healthy appearing, acute distress, in distress, confusion or ill appearing Orientation/consciousness: patient oriented x3 HENMT: Head: normal to inspection Eyes: General: appearance normal, both eyes and all related structures Resp: Effort & Inspection: normal respiratory effort, able to speak in complete sentences and no cough : Other: Complete stage IV uterine prolapse 10-12 cm outside the vaginal introitus. Skin is atrophic and dry Skin: General skin exam: normal color and no rashes or lesions noted Extrem: General: normal to inspection Psych: Appearance: grossly normal Results Labs 01/17/25 05:54 01/16/25 05:33 Labs: Short CBC 01/17/25 Range/Units 05:54 WBC 9.7 (4.5-10.0) K/mm3 Hgb 9.2 L (12.0-15.0) g/dL Hct 29.0 L (37.0-47.0) % Plt Count 209 (150-375) k/mm3 Urine 01/16/25 Range/Units 13:17 Urine Color Yellow (Yellow) Urine Appearance Turbid H (Clear) Urine pH 5.0 (5.0-9.0) Ur Specific [place] 1.010 (1.001-1.035) Urine Protein Trace (Negative) mg/dL Urine Glucose (UA) Negative (Negative) mg/dL Imaging My impression: Renal ultrasound reviewed as well as CT scan from dated 02/10/2024. Hydronephrosis is overall stable.
[2025-01-17 12:55] LABS: Alanine Aminotransferase 43 U/L (6-35); Albumin Level 2.2 g/dL (3.5-5.1); Alkaline Phosphatase 61 U/L (38-126); Anion Gap 5 mmol/L (4-12); Aspartate Amino Transferase 37 U/L (14-36); Bilirubin,Total 0.5 mg/dL (0.2-1.3); Blood Urea Nitrogen 20 mg/dL (7-17); CRP 5.6 mg/dL (<1.0); Calcium 8.4 mg/dL (8.4-10.2); Carbon Dioxide 26 mmol/L (22-30); Chloride 109 mmol/L (98-107); Estimated CRCL calculation 21 ml/min; Estimated Glomerular Filt Rate 36; Glucose 110 mg/dL (65-110); Potassium 4.4 mmol/L (3.4-5.0); Sodium 140 mmol/L (137-145); Total Protein 4.9 g/dL (6.3-8.2)
[2025-01-17 13:47] LABS: Magnesium 1.8 mg/dL (1.6-2.3)
[2025-01-17 14:00] VITALS: BP 137/79; PULSE 70; RESP 18; TEMP 36.3; O2SAT 92
[2025-01-17] MEDS: APIXABAN 2.5 MG TABLET PO (17:29)
[2025-01-17 19:43] VITALS: BP 151/64; PULSE 71; RESP 16; TEMP 37.1; O2SAT 93
[2025-01-17 20:48] VITALS: PULSE 81
[2025-01-17] MEDS: MIRTAZAPINE 15 MG TABLET PO (20:48)
[2025-01-17] MEDS: INSULIN ASPART (*BKC) 100 UNITS/ML SUB-Q (20:51)
[2025-01-18] VITALS (8 sets, daily range): BP systolic 144–151; BP diastolic 53–64; PULSE 70–71; RESP 16; TEMP 36.7–37.6; O2SAT 90–94
[2025-01-18 05:54] LABS: Hematocrit 30.5 % (37.0-47.0); Hemoglobin 9.5 g/dL (12.0-15.0); Immature Granulocyte Percent A 1.0 % (0-0.5); Lymphocytes Absolute Auto 1.16 K/mm3 (0.9-3.2); Mean Corpuscular HGB Conc 31.1 g/dl (32-36); Mean Corpuscular Hemoglobin 30.7 pg (26-34); Mean Corpuscular Volume 98.7 fl (80-100); Nucleated Red Blood Cells Absolute Auto 0.000 K/mm3 (0.0-0.012); Nucleated Red Blood Cells Perc 0.0 % (0.0-0.2); Platelet Count Result 226 k/mm3 (150-375); Red Blood Count 3.09 M/mm3 (4.2-5.4); White Blood Count 9.1 K/mm3 (4.5-10.0)
--- NOTE | 2025-01-18 07:22 | P.PNIM_ITS ---
Progress Note: A&P Assessment and Plan (1) Urinary tract infection: Code(s): N39.0 - Urinary tract infection, site not specified Status: Acute Assessment and Plan: * Completed Ceftriaxone 1 gram IVPB changed to Augmentin 875-125 mg 1 tab q 12 * Urine turbid with 1+ protein, 3+ glucose, 3+ blood, 2+ leukocytes, RBC >100. WBC >100, WBC clumps present, 4+ bacteria, and yeast present. * Urine culture negative, recollect UA with reflex. Urine grew Alexia Glabrata. Fluconazole 100 mg started but unclear if true infection since no dysuria, so discontinued. If grows again would send for susceptibilities since not always susceptible to fluconazole. Repeat UA/Culture consistent with contamination but no urinary symptoms * With large uterine prolapse midstream urine is likely impossible but straight cath for urine is also reportedly very difficult (2) CHF (congestive heart failure): Code(s): I50.9 - Heart failure, unspecified Status: Acute Assessment and Plan: * BNP 7,610 01/14. Furosemide 20 mg ivp x 1 given. * Continue Furosemide 20 mg PO daily. * Caution with fluids. Seems slightly short of breath today with activity and >crackles. Will continue lasix and monitor but obstructive symptoms also possibly contributing * Portable chest x-ray today, 1L (3) RENETTA (acute kidney injury): Code(s): N17.9 - Acute kidney failure, unspecified Status: Acute Assessment and Plan: CT abd/pelvis last year showed moderate bilateral hydroureteronephrosis likely related to pelvic floor relaxation and extrinsic compression of the distal ureters as they extend to the bladder which is completely displaced caudal to the pubococcygeal line. Urology saw her at during a prior admission but she hasn't followed up because she was not interested in surgery. Spoke with her and she is reconsidering. Chronic changes likely contributing to UTI's and contaminated urine specimens. * Creatinine 1.22 on admission> 0.98, trending up, 1.42<1.5. Likely obstructive, less likely prerenal from heart failure or a combination * Of note, patient would be not be interested in dialysis, although not a short term concern * Renal US done today, showed: Bilateral severe hydronephrotic changes.Echogenic material in the urinary bladder which may be blood or due to infection. Further evaluation advised. Thickened wall of the urinary bladder which may indicate cystitis. * Repeat UA, Na, Creatinine. Urine culture pending but patient asymptomatic * Holding off on CT with IV contrast 2/2 RENETTA * Urology consulted for hydronephrosis, appreciate recommendations. Discussing colpocleisis. Patient has been considering and leaning toward having procedure * Bladder scan 660, Urology planning to place a Maguire if still retaining urine after voiding and a repeat bladder scan. Send UA/Culture from cath urine if done * Follow BMP * Now on 2L, Chest x-ray today (4) Transaminitis: Code(s): R74.01 - Elevation of levels of liver transaminase levels Status: Acute Assessment and Plan: * AST 91>93>60>42>41>40>38. * ALT 144>137>98>84>72>67>55. (5) Multiple falls: Code(s): R29.6 - Repeated falls Status: Acute Assessment and Plan: * PT/OT for strengthening and balance. (6) DM type 2 (diabetes mellitus, type 2): Qualifiers: Chronic kidney disease stage: stage 2 (mild) Diabetes mellitus complication detail: with chronic kidney disease Diabetes mellitus complication status: with kidney complications Diabetes mellitus [facility] insulin use: without [facility] use Qualified Code(s): E11.22 - Type 2 diabetes mellitus with diabetic chronic kidney disease; N18.2 - Chronic kidney disease, stage 2 (mild) Code(s): E11.9 - Type 2 diabetes mellitus without complications Status: Acute Assessment and Plan: * HgbA1C 12.9%. Blood sugars above goal * High dose SSI, hypoglycemic protocol, and accuchecks qid. 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 (7) Severe protein-calorie malnutrition: Code(s): E43 - Unspecified severe protein-calorie malnutrition Status: Acute Assessment and Plan: * Increased protein-energy needs in setting of chronic disease as evidenced by minimal oral intake for >1-2 months, significant weight loss 21 lbs(18%) 10 months: moderate subcutaneous fat loss (orbital fat pads) and severe muscle wasting (temporalis, clavicle). * Protein level 5.5. * Clothing Trades Workers consult, appreciate recommendations. * Glucerna 1 bottle BID. * Encourage oral intake. * Mirtazapine 15 mg PO HS. (8) BMI < 18.5: Code(s): Z68.1 - Body mass index [BMI] 19.9 or less, adult Status: Acute Assessment and Plan: * Encourage oral intake. * Clothing Trades Workers consult. * Glucerna shake BID. * Mirtazapine 15 mg PO HS. * Weight 106 lb 4 oz today. (9) JOSUE on CPAP: Code(s): G47.33 - Obstructive sleep apnea (adult) (pediatric); Z99.89 - Dependence on other enabling machines and devices Status: Acute Assessment and Plan: * CPAP patient having difficulty wearing. * Check apnea link evaluation period was too short. Outpatient sleep study (10) Atrial fibrillation and flutter: Code(s): I48.91 - Unspecified atrial fibrillation; I48.92 - Unspecified atrial flutter Status: Acute Assessment and Plan: Afib rate controlled Unable to arrange warfarin meter for home but home health will do blood draws at home. Spoke with patient about options. Apixaban, warfarin with lab draws and consider meter for home, and aspirin (with a higher stroke risk). 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 Planning warfarin after discharge Time Spent With Patient Time: 58 minutes Subjective Date/time seen: 01/18/25 12:10 Interval history: Follow up creatinine elevated, 1.5. RENETTA obstructive. Not voiding fully sometimes, small amounts and incontinent. Bladder scan 660ml. Urology noted that Maguire placement was previously difficult Now on 1L O2 and evidence of mild fluid overload on exam, basilar crackles, trace edema Patient is more agreeable to surgery recommended by urology Unable to arrange warfarin meter for home but home health will do blood draws at home. Patient decided to start Warfarin with home blood draws. Review of Systems Review of Systems: All systems reviewed & are unremarkable except as noted in HPI and below Exam Narrative: General - Awake and alert. No acute distress Eyes - PERRLA, EOM intact ENT - No thrush, No erythema Neck - No noticeable or palpable swelling Lymph Nodes - No lymphadenopathy Cardiovascular - RRR no m/r/g, no JVD Lungs: Basilar crackles to auscultation, No wheezing, use of accessory muscles Skin - Skin warm and dry, no wounds or rashes Abdomen - Normal bowel sounds, abdomen soft, mildly distended, and nontender Extremities - No edema, cyanosis or clubbing Musculoskeletal - 4/5 strength, normal range of motion, no swollen or erythematous joints. Neurological ? Alert and oriented x 3, CN 2-12 grossly intact. Psych: Normal mood and affect Large Uterine prolapse Objective Data Vital Signs Vital Signs: Vital Signs - 24 hr 01/17/25 08:00 01/17/25 08:42 01/17/25 08:42 Temperature Pulse Rate 76 76 Respiratory Rate Blood Pressure Pulse Oximetry Oxygen Delivery Room Air 01/17/25 14:00 01/17/25 19:43 01/17/25 20:00 Temperature 97.3 F L 98.8 F Pulse Rate 70 71 Respiratory Rate 18 16 Blood Pressure 137/79 151/64 H Pulse Oximetry 92 93 Oxygen Delivery Room Air 01/17/25 20:48 01/18/25 04:21 Temperature 98.0 F Pulse Rate 81 71 Respiratory Rate 16 Blood Pressure 144/64 H Pulse Oximetry 91 Oxygen Delivery Intake/Output Intake/Output: Intake & Output 01/15/25 01/16/25 01/17/25 01/18/25 23:59 23:59 23:59 23:59 Intake Total 1360 890 850 200 Balance 1360 890 850 200 Meds/Results Medications: Active Medications Generic Name Dose Route Start Last Admin Trade Name Freq PRN Reason Stop Dose Admin Acetaminophen 1,000 mg 01/09/25 07:38 01/15/25 12:53 Acetaminophen 500 Mg Tablet PO 1,000 mg Q6H PRN Administration pain Albuterol 2 puff 01/14/25 11:20 Albuterol Sulfate (*Sp) Aerosol 1 Puff INHALATION Q6HRT PRN Shortness Of Breath Amiodarone HCl 200 mg 01/09/25 09:00 01/17/25 08:42 Amiodarone Hcl 200 Mg Tablet PO 200 mg DAILY JACKIE Administration Apixaban 2.5 mg 01/09/25 09:00 01/17/25 17:29 Apixaban 2.5 Mg Tablet PO 2.5 mg BID JACKIE Administration Atorvastatin Calcium 40 mg 01/09/25 09:00 01/17/25 08:42 Atorvastatin 40 Mg Tablet PO 40 mg DAILY JACKIE Administration Dextrose 12.5 gm 01/09/25 01:22 Dextrose 50% 25 Gm/50 Ml Syringe IV PUSH PRN PRN Hypoglycemia Protocol Docusate Sodium 100 mg 01/09/25 10:33 Docusate Sodium 100 Mg Capsule PO Q12H PRN Constipation Ferrous Sulfate 325 mg 01/09/25 09:15 01/17/25 17:29 Ferrous Sulfate [address] BY MOUTH 325 mg BID JACKIE Administration Fish Oil 2 gm 01/09/25 09:45 01/17/25 17:29 [place] 3 Polyunsat Fatty Acids 1 Gm Cap PO 2 gm BID JACKIE Administration Folic Acid 1 mg 01/09/25 09:00 01/17/25 08:42 Folic Acid 1 Mg Tablet PO 1 mg DAILY JACKIE Administration Furosemide 20 mg 01/15/25 09:00 01/16/25 08:11 Furosemide 20 Mg Tablet PO 20 mg DAILY JACKIE Administration Glucagon 1 mg 01/09/25 01:22 Glucagon For Inj 1 Mg Vial IM PRN PRN Hypoglycemia Protocol Glucose 15 gm 01/09/25 01:22 Glucose Oral Gel 15 Gm Of Glucse In 37.5 Gm Tube PO PRN PRN Hypoglycemia Protocol Dextrose 1,000 mls @ 100 mls/hr 01/09/25 01:22 Dextrose 5% 1,000 Ml IVPB PRN PRN Hypoglycemia Protocol Insulin Aspart 4 - 8 units 01/09/25 08:00 01/17/25 17:28 Insulin Aspart (*Bkc) 100 Units/Ml SUB-Q Not Given TIDWM [facility] Protocol Insulin Aspart 1 - 2 units 01/10/25 21:00 01/17/25 20:51 Insulin Aspart (*Bkc) 100 Units/Ml SUB-Q 1 units HS JACKIE Administration Protocol Insulin Aspart 2 units 01/17/25 17:00 01/17/25 17:29 Insulin Aspart (*Bkc) 100 Units/Ml 0.05 units/kg (2 units) Not Given SUB-Q TIDWM [facility] Lisinopril 5 mg 01/09/25 09:00 01/17/25 08:42 Lisinopril 5 Mg Tablet PO 5 mg DAILY JACKIE Administration Magnesium Oxide 400 mg 01/09/25 09:00 01/17/25 08:42 Magnesium Oxide 400 Mg Tablet PO 400 mg DAILY JACKIE Administration Metformin HCl 500 mg 01/14/25 17:00 01/16/25 08:11 Metformin Hcl 500 Mg Tablet PO 500 mg BIDWM JACKIE Administration Metoprolol Tartrate 12.5 mg 01/09/25 09:00 01/17/25 20:48 Metoprolol Tartrate 12.5 Mg Tablet PO 12.5 mg Q12HR JACKIE Administration Mirtazapine 15 mg 01/09/25 21:00 01/17/25 20:48 Mirtazapine 15 Mg Tablet PO 15 mg HS JACKIE Administration Ondansetron HCl 4 mg 01/09/25 10:39 01/16/25 20:18 Ondansetron Inj 4 Mg/2 Ml Vial IV PUSH 4 mg Q6H PRN Administration Nausea And Vomiting Pantoprazole Sodium 40 mg 01/09/25 09:00 01/17/25 08:42 Pantoprazole 40 Mg Tablet PO 40 mg DAILY JACKIE Administration Polyethylene Glycol 17 gm 01/09/25 10:35 01/17/25 08:42 Polyethylene Glycol 3350 17 Gm Powd.Pack PO 17 gm QAM JACKIE Administration Vitamin D 50 mcg 01/09/25 09:45 01/17/25 08:42 Cholecalciferol (Vitamin D3) 25 Mcg (1,000 Units) Tablet PO 50 mcg DAILY JACKIE Administration Radiology Results: ITS Impressions Chest X-Ray 01/09/25 00:04 IMPRESSION: Mild pulmonary vascular congestion, without focal infiltrate or effusion. Renal Ultrasound 01/16/25 12:11 IMPRESSION: Bilateral severe hydronephrotic changes. Echogenic material in the urinary bladder which may be blood or due to infection. Further evaluation advised. Thickened wall of the urinary bladder which may indicate cystitis. Labs Labs: Laboratory Results - last 24 hr 01/17/25 01/17/25 01/17/25 05:54 07:53 11:39 WBC RBC Hgb Hct MCV MCH MCHC RDW Plt Count MPV Immature Gran % (Auto) Neut % (Auto) Lymph % (Auto) [place] % (Auto) Eos % (Auto) Baso % (Auto) Lymph # (Auto) [place] # (Auto) Eos # (Auto) Baso # (Auto) Abs Immat Gran (auto) Absolute Neuts (auto) Absolute Nucleated RBC Nucleated RBC % Sodium 140 Potassium 4.4 Chloride 109 H Carbon Dioxide 26 Anion Gap 5 BUN 20 H Creatinine 1.41 H Estim Creat Clear Calc 21 Estimated GFR 36 L Glucose 110 POC Capillary Glucose 110 H 194 H Calcium 8.4 Magnesium 1.8 Total Bilirubin 0.5 AST 37 H ALT 43 H Alkaline Phosphatase 61 C-Reactive Protein 5.6 H Total Protein 4.9 L Albumin 2.2 L 01/17/25 01/17/2525 17:08 19:49 05:29 WBC 9.1 RBC 3.09 L Hgb 9.5 L Hct 30.5 L MCV 98.7 MCH 30.7 MCHC 31.1 L RDW 13.9 Plt Count 226 MPV 9.6 Immature Gran % (Auto) 1.0 H Neut % (Auto) 71.1 Lymph % (Auto) 12.7 L Jackson % (Auto) 11.9 H Eos % (Auto) 2.5 Baso % (Auto) 0.8 Lymph # (Auto) 1.16 [place] # (Auto) 1.1 H Eos # (Auto) 0.2 Baso # (Auto) 0.1 Abs Immat Gran (auto) 0.09 H Absolute Neuts (auto) 6.5 Absolute Nucleated RBC 0.000 Nucleated RBC % 0.0 Sodium Potassium Chloride Carbon Dioxide Anion Gap BUN Creatinine Estim Creat Clear Calc Estimated GFR Glucose POC Capillary Glucose 191 H 271 H Calcium Magnesium Total Bilirubin AST ALT Alkaline Phosphatase C-Reactive Protein Total Protein Albumin Quality VTE Prophylaxis VTE prophylaxis: pharmacologic ordered Hospitalist MIPS Advance Care Plan I have confirmed that the patient's Advanced Care Plan is present, code status is documented, or surrogate decision maker is listed in patient medical record.: Yes Medication Reconciliation I have utilized all available resources to obtain, update and review the patients current medications (includes all prescriptions, OTC, herbals, cannabis, and nutritional supplements).: Yes
[2025-01-18 07:47] LABS: Anion Gap 5 mmol/L (4-12); Blood Urea Nitrogen 19 mg/dL (7-17); Calcium 8.6 mg/dL (8.4-10.2); Carbon Dioxide 26 mmol/L (22-30); Chloride 106 mmol/L (98-107); Estimated CRCL calculation 21 ml/min; Estimated Glomerular Filt Rate 33; Glucose 202 mg/dL (65-110); Potassium 4.4 mmol/L (3.4-5.0); Sodium 137 mmol/L (137-145)
[2025-01-18] MEDS: OMEGA 3 POLYUNSAT FATTY ACIDS 1 GM CAP 2 GM PO ×2 (08:50→17:34)
[2025-01-18] MEDS: ATORVASTATIN 40 MG TABLET PO (08:51)
[2025-01-18] MEDS: METOPROLOL TARTRATE 12.5 MG TABLET PO ×2 (08:51→20:47)
[2025-01-18] MEDS: AMIODARONE HCL 200 MG TABLET PO (08:51)
[2025-01-18] MEDS: MAGNESIUM OXIDE 400 MG TABLET PO (08:51)
[2025-01-18] MEDS: FOLIC ACID 1 MG TABLET PO (08:51)
[2025-01-18] MEDS: CHOLECALCIFEROL (VITAMIN D3) 25 MCG (1,000 UNITS) TABLET 50 MCG PO (08:51)
[2025-01-18] MEDS: PANTOPRAZOLE 40 MG TABLET PO (08:51)
[2025-01-18] MEDS: APIXABAN 2.5 MG TABLET PO ×2 (08:51→17:34)
[2025-01-18] MEDS: FERROUS SULFATE 325 MG TABLET DR BY MOUTH ×2 (08:51→17:34)
[2025-01-18] MEDS: INSULIN ASPART (*BKC) 100 UNITS/ML SUB-Q ×4 (08:52→20:48)
--- NOTE | 2025-01-18 15:22 | P.PNUR_ITS ---
Progress Note: A&P Assessment and Plan (1) Urinary tract infection: Code(s): N39.0 - Urinary tract infection, site not specified Status: Acute (2) Vaginal vault prolapse: Code(s): N81.9 - Female genital prolapse, unspecified Status: Acute Plan Extremely large stage IV uterine prolapse. Not a candidate for pessary due to large size of her prolapse. Would only be a candidate for colpocleisis. She has been declining the surgery for at least since 2016. Now with urinary retention. Maguire catheter placed at bedside with return of over 800mL of purulent urine. -- Urine culture shows Alexia. Catheterized specimen sent today for culture -- Due to her prolapse. I have recommended a procedure to correct her prolapse, she seems willing to consider this option at this time Subjective Subjective Date/Time Seen: 01/18/25 15:22 Interval history: Patient with urinary retention PVR over 600mL multiple occasions Exam Narrative: Patient is awake and alert no acute distress her breathing is unlabored abdomen soft nontender nondistended. 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 The urethral meatus was identified. We then prepped and were able to place a 16 F Maguire catheter with immediate return of purulent-appearing urine [id number] was returned. Objective Data Vital Signs Vital Signs: Vital Signs - 24 hr 01/17/25 19:43 01/17/25 20:00 01/17/25 20:48 Temperature 37.1 C Pulse Rate 71 81 Respiratory Rate 16 Blood Pressure 151/64 H Pulse Oximetry 93 Oxygen Delivery Room Air Oxygen Flow Rate 01/18/25 04:21 01/18/25 08:00 01/18/25 08:51 Temperature 36.7 C Pulse Rate 71 70 Respiratory Rate 16 Blood Pressure 144/64 H Pulse Oximetry 91 94 Oxygen Delivery Nasal Cannula Oxygen Flow Rate 1 01/18/25 08:51 Temperature Pulse Rate 70 Respiratory Rate Blood Pressure Pulse Oximetry Oxygen Delivery Oxygen Flow Rate Intake/Output Intake/Output: Intake & Output 01/15/25 01/16/25 01/17/25 01/18/25 23:59 23:59 23:59 23:59 Intake Total 1360 890 850 560 Balance 1360 890 850 560 Meds/Results Medications: Active Medications Generic Name Dose Route Start Last Admin Trade Name Freq PRN Reason Stop Dose Admin Acetaminophen 1,000 mg 01/09/25 07:38 01/15/25 12:53 Acetaminophen 500 Mg Tablet PO 1,000 mg Q6H PRN Administration pain Albuterol 2 puff 01/14/25 11:20 Albuterol Sulfate (*Sp) Aerosol 1 Puff INHALATION Q6HRT PRN Shortness Of Breath Amiodarone HCl 200 mg 01/09/25 09:00 01/18/25 08:51 Amiodarone Hcl 200 Mg Tablet PO 200 mg DAILY JACKIE Administration Apixaban 2.5 mg 01/09/25 09:00 01/18/25 08:51 Apixaban 2.5 Mg Tablet PO 2.5 mg BID JACKIE Administration Atorvastatin Calcium 40 mg 01/09/25 09:00 01/18/25 08:51 Atorvastatin 40 Mg Tablet PO 40 mg DAILY JACKIE Administration Dextrose 12.5 gm 01/09/25 01:22 Dextrose 50% 25 Gm/50 Ml Syringe IV PUSH PRN PRN Hypoglycemia Protocol Docusate Sodium 100 mg 01/09/25 10:33 Docusate Sodium 100 Mg Capsule PO Q12H PRN Constipation Ferrous Sulfate 325 mg 01/09/25 09:15 01/18/25 08:51 Ferrous Sulfate [address] BY MOUTH 325 mg BID JACKIE Administration Fish Oil 2 gm 01/09/25 09:45 01/18/25 08:50 [place] 3 Polyunsat Fatty Acids 1 Gm Cap PO 2 gm BID JACKIE Administration Folic Acid 1 mg 01/09/25 09:00 01/18/25 08:51 Folic Acid 1 Mg Tablet PO 1 mg DAILY JACKIE Administration Furosemide 20 mg 01/15/25 09:00 01/16/25 08:11 Furosemide 20 Mg Tablet PO 20 mg DAILY JACKIE Administration Glucagon 1 mg 01/09/25 01:22 Glucagon For Inj 1 Mg Vial IM PRN PRN Hypoglycemia Protocol Glucose 15 gm 01/09/25 01:22 Glucose Oral Gel 15 Gm Of Glucse In 37.5 Gm Tube PO PRN PRN Hypoglycemia Protocol Dextrose 1,000 mls @ 100 mls/hr 01/09/25 01:22 Dextrose 5% 1,000 Ml IVPB PRN PRN Hypoglycemia Protocol Insulin Aspart 4 - 8 units 01/09/25 08:00 01/18/25 12:38 Insulin Aspart (*Bkc) 100 Units/Ml SUB-Q Not Given TIDWM JACKIE Protocol Insulin Aspart 1 - 2 units 01/10/25 21:00 01/17/25 20:51 Insulin Aspart (*Bkc) 100 Units/Ml SUB-Q 1 units HS [facility] Administration Protocol Insulin Aspart 2 units 01/17/25 17:00 01/18/25 12:50 Insulin Aspart (*Bkc) 100 Units/Ml 0.05 units/kg (2 units) 2 units SUB-Q Administration TIDWM [facility] Lisinopril 5 mg 01/09/25 09:00 01/18/25 08:51 Lisinopril 5 Mg Tablet PO 5 mg DAILY JACKIE Administration Magnesium Oxide 400 mg 01/09/25 09:00 01/18/25 08:51 Magnesium Oxide 400 Mg Tablet PO 400 mg DAILY JACKIE Administration Metformin HCl 500 mg 01/14/25 17:00 01/16/25 08:11 Metformin Hcl 500 Mg Tablet PO 500 mg BIDWM JACKIE Administration Metoprolol Tartrate 12.5 mg 01/09/25 09:00 01/18/25 08:51 Metoprolol Tartrate 12.5 Mg Tablet PO 12.5 mg Q12HR JACKIE Administration Mirtazapine 15 mg 01/09/25 21:00 01/17/25 20:48 Mirtazapine 15 Mg Tablet PO 15 mg HS [facility] Administration Ondansetron HCl 4 mg 01/09/25 10:39 01/16/25 20:18 Ondansetron Inj 4 Mg/2 Ml Vial IV PUSH 4 mg Q6H PRN Administration Nausea And Vomiting Pantoprazole Sodium 40 mg 01/09/25 09:00 01/18/25 08:51 Pantoprazole 40 Mg Tablet PO 40 mg DAILY [facility] Administration Polyethylene Glycol 17 gm 01/09/25 10:35 01/18/25 08:52 Polyethylene Glycol 3350 17 Gm Powd.Pack PO 17 gm QAM [facility] Administration Vitamin D 50 mcg 01/09/25 09:45 01/18/25 08:51 Cholecalciferol (Vitamin D3) 25 Mcg (1,000 Units) Tablet PO 50 mcg DAILY JACKIE Administration Radiology Results: ITS Impressions Renal Ultrasound 01/16/25 12:11 IMPRESSION: Bilateral severe hydronephrotic changes. Echogenic material in the urinary bladder which may be blood or due to infection. Further evaluation advised. Thickened wall of the urinary bladder which may indicate cystitis. Chest X-Ray 01/18/25 14:25 IMPRESSION: Segmental right lower lung and subsegmental bilateral upper lung atelectasis/c onsolidation. Moderate interstitial edema. Small bilateral pleural effusions. Labs Labs: Laboratory Results - last 24 hr 01/17/25 01/17/25 01/18/25 17:08 19:49 05:26 WBC RBC Hgb Hct MCV MCH MCHC RDW Plt Count MPV Immature Gran % (Auto) Neut % (Auto) Lymph % (Auto) [place] % (Auto) Eos % (Auto) Baso % (Auto) Lymph # (Auto) [place] # (Auto) Eos # (Auto) Baso # (Auto) Abs Immat Gran (auto) Absolute Neuts (auto) Absolute Nucleated RBC Nucleated RBC % Sodium 137 Potassium 4.4 Chloride 106 Carbon Dioxide 26 Anion Gap 5 BUN 19 H Creatinine 1.50 H Estim Creat Clear Calc 21 Estimated GFR 33 L Glucose 202 H POC Capillary Glucose 191 H 271 H Calcium 8.6 01/18/25 01/18/25 01/18/25 05:29 08:07 12:30 WBC 9.1 RBC 3.09 L Hgb 9.5 L Hct 30.5 L MCV 98.7 MCH 30.7 MCHC 31.1 L RDW 13.9 Plt Count 226 MPV 9.6 Immature Gran % (Auto) 1.0 H Neut % (Auto) 71.1 Lymph % (Auto) 12.7 L [place] % (Auto) 11.9 H Eos % (Auto) 2.5 Baso % (Auto) 0.8 Lymph # (Auto) 1.16 [place] # (Auto) 1.1 H Eos # (Auto) 0.2 Baso # (Auto) 0.1 Abs Immat Gran (auto) 0.09 H Absolute Neuts (auto) 6.5 Absolute Nucleated RBC 0.000 Nucleated RBC % 0.0 Sodium Potassium Chloride Carbon Dioxide Anion Gap BUN Creatinine Estim Creat Clear Calc Estimated GFR Glucose POC Capillary Glucose 172 H 189 H Calcium
[2025-01-18 15:37] LABS: Add Urine Microscopic? YES; Appearance Urine Turbid (Clear); Glucose Urine UA Negative (Negative); Leukocyte Esterase Ur 3+ LEU/UL (Negative); Nitrate Urine Negative (Negative); Specific Grav Ur 1.009 (1.001-1.035)
[2025-01-18] MEDS: MIRTAZAPINE 15 MG TABLET PO (20:48)
[2025-01-19] VITALS (8 sets, daily range): BP systolic 124–144; BP diastolic 44–49; PULSE 65–70; RESP 16–18; TEMP 36.8–37.3; O2SAT 91–97
[2025-01-19 05:42] LABS: Hematocrit 29.8 % (37.0-47.0); Hemoglobin 9.4 g/dL (12.0-15.0); Immature Granulocyte Percent A 1.2 % (0-0.5); Lymphocytes Absolute Auto 1.47 K/mm3 (0.9-3.2); Mean Corpuscular HGB Conc 31.5 g/dl (32-36); Mean Corpuscular Hemoglobin 31.3 pg (26-34); Mean Corpuscular Volume 99.3 fl (80-100); Nucleated Red Blood Cells Absolute Auto 0.000 K/mm3 (0.0-0.012); Nucleated Red Blood Cells Perc 0.0 % (0.0-0.2); Platelet Count Result 215 k/mm3 (150-375); Red Blood Count 3.00 M/mm3 (4.2-5.4); White Blood Count 8.5 K/mm3 (4.5-10.0)
[2025-01-19 05:59] LABS: Anion Gap 3 mmol/L (4-12); Blood Urea Nitrogen 19 mg/dL (7-17); Calcium 8.2 mg/dL (8.4-10.2); Carbon Dioxide 29 mmol/L (22-30); Chloride 106 mmol/L (98-107); Estimated CRCL calculation 22 ml/min; Estimated Glomerular Filt Rate 38; Glucose 133 mg/dL (65-110); Potassium 4.3 mmol/L (3.4-5.0); Sodium 138 mmol/L (137-145)
--- NOTE | 2025-01-19 07:49 | P.PNIM_ITS ---
Progress Note: A&P Assessment and Plan (1) CHF (congestive heart failure): Code(s): I50.9 - Heart failure, unspecified Status: Acute Assessment and Plan: BNP 7,610 01/14. Furosemide 20 mg ivp x 1 given. Slightly of breath today with activity and >crackles 01/18. Improved after urinary obstruction resolved. Continuing lasix but may be able to hold at some point since she now has a Howard catheter * Continue Furosemide 20 mg PO daily. * Portable chest x-ray 01/18 showed Segmental right lower lung and subsegmental bilateral upper lung atelectasis/consolidation. Moderate interstitial edema. Small bilateral pleural effusions. Suspect that chest x-ray findings related to fluid overload. and urinary obstruction could be the primary issue. Repeat chest x-ray in AM (2) RENETTA (acute kidney injury): Code(s): N17.9 - Acute kidney failure, unspecified Status: Acute Assessment and Plan: 02/06/24 CT abd/pelvis last year showed moderate bilateral hydroureteronephrosis likely related to pelvic floor relaxation and extrinsic compression of the d istal ureters as they extend to the bladder which is completely displaced caudal to the pubococcygeal line. Urology saw her at during a prior admission but she hasn't followed up because she was not interested in surgery. Now is agreeable Chronic changes likely contributing to UTI's and contaminated urine specimens. 01/16 Renal US done for RENETTA, showed: Bilateral severe hydronephrotic changes.Echogenic material in the urinary bladder which may be blood or due to infection. Further evaluation advised. Thickened wall of the urinary bladder which may indicate cystitis. 01/17 Urology consulted for severe hydronephrosis on Renal US 01/19 Bladder scan 660, Urology placed a Howard since still retaining urine after voiding and a repeat bladder scan. Sent UA/Culture from cath urine. Urine reported to be white/cloudy or milky. Is clearing. Creatinine 1.22 on admission> 0.98, trending up, 1.42<1.5. Likely obstructive and resolving after howard placement, down to 1.3 Of note, patient would be not be interested in dialysis, although not a short term concern * Urology consulted for hydronephrosis, appreciate recommendations. Discussing colpocleisis. Patient has been considering and said today that she is agreeable to the procedure, would have inpatient. Holding off starting warfarin until she discusses with Dr. Rene tomorrow. Continuing apixaban * Discussed with urology and holding off treating positive UA with antibioitics/antifungals since patient has been asymptomatic with a normal w jonathan count and no fevers. Requested susceptibilities of cruzito glabrata from culture 01/16 in the event she develops systemic symptoms * Repeat Culture from cath urine pending 01/18. Suspect chronic colonization and treating as a colonizer as long as she is otherwise improving. She denies dysuria on admission. * Follow BMP * Howard for urinary obstruction was placed by urology and should remain in place until urology follow up (3) Transaminitis: Code(s): R74.01 - Elevation of levels of liver transaminase levels Status: Acute Assessment and Plan: * AST 91>93>60>42>41>40>38. * ALT 144>137>98>84>72>67>55. (4) Multiple falls: Code(s): R29.6 - Repeated falls Status: Acute Assessment and Plan: * PT/OT for strengthening and balance. (5) DM type 2 (diabetes mellitus, type 2): Qualifiers: Chronic kidney disease stage: stage 2 (mild) Diabetes mellitus complication detail: with chronic kidney disease Diabetes mellitus complication status: with kidney complications Diabetes mellitus retirement insulin use: without terminal manager use Qualified Code(s): E11.22 - Type 2 diabetes mellitus with diabetic chronic kidney disease; N18.2 - Chronic kidney disease, stage 2 (mild) Code(s): E11.9 - Type 2 diabetes mellitus without complications Status: Acute Assessment and Plan: * HgbA1C 12.9%. Blood sugars above goal * High dose SSI, hypoglycemic protocol, and accuchecks qid. 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 (6) Severe protein-calorie malnutrition: Code(s): E43 - Unspecified severe protein-calorie malnutrition Status: Acute Assessment and Plan: * Increased protein-energy needs in setting of chronic disease as evidenced by minimal oral intake for >1-2 months, significant weight loss 21 lbs(18%) 10 months: moderate subcutaneous fat loss (orbital fat pads) and severe muscle wasting (temporalis, clavicle). * Protein level 5.5. * Central Office Trouble Shooter consult, appreciate recommendations. * Glucerna 1 bottle BID. * Encourage oral intake. * Mirtazapine 15 mg PO HS. (7) BMI < 18.5: Code(s): Z68.1 - Body mass index [BMI] 19.9 or less, adult Status: Acute Assessment and Plan: * Encourage oral intake. * Central Office Trouble Shooter consult. * Glucerna shake BID. * Mirtazapine 15 mg PO HS. * Weight 106 lb 4 oz today. (8) JOSUE on CPAP: Code(s): G47.33 - Obstructive sleep apnea (adult) (pediatric); Z99.89 - Dependence on other enabling machines and devices Status: Acute Assessment and Plan: * CPAP patient having difficulty wearing. * Check apnea link evaluation period was too short. Outpatient sleep study (9) Atrial fibrillation and flutter: Code(s): I48.91 - Unspecified atrial fibrillation; I48.92 - Unspecified atrial flutter Status: Acute Assessment and Plan: Afib rate controlled Unable to arrange warfarin meter for home but home health will do blood draws at home. Spoke with patient about options. Apixaban, warfarin with lab draws and consider meter for home, and aspirin (with a higher stroke risk). 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 Planning to start warfarin for home. Patient now interested in surgery so patient discussing timing with surgery. --Continuing apixaban today. Change to warfarin pending OR plans (10) Acute respiratory failure: Code(s): J96.00 - Acute respiratory failure, unspecified whether with hypoxia or hypercapnia Status: Acute Assessment and Plan: 01/18 Chest x-ray Segmental right lower lung and subsegmental bilateral upper lung atelectasis/consolidation. Moderate interstitial edema. Small bilateral pleural effusions. 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 Ceftriaxone 1 gram IVPB, then changed to Augmentin 875-125 mg 1 tab q 12 * Urine turbid with 1+ protein, 3+ glucose, 3+ blood, 2+ leukocytes, RBC >100. WBC >100, WBC clumps present, 4+ bacteria, and yeast present. * Urine culture negative, recollect UA with reflex. Urine grew Cruzito Glabrata. Received Fluconazole 100 mg 01/13-01/16. But unclear if true infection since no dysuria, so discontinued. Requested susceptibilities. Urine milky/cloudy when catheter placed and clearing after howard placed. Repeat urine sent with catheterization but likely colonization, spoke with Dr. Ernst and monitoring off antifungals * With large uterine prolapse midstream urine is likely inaccurate. Time Spent With Patient Time: 45 minutes Subjective Date/time seen: 01/19/25 10:15 Interval history: Yesterday had urinary retention PVR over 600mL repeat PVR and Howard placed by urology Resent UA from catheter specimen and culture pending. Appearance milky, clearing overnight but urine still cloudy yellow. Patient asymptomatic. Discussed with urology and likely contaminant/chronically colonized Creatinine 1.5> 1.33 this morning. Off oxygen and no shortness of breath but hasn't walked in the room yet. Review of Systems Review of Systems: All systems reviewed & are unremarkable except as noted in HPI and below Exam Narrative: General - Awake and alert. No acute distress Eyes - PERRLA, EOM intact ENT - No thrush, No erythema Neck - No noticeable or palpable swelling Lymph Nodes - No lymphadenopathy Cardiovascular - RRR no m/r/g, no JVD Lungs: Basilar crackles to auscultation, No wheezing, use of accessory muscles Skin - Skin warm and dry, no wounds or rashes Abdomen - Normal bowel sounds, abdomen soft, mildly distended, and nontender Extremities - No edema, cyanosis or clubbing Musculoskeletal - 4/5 strength, normal range of motion, no swollen or erythematous joints. Neurological ? Alert and oriented x 3, CN 2-12 grossly intact. Psych: Normal mood and affect Large Uterine prolapse Objective Data Vital Signs Vital Signs: Vital Signs - 24 hr 01/18/25 08:00 01/18/25 08:51 01/18/25 08:51 Temperature Pulse Rate 70 70 Respiratory Rate Blood Pressure Pulse Oximetry 94 Oxygen Delivery Nasal Cannula Oxygen Flow Rate 1 01/18/25 15:08 01/18/25 19:50 01/18/25 20:00 Temperature 98.7 F 99.7 F H Pulse Rate 71 70 Respiratory Rate 16 16 Blood Pressure 144/60 H 151/53 H Pulse Oximetry 92 90 90 Oxygen Delivery Nasal Cannula Oxygen Flow Rate 1 01/18/25 20:47 01/18/25 21:40 01/19/25 04:30 Temperature 98.3 F Pulse Rate 71 70 Respiratory Rate 16 Blood Pressure 144/47 H Pulse Oximetry 91 96 Oxygen Delivery Nasal Cannula Oxygen Flow Rate 1 Intake/Output Intake/Output: Intake & Output 01/16/25 01/17/25 01/18/25 01/19/25 23:59 23:59 23:59 23:59 Intake Total 890 850 850 250 Output Total 1075 600 Balance 890 850 -225 -350 Meds/Results Medications: Active Medications Generic Name Dose Route Start Last Admin Trade Name Freq PRN Reason Stop Dose Admin Acetaminophen 1,000 mg 01/09/25 07:38 01/15/25 12:53 Acetaminophen 500 Mg Tablet PO 1,000 mg Q6H PRN Administration pain Albuterol 2 puff 01/14/25 11:20 Albuterol Sulfate (*Sp) Aerosol 1 Puff INHALATION Q6HRT PRN Shortness Of Breath Amiodarone HCl 200 mg 01/09/25 09:00 01/18/25 08:51 Amiodarone Hcl 200 Mg Tablet PO 200 mg DAILY JACKIE Administration Apixaban 2.5 mg 01/09/25 09:00 01/18/25 17:34 Apixaban 2.5 Mg Tablet PO 2.5 mg BID JACKIE Administration Atorvastatin Calcium 40 mg 01/09/25 09:00 01/18/25 08:51 Atorvastatin 40 Mg Tablet PO 40 mg DAILY JACKIE Administration Dextrose 12.5 gm 01/09/25 01:22 Dextrose 50% 25 Gm/50 Ml Syringe IV PUSH PRN PRN Hypoglycemia Protocol Docusate Sodium 100 mg 01/09/25 10:33 Docusate Sodium 100 Mg Capsule PO Q12H PRN Constipation Ferrous Sulfate 325 mg 01/09/25 09:15 01/18/25 17:34 Ferrous Sulfate [address] BY MOUTH 325 mg BID JACKIE Administration Fish Oil 2 gm 01/09/25 09:45 01/18/25 17:34 [place] 3 Polyunsat Fatty Acids 1 Gm Cap PO 2 gm BID JACKIE Administration Folic Acid 1 mg 01/09/25 09:00 01/18/25 08:51 Folic Acid 1 Mg Tablet PO 1 mg DAILY JACKIE Administration Furosemide 20 mg 01/15/25 09:00 01/16/25 08:11 Furosemide 20 Mg Tablet PO 20 mg DAILY JACKIE Administration Glucagon 1 mg 01/09/25 01:22 Glucagon For Inj 1 Mg Vial IM PRN PRN Hypoglycemia Protocol Glucose 15 gm 01/09/25 01:22 Glucose Oral Gel 15 Gm Of Glucse In 37.5 Gm Tube PO PRN PRN Hypoglycemia Protocol Dextrose 1,000 mls @ 100 mls/hr 01/09/25 01:22 Dextrose 5% 1,000 Ml IVPB PRN PRN Hypoglycemia Protocol Insulin Aspart 4 - 8 units 01/09/25 08:00 01/18/25 17:33 Insulin Aspart (*Bkc) 100 Units/Ml SUB-Q Not Given TIDWM JACKIE Protocol Insulin Aspart 1 - 2 units 01/10/25 21:00 01/18/25 20:48 Insulin Aspart (*Bkc) 100 Units/Ml SUB-Q 1 units HS JACKIE Administration Protocol Insulin Aspart 2 units 01/17/25 17:00 01/18/25 17:34 Insulin Aspart (*Bkc) 100 Units/Ml 0.05 units/kg (2 units) 2 units SUB-Q Administration TIDWM JACKIE Lisinopril 5 mg 01/09/25 09:00 01/18/25 08:51 Lisinopril 5 Mg Tablet PO 5 mg DAILY JACKIE Administration Magnesium Oxide 400 mg 01/09/25 09:00 01/18/25 08:51 Magnesium Oxide 400 Mg Tablet PO 400 mg DAILY JACKIE Administration Metformin HCl 500 mg 01/14/25 17:00 01/16/25 08:11 Metformin Hcl 500 Mg Tablet PO 500 mg BIDWM JACKIE Administration Metoprolol Tartrate 12.5 mg 01/09/25 09:00 01/18/25 20:47 Metoprolol Tartrate 12.5 Mg Tablet PO 12.5 mg Q12HR JACKIE Administration Mirtazapine 15 mg 01/09/25 21:00 01/18/25 20:48 Mirtazapine 15 Mg Tablet PO 15 mg HS JACKIE Administration Ondansetron HCl 4 mg 01/09/25 10:39 01/16/25 20:18 Ondansetron Inj 4 Mg/2 Ml Vial IV PUSH 4 mg Q6H PRN Administration Nausea And Vomiting Pantoprazole Sodium 40 mg 01/09/25 09:00 01/18/25 08:51 Pantoprazole 40 Mg Tablet PO 40 mg DAILY JACKIE Administration Polyethylene Glycol 17 gm 01/09/25 10:35 01/18/25 08:52 Polyethylene Glycol 3350 17 Gm Powd.Pack PO 17 gm QAM JACKIE Administration Vitamin D 50 mcg 01/09/25 09:45 01/18/25 08:51 Cholecalciferol (Vitamin D3) 25 Mcg (1,000 Units) Tablet PO 50 mcg DAILY JACKIE Administration Radiology Results: ITS Impressions Renal Ultrasound 01/16/25 12:11 IMPRESSION: Bilateral severe hydronephrotic changes. Echogenic material in the urinary bladder which may be blood or due to infection. Further evaluation advised. Thickened wall of the urinary bladder which may indicate cystitis. Chest X-Ray 01/18/25 14:25 IMPRESSION: Segmental right lower lung and subsegmental bilateral upper lung atelectasis/consolidation. Moderate interstitial edema. Small bilateral pleural effusions. Labs Labs: Laboratory Results - last 24 hr 01/18/25 01/18/25 01/18/25 08:07 12:30 15:23 WBC RBC Hgb Hct MCV MCH MCHC RDW Plt Count MPV Immature Gran % (Auto) Neut % (Auto) Lymph % (Auto) [place] % (Auto) Eos % (Auto) Baso % (Auto) Lymph # (Auto) [place] # (Auto) Eos # (Auto) Baso # (Auto) Abs Immat Gran (auto) Absolute Neuts (auto) Absolute Nucleated RBC Nucleated RBC % Sodium Potassium Chloride Carbon Dioxide Anion Gap BUN Creatinine Estim Creat Clear Calc Estimated GFR Glucose POC Capillary Glucose 172 H 189 H Calcium Urine Color Yellow Urine Appearance Turbid H Urine pH 5.5 Ur Specific [place] 1.009 Urine Protein 2+ H Urine Glucose (UA) Negative Urine Ketones Negative Ur Blood (Man) 3+ H Urine Nitrate Negative Urine Bilirubin Negative Urine Urobilinogen 0.2 Leukocyte Esterase Rfl 3+ H Urine RBC >100 H Urine WBC >100 H Ur Squamous Epith Cells Many H Urine Bacteria 4+ H Urine Casts 3-5 01/18/25 01/18/25 01/19/25 16:51 19:49 05:12 WBC 8.5 RBC 3.00 L Hgb 9.4 L Hct 29.8 L MCV 99.3 MCH 31.3 MCHC 31.5 L RDW 13.8 Plt Count 215 MPV 9.8 Immature Gran % (Auto) 1.2 H Neut % (Auto) 66.8 Lymph % (Auto) 17.2 L [place] % (Auto) 11.3 H Eos % (Auto) 2.7 Baso % (Auto) 0.8 Lymph # (Auto) 1.47 [place] # (Auto) 1.0 H Eos # (Auto) 0.2 Baso # (Auto) 0.1 Abs Immat Gran (auto) 0.10 H Absolute Neuts (auto) 5.7 Absolute Nucleated RBC 0.000 Nucleated RBC % 0.0 Sodium 138 Potassium 4.3 Chloride 106 Carbon Dioxide 29 Anion Gap 3 L BUN 19 H Creatinine 1.33 H Estim Creat Clear Calc 22 Estimated GFR 38 L Glucose 133 H POC Capillary Glucose 182 H 204 H Calcium 8.2 L Urine Color Urine Appearance Urine pH Ur Specific [place] Urine Protein Urine Glucose (UA) Urine Ketones Ur Blood (Man) Urine Nitrate Urine Bilirubin Urine Urobilinogen Leukocyte Esterase Rfl Urine RBC Urine WBC Ur Squamous Epith Cells Urine Bacteria Urine Casts Quality VTE Prophylaxis VTE prophylaxis: pharmacologic ordered Hospitalist MIPS Advance Care Plan I have confirmed that the patient's Advanced Care Plan is present, code status is documented, or surrogate decision maker is listed in patient medical record.: Yes Medication Reconciliation I have utilized all available resources to obtain, update and review the patients current medications (includes all prescriptions, OTC, herbals, cannabis, and nutritional supplements).: Yes
[2025-01-19] MEDS: AMIODARONE HCL 200 MG TABLET PO (09:49)
[2025-01-19] MEDS: APIXABAN 2.5 MG TABLET PO ×2 (09:49→17:55)
[2025-01-19] MEDS: ATORVASTATIN 40 MG TABLET PO (09:50)
[2025-01-19] MEDS: MAGNESIUM OXIDE 400 MG TABLET PO (09:50)
[2025-01-19] MEDS: FERROUS SULFATE 325 MG TABLET DR BY MOUTH ×2 (09:50→17:55)
[2025-01-19] MEDS: METOPROLOL TARTRATE 12.5 MG TABLET PO ×2 (09:50→21:01)
[2025-01-19] MEDS: CHOLECALCIFEROL (VITAMIN D3) 25 MCG (1,000 UNITS) TABLET 50 MCG PO (09:50)
[2025-01-19] MEDS: FOLIC ACID 1 MG TABLET PO (09:50)
[2025-01-19] MEDS: PANTOPRAZOLE 40 MG TABLET PO (09:51)
[2025-01-19] MEDS: OMEGA 3 POLYUNSAT FATTY ACIDS 1 GM CAP 2 GM PO ×2 (09:51→17:55)
[2025-01-19] MEDS: INSULIN ASPART (*BKC) 100 UNITS/ML SUB-Q ×4 (09:51→17:55)
--- NOTE | 2025-01-19 10:58 | WPDUROPN2 ---
Progress Note: A&P Assessment and Plan (1) Acute kidney injury: Code(s): N17.9 - Acute kidney failure, unspecified Status: Acute (2) Complete uterine prolapse: Code(s): N81.3 - Complete uterovaginal prolapse Status: Acute Plan Extremely large stage IV uterine prolapse. Not a candidate for pessary due to large size of her prolapse. Would only be a candidate for colpocleisis. She has been declining the surgery for at least since 2016. Now with urinary retention. Maguire catheter placed at bedside with return of over 800mL of purulent urine. -- Urine culture shows Alexia. Catheterized specimen sent today for culture. Continue antifungal treatment --maintain Maguire catheter --creatinine improving -- Due to her prolapse. I have recommended a procedure to correct her prolapse, she seems willing to consider this option at this time. Will discuss with Dr. Rene Subjective Subjective Date/Time Seen: 01/19/25 10:58 Interval history: Patient states she is feeling better after Maguire catheter insertion Objective Data Vital Signs Vital Signs: Vital Signs - 24 hr 01/18/25 15:08 01/18/25 19:50 01/18/25 20:00 Temperature 37.1 C 37.6 C H Pulse Rate 71 70 Respiratory Rate 16 16 Blood Pressure 144/60 H 151/53 H Pulse Oximetry 92 90 90 Oxygen Delivery Nasal Cannula Oxygen Flow Rate 1 01/18/25 20:47 01/18/25 21:40 01/19/25 04:30 Temperature 36.8 C Pulse Rate 71 70 Respiratory Rate 16 Blood Pressure 144/47 H Pulse Oximetry 91 96 Oxygen Delivery Nasal Cannula Oxygen Flow Rate 1 01/19/25 09:48 01/19/25 09:49 01/19/25 09:50 Temperature Pulse Rate 70 70 70 Respiratory Rate Blood Pressure 140/49 L Pulse Oximetry 94 Oxygen Delivery Oxygen Flow Rate Intake/Output Intake/Output: Intake & Output 01/16/25 01/17/25 01/18/25 01/19/25 23:59 23:59 23:59 23:59 Intake Total 890 850 850 490 Output Total 4115 600 Balance 890 369 -686 -110 Meds/Results Medications: Active Medications Generic Name Dose Route Start Last Admin Trade Name Freq PRN Reason Stop Dose Admin Acetaminophen 1,000 mg 01/09/25 07:38 01/15/25 12:53 Acetaminophen 500 Mg Tablet PO 1,000 mg Q6H PRN Administration pain Albuterol 2 puff 01/14/25 11:20 Albuterol Sulfate (*Sp) Aerosol 1 Puff INHALATION Q6HRT PRN Shortness Of Breath Amiodarone HCl 200 mg 01/09/25 09:00 01/19/25 09:49 Amiodarone Hcl 200 Mg Tablet PO 200 mg DAILY JACKIE Administration Apixaban 2.5 mg 01/09/25 09:00 01/19/25 09:49 Apixaban 2.5 Mg Tablet PO 2.5 mg BID JACKIE Administration Atorvastatin Calcium 40 mg 01/09/25 09:00 01/19/25 09:50 Atorvastatin 40 Mg Tablet PO 40 mg DAILY JACKIE Administration Dextrose 12.5 gm 01/09/25 01:22 Dextrose 50% 25 Gm/50 Ml Syringe IV PUSH PRN PRN Hypoglycemia Protocol Docusate Sodium 100 mg 01/09/25 10:33 Docusate Sodium 100 Mg Capsule PO Q12H PRN Constipation Ferrous Sulfate 325 mg 01/09/25 09:15 01/19/25 09:50 Ferrous Sulfate [address] BY MOUTH 325 mg BID JACKIE Administration Fish Oil 2 gm 01/09/25 09:45 01/19/25 09:51 [place] 3 Polyunsat Fatty Acids 1 Gm Cap PO 2 gm BID JACKIE Administration Folic Acid 1 mg 01/09/25 09:00 01/19/25 09:50 Folic Acid 1 Mg Tablet PO 1 mg DAILY JACKIE Administration Furosemide 20 mg 01/15/25 09:00 01/16/25 08:11 Furosemide 20 Mg Tablet PO 20 mg DAILY JACKIE Administration Glucagon 1 mg 01/09/25 01:22 Glucagon For Inj 1 Mg Vial IM PRN PRN Hypoglycemia Protocol Glucose 15 gm 01/09/25 01:22 Glucose Oral Gel 15 Gm Of Glucse In 37.5 Gm Tube PO PRN PRN Hypoglycemia Protocol Dextrose 1,000 mls @ 100 mls/hr 01/09/25 01:22 Dextrose 5% 1,000 Ml IVPB PRN PRN Hypoglycemia Protocol Insulin Aspart 4 - 8 units 01/09/25 08:00 01/19/25 09:44 Insulin Aspart (*Bkc) 100 Units/Ml SUB-Q Not Given TIDWM JACKIE Protocol Insulin Aspart 1 - 2 units 01/10/25 21:00 01/18/25 20:48 Insulin Aspart (*Bkc) 100 Units/Ml SUB-Q 1 units HS [facility] Administration Protocol Insulin Aspart 2 units 01/17/25 17:00 01/19/25 09:51 Insulin Aspart (*Bkc) 100 Units/Ml 0.05 units/kg (2 units) 2 units SUB-Q Administration TIDWM [facility] Lisinopril 5 mg 01/09/25 09:00 01/19/25 09:50 Lisinopril 5 Mg Tablet PO 5 mg DAILY JACKIE Administration Magnesium Oxide 400 mg 01/09/25 09:00 01/19/25 09:50 Magnesium Oxide 400 Mg Tablet PO 400 mg DAILY JACKIE Administration Metformin HCl 500 mg 01/14/25 17:00 01/16/25 08:11 Metformin Hcl 500 Mg Tablet PO 500 mg BIDWM [facility] Administration Metoprolol Tartrate 12.5 mg 01/09/25 09:00 01/19/25 09:50 Metoprolol Tartrate 12.5 Mg Tablet PO 12.5 mg Q12HR JACKIE Administration Mirtazapine 15 mg 01/09/25 21:00 01/18/25 20:48 Mirtazapine 15 Mg Tablet PO 15 mg HS [facility] Administration Ondansetron HCl 4 mg 01/09/25 10:39 01/16/25 20:18 Ondansetron Inj 4 Mg/2 Ml Vial IV PUSH 4 mg Q6H PRN Administration Nausea And Vomiting Pantoprazole Sodium 40 mg 01/09/25 09:00 01/19/25 09:51 Pantoprazole 40 Mg Tablet PO 40 mg DAILY [facility] Administration Polyethylene Glycol 17 gm 01/09/25 10:35 01/19/25 09:57 Polyethylene Glycol 3350 17 Gm Powd.Pack PO Not Given QAM [facility] Vitamin D 50 mcg 01/09/25 09:45 01/19/25 09:50 Cholecalciferol (Vitamin D3) 25 Mcg (1,000 Units) Tablet PO 50 mcg DAILY [facility] Administration Radiology Results: ITS Impressions Renal Ultrasound 01/16/25 12:11 IMPRESSION: Bilateral severe hydronephrotic changes. Echogenic material in the urinary bladder which may be blood or due to infection. Further evaluation advised. Thickened wall of the urinary bladder which may indicate cystitis. Chest X-Ray 01/18/25 14:25 IMPRESSION: Segmental right lower lung and subsegmental bilateral upper lung atelectasis/consolidation. Moderate interstitial edema. Small bilateral pleural effusions. Labs Labs: Laboratory Results - last 24 hr 01/18/25 01/18/25 01/18/25 12:30 15:23 16:51 WBC RBC Hgb Hct MCV MCH MCHC RDW Plt Count MPV Immature Gran % (Auto) Neut % (Auto) Lymph % (Auto) [place] % (Auto) Eos % (Auto) Baso % (Auto) Lymph # (Auto) [place] # (Auto) Eos # (Auto) Baso # (Auto) Abs Immat Gran (auto) Absolute Neuts (auto) Absolute Nucleated RBC Nucleated RBC % Sodium Potassium Chloride Carbon Dioxide Anion Gap BUN Creatinine Estim Creat Clear Calc Estimated GFR Glucose POC Capillary Glucose 189 H 182 H Calcium Urine Color Yellow Urine Appearance Turbid H Urine pH 5.5 Ur Specific [place] 1.009 Urine Protein 2+ H Urine Glucose (UA) Negative Urine Ketones Negative Ur Blood (Man) 3+ H Urine Nitrate Negative Urine Bilirubin Negative Urine Urobilinogen 0.2 Leukocyte Esterase Rfl 3+ H Urine RBC >100 H Urine WBC >100 H Ur Squamous Epith Cells Many H Urine Bacteria 4+ H Urine Casts 3-5 01/18/25 01/19/25 01/19/25 19:49 05:12 08:35 WBC 8.5 RBC 3.00 L Hgb 9.4 L Hct 29.8 L MCV 99.3 MCH 31.3 MCHC 31.5 L RDW 13.8 Plt Count 215 MPV 9.8 Immature Gran % (Auto) 1.2 H Neut % (Auto) 66.8 Lymph % (Auto) 17.2 L [place] % (Auto) 11.3 H Eos % (Auto) 2.7 Baso % (Auto) 0.8 Lymph # (Auto) 1.47 [place] # (Auto) 1.0 H Eos # (Auto) 0.2 Baso # (Auto) 0.1 Abs Immat Gran (auto) 0.10 H Absolute Neuts (auto) 5.7 Absolute Nucleated RBC 0.000 Nucleated RBC % 0.0 Sodium 138 Potassium 4.3 Chloride 106 Carbon Dioxide 29 Anion Gap 3 L BUN 19 H Creatinine 1.33 H Estim Creat Clear Calc 22 Estimated GFR 38 L Glucose 133 H POC Capillary Glucose 204 H 121 H Calcium 8.2 L Urine Color Urine Appearance Urine pH Ur Specific [place] Urine Protein Urine Glucose (UA) Urine Ketones Ur Blood (Man) Urine Nitrate Urine Bilirubin Urine Urobilinogen Leukocyte Esterase Rfl Urine RBC Urine WBC Ur Squamous Epith Cells Urine Bacteria Urine Casts
[2025-01-19] MEDS: MIRTAZAPINE 15 MG TABLET PO (21:01)
[2025-01-20 05:17] LABS: Hematocrit 28.5 % (37.0-47.0); Hemoglobin 8.9 g/dL (12.0-15.0); Immature Granulocyte Percent A 0.7 % (0-0.5); Lymphocytes Absolute Auto 1.58 K/mm3 (0.9-3.2); Mean Corpuscular HGB Conc 31.2 g/dl (32-36); Mean Corpuscular Hemoglobin 30.8 pg (26-34); Mean Corpuscular Volume 98.6 fl (80-100); Nucleated Red Blood Cells Absolute Auto 0.000 K/mm3 (0.0-0.012); Nucleated Red Blood Cells Perc 0.0 % (0.0-0.2); Platelet Count Result 219 k/mm3 (150-375); Red Blood Count 2.89 M/mm3 (4.2-5.4); White Blood Count 11.0 K/mm3 (4.5-10.0)
[2025-01-20 05:24] LABS: INR 1.3; Prothrombin Time 15.9 Seconds (11.1-14.7)
[2025-01-20 05:34] LABS: Anion Gap 2 mmol/L (4-12); Blood Urea Nitrogen 14 mg/dL (7-17); Calcium 7.9 mg/dL (8.4-10.2); Carbon Dioxide 27 mmol/L (22-30); Chloride 104 mmol/L (98-107); Estimated CRCL calculation 29 ml/min; Estimated Glomerular Filt Rate 54; Glucose 146 mg/dL (65-110); Potassium 3.4 mmol/L (3.4-5.0); Sodium 133 mmol/L (137-145)
[2025-01-20 06:00] VITALS: BP 127/50; PULSE 70; RESP 18; TEMP 36.6; O2SAT 91
[2025-01-20] MEDS: OMEGA 3 POLYUNSAT FATTY ACIDS 1 GM CAP 2 GM PO ×2 (08:27→17:18)
[2025-01-20] MEDS: CHOLECALCIFEROL (VITAMIN D3) 25 MCG (1,000 UNITS) TABLET 50 MCG PO (08:27)
[2025-01-20] MEDS: ATORVASTATIN 40 MG TABLET PO (08:27)
[2025-01-20 08:28] VITALS: PULSE 70
[2025-01-20] MEDS: INSULIN ASPART (*BKC) 100 UNITS/ML SUB-Q ×4 (08:28→17:18)
[2025-01-20] MEDS: AMIODARONE HCL 200 MG TABLET PO (08:28)
[2025-01-20] MEDS: FERROUS SULFATE 325 MG TABLET DR BY MOUTH ×2 (08:28→17:18)
[2025-01-20] MEDS: APIXABAN 2.5 MG TABLET PO ×2 (08:28→17:18)
[2025-01-20] MEDS: PANTOPRAZOLE 40 MG TABLET PO (08:28)
[2025-01-20] MEDS: METOPROLOL TARTRATE 12.5 MG TABLET PO ×2 (08:28→20:16)
[2025-01-20] MEDS: FOLIC ACID 1 MG TABLET PO (08:28)
[2025-01-20] MEDS: MAGNESIUM OXIDE 400 MG TABLET PO (08:28)
--- NOTE | 2025-01-20 09:44 | PCNFU ---
Nutrition Follow-Up Complete: Severe Protein Calorie Malnutrition as related to inadequate protein energy intake with increased protein-energy needs in setting of chronic disease as evidenced by minimal oral intake for > 1-2 months; significant weight loss 21 ibs (18%) 10 months; moderate subcutaneous fat loss (orbital fat pads) and severe muscle wasting (temporalis, clavicle). Goal: Meet estimated nutritional needs Patient is meeting goal. No new goal. Pt current nutrition is DBCC with Glucerna shakes BID. Last recorded weight is 47 kg, up from 42.4 kg on admit. Bowel Motility: Last reported BM 01/18 Labs Reviewed:Glu 146, Alb 2.2, Hgb 8.9, Hct 28.5 Meds Noted: Lipitor, Fish Oil, Vit D, NovoLog. Skin: WNL Additional Notes:Patient is consuming 50-100% of DBCC diet. Diet supplements of Glucerna shake BID providing an additional 240 kcal and 10 gm protein. Agree with diet orders. Will monitor weight, labs, skin, diet orders, meds every 5 days.
--- NOTE | 2025-01-20 12:52 | P.PNUR_ITS ---
Progress Note: A&P Assessment and Plan (1) Acute kidney injury: Code(s): N17.9 - Acute kidney failure, unspecified Status: Acute (2) Complete uterine prolapse: Code(s): N81.3 - Complete uterovaginal prolapse Status: Acute Plan Extremely large stage IV uterine prolapse. Not a candidate for pessary due to large size of her prolapse. Would only be a candidate for colpocleisis. She has been declining the surgery for at least since 2016. Now with urinary retention. Maguire catheter placed at bedside with return of over 800mL of purulent urine. -- Urine culture shows Alexia. Catheterized specimen sent today for culture. Continue antifungal treatment --maintain Maguire catheter --creatinine improving -- Due to her prolapse. I have recommended a procedure to correct her prolapse, she seems willing to consider this option at this time. Will discuss with Dr. Rene Subjective Subjective Date/Time Seen: 01/20/25 12:52 Objective Data Vital Signs Vital Signs: Vital Signs - 24 hr 01/19/25 15:21 01/19/25 20:00 01/19/25 21:01 Temperature 98.6 F Pulse Rate 70 70 Respiratory Rate 16 Blood Pressure 124/48 L Pulse Oximetry 93 Oxygen Delivery Room Air Fraction of Inspired Oxygen 21 01/19/25 21:23 01/20/25 06:00 01/20/25 08:28 Temperature 99.2 F 97.9 F Pulse Rate 65 70 70 Respiratory Rate 18 18 Blood Pressure 134/44 L 127/50 L Pulse Oximetry 91 91 Oxygen Delivery Fraction of Inspired Oxygen 01/20/25 08:28 01/20/25 08:30 Temperature Pulse Rate 70 Respiratory Rate Blood Pressure Pulse Oximetry Oxygen Delivery Room Air Fraction of Inspired Oxygen Intake/Output Intake/Output: Intake & Output 01/17/25 01/18/25 01/19/25 01/20/25 23:59 23:59 23:59 23:59 Intake Total 806 390 2597 220 Output Total 1075 1400 300 Balance 850 -225 -320 -80 Meds/Results Medications: Active Medications Generic Name Dose Route Start Last Admin Trade Name Freq PRN Reason Stop Dose Admin Acetaminophen 1,000 mg 01/09/25 07:38 01/15/25 12:53 Acetaminophen 500 Mg Tablet PO 1,000 mg Q6H PRN Administration pain Albuterol 2 puff 01/14/25 11:20 Albuterol Sulfate (*Sp) Aerosol 1 Puff INHALATION Q6HRT PRN Shortness Of Breath Amiodarone HCl 200 mg 01/09/25 09:00 01/20/25 08:28 Amiodarone Hcl 200 Mg Tablet PO 200 mg DAILY JACKIE Administration Apixaban 2.5 mg 01/09/25 09:00 01/20/25 08:28 Apixaban 2.5 Mg Tablet PO 2.5 mg BID JACKIE Administration Atorvastatin Calcium 40 mg 01/09/25 09:00 01/20/25 08:27 Atorvastatin 40 Mg Tablet PO 40 mg DAILY JACKIE Administration Dextrose 12.5 gm 01/09/25 01:22 Dextrose 50% 25 Gm/50 Ml Syringe IV PUSH PRN PRN Hypoglycemia Protocol Docusate Sodium 100 mg 01/09/25 10:33 Docusate Sodium 100 Mg Capsule PO Q12H PRN Constipation Ferrous Sulfate 325 mg 01/09/25 09:15 01/20/25 08:28 Ferrous Sulfate [address] BY MOUTH 325 mg BID JACKIE Administration Fish Oil 2 gm 01/09/25 09:45 01/20/25 08:27 [place] 3 Polyunsat Fatty Acids 1 Gm Cap PO 2 gm BID JACKIE Administration Folic Acid 1 mg 01/09/25 09:00 01/20/25 08:28 Folic Acid 1 Mg Tablet PO 1 mg DAILY JACKIE Administration Furosemide 20 mg 01/15/25 09:00 01/16/25 08:11 Furosemide 20 Mg Tablet PO 20 mg DAILY JACKIE Administration Glucagon 1 mg 01/09/25 01:22 Glucagon For Inj 1 Mg Vial IM PRN PRN Hypoglycemia Protocol Glucose 15 gm 01/09/25 01:22 Glucose Oral Gel 15 Gm Of Glucse In 37.5 Gm Tube PO PRN PRN Hypoglycemia Protocol Dextrose 1,000 mls @ 100 mls/hr 01/09/25 01:22 Dextrose 5% 1,000 Ml IVPB PRN PRN Hypoglycemia Protocol Insulin Aspart 4 - 8 units 01/09/25 08:00 01/20/25 08:28 Insulin Aspart (*Bkc) 100 Units/Ml SUB-Q Not Given TIDWM [facility] Protocol Insulin Aspart 1 - 2 units 01/10/25 21:00 01/19/25 20:59 Insulin Aspart (*Bkc) 100 Units/Ml SUB-Q Not Given HS [facility] Protocol Insulin Aspart 2 units 01/17/25 17:00 01/20/25 08:28 Insulin Aspart (*Bkc) 100 Units/Ml 0.05 units/kg (2 units) 2 units SUB-Q Administration TIDWM [facility] Lisinopril 5 mg 01/09/25 09:00 01/20/25 08:28 Lisinopril 5 Mg Tablet PO 5 mg DAILY JACKIE Administration Magnesium Oxide 400 mg 01/09/25 09:00 01/20/25 08:28 Magnesium Oxide 400 Mg Tablet PO 400 mg DAILY JACKIE Administration Metformin HCl 500 mg 01/14/25 17:00 01/16/25 08:11 Metformin Hcl 500 Mg Tablet PO 500 mg BIDWM JACKIE Administration Metoprolol Tartrate 12.5 mg 01/09/25 09:00 01/20/25 08:28 Metoprolol Tartrate 12.5 Mg Tablet PO 12.5 mg Q12HR JACKIE Administration Mirtazapine 15 mg 01/09/25 21:00 01/19/25 21:01 Mirtazapine 15 Mg Tablet PO 15 mg HS JACKIE Administration Ondansetron HCl 4 mg 01/09/25 10:39 01/16/25 20:18 Ondansetron Inj 4 Mg/2 Ml Vial IV PUSH 4 mg Q6H PRN Administration Nausea And Vomiting Pantoprazole Sodium 40 mg 01/09/25 09:00 01/20/25 08:28 Pantoprazole 40 Mg Tablet PO 40 mg DAILY JACKIE Administration Polyethylene Glycol 17 gm 01/09/25 10:35 01/20/25 08:28 Polyethylene Glycol 3350 17 Gm Powd.Pack PO 17 gm QAM JACKIE Administration Vitamin D 50 mcg 01/09/25 09:45 01/20/25 08:27 Cholecalciferol (Vitamin D3) 25 Mcg (1,000 Units) Tablet PO 50 mcg DAILY JACKIE Administration Radiology Results: ITS Impressions Renal Ultrasound 01/16/25 12:11 IMPRESSION: Bilateral severe hydronephrotic changes. Echogenic material in the urinary bladder which may be blood or due to infection. Further evaluation advised. Thickened wall of the urinary bladder which may indicate cystitis. Chest X-Ray 01/18/25 14:25 IMPRESSION: Segmental right lower lung and subsegmental bilateral upper lung atelectasis/consolidation. Moderate interstitial edema. Small bilateral pleural effusions. Labs Labs: Laboratory Results - last 24 hr 01/19/25 01/19/25 01/20/25 17:17 20:59 04:55 WBC 11.0 H RBC 2.89 L Hgb 8.9 L Hct 28.5 L MCV 98.6 MCH 30.8 MCHC 31.2 L RDW 13.9 Plt Count 219 MPV 9.7 Immature Gran % (Auto) 0.7 H Neut % (Auto) 73.3 H Lymph % (Auto) 14.4 L [place] % (Auto) 8.8 H Eos % (Auto) 2.0 Baso % (Auto) 0.8 Lymph # (Auto) 1.58 [place] # (Auto) 1.0 H Eos # (Auto) 0.2 Baso # (Auto) 0.1 Abs Immat Gran (auto) 0.08 H Absolute Neuts (auto) 8.1 H Absolute Nucleated RBC 0.000 Nucleated RBC % 0.0 PT 15.9 H INR 1.3 Sodium 133 L Potassium 3.4 Chloride 104 Carbon Dioxide 27 Anion Gap 2 L BUN 14 D Creatinine 0.99 Estim Creat Clear Calc 29 Estimated GFR 54 L Glucose 146 H POC Capillary Glucose 128 H 200 H Calcium 7.9 L 01/20/25 01/20/25 08:21 12:06 WBC RBC Hgb Hct MCV MCH MCHC RDW Plt Count MPV Immature Gran % (Auto) Neut % (Auto) Lymph % (Auto) [place] % (Auto) Eos % (Auto) Baso % (Auto) Lymph # (Auto) [place] # (Auto) Eos # (Auto) Baso # (Auto) Abs Immat Gran (auto) Absolute Neuts (auto) Absolute Nucleated RBC Nucleated RBC % PT INR Sodium Potassium Chloride Carbon Dioxide Anion Gap BUN Creatinine Estim Creat Clear Calc Estimated GFR Glucose POC Capillary Glucose 154 H 269 H Calcium
[2025-01-20 14:00] VITALS: BP 148/55; PULSE 70; RESP 16; TEMP 36.7; O2SAT 91
--- NOTE | 2025-01-20 14:53 | P.PNIM_ITS ---
Progress Note: A&P Assessment and Plan (1) CHF (congestive heart failure): Code(s): I50.9 - Heart failure, unspecified Status: Acute Assessment and Plan: BNP 7,610 01/14. Furosemide 20 mg ivp x 1 given. Slightly of breath today with activity and >crackles 01/18. Improved after urinary obstruction resolved. Continuing lasix but may be able to hold at some point since she now has a Howard catheter * Continue Furosemide 20 mg PO daily. * Portable chest x-ray 01/18 showed Segmental right lower lung and subsegmental bilateral upper lung atelectasis/consolidation. Moderate interstitial edema. Small bilateral pleural effusions. Suspect that chest x-ray findings related to fluid overload. and urinary obstruction could be the primary issue. Repeat chest x-ray in AM (2) RENETTA (acute kidney injury): Code(s): N17.9 - Acute kidney failure, unspecified Status: Acute Assessment and Plan: 02/06/24 CT abd/pelvis last year showed moderate bilateral hydroureteronephrosis likely related to pelvic floor relaxation and extrinsic compression of the d istal ureters as they extend to the bladder which is completely displaced caudal to the pubococcygeal line. Urology saw her at during a prior admission but she hasn't followed up because she was not interested in surgery. Now is agreeable Chronic changes likely contributing to UTI's and contaminated urine specimens. 01/16 Renal US done for RENETTA, showed: Bilateral severe hydronephrotic changes.Echogenic material in the urinary bladder which may be blood or due to infection. Further evaluation advised. Thickened wall of the urinary bladder which may indicate cystitis. 01/17 Urology consulted for severe hydronephrosis on Renal US 01/19 Bladder scan 660, Urology placed a Howard since still retaining urine after voiding and a repeat bladder scan. Sent UA/Culture from cath urine. Urine reported to be white/cloudy or milky. Is clearing. Creatinine 1.22 on admission> 0.98, trending up, 1.42<1.5. Likely obstructive and resolving after howard placement, down to 1.3 Of note, patient would be not be interested in dialysis, although not a short term concern * Urology consulted for hydronephrosis, appreciate recommendations. Discussing colpocleisis. Patient has been considering and said today that she is agreeable to the procedure, would have inpatient. Holding off starting warfarin until she discusses with Dr. Rene tomorrow. Continuing apixaban * Discussed with urology and holding off treating positive UA with antibioitics/antifungals since patient has been asymptomatic with a normal w jonathan count and no fevers. Requested susceptibilities of cruzito glabrata from culture 01/16 in the event she develops systemic symptoms * Repeat Culture from cath urine pending 01/18. Suspect chronic colonization and treating as a colonizer as long as she is otherwise improving. She denies dysuria on admission. * Follow BMP * Howard for urinary obstruction was placed by urology and should remain in place until urology follow up (3) Transaminitis: Code(s): R74.01 - Elevation of levels of liver transaminase levels Status: Acute Assessment and Plan: * AST 91>93>60>42>41>40>38. * ALT 144>137>98>84>72>67>55. (4) Multiple falls: Code(s): R29.6 - Repeated falls Status: Acute Assessment and Plan: * PT/OT for strengthening and balance. (5) DM type 2 (diabetes mellitus, type 2): Qualifiers: Diabetes mellitus correction insulin use: without intermediate project manager use Diabetes mellitus complication status: with kidney complications Diabetes mellitus complication detail: with chronic kidney disease Chronic kidney disease stage: stage 2 (mild) Qualified Code(s): E11.22 - Type 2 diabetes mellitus with diabetic chronic kidney disease; N18.2 - Chronic kidney disease, stage 2 (mild) Code(s): E11.9 - Type 2 diabetes mellitus without complications Status: Acute Assessment and Plan: * HgbA1C 12.9%. Blood sugars above goal * High dose SSI, hypoglycemic protocol, and accuchecks qid. 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 (6) Severe protein-calorie malnutrition: Code(s): E43 - Unspecified severe protein-calorie malnutrition Status: Acute Assessment and Plan: * Increased protein-energy needs in setting of chronic disease as evidenced by minimal oral intake for >1-2 months, significant weight loss 21 lbs(18%) 10 months: moderate subcutaneous fat loss (orbital fat pads) and severe muscle wasting (temporalis, clavicle). * Protein level 5.5. * Supervisor Fitting consult, appreciate recommendations. * Glucerna 1 bottle BID. * Encourage oral intake. * Mirtazapine 15 mg PO HS. (7) BMI < 18.5: Code(s): Z68.1 - Body mass index [BMI] 19.9 or less, adult Status: Acute Assessment and Plan: * Encourage oral intake. * Supervisor Fitting consult. * Glucerna shake BID. * Mirtazapine 15 mg PO HS. * Weight 106 lb 4 oz today. (8) JOSUE on CPAP: Code(s): G47.33 - Obstructive sleep apnea (adult) (pediatric); Z99.89 - Dependence on other enabling machines and devices Status: Acute Assessment and Plan: * CPAP patient having difficulty wearing. * Check apnea link evaluation period was too short. Outpatient sleep study (9) Atrial fibrillation and flutter: Code(s): I48.91 - Unspecified atrial fibrillation; I48.92 - Unspecified atrial flutter Status: Acute Assessment and Plan: Afib rate controlled Unable to arrange warfarin meter for home but home health will do blood draws at home. Spoke with patient about options. Apixaban, warfarin with lab draws and consider meter for home, and aspirin (with a higher stroke risk). 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 Planning to start warfarin for home. Patient now interested in surgery so patient discussing timing with surgery. --Continuing apixaban today. Change to warfarin pending OR plans (10) Acute respiratory failure: Code(s): J96.00 - Acute respiratory failure, unspecified whether with hypoxia or hypercapnia Status: Acute Assessment and Plan: 01/18 Chest x-ray Segmental right lower lung and subsegmental bilateral upper lung atelectasis/consolidation. Moderate interstitial edema. Small bilateral pleural effusions. 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 Ceftriaxone 1 gram IVPB, then changed to Augmentin 875-125 mg 1 tab q 12 * Urine turbid with 1+ protein, 3+ glucose, 3+ blood, 2+ leukocytes, RBC >100. WBC >100, WBC clumps present, 4+ bacteria, and yeast present. * Urine culture negative, recollect UA with reflex. Urine grew Cruzito Glabrata. Received Fluconazole 100 mg 01/13-01/16. But unclear if true infection since no dysuria, so discontinued. Requested susceptibilities. Urine milky/cloudy when catheter placed and clearing after howard placed. Repeat urine sent with catheterization but likely colonization, spoke with Dr. Ernst and monitoring off antifungals * With large uterine prolapse midstream urine is likely inaccurate. Plan patient with extremely large stage IV uterine prolapse since 2016. she is not a candidate for pessary due to large size of her prolapse. urologist recommending colpocleisis. In the past patient had refused but now with recu rrent urinary retentions and UTI patient has agreed for the surgery, waiting further evaluation by the urologist. patient urine is growing Cruzito glabrate discuss with clinical pharmacist patient does not need any antibiotics as patient is clinically stable, will monitor and plan. Subjective Date/time seen: 01/20/25 14:53 Interval history: patient with history urinary retention and had PVR over 600mL repeat PVR and Howard placed by urology Resent UA from catheter specimen and culture pending. Appearance milky, clearing overnight but urine still cloudy yellow. Patient asymptomatic. Discussed with urology and likely contaminant/chronically colonized Creatinine 1.5> 1.33 this morning. Off oxygen and no shortness of breath but hasn't walked in the room yet. patient with extremely large stage IV uterine prolapse since 2016. she is not a candidate for pessary due to large size of her prolapse. urologist recommending colpocleisis. In the past patient had refused but now with recurrent urinary retentions and UTI patient has agreed for the surgery, waiting further evaluation by the urologist. patient urine is growing Cruzito glabrate discuss with clinical pharmacist patient does not need any antibiotics as patient is clinically stable, will monitor and plan. Review of Systems Review of Systems: All systems reviewed & are unremarkable except as noted in HPI and below Exam Narrative: Patient is comfortable, NAD HEENT: eyes are clear and none icteric LUNGS:CTA HEART: RR S1S2 ABD: BS+, Soft and nontender Lower extremities: no edema SKIN: nonjaundiced Neuro: grossly intact. Objective Data Vital Signs Vital Signs: Vital Signs - 24 hr 01/19/25 15:21 01/19/25 20:00 01/19/25 21:01 Temperature 37.0 C Pulse Rate 70 70 Respiratory Rate 16 Blood Pressure 124/48 L Pulse Oximetry 93 Oxygen Delivery Room Air Fraction of Inspired Oxygen 21 01/19/25 21:23 01/20/25 06:00 01/20/25 08:28 Temperature 37.3 C 36.6 C Pulse Rate 65 70 70 Respiratory Rate 18 18 Blood Pressure 134/44 L 127/50 L Pulse Oximetry 91 91 Oxygen Delivery Fraction of Inspired Oxygen 01/20/25 08:28 01/20/25 08:30 01/20/25 14:00 Temperature 36.7 C Pulse Rate 70 70 Respiratory Rate 16 Blood Pressure 148/55 H Pulse Oximetry 91 Oxygen Delivery Room Air Fraction of Inspired Oxygen Intake/Output Intake/Output: Intake & Output 01/17/25 01/18/25 01/19/25 01/20/25 23:59 23:59 23:59 23:59 Intake Total 602 177 6884 340 Output Total 1075 1400 300 Balance 850 225 -320 40 Meds/Results Medications: Active Medications Generic Name Dose Route Start Last Admin Trade Name Freq PRN Reason Stop Dose Admin Acetaminophen 1,000 mg 01/09/25 07:38 01/15/25 12:53 Acetaminophen 500 Mg Tablet PO 1,000 mg Q6H PRN Administration pain Albuterol 2 puff 01/14/25 11:20 Albuterol Sulfate (*Sp) Aerosol 1 Puff INHALATION Q6HRT PRN Shortness Of Breath Amiodarone HCl 200 mg 01/09/25 09:00 01/20/25 08:28 Amiodarone Hcl 200 Mg Tablet PO 200 mg DAILY JACKIE Administration Apixaban 2.5 mg 01/09/25 09:00 01/20/25 08:28 Apixaban 2.5 Mg Tablet PO 2.5 mg BID JACKIE Administration Atorvastatin Calcium 40 mg 01/09/25 09:00 01/20/25 08:27 Atorvastatin 40 Mg Tablet PO 40 mg DAILY JACKIE Administration Dextrose 12.5 gm 01/09/25 01:22 Dextrose 50% 25 Gm/50 Ml Syringe IV PUSH PRN PRN Hypoglycemia Protocol Docusate Sodium 100 mg 01/09/25 10:33 Docusate Sodium 100 Mg Capsule PO Q12H PRN Constipation Ferrous Sulfate 325 mg 01/09/25 09:15 01/20/25 08:28 Ferrous Sulfate [address] BY MOUTH 325 mg BID JACKIE Administration Fish Oil 2 gm 01/09/25 09:45 01/20/25 08:27 [place] 3 Polyunsat Fatty Acids 1 Gm Cap PO 2 gm BID JACKIE Administration Folic Acid 1 mg 01/09/25 09:00 01/20/25 08:28 Folic Acid 1 Mg Tablet PO 1 mg DAILY JACKIE Administration Furosemide 20 mg 01/15/25 09:00 01/16/25 08:11 Furosemide 20 Mg Tablet PO 20 mg DAILY JACKIE Administration Glucagon 1 mg 01/09/25 01:22 Glucagon For Inj 1 Mg Vial IM PRN PRN Hypoglycemia Protocol Glucose 15 gm 01/09/25 01:22 Glucose Oral Gel 15 Gm Of Glucse In 37.5 Gm Tube PO PRN PRN Hypoglycemia Protocol Dextrose 1,000 mls @ 100 mls/hr 01/09/25 01:22 Dextrose 5% 1,000 Ml IVPB PRN PRN Hypoglycemia Protocol Insulin Aspart 4 - 8 units 01/09/25 08:00 01/20/25 13:47 Insulin Aspart (*Bkc) 100 Units/Ml SUB-Q 5 units TIDWM JACKIE Administration Protocol Insulin Aspart 1 - 2 units 01/10/25 21:00 01/19/25 20:59 Insulin Aspart (*Bkc) 100 Units/Ml SUB-Q Not Given HS [facility] Protocol Insulin Aspart 2 units 01/17/25 17:00 01/20/25 13:47 Insulin Aspart (*Bkc) 100 Units/Ml 0.05 units/kg (2 units) 2 units SUB-Q Administration TIDWM [facility] Lisinopril 5 mg 01/09/25 09:00 01/20/25 08:28 Lisinopril 5 Mg Tablet PO 5 mg DAILY JACKIE Administration Magnesium Oxide 400 mg 01/09/25 09:00 01/20/25 08:28 Magnesium Oxide 400 Mg Tablet PO 400 mg DAILY JACKIE Administration Metformin HCl 500 mg 01/14/25 17:00 01/16/25 08:11 Metformin Hcl 500 Mg Tablet PO 500 mg BIDWM JACKIE Administration Metoprolol Tartrate 12.5 mg 01/09/25 09:00 01/20/25 08:28 Metoprolol Tartrate 12.5 Mg Tablet PO 12.5 mg Q12HR JACKIE Administration Mirtazapine 15 mg 01/09/25 21:00 01/19/25 21:01 Mirtazapine 15 Mg Tablet PO 15 mg HS JACKIE Administration Ondansetron HCl 4 mg 01/09/25 10:39 01/16/25 20:18 Ondansetron Inj 4 Mg/2 Ml Vial IV PUSH 4 mg Q6H PRN Administration Nausea And Vomiting Pantoprazole Sodium 40 mg 01/09/25 09:00 01/20/25 08:28 Pantoprazole 40 Mg Tablet PO 40 mg DAILY JACKIE Administration Polyethylene Glycol 17 gm 01/09/25 10:35 01/20/25 08:28 Polyethylene Glycol 3350 17 Gm Powd.Pack PO 17 gm QAM JACKIE Administration Vitamin D 50 mcg 01/09/25 09:45 01/20/25 08:27 Cholecalciferol (Vitamin D3) 25 Mcg (1,000 Units) Tablet PO 50 mcg DAILY JACKIE Administration Radiology Results: ITS Impressions Renal Ultrasound 01/16/25 12:11 IMPRESSION: Bilateral severe hydronephrotic changes. Echogenic material in the urinary bladder which may be blood or due to infection. Further evaluation advised. Thickened wall of the urinary bladder which may indicate cystitis. Chest X-Ray 01/18/25 14:25 IMPRESSION: Segmental right lower lung and subsegmental bilateral upper lung atelectasis/consolidation. Moderate interstitial edema. Small bilateral pleural effusions. Labs Labs: Laboratory Results - last 24 hr 01/19/25 01/19/25 01/20/25 17:17 20:59 04:55 WBC 11.0 H RBC 2.89 L Hgb 8.9 L Hct 28.5 L MCV 98.6 MCH 30.8 MCHC 31.2 L RDW 13.9 Plt Count 219 MPV 9.7 Immature Gran % (Auto) 0.7 H Neut % (Auto) 73.3 H Lymph % (Auto) 14.4 L [place] % (Auto) 8.8 H Eos % (Auto) 2.0 Baso % (Auto) 0.8 Lymph # (Auto) 1.58 [place] # (Auto) 1.0 H Eos # (Auto) 0.2 Baso # (Auto) 0.1 Abs Immat Gran (auto) 0.08 H Absolute Neuts (auto) 8.1 H Absolute Nucleated RBC 0.000 Nucleated RBC % 0.0 PT 15.9 H INR 1.3 Sodium 133 L Potassium 3.4 Chloride 104 Carbon Dioxide 27 Anion Gap 2 L BUN 14 D Creatinine 0.99 Estim Creat Clear Calc 29 Estimated GFR 54 L Glucose 146 H POC Capillary Glucose 128 H 200 H Calcium 7.9 L 01/20/25 01/20/25 08:21 12:06 WBC RBC Hgb Hct MCV MCH MCHC RDW Plt Count MPV Immature Gran % (Auto) Neut % (Auto) Lymph % (Auto) [place] % (Auto) Eos % (Auto) Baso % (Auto) Lymph # (Auto) [place] # (Auto) Eos # (Auto) Baso # (Auto) Abs Immat Gran (auto) Absolute Neuts (auto) Absolute Nucleated RBC Nucleated RBC % PT INR Sodium Potassium Chloride Carbon Dioxide Anion Gap BUN Creatinine Estim Creat Clear Calc Estimated GFR Glucose POC Capillary Glucose 154 H 269 H Calcium Quality VTE Prophylaxis VTE prophylaxis: pharmacologic ordered
--- NOTE | 2025-01-20 15:47 | WPDUROPN2 ---
Progress Note: A&P Assessment and Plan (1) Retention of urine, unspecified: Code(s): R33.9 - Retention of urine, unspecified Status: Acute (2) Complete uterine prolapse: Code(s): N81.3 - Complete uterovaginal prolapse Status: Acute Assessment and Plan: On exam has extreme prolapse. Is malnourished and deconditioned. I encouraged protein intake. Surgery offered and 2017 patient declined. Prolapse is only worsened. She is now open to considering surgery. At this point she would likely be best served by a vaginal procedure. Probably a colpocleisis and vaginal hysterectomy. I referred her to a tertiary care center for this upon discharge. I gave her information for Urogynecology Department at both [facility] and [facility] I gave her names and phone numbers. She states she will follow-up. Home with Maguire catheter (3) Other retention of urine: Code(s): R33.8 - Other retention of urine Status: Acute Assessment and Plan: Home with Maguire catheter (4) Hydronephrosis: Code(s): N13.30 - Unspecified hydronephrosis Status: Acute Assessment and Plan: Long-term. Due to extreme uterine prolapse. Creatinine normal. Maguire catheter in place Subjective Subjective Date/Time Seen: 01/20/25 15:47 Interval history: Had difficulties emptying. Maguire catheter placed. It is draining clear yellow urine. Creatinine noted. Is now considering surgery Exam Narrative: Extreme uterine prolapse. Twelve 15 cm beyond the introitus. Maguire catheter with clear urine Objective Data Vital Signs Vital Signs: Vital Signs - 24 hr 01/19/25 20:00 01/19/25 21:01 01/19/25 21:23 Temperature 99.2 F Pulse Rate 70 65 Respiratory Rate 18 Blood Pressure 134/44 L Pulse Oximetry 91 Oxygen Delivery Room Air Fraction of Inspired Oxygen 21 01/20/25 06:00 01/20/25 08:28 01/20/25 08:28 Temperature 97.9 F Pulse Rate 70 70 70 Respiratory Rate 18 Blood Pressure 127/50 L Pulse Oximetry 91 Oxygen Delivery Fraction of Inspired Oxygen 01/20/25 08:30 01/20/25 14:00 Temperature 98.1 F Pulse Rate 70 Respiratory Rate 16 Blood Pressure 148/55 H Pulse Oximetry 91 Oxygen Delivery Room Air Fraction of Inspired Oxygen Intake/Output Intake/Output: Intake & Output 01/17/25 01/18/25 01/19/25 01/20/25 23:59 23:59 23:59 23:59 Intake Total 977 861 6534 340 Output Total 1075 0600 300 Balance 850 -920 -254 40 Meds/Results Medications: Active Medications Generic Name Dose Route Start Last Admin Trade Name Freq PRN Reason Stop Dose Admin Acetaminophen 1,000 mg 01/09/25 07:38 01/15/25 12:53 Acetaminophen 500 Mg Tablet PO 1,000 mg Q6H PRN Administration pain Albuterol 2 puff 01/14/25 11:20 Albuterol Sulfate (*Sp) Aerosol 1 Puff INHALATION Q6HRT PRN Shortness Of Breath Amiodarone HCl 200 mg 01/09/25 09:00 01/20/25 08:28 Amiodarone Hcl 200 Mg Tablet PO 200 mg DAILY JACKIE Administration Apixaban 2.5 mg 01/09/25 09:00 01/20/25 08:28 Apixaban 2.5 Mg Tablet PO 2.5 mg BID JACKIE Administration Atorvastatin Calcium 40 mg 01/09/25 09:00 01/20/25 08:27 Atorvastatin 40 Mg Tablet PO 40 mg DAILY JACKIE Administration Dextrose 12.5 gm 01/09/25 01:22 Dextrose 50% 25 Gm/50 Ml Syringe IV PUSH PRN PRN Hypoglycemia Protocol Docusate Sodium 100 mg 01/09/25 10:33 Docusate Sodium 100 Mg Capsule PO Q12H PRN Constipation Ferrous Sulfate 325 mg 01/09/25 09:15 01/20/25 08:28 Ferrous Sulfate [address] BY MOUTH 325 mg BID JACKIE Administration Fish Oil 2 gm 01/09/25 09:45 01/20/25 08:27 [place] 3 Polyunsat Fatty Acids 1 Gm Cap PO 2 gm BID JACKIE Administration Folic Acid 1 mg 01/09/25 09:00 01/20/25 08:28 Folic Acid 1 Mg Tablet PO 1 mg DAILY JACKIE Administration Furosemide 20 mg 01/15/25 09:00 01/16/25 08:11 Furosemide 20 Mg Tablet PO 20 mg DAILY JACKIE Administration Glucagon 1 mg 01/09/25 01:22 Glucagon For Inj 1 Mg Vial IM PRN PRN Hypoglycemia Protocol Glucose 15 gm 01/09/25 01:22 Glucose Oral Gel 15 Gm Of Glucse In 37.5 Gm Tube PO PRN PRN Hypoglycemia Protocol Dextrose 1,000 mls @ 100 mls/hr 01/09/25 01:22 Dextrose 5% 1,000 Ml IVPB PRN PRN Hypoglycemia Protocol Insulin Aspart 4 - 8 units 01/09/25 08:00 01/20/25 13:47 Insulin Aspart (*Bkc) 100 Units/Ml SUB-Q 5 units TIDWM JACKIE Administration Protocol Insulin Aspart 1 - 2 units 01/10/25 21:00 01/19/25 20:59 Insulin Aspart (*Bkc) 100 Units/Ml SUB-Q Not Given HS JACKIE Protocol Insulin Aspart 2 units 01/17/25 17:00 01/20/25 13:47 Insulin Aspart (*Bkc) 100 Units/Ml 0.05 units/kg (2 units) 2 units SUB-Q Administration [facility] Lisinopril 5 mg 01/09/25 09:00 01/20/25 08:28 Lisinopril 5 Mg Tablet PO 5 mg DAILY JACKIE Administration Magnesium Oxide 400 mg 01/09/25 09:00 01/20/25 08:28 Magnesium Oxide 400 Mg Tablet PO 400 mg DAILY JACKIE Administration Metformin HCl 500 mg 01/14/25 17:00 01/16/25 08:11 Metformin Hcl 500 Mg Tablet PO 500 mg BIDWM JACKIE Administration Metoprolol Tartrate 12.5 mg 01/09/25 09:00 01/20/25 08:28 Metoprolol Tartrate 12.5 Mg Tablet PO 12.5 mg Q12HR JACKIE Administration Mirtazapine 15 mg 01/09/25 21:00 01/19/25 21:01 Mirtazapine 15 Mg Tablet PO 15 mg HS JACKIE Administration Ondansetron HCl 4 mg 01/09/25 10:39 01/16/25 20:18 Ondansetron Inj 4 Mg/2 Ml Vial IV PUSH 4 mg Q6H PRN Administration Nausea And Vomiting Pantoprazole Sodium 40 mg 01/09/25 09:00 01/20/25 08:28 Pantoprazole 40 Mg Tablet PO 40 mg DAILY JACKIE Administration Polyethylene Glycol 17 gm 01/09/25 10:35 01/20/25 08:28 Polyethylene Glycol 3350 17 Gm Powd.Pack PO 17 gm QAM JACKIE Administration Vitamin D 50 mcg 01/09/25 09:45 01/20/25 08:27 Cholecalciferol (Vitamin D3) 25 Mcg (1,000 Units) Tablet PO 50 mcg DAILY JACKIE Administration Radiology Results: ITS Impressions Renal Ultrasound 01/16/25 12:11 IMPRESSION: Bilateral severe hydronephrotic changes. Echogenic material in the urinary bladder which may be blood or due to infection. Further evaluation advised. Thickened wall of the urinary bladder which may indicate cystitis. Chest X-Ray 01/18/25 14:25 IMPRESSION: Segmental right lower lung and subsegmental bilateral upper lung atelectasis/consolidation. Moderate interstitial edema. Small bilateral pleural effusions. Labs Labs: Laboratory Results - last 24 hr 01/19/25 01/19/25 01/20/25 17:17 20:59 04:55 WBC 11.0 H RBC 2.89 L Hgb 8.9 L Hct 28.5 L MCV 98.6 MCH 30.8 MCHC 31.2 L RDW 13.9 Plt Count 219 MPV 9.7 Immature Gran % (Auto) 0.7 H Neut % (Auto) 73.3 H Lymph % (Auto) 14.[address] [place] % (Auto) 8.8 H Eos % (Auto) 2.0 Baso % (Auto) 0.8 Lymph # (Auto) 1.58 [place] # (Auto) 1.0 H Eos # (Auto) 0.2 Baso # (Auto) 0.1 Abs Immat Gran (auto) 0.08 H Absolute Neuts (auto) 8.1 H Absolute Nucleated RBC 0.000 Nucleated RBC % 0.0 PT 15.9 H INR 1.3 Sodium 133 L Potassium 3.4 Chloride 104 Carbon Dioxide 27 Anion Gap 2 L BUN 14 D Creatinine 0.99 Estim Creat Clear Calc 29 Estimated GFR 54 L Glucose 146 H POC Capillary Glucose 128 H 200 H Calcium 7.9 L 01/20/25 01/20/25 08:21 12:06 WBC RBC Hgb Hct MCV MCH MCHC RDW Plt Count MPV Immature Gran % (Auto) Neut % (Auto) Lymph % (Auto) [place] % (Auto) Eos % (Auto) Baso % (Auto) Lymph # (Auto) [place] # (Auto) Eos # (Auto) Baso # (Auto) Abs Immat Gran (auto) Absolute Neuts (auto) Absolute Nucleated RBC Nucleated RBC % PT INR Sodium Potassium Chloride Carbon Dioxide Anion Gap BUN Creatinine Estim Creat Clear Calc Estimated GFR Glucose POC Capillary Glucose 154 H 269 H Calcium
[2025-01-20 20:16] VITALS: PULSE 70
[2025-01-20] MEDS: MIRTAZAPINE 15 MG TABLET PO (20:16)
[2025-01-20 21:45] VITALS: BP 129/51; PULSE 70; RESP 18; TEMP 37; O2SAT 91
[2025-01-21 05:25] VITALS: BP 146/63; PULSE 70; RESP 18; TEMP 36.4; O2SAT 90
[2025-01-21 06:03] LABS: Hematocrit 27.3 % (37.0-47.0); Hemoglobin 8.5 g/dL (12.0-15.0); Immature Granulocyte Percent A 1.1 % (0-0.5); Lymphocytes Absolute Auto 1.54 K/mm3 (0.9-3.2); Mean Corpuscular HGB Conc 31.1 g/dl (32-36); Mean Corpuscular Hemoglobin 30.7 pg (26-34); Mean Corpuscular Volume 98.6 fl (80-100); Nucleated Red Blood Cells Absolute Auto 0.000 K/mm3 (0.0-0.012); Nucleated Red Blood Cells Perc 0.0 % (0.0-0.2); Platelet Count Result 221 k/mm3 (150-375); Red Blood Count 2.77 M/mm3 (4.2-5.4); White Blood Count 9.2 K/mm3 (4.5-10.0)
[2025-01-21 06:04] LABS: Anion Gap 3 mmol/L (4-12); Blood Urea Nitrogen 14 mg/dL (7-17); Calcium 7.7 mg/dL (8.4-10.2); Carbon Dioxide 29 mmol/L (22-30); Chloride 104 mmol/L (98-107); Estimated CRCL calculation 33 ml/min; Estimated Glomerular Filt Rate 60; Glucose 209 mg/dL (65-110); INR 1.5; Potassium 3.5 mmol/L (3.4-5.0); Prothrombin Time 17.9 Seconds (11.1-14.7); Sodium 136 mmol/L (137-145)
[2025-01-21] MEDS: FOLIC ACID 1 MG TABLET PO (09:00)
[2025-01-21] MEDS: FERROUS SULFATE 325 MG TABLET DR BY MOUTH ×2 (09:00→17:24)
[2025-01-21 09:01] VITALS: PULSE 70; PULSE 72
[2025-01-21] MEDS: AMIODARONE HCL 200 MG TABLET PO (09:01)
[2025-01-21] MEDS: OMEGA 3 POLYUNSAT FATTY ACIDS 1 GM CAP 2 GM PO ×2 (09:01→17:24)
[2025-01-21] MEDS: APIXABAN 2.5 MG TABLET PO ×2 (09:01→17:24)
[2025-01-21] MEDS: METOPROLOL TARTRATE 12.5 MG TABLET PO ×2 (09:01→20:13)
[2025-01-21] MEDS: MAGNESIUM OXIDE 400 MG TABLET PO (09:01)
[2025-01-21] MEDS: PANTOPRAZOLE 40 MG TABLET PO (09:01)
[2025-01-21] MEDS: ATORVASTATIN 40 MG TABLET PO (09:01)
[2025-01-21] MEDS: CHOLECALCIFEROL (VITAMIN D3) 25 MCG (1,000 UNITS) TABLET 50 MCG PO (09:01)
[2025-01-21] MEDS: INSULIN ASPART (*BKC) 100 UNITS/ML SUB-Q ×5 (09:02→20:11)
--- NOTE | 2025-01-21 13:58 | P.PNIM_ITS ---
Progress Note: A&P Assessment and Plan (1) CHF (congestive heart failure): Code(s): I50.9 - Heart failure, unspecified Status: Acute Assessment and Plan: BNP 7,610 01/14. Furosemide 20 mg ivp x 1 given. Slightly of breath today with activity and >crackles 01/18. Improved after urinary obstruction resolved. Continuing lasix but may be able to hold at some point since she now has a Howard catheter * Continue Furosemide 20 mg PO daily. * Portable chest x-ray 01/18 showed Segmental right lower lung and subsegmental bilateral upper lung atelectasis/consolidation. Moderate interstitial edema. Small bilateral pleural effusions. Suspect that chest x-ray findings related to fluid overload. and urinary obstruction could be the primary issue. Repeat chest x-ray in AM (2) RENETTA (acute kidney injury): Code(s): N17.9 - Acute kidney failure, unspecified Status: Acute Assessment and Plan: 02/06/24 CT abd/pelvis last year showed moderate bilateral hydroureteronephrosis likely related to pelvic floor relaxation and extrinsic compression of the d istal ureters as they extend to the bladder which is completely displaced caudal to the pubococcygeal line. Urology saw her at during a prior admission but she hasn't followed up because she was not interested in surgery. Now is agreeable Chronic changes likely contributing to UTI's and contaminated urine specimens. 01/16 Renal US done for RENETTA, showed: Bilateral severe hydronephrotic changes.Echogenic material in the urinary bladder which may be blood or due to infection. Further evaluation advised. Thickened wall of the urinary bladder which may indicate cystitis. 01/17 Urology consulted for severe hydronephrosis on Renal US 01/19 Bladder scan 660, Urology placed a Howard since still retaining urine after voiding and a repeat bladder scan. Sent UA/Culture from cath urine. Urine reported to be white/cloudy or milky. Is clearing. Creatinine 1.22 on admission> 0.98, trending up, 1.42<1.5. Likely obstructive and resolving after howard placement, down to 1.3 Of note, patient would be not be interested in dialysis, although not a short term concern * Urology consulted for hydronephrosis, appreciate recommendations. Discussing colpocleisis. Patient has been considering and said today that she is agreeable to the procedure, would have inpatient. Holding off starting warfarin until she discusses with Dr. Rene tomorrow. Continuing apixaban * Discussed with urology and holding off treating positive UA with antibioitics/antifungals since patient has been asymptomatic with a normal w jonathan count and no fevers. Requested susceptibilities of cruzito glabrata from culture 01/16 in the event she develops systemic symptoms * Repeat Culture from cath urine pending 01/18. Suspect chronic colonization and treating as a colonizer as long as she is otherwise improving. She denies dysuria on admission. * Follow BMP * Howard for urinary obstruction was placed by urology and should remain in place until urology follow up (3) Transaminitis: Code(s): R74.01 - Elevation of levels of liver transaminase levels Status: Acute Assessment and Plan: * AST 91>93>60>42>41>40>38. * ALT 144>137>98>84>72>67>55. (4) Multiple falls: Code(s): R29.6 - Repeated falls Status: Acute Assessment and Plan: * PT/OT for strengthening and balance. (5) DM type 2 (diabetes mellitus, type 2): Qualifiers: Diabetes mellitus alf insulin use: without local intermodal truck driver use Diabetes mellitus complication status: with kidney complications Diabetes mellitus complication detail: with chronic kidney disease Chronic kidney disease stage: stage 2 (mild) Qualified Code(s): E11.22 - Type 2 diabetes mellitus with diabetic chronic kidney disease; N18.2 - Chronic kidney disease, stage 2 (mild) Code(s): E11.9 - Type 2 diabetes mellitus without complications Status: Acute Assessment and Plan: * HgbA1C 12.9%. Blood sugars above goal * High dose SSI, hypoglycemic protocol, and accuchecks qid. * Added lispro 2 units TID with meals * community nutrition educator. (6) Severe protein-calorie malnutrition: Code(s): E43 - Unspecified severe protein-calorie malnutrition Status: Acute Assessment and Plan: * Increased protein-energy needs in setting of chronic disease as evidenced by minimal oral intake for >1-2 months, significant weight loss 21 lbs(18%) 10 months: moderate subcutaneous fat loss (orbital fat pads) and severe muscle wasting (temporalis, clavicle). * Protein level 5.5. * Geospatial Engineer consult, appreciate recommendations. * Glucerna 1 bottle BID. * Encourage oral intake. * Mirtazapine 15 mg PO HS. (7) BMI < 18.5: Code(s): Z68.1 - Body mass index [BMI] 19.9 or less, adult Status: Acute Assessment and Plan: * Encourage oral intake. * Geospatial Engineer consult. * Glucerna shake BID. * Mirtazapine 15 mg PO HS. * Weight 106 lb 4 oz today. (8) JOSUE on CPAP: Code(s): G47.33 - Obstructive sleep apnea (adult) (pediatric); Z99.89 - Dependence on other enabling machines and devices Status: Acute Assessment and Plan: * CPAP patient having difficulty wearing. * Check apnea link evaluation period was too short. Outpatient sleep study (9) Atrial fibrillation and flutter: Code(s): I48.91 - Unspecified atrial fibrillation; I48.92 - Unspecified atrial flutter Status: Acute Assessment and Plan: Afib rate controlled Unable to arrange warfarin meter for home but home health will do blood draws at home. Spoke with patient about options. Apixaban, warfarin with lab draws and consider meter for home, and aspirin (with a higher stroke risk). 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 Planning to start warfarin for home. Patient now interested in surgery so patient discussing timing with surgery. --Continuing apixaban today. Change to warfarin pending OR plans (10) Acute respiratory failure: Code(s): J96.00 - Acute respiratory failure, unspecified whether with hypoxia or hypercapnia Status: Acute Assessment and Plan: 01/18 Chest x-ray Segmental right lower lung and subsegmental bilateral upper lung atelectasis/consolidation. Moderate interstitial edema. Small bilateral pleural effusions. 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 Ceftriaxone 1 gram IVPB, then changed to Augmentin 875-125 mg 1 tab q 12 * Urine turbid with 1+ protein, 3+ glucose, 3+ blood, 2+ leukocytes, RBC >100. WBC >100, WBC clumps present, 4+ bacteria, and yeast present. * Urine culture negative, recollect UA with reflex. Urine grew Cruzito Glabrata. Received Fluconazole 100 mg 01/13-01/16. But unclear if true infection since no dysuria, so discontinued. Requested susceptibilities. Urine milky/cloudy when catheter placed and clearing after howard placed. Repeat urine sent with catheterization but likely colonization, spoke with Dr. Ernst and monitoring off antifungals * With large uterine prolapse midstream urine is likely inaccurate. Plan patient with extremely large stage IV uterine prolapse since 2016. she is not a candidate for pessary due to large size of her prolapse. urologist recommending colpocleisis. In the past patient had refused but now with recu rrent urinary retentions and UTI patient has agreed for the surgery, patient was seen by surgical urologist, recommended supervisor metal fabricating-urologist as her prolaps has worsen and will need extensive surgery, patient urine is growing Cruzito glabrate discuss with clinical pharmacist patient does not need any antibiotics as patient is clinically stable, will monitor and plan. patient wish to be discharged tomorrow. Subjective Date/time seen: 01/21/25 13:58 Interval history: patient with history urinary retention and had PVR over 600mL repeat PVR and Howard placed by urology Resent UA from catheter specimen and culture pending. Appearance milky, clearing overnight but urine still cloudy yellow. Patient asymptomatic. Discussed with urology and likely contaminant/chronically colonized Creatinine 1.5> 1.33 this morning. Off oxygen and no shortness of breath but hasn't walked in the room yet. patient with extremely large stage IV uterine prolapse since 2016. she is not a candidate for pessary due to large size of her prolapse. urologist recommending colpocleisis. In the past patient had refused but now with recurrent urinary retentions and UTI patient has agreed for the surgery, patient was seen by surgical urologist, recommended supervisor metal fabricating-urologist as her prolaps has wo rsen and will need extensive surgery, patient urine is growing Cruzito glabrate discuss with clinical pharmacist patient does not need any antibiotics as patient is clinically stable, will monitor and plan. Review of Systems Review of Systems: All systems reviewed & are unremarkable except as noted in HPI and below Exam Narrative: Patient is comfortable, NAD HEENT: eyes are clear and none icteric LUNGS:CTA HEART: RR S1S2 ABD: BS+, Soft and nontender Lower extremities: no edema SKIN: nonjaundiced Neuro: grossly intact. Objective Data Vital Signs Vital Signs: Vital Signs - 24 hr 01/20/25 14:00 01/20/25 20:10 01/20/25 20:16 Temperature 36.7 C Pulse Rate 70 70 Respiratory Rate 16 Blood Pressure 148/55 H Pulse Oximetry 91 Oxygen Delivery Room Air 01/20/25 21:45 01/21/25 05:25 01/21/25 08:00 Temperature 37.0 C 36.4 C Pulse Rate 70 70 Respiratory Rate 18 18 Blood Pressure 129/51 L 146/63 H Pulse Oximetry 91 90 Oxygen Delivery Room Air 01/21/25 09:01 01/21/25 09:01 Temperature Pulse Rate 70 72 Respiratory Rate Blood Pressure Pulse Oximetry Oxygen Delivery Intake/Output Intake/Output: Intake & Output 01/18/25 01/19/25 01/20/25 01/21/25 23:59 23:59 23:59 23:59 Intake Total 850 1080 580 580 Output Total 1075 1400 700 450 Balance -225 -320 -120 130 Meds/Results Medications: Active Medications Generic Name Dose Route Start Last Admin Trade Name Freq PRN Reason Stop Dose Admin Acetaminophen 1,000 mg 01/09/25 07:38 01/15/25 12:53 Acetaminophen 500 Mg Tablet PO 1,000 mg Q6H PRN Administration pain Albuterol 2 puff 01/14/25 11:20 Albuterol Sulfate (*Sp) Aerosol 1 Puff INHALATION Q6HRT PRN Shortness Of Breath Amiodarone HCl 200 mg 01/09/25 09:00 01/21/25 09:01 Amiodarone Hcl 200 Mg Tablet PO 200 mg DAILY JACKIE Administration Apixaban 2.5 mg 01/09/25 09:00 01/21/25 09:01 Apixaban 2.5 Mg Tablet PO 2.5 mg BID JACKIE Administration Atorvastatin Calcium 40 mg 01/09/25 09:00 01/21/25 09:01 Atorvastatin 40 Mg Tablet PO 40 mg DAILY JACKIE Administration Dextrose 12.5 gm 01/09/25 01:22 Dextrose 50% 25 Gm/50 Ml Syringe IV PUSH PRN PRN Hypoglycemia Protocol Docusate Sodium 100 mg 01/09/25 10:33 Docusate Sodium 100 Mg Capsule PO Q12H PRN Constipation Ferrous Sulfate 325 mg 01/09/25 09:15 01/21/25 09:00 Ferrous Sulfate [address] BY MOUTH 325 mg BID JACKIE Administration Fish Oil 2 gm 01/09/25 09:45 01/21/25 09:01 [place] 3 Polyunsat Fatty Acids 1 Gm Cap PO 2 gm BID JACKIE Administration Folic Acid 1 mg 01/09/25 09:00 01/21/25 09:00 Folic Acid 1 Mg Tablet PO 1 mg DAILY JACKIE Administration Furosemide 20 mg 01/15/25 09:00 01/16/25 08:11 Furosemide 20 Mg Tablet PO 20 mg DAILY JACKIE Administration Glucagon 1 mg 01/09/25 01:22 Glucagon For Inj 1 Mg Vial IM PRN PRN Hypoglycemia Protocol Glucose 15 gm 01/09/25 01:22 Glucose Oral Gel 15 Gm Of Glucse In 37.5 Gm Tube PO PRN PRN Hypoglycemia Protocol Dextrose 1,000 mls @ 100 mls/hr 01/09/25 01:22 Dextrose 5% 1,000 Ml IVPB PRN PRN Hypoglycemia Protocol Insulin Aspart 4 - 8 units 01/09/25 08:00 01/21/25 12:37 Insulin Aspart (*Bkc) 100 Units/Ml SUB-Q 5 units TIDWM JACKIE Administration Protocol Insulin Aspart 1 - 2 units 01/10/25 21:00 01/20/25 20:12 Insulin Aspart (*Bkc) 100 Units/Ml SUB-Q Not Given HS [facility] Protocol Insulin Aspart 2 units 01/17/25 17:00 01/21/25 12:37 Insulin Aspart (*Bkc) 100 Units/Ml 0.05 units/kg (2 units) 2 units SUB-Q Administration [facility] Lisinopril 5 mg 01/09/25 09:00 01/21/25 09:01 Lisinopril 5 Mg Tablet PO 5 mg DAILY JACKIE Administration Magnesium Oxide 400 mg 01/09/25 09:00 01/21/25 09:01 Magnesium Oxide 400 Mg Tablet PO 400 mg DAILY JACKIE Administration Metformin HCl 500 mg 01/14/25 17:00 01/16/25 08:11 Metformin Hcl 500 Mg Tablet PO 500 mg BIDWM JACKIE Administration Metoprolol Tartrate 12.5 mg 01/09/25 09:00 01/21/25 09:01 Metoprolol Tartrate 12.5 Mg Tablet PO 12.5 mg Q12HR JACKIE Administration Mirtazapine 15 mg 01/09/25 21:00 01/20/25 20:16 Mirtazapine 15 Mg Tablet PO 15 mg HS JACKIE Administration Ondansetron HCl 4 mg 01/09/25 10:39 01/16/25 20:18 Ondansetron Inj 4 Mg/2 Ml Vial IV PUSH 4 mg Q6H PRN Administration Nausea And Vomiting Pantoprazole Sodium 40 mg 01/09/25 09:00 01/21/25 09:01 Pantoprazole 40 Mg Tablet PO 40 mg DAILY JACKIE Administration Polyethylene Glycol 17 gm 01/09/25 10:35 01/21/25 09:03 Polyethylene Glycol 3350 17 Gm Powd.Pack PO 17 gm QAM JACKIE Administration Vitamin D 50 mcg 01/09/25 09:45 01/21/25 09:01 Cholecalciferol (Vitamin D3) 25 Mcg (1,000 Units) Tablet PO 50 mcg DAILY JACKIE Administration Radiology Results: ITS Impressions Renal Ultrasound 01/16/25 12:11 IMPRESSION: Bilateral severe hydronephrotic changes. Echogenic material in the urinary bladder which may be blood or due to infe ction. Further evaluation advised. Thickened wall of the urinary bladder which may indicate cystitis. Chest X-Ray 01/18/25 14:25 IMPRESSION: Segmental right lower lung and subsegmental bilateral upper lung atelectasis/consolidation. Moderate interstitial edema. Small bilateral pleural effusions. Labs Labs: Laboratory Results - last 24 hr 01/20/25 01/20/25 01/21/25 16:53 20:09 05:34 WBC 9.2 RBC 2.77 L Hgb 8.5 L Hct 27.3 L MCV 98.6 MCH 30.7 MCHC 31.1 L RDW 14.0 Plt Count 221 MPV 9.6 Immature Gran % (Auto) 1.1 H Neut % (Auto) 70.0 Lymph % (Auto) 16.8 L [place] % (Auto) 9.2 H Eos % (Auto) 2.1 Baso % (Auto) 0.8 Lymph # (Auto) 1.54 [place] # (Auto) 0.8 H Eos # (Auto) 0.2 Baso # (Auto) 0.1 Abs Immat Gran (auto) 0.10 H Absolute Neuts (auto) 6.4 Absolute Nucleated RBC 0.000 Nucleated RBC % 0.0 PT 17.9 H INR 1.5 Sodium 136 L Potassium 3.5 Chloride 104 Carbon Dioxide 29 Anion Gap 3 L BUN 14 Creatinine 0.90 Estim Creat Clear Calc 33 Estimated GFR 60 Glucose 209 H POC Capillary Glucose 112 H 184 H Calcium 7.7 L 01/21/25 01/21/25 07:57 11:48 WBC RBC Hgb Hct MCV MCH MCHC RDW Plt Count MPV Immature Gran % (Auto) Neut % (Auto) Lymph % (Auto) [place] % (Auto) Eos % (Auto) Baso % (Auto) Lymph # (Auto) [place] # (Auto) Eos # (Auto) Baso # (Auto) Abs Immat Gran (auto) Absolute Neuts (auto) Absolute Nucleated RBC Nucleated RBC % PT INR Sodium Potassium Chloride Carbon Dioxide Anion Gap BUN Creatinine Estim Creat Clear Calc Estimated GFR Glucose POC Capillary Glucose 186 H 251 H Calcium Quality VTE Prophylaxis VTE prophylaxis: pharmacologic ordered
[2025-01-21 14:00] VITALS: BP 135/54; PULSE 71; RESP 18; TEMP 36.9; O2SAT 94
[2025-01-21 20:13] VITALS: PULSE 70
[2025-01-21] MEDS: MIRTAZAPINE 15 MG TABLET PO (20:14)
[2025-01-21 20:18] VITALS: BP 144/50; PULSE 70; RESP 17; TEMP 36.9; O2SAT 90
[2025-01-21 22:40] VITALS: O2SAT 90
[2025-01-22 05:30] VITALS: BP 144/54; PULSE 70; RESP 17; TEMP 36.6; O2SAT 90
[2025-01-22 05:53] LABS: Hematocrit 28.4 % (37.0-47.0); Hemoglobin 8.8 g/dL (12.0-15.0); Immature Granulocyte Percent A 0.6 % (0-0.5); Lymphocytes Absolute Auto 1.55 K/mm3 (0.9-3.2); Mean Corpuscular HGB Conc 31.0 g/dl (32-36); Mean Corpuscular Hemoglobin 30.4 pg (26-34); Mean Corpuscular Volume 98.3 fl (80-100); Nucleated Red Blood Cells Absolute Auto 0.000 K/mm3 (0.0-0.012); Nucleated Red Blood Cells Perc 0.0 % (0.0-0.2); Platelet Count Result 247 k/mm3 (150-375); Red Blood Count 2.89 M/mm3 (4.2-5.4); White Blood Count 9.3 K/mm3 (4.5-10.0)
[2025-01-22 06:04] LABS: INR 1.4; Prothrombin Time 17.4 Seconds (11.1-14.7)
[2025-01-22 06:48] LABS: Anion Gap 2 mmol/L (4-12); Blood Urea Nitrogen 17 mg/dL (7-17); Calcium 8.2 mg/dL (8.4-10.2); Carbon Dioxide 29 mmol/L (22-30); Chloride 104 mmol/L (98-107); Estimated CRCL calculation 32 ml/min; Estimated Glomerular Filt Rate 59; Glucose 252 mg/dL (65-110); Potassium 3.7 mmol/L (3.4-5.0); Sodium 135 mmol/L (137-145)
[2025-01-22 08:14] VITALS: PULSE 70
[2025-01-22] MEDS: METOPROLOL TARTRATE 12.5 MG TABLET PO (08:14)
[2025-01-22 08:15] VITALS: PULSE 70
[2025-01-22] MEDS: AMIODARONE HCL 200 MG TABLET PO (08:15)
[2025-01-22] MEDS: CHOLECALCIFEROL (VITAMIN D3) 25 MCG (1,000 UNITS) TABLET 50 MCG PO (08:15)
[2025-01-22] MEDS: FOLIC ACID 1 MG TABLET PO (08:15)
[2025-01-22] MEDS: DOCUSATE SODIUM 100 MG CAPSULE PO (08:15)
[2025-01-22] MEDS: FERROUS SULFATE 325 MG TABLET DR BY MOUTH (08:15)
[2025-01-22] MEDS: PANTOPRAZOLE 40 MG TABLET PO (08:15)
[2025-01-22] MEDS: ATORVASTATIN 40 MG TABLET PO (08:15)
[2025-01-22] MEDS: OMEGA 3 POLYUNSAT FATTY ACIDS 1 GM CAP 2 GM PO (08:15)
[2025-01-22] MEDS: INSULIN ASPART (*BKC) 100 UNITS/ML SUB-Q ×3 (08:15→12:51)
[2025-01-22] MEDS: MAGNESIUM OXIDE 400 MG TABLET PO (08:15)
[2025-01-22] MEDS: APIXABAN 2.5 MG TABLET PO (08:15)
--- NOTE | 2025-01-22 12:43 | P.DS_ITS ---
DS: Admitting Diagnosis Discharge Date 01/22/25 Admitting Diagnosis Nausea and vomiting DS: Discharge Diagnosis Discharge Diagnosis (1) CHF (congestive heart failure): Code(s): I50.9 - Heart failure, unspecified Status: Acute Assessment and Plan: BNP 7,610 01/14. Furosemide 20 mg ivp x 1 given. Slightly of breath today with activity and >crackles 01/18. Improved after urinary obstruction resolved. Continuing lasix but may be able to hold at some point since she now has a Howard catheter * Continue Furosemide 20 mg PO daily. * Portable chest x-ray 01/18 showed Segmental right lower lung and subsegmental bilateral upper lung atelectasis/consolidation. Moderate interstitial edema. Small bilateral pleural effusions. Suspect that chest x-ray findings related to fluid overload. and urinary obstruction could be the primary issue. Repeat chest x-ray in AM (2) RENETTA (acute kidney injury): Code(s): N17.9 - Acute kidney failure, unspecified Status: Acute Assessment and Plan: 02/06/24 CT abd/pelvis last year showed moderate bilateral hydroureteronephrosis likely related to pelvic floor relaxation and extrinsic compression of the distal ureters as they extend to the bladder which is completely displaced caudal to the pubococcygeal line. Urology saw her at during a prior admission but she hasn't followed up because she was not interested in surgery. Now is agreeable Chronic changes likely contributing to UTI's and contaminated urine specimens. 01/16 Renal US done for RENETTA, showed: Bilateral severe hydronephrotic changes.Echogenic material in the urinary bladder which may be blood or due to infection. Further evaluation advised. Thickened wall of the urinary bladder which may indicate cystitis. 01/17 Urology consulted for severe hydronephrosis on Renal US 01/19 Bladder scan 660, Urology placed a Howard since still retaining urine after voiding and a repeat bladder scan. Sent UA/Culture from cath urine. Urine reported to be white/cloudy or milky. Is clearing. Creatinine 1.22 on admission> 0.98, trending up, 1.42<1.5. Likely obstructive and resolving after howard placement, down to 1.3 Of note, patient would be not be interested in dialysis, although not a short term concern * Urology consulted for hydronephrosis, appreciate recommendations. Discussing colpocleisis. Patient has been considering and said today that she is agreeable to the procedure, would have inpatient. Holding off starting warfarin until she discusses with Dr. Rene tomorrow. Continuing apixaban * Discussed with urology and holding off treating positive UA with antibioitics/antifungals since patient has been asymptomatic with a normal white count and no fevers. Requested susceptibilities of cruzito glabrata from culture 01/16 in the event she develops systemic symptoms * Repeat Culture from cath urine pending 01/18. Suspect chronic colonization and treating as a colonizer as long as she is otherwise improving. She denies dysuria on admission. * Follow BMP * Howard for urinary obstruction was placed by urology and should remain in place until urology follow up (3) Transaminitis: Code(s): R74.01 - Elevation of levels of liver transaminase levels Status: Acute Assessment and Plan: * AST 91>93>60>42>41>40>38. * ALT 144>137>98>84>72>67>55. (4) Multiple falls: Code(s): R29.6 - Repeated falls Status: Acute Assessment and Plan: * PT/OT for strengthening and balance. 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 Blood sugars above goal * High dose SSI, hypoglycemic protocol, and accuchecks qid. 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 (6) Severe protein-calorie malnutrition: Code(s): E43 - Unspecified severe protein-calorie malnutrition Status: Acute Assessment and Plan: * Increased protein-energy needs in setting of chronic disease as evidenced by minimal oral intake for >1-2 months, significant weight loss 21 lbs(18%) 10 months: moderate subcutaneous fat loss (orbital fat pads) and severe muscle wasting (temporalis, clavicle). * Protein level 5.5. * Hospital Insurance Representative consult, appreciate recommendations. * Glucerna 1 bottle BID. * Encourage oral intake. * Mirtazapine 15 mg PO HS. (7) BMI < 18.5: Code(s): Z68.1 - Body mass index [BMI] 19.9 or less, adult Status: Acute Assessment and Plan: * Encourage oral intake. * Hospital Insurance Representative consult. * Glucerna shake BID. * Mirtazapine 15 mg PO HS. * Weight 106 lb 4 oz today. (8) JOSUE on CPAP: Code(s): G47.33 - Obstructive sleep apnea (adult) (pediatric); Z99.89 - Dependence on other enabling machines and devices Status: Acute Assessment and Plan: * CPAP patient having difficulty wearing. * Check apnea link evaluation period was too short. Outpatient sleep study (9) Atrial fibrillation and flutter: Code(s): I48.91 - Unspecified atrial fibrillation; I48.92 - Unspecified atrial flutter Status: Acute Assessment and Plan: Afib rate controlled Unable to arrange warfarin meter for home but home health will do blood draws at home. Spoke with patient about options. Apixaban, warfarin with lab draws and consider meter for home, and aspirin (with a higher stroke risk). 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 Planning to start warfarin for home. Patient now interested in surgery so patient discussing timing with surgery. --Continuing apixaban today. Change to warfarin pending OR plans (10) Acute respiratory failure: Code(s): J96.00 - Acute respiratory failure, unspecified whether with hypoxia or hypercapnia Status: Acute Assessment and Plan: 01/18 Chest x-ray Segmental right lower lung and subsegmental bilateral upper lung atelectasis/consolidation. Moderate interstitial edema. Small bilateral pleural effusions. 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 Ceftriaxone 1 gram IVPB, then changed to Augmentin 875-125 mg 1 tab q 12 * Urine turbid with 1+ protein, 3+ glucose, 3+ blood, 2+ leukocytes, RBC >100. WBC >100, WBC clumps present, 4+ bacteria, and yeast present. * Urine culture negative, recollect UA with reflex. Urine grew Cruzito Glabrata. Received Fluconazole 100 mg 01/13-01/16. But unclear if true infection since no dysuria, so discontinued. Requested susceptibilities. Urine milky/cloudy when catheter placed and clearing after howard placed. Repeat urine sent with catheterization but likely colonization, spoke with Dr. Ernst and monitoring off antifungals * With large uterine prolapse midstream urine is likely inaccurate. Plan patient with extremely large stage IV uterine prolapse since 2017. she is not a candidate for pessary due to large size of her prolapse. urologist recommending colpocleisis. In the past patient had refused but now with recurrent urinary retentions and UTI patient has agreed for the surgery, patient was seen by surgical urologist, recommended assistant track coach-urologist as her prolaps has worsen and will need extensive surgery, patient urine is growing Cruzito glabrate discuss with clinical pharmacist patient does not need any antibiotics as patient is clinically stable, will monitor and plan. patient wish to be discharged tomorrow. DS: Summary Hospital Course Hospital Course: patient with extremely large stage IV uterine prolapse since 2017. she is not a candidate for pessary due to large size of her prolapse. urologist recommending colpocleisis. In the past patient had refused but now with recurrent urinary retentions and UTI patient has agreed for the surgery, patient was seen by surgical urologist, recommended assistant track coach-urologist as her prolaps has worsen and will need extensive surgery, patient urine is growing Cruzito glabrate discuss with clinical pharmacist patient does not need any antibiotics as patient is clinically stable. will discharge patient today. Time Spent with Patient Time attestation: Total time spent providing and/or coordinating discharge services: Exam Narrative: Patient is comfortable, NAD HEENT: eyes are clear and none icteric LUNGS:CTA HEART: RR S1S2 ABD: BS+, Soft and nontender Lower extremities: no edema SKIN: nonjaundiced Neuro: grossly intact. DS: Data Data Completed and Pending Labs on day of discharge: Labs from last 24 hours 01/22/25 01/22/25 01/22/25 11:07 07:28 05:24 WBC 9.3 RBC 2.89 L Hgb 8.8 L Hct 28.4 L MCV 98.3 MCH 30.4 MCHC 31.0 L RDW 14.0 Plt Count 247 MPV 9.7 Immature Gran % (Auto) 0.6 H Neut % (Auto) 68.5 Lymph % (Auto) 16.8 L Day % (Auto) 11.4 H Eos % (Auto) 1.8 Baso % (Auto) 0.9 Lymph # (Auto) 1.55 Day # (Auto) 1.1 H Eos # (Auto) 0.2 Baso # (Auto) 0.1 Abs Immat Gran (auto) 0.06 H Absolute Neuts (auto) 6.3 Absolute Nucleated RBC 0.000 Nucleated RBC % 0.0 PT 17.4 H INR 1.4 Sodium 135 L Potassium 3.7 Chloride 104 Carbon Dioxide 29 Anion Gap 2 L BUN 17 Creatinine 0.91 Estim Creat Clear Calc 32 Estimated GFR 59 Glucose 252 H POC Capillary Glucose 200 H 231 H Calcium 8.2 L 01/21/25 01/21/25 19:34 17:21 WBC RBC Hgb Hct MCV MCH MCHC RDW Plt Count MPV Immature Gran % (Auto) Neut % (Auto) Lymph % (Auto) Day % (Auto) Eos % (Auto) Baso % (Auto) Lymph # (Auto) Day # (Auto) Eos # (Auto) Baso # (Auto) Abs Immat Gran (auto) Absolute Neuts (auto) Absolute Nucleated RBC Nucleated RBC % PT INR Sodium Potassium Chloride Carbon Dioxide Anion Gap BUN Creatinine Estim Creat Clear Calc Estimated GFR Glucose POC Capillary Glucose 215 H 144 H Calcium Discharge Plan Discharge Attending physician on discharge: Ricarda Encarnacion Consulting providers: Kevan Rene; Mima Herrera; Ricarda Encarnacion; Erica Corrigan; Héctor Ernst Lisa R.; Jas Mott; Levy Luo Discharging Clinician: Duane Kline Patient Disposition: Home with Home Health Service Activity: as tolerated Diet: heart healthy Discharge Instructions: Care Coordination: Patient to have [facility] for PT/OT eval and treat, and penitentiary. Their phone number is [phone] if you have any questions; they will contact you to schedule their first visit. RN Please fax discharge instructions to [phone]. patient was seen by urologist and instructed to consult surgeon for her complete uterovaginal prolapse as soon as possible, patient to follow up with her primary care provider as soon as possible, patient is instructed is any symptoms worsen to go to nearest ER. Patient Instructions: Antibiotic Form, Apixaban (By mouth), Basic Carbohydrate Counting (DC), Blood Thinners (GEN), Suicide Prevention (GEN) Patient Language: Georgian Stand Alone Forms: General Discharge Information Follow-up/Referrals: Kevan Rene MD [Physician] - Bear Horan MD [Primary Care Provider] - Discharge Medications: New (DME) prothrombin time/INR test metr Misc See Rx Instructions .Route Qty: 1 0RF Rx Instructions: As directed docusate sodium 100 mg Capsule 100 mg PO Q12H PRN (Reason: Constipation) Qty: 30 0RF polyethylene glycol 3350 [Miralax] 17 gram Powder In Packet 17 g PO QAM Qty: 14 0RF Continued metformin 500 mg tablet extended release 24 hr 500 mg PO BID Qty: 180 1RF Patient Comments: doesn't take every day d/t causing diarrhea omega-3 fatty acids Capsule 2,000 mg PO BID apixaban 2.5 mg tablet 2.5 mg PO BID Qty: 60 1RF amiodarone 200 mg tablet 200 mg PO DAILY 30 Days Qty: 0 0RF ferrous sulfate 325 mg (65 mg iron) tablet See Rx Instructions .ROUTE .COMPLEX Qty: 180 0RF Dose Instruction: TAKE 1 TABLET BY MOUTH TWICE A DAY Rx Instructions: TAKE 1 TABLET BY MOUTH TWICE A DAY furosemide 20 mg tablet See Rx Instructions .ROUTE .COMPLEX Qty: 90 0RF Dose Instruction: TAKE 1 TABLET BY MOUTH EVERY DAY IN THE MORNING Rx Instructions: TAKE 1 TABLET BY MOUTH EVERY OTHER MORNING acetaminophen 500 mg capsule 1,000 mg PO Q6H PRN (Reason: pain) Rx Instructions: do not exceed 4,000 mg in 24 hours cyanocobalamin (vitamin B-12) 1,000 mcg lozenge See Rx Instructions .ROUTE .COMPLEX Qty: 90 0RF Dose Instruction: PLACE 1 TABLET UNDER THE TONGUE ONCE DAILY, LET DISSOLVE FOR AT LEAST 30 SECONDS BEFORE SWALLOWING Rx Instructions: PLACE 1 TABLET UNDER THE TONGUE ONCE DAILY, LET DISSOLVE FOR AT LEAST 30 SECONDS BEFORE SWALLOWING lisinopril 5 mg tablet See Rx Instructions .ROUTE .COMPLEX Qty: 90 1RF Dose Instruction: TAKE 1 TABLET BY MOUTH EVERY DAY Rx Instructions: TAKE 1 TABLET BY MOUTH EVERY DAY cholecalciferol (vitamin D3) 50 mcg (2,000 unit) tablet See Rx Instructions .ROUTE .COMPLEX Qty: 90 0RF Dose Instruction: TAKE 1 TABLET BY MOUTH DAILY Rx Instructions: TAKE 1 TABLET BY MOUTH DAILY metoprolol tartrate 25 mg tablet 12.5 mg PO Q12H Qty: 45 3RF pantoprazole 40 mg tablet,delayed release (DR/EC) See Rx Instructions .ROUTE .COMPLEX Qty: 90 1RF Dose Instruction: TAKE 1 TABLET BY MOUTH EVERY MORNING Rx Instructions: TAKE 1 TABLET BY MOUTH EVERY MORNING atorvastatin 40 mg tablet See Rx Instructions .ROUTE .COMPLEX Qty: 90 1RF Dose Instruction: TAKE 1 TABLET BY MOUTH EVERY DAY Rx Instructions: TAKE 1 TABLET BY MOUTH EVERY DAY folic acid 1 mg tablet See Rx Instructions .ROUTE .COMPLEX Qty: 90 1RF Dose Instruction: TAKE 1 TABLET BY MOUTH EVERY DAY Rx Instructions: TAKE 1 TABLET BY MOUTH EVERY DAY magnesium oxide 400 mg (241.3 mg magnesium) tablet 400 mg PO DAILY Qty: 90 1RF No Action mirtazapine 30 mg tablet 30 mg PO QHS Date of admission: 01/09/25 08:52 Primary Care Provider: Bear Horan Admitting Provider: Nina Anderson Attending physician on admission: Duane Kline Condition: Stable
[2025-01-22 13:46] VITALS: BP 147/55; PULSE 73; RESP 20; TEMP 37.4; O2SAT 91
== END 2025-01-22 15:50 | disposition home health service (06) | DRG 757 ==
LOC: ANHED 23:37 → ANH2MED 01-09 00:47
PROVIDERS: Nurse Practitioner Acute Care; Nurse Practitioner Family; Admitting Provider Internal Medicine; Emergency Provider Emergency Medicine; PCP Internal Medicine; Visit Provider Family Medicine
DX: B37.41 Candidal cystitis and urethritis (principal); E43 Unspecified severe protein-calorie malnutrition; J96.00 Acute respiratory failure, unspecified whether with hypoxia or hypercapnia; N17.9 Acute kidney failure, unspecified; Z68.1 Body mass index [BMI] 19.9 or less, adult; I13.0 Hypertensive heart and chronic kidney disease with heart failure and stage 1 through stage 4 chronic kidney disease, or unspecified chronic kidney disease; I48.92 Unspecified atrial flutter; N81.3 Complete uterovaginal prolapse; R33.8 Other retention of urine; R29.6 Repeated falls; E11.319 Type 2 diabetes mellitus with unspecified diabetic retinopathy without macular edema; E78.2 Mixed hyperlipidemia; E55.9 Vitamin D deficiency, unspecified; E11.22 Type 2 diabetes mellitus with diabetic chronic kidney disease; G47.33 Obstructive sleep apnea (adult) (pediatric); I50.9 Heart failure, unspecified; I48.91 Unspecified atrial fibrillation; M10.9 Gout, unspecified; N18.30 Chronic kidney disease, stage 3 unspecified; N13.30 Unspecified hydronephrosis; R74.01 Elevation of levels of liver transaminase levels; Z95.0 Presence of cardiac pacemaker; Z91.141 Patient's other noncompliance with medication regimen due to financial hardship; Z79.84 Long term (current) use of oral hypoglycemic drugs; Z79.01 Long term (current) use of anticoagulants; Z86.711 Personal history of pulmonary embolism; Z87.891 Personal history of nicotine dependence; Z99.89 Dependence on other enabling machines and devices; Z22.8 Carrier of other infectious diseases
CPT/HCPCS: 36415; 71045; 76775; 80048; 80053; 81001; 82010; 82306; 82570; 82607; 82803; 82948; 83036; 83540; 83550; 83735; 83880; 84100; 84145; 84300; 85025; 85610; 86140; 87086; 87186; 94762; 96361; 96365; 96375; 97110; 97116; 97161; 97166; 97530; 97535; 99285; A9270; G0378; J0696; J1815; J1938; J2405; J7030

== ENCOUNTER 2025-01-23 17:21 | Inpatient (IN) | payer MEDICARE, SELFPAY ==
--- NOTE | ~2025-01-23 | CT_ITS ---
CT abdomen pelvis wo con Ordering provider: Terrence Erickson MD History: 79 years Female with . ELEVATED LIVER ENZYMES . Comparison: February 06, 2024. Technique: CT abdomen and pelvis without IV and without oral contrast. Automated exposure control and iterative reconstruction technique were employed. The dose-length product was 244.25 mGy-cm. Findings: VISUALIZED LOWER CHEST: Bilateral pleural effusion with adjacent atelectasis versus pneumonia. UPPER ABDOMINAL ORGANS: Liver: Increased density is noted. Clinical evaluation advised. Gallbladder: Slightly thickened wall with no definite stones. Spleen: Normal. Calcified granulomas. Stomach/duodenum: Normal. Pancreas: Atrophic.. Adrenals: Normal. Kidneys: Bilateral severe hydronephrotic changes and hydroureter. No ureteric stones. PELVIC ORGANS: Cystocele is seen with prolapse uterus. Urinary bladder stones are noted. Maguire's cath eter is seen in the urinary bladder. BOWEL AND MESENTERY: Colon: No evidence of diverticulitis.. The appendix is not demonstrated. Small Bowel: Normal. No obstruction. Peritoneum/mesentery: No free air or free fluid. No mesenteric lymphadenopathy. RETROPERITONEUM: Mild atheromatous disease of the abdominal aorta. No retroperitoneal lymphadenopat hy. MUSCULOSKELETAL: Superficial soft tissues: Subcutaneous edema is seen laterally. The superficial soft tissues are norm al. Bones: Age appropriate degenerative changes of the spine. Severe bilateral hip osteoarthritic changes more on the left side with defect in the left acetabulum. Bilateral sacroiliacs. IMPRESSION: 1. No evidence of appendicitis, diverticulitis or intestinal obstruction. 2. Bilateral pleural effusion with adjacent atelectasis versus pneumonia. 3. Increased density of the liver. Clinical correlation advised. 4. Prolapse uterus with cystocele and urinary bladder stones. 5. Bilateral severe hydronephrotic changes. 6. Slightly thickened wall of the gallbladder with no stones. Ultrasound evaluation advised. Reviewed, dictated and finalized at location A. IMPRESSION: 1. No evidence of appendicitis, diverticulitis or intestinal obstruction. 2. Bilateral pleural effusion with adjacent atelectasis versus pneumonia. 3. Increased density of the liver. Clinical correlation advised. 4. Prolapse uterus with cystocele and urinary bladder stones. 5. Bilateral severe hydronephrotic changes. 6. Slightly thickened wall of the gallbladder with no stones. Ultrasound evalu ation advised.
--- NOTE | ~2025-01-23 | US_ITS ---
Limited ABDOMINAL ULTRASOUND (Doppler ultrasound interrogation techniques used as needed for this exa m.) Ordering provider: YRIS Anderson History: . Transaminitis . Comparison: None. FINDINGS: PANCREAS: Normal echotexture and size. PORTAL VEIN: Hepatopedal flow demonstrated. LIVER: Normal size and echotexture. No focal hepatic lesions or perihepatic fluid collections are alejandra ntified. BILIARY DUCTS: No intra or extrahepatic biliary dilation. Common bile duct measures 1.5 mm in diamete r which is normal for patient's age. GALLBLADDER: Thickened edematous wall with possible minimal pericholecystic fluid.. Otherwise, No sto tiana, sludge or pericholecystic fluid. Negative sonographic Aquino's sign. FREE FLUID: None visualized within the upper abdomen. IMPRESSION: Thickened wall of the gallbladder. Cholecystitis cannot be excluded. Clinical correlation advised. Ot letitia, limited abdominal ultrasound. Reviewed, dictated and finalized at location A. IMPRESSION: Thickened wall of the gallbladder. Cholecystitis cannot be excluded. Clinical c orrelation advised. Otherwise, limited abdominal ultrasound.
--- NOTE | ~2025-01-23 | XR_ITS ---
XR chest 2V Ordering provider: Osei Naarnjo MD History: 79 years Female with . cough, sob, low sats . Comparison: January 18, 2025 FINDINGS: MEDIASTINUM: The cardiac silhouette is not enlarged. Congestive juliana. Left bipolar pacemaker. LUNGS: No effusions or pneumothorax. Opacification in the left lung base is seen suggestive of atelec tasis versus pneumonia. Prominent markings in the right lower lobe. Bilateral interstitial thickening . Possibility of a nodule in the right upper lobe area cannot be excluded. 3 months follow-up is advise d. OTHER: No free air under the diaphragm. IMPRESSION: Left basilar atelectasis versus pneumonia. Bilateral interstitial thickening which may indicate pneumonitis. Pulmonary edema also is possible. U nderlying fibrotic changes are also noted. Possible nodule in the right upper lobe with surrounding fibrotic changes. 3 months follow-up advised . Reviewed, dictated and finalized at location A. IMPRESSION: Left basilar atelectasis versus pneumonia. Bilateral interstitial thickening which may indicate pneumonitis. Pulmonary nicolás ma also is possible. Underlying fibrotic changes are also noted. Possible nodule in the right upper lobe with surrounding fibrotic changes. 3 mo nths follow-up advised.
--- OUTSIDE RECORDS SUMMARY | 2025-01-23 17:23 | XMS_ITS | Continuity of Care Document ---
Author Organization [facility] [place] Address [address] [place] [address] [place] [address] Phone Care Team Providers Care Scrub Woman Name Role Phone [facility] [employer] Unavailable Unavail able Gerson Bustamante Unavailable Unavailable Advance Directives Directive Yes / No Effective Date File Name No Information Encounters Encounter Description Practice Location Reason(s) For Visit Diagnoses Date Provider Providers Copied on Encounter [facility], [address], [place], [place], [id number], [place] tel:[phone] [facility] No Information Aug- [address] [facility] [address] [facility], [address], [place], [place], [id number] , [place]. tel:[phone] Consulting Provider: Gerson Bustamante, [address] [facility], [place], [address]. tel:[phone] Family History Family Member Type Diagnosis Age At Onset No Information Payers Payer name Insurance type Covered alliance party ID Authoriza tion(s) No Information Social [...]
[2025-01-23 17:25] VITALS: BP 149/43; PULSE 73; RESP 18; TEMP 37.4; O2SAT 91
--- NOTE | 2025-01-23 17:29 | ECG_ITS ---
Test Date: 2025-01-23 17:38:43 Measurements Intervals Rowley Rate: 72 P: 24 IN: 211 QRS: 88 QRSD: 79 T: 25 QT: 329 QTc: 361 Interpretive Statements SINUS RHYTHM WITH FIRST DEGREE AV BLOCK LOW QRS VOLTAGE [QRS DEFLECTION < 0.5/1.0 mV IN LIMB/CHEST LEADS] Compared to ECG 02/06/2024 15:23:28 First degree AV block now present Low QRS voltage now present Atrial flutter no longer present Electronically Signed On 01-24-2025 12:43:19 CDT by Atul Padron M.D.
--- NOTE | 2025-01-23 17:40 | ED.SOB ---
HPI - SOB/Dyspnea General Chief Complaint: Shortness of Breath/Dyspnea Stated Complaint: shortness of breath Time Seen by Provider: 01/23/25 17:40 Focused HPI: Patient is an 79-year-old female, with past medical history of CKD, DM, HTN, AFIB on eliquis 2.5mg bid, who presents to the ED via EMS with c/o SOB. patient reports she has been feeling increasingly short of breath since yesterday. States she was recently admitted here for kidney/urinary tract infection. Does have chronic indwelling Maguire catheter. Also reports cough, sneezing. Denies fevers, CP. Patient was noted to be hypoxic by EMS down to 88%. Placed on 2 L nasal cannula. Denies previous oxygen requirement. GENERAL: Elderly, thin/frail, disheveled, and in no acute distress. HEAD: Normocephalic, atraumatic. CHEST: No respiratory distress. Rhonchi in bases bilaterally HEART: Regular rate and rhythm.? ABD: No tenderness. Maguire catheter bag with thick light brown urine. NEURO: ?Alert and oriented x3. Patient screened in triage and initial orders placed.? ?Additional care and disposition to be based upon?diagnostic testing and treatment. Source: patient and old records reviewed Mode of arrival: EMS Limitations: no limitations Related Data Home Medications ?Medication ?Instructions ?Recorded ?Confirmed ?Last Taken ?Type omega-3 fatty acids 2,000 mg PO BID 02/06/24 01/23/25 01/08/25 History acetaminophen 500 mg capsule 1,000 mg PO Q6H PRN pain 02/13/24 01/23/25 Unknown History mirtazapine 30 mg tablet 30 mg PO QHS 01/23/25 01/23/25 Unknown History Allergies Allergy/AdvReac Type Severity Reaction Status Date / Time hydrocodone Allergy Severe LIGHT Verified 01/23/25 18:03 HEADED/VERTIGO iohexol (From contrast - CT, Allergy Severe Anaphylaxis Verified 01/23/25 18:03 X-RAY) meperidine Allergy Severe NAUSEA AND Verified 01/23/25 18:03 VOMITING propoxyphene Allergy Severe HIVES Verified 01/23/25 18:03 Sulfa (Sulfonamide Allergy Severe HIVES Verified 01/23/25 18:03 Antibiotics) Contrast Media Allergy Severe HIVES Uncoded 01/23/25 18:03 PMFSH Past Medical History Medical History (Updated 01/23/25 @ 22:37 by YRIS Anderson) Diabetes mellitus Elevated troponin Acute exacerbation of CHF (congestive heart failure) Complete uterine prolapse Fungal colonization of urinary tract RENETTA (acute kidney injury) Abnormal urinalysis Impaired functional mobility, balance, gait, and endurance Kyphosis HUI (dyspnea on exertion) Adult BMI 19-24 kg/sq m Chronic kidney disease, stage 3 Hydroureteronephrosis Atrial fibrillation and flutter Diabetic retinopathy Pulmonary embolus Type 2 diabetes mellitus Arteriosclerotic heart disease Contusion of hip, left Vitamin D deficiency Gout Iron deficiency anemia Mixed hyperlipidemia Benign essential hypertension Surgical History Surgical History History of permanent cardiac pacemaker placement Family History Family History Father Carcinoma of colon Mother Diabetes mellitus Family history of diabetes mellitus in first degree relative Carcinoma of colon Lung cancer Sibling Alzheimer dementia Diabetes mellitus Heart disease Family history of diabetes mellitus in first degree relative Social History Social History Social History: Surrogate medical decision maker: Felipe Jin (son) and Karyna Menon (granddaughter). Code status: Full code. Smoking packs per day: 0 Smoking cigarettes per day: 0.0 Years smoked: 10 Smoking pack-years: 0.00 Smoking status: Never smoker Tobacco type: cigarettes Second hand tobacco smoke exposure: Yes Smoking end date: 07/24/74 Alcohol intake: never Substance use: never Substance use type: does not use Do You Feel Safe in your Home?: Yes Lack of Transportation: YES Lack of Food: Never True Current Housing: I Have Housing Concerned About Future Housing: No Difficulty Paying Gas/Electric Bills: No Difficulty Paying for Meds: No Currently Unemployed: No Education: Trade/Vocational Certificate Difficulty w/ Childcare or Family Care: No Living arrangements: alone Additional living arrangements comments: Lives alone with her juancho epstein in [place]. Occupation/Education: retired Spiritual care concerns: No Course Vital Signs Vital signs: Vital Signs Temperature 99.4 F 01/23/25 17:25 Pulse Rate 73 01/23/25 17:25 Respiratory Rate 18 01/23/25 17:25 Blood Pressure 149/43 H 01/23/25 17:25 Pulse Oximetry 91 01/23/25 17:25 Oxygen Delivery Room Air 01/23/25 17:25 Temperature 101.2 F H 01/24/25 08:00 Pulse Rate 74 01/24/25 08:00 Respiratory Rate 16 01/24/25 08:00 Blood Pressure 149/50 H 01/24/25 08:00 Pulse Oximetry 95 01/24/25 08:00 Oxygen Delivery Nasal Cannula 01/24/25 07:49 Oxygen Flow Rate 2 01/24/25 07:49 MDM - SOB/Dyspnea MDM Narrative Medical decision making narrative: MSE by KAYLYNN in triage. Lab Data 01/24/25 03:53 01/24/25 03:53 Labs: Lab Results 01/23/25 01/23/25 Range/Units 17:34 20:35 WBC 12.4 H (4.5-10.0) K/mm3 RBC 3.09 L (4.2-5.4) M/mm3 Hgb 9.6 L (12.0-15.0) g/dL Hct 30.4 L (37.0-47.0) % MCV 98.4 (80-100) fl MCH 31.1 (26-34) pg MCHC 31.6 L (32-36) g/dl RDW 14.6 H (11.5-14.5) % Plt Count 252 (150-375) k/mm3 MPV 9.4 (7.4-10.4) fl Immature Gran % (Auto) 0.7 H (0-0.5) % Neut % (Auto) 90.2 H (45.5-73.1) % Lymph % (Auto) 4.7 L (18.3-44.2) % [place] % (Auto) 4.0 (2.6-8.5) % Eos % (Auto) 0.0 (0-4.4) % Baso % (Auto) 0.4 (0.2-1.2) % Lymph # (Auto) 0.58 L (0.9-3.2) K/mm3 [place] # (Auto) 0.5 (0.1-0.6) K/mm3 Eos # (Auto) 0.0 (0-0.3) K/mm3 Baso # (Auto) 0.1 (0.0-0.1) K/mm3 Abs Immat Gran (auto) 0.09 H (0.00-0.031) K/mm3 Absolute Neuts (auto) 11.2 H (1.3-6.7) K/mm3 Absolute Nucleated RBC 0.000 (0.0-0.012) K/mm3 Nucleated RBC % 0.0 (0.0-0.2) % Sodium 137 (137-145) mmol/L Potassium 4.3 (3.4-5.0) mmol/L Chloride 101 (98-107) mmol/L Carbon Dioxide 29 (22-30) mmol/L Anion Gap 7 (4-12) mmol/L BUN 24 H (7-17) mg/dL Creatinine 1.32 H (0.7-1.0) mg/dL Estim Creat Clear Calc 20 ml/min Estimated GFR 39 L (59 - ) Glucose 321 H (65-110) mg/dL Calcium 8.5 (8.4-10.2) mg/dL Total Bilirubin 1.4 H (0.2-1.3) mg/dL AST 630 H (14-36) U/L ALT 269 H (6-35) U/L Alkaline Phosphatase 86 (38-126) U/L Troponin I 0.168 H* (0.000-0.034) ng/mL NT-Pro-B Natriuret Pep > 20261 H (19.9-100) pg/mL Total Protein 6.4 (6.3-8.2) g/dL Albumin 2.8 L (3.5-5.1) g/dL Lipase 23 (23-300) U/L Urine Color Dark yellow (Yellow) Urine Appearance Turbid H (Clear) Urine pH 5.5 (5.0-9.0) Ur Specific Crawford 1.018 (1.001-1.035) Urine Protein 3+ H (Negative) mg/dL Urine Glucose (UA) Negative (Negative) mg/dL Urine Ketones Trace H (Negative) mg/dL Ur Blood (Man) 3+ H (Negative) Urine Nitrate Negative (Negative) Urine Bilirubin Negative (Negative) Urine Urobilinogen 1.0 (<2.0) mg/dL Add Ur Microanalysis Reviewed Leukocyte Esterase Rfl 3+ H (Negative) GERARD/UL Urine RBC 11-20 H (0-2) /hpf Urine WBC >100 H (0-3) /hpf Ur Squamous Epith Cells Many H (Few) /hpf Urine Bacteria 4+ H /hpf Urine Casts 11-20 Urine Yeast (Budding) Present H (None) /hpf Influenza A (RT-PCR) Negative (Negative) Influenza B (RT-PCR) Negative (Negative) RSV (RT-PCR) Negative (Negative) SARS-CoV-2 RNA (RT-PCR) Negative (Negative) Discharge Plan Discharge Clinical Impression: CHF (congestive heart failure), Urinary tract infection, RENETTA (acute kidney injury), Non-STEMI (non-ST elevated myocardial infarction), Elevated liver enzymes, Diabetes mellitus with hyperglycemia Patient Disposition: Still a Patient Condition: Stable
[2025-01-23 17:45] LABS: Hematocrit 30.4 % (37.0-47.0); Hemoglobin 9.6 g/dL (12.0-15.0); Immature Granulocyte Percent A 0.7 % (0-0.5); Lymphocytes Absolute Auto 0.58 K/mm3 (0.9-3.2); Mean Corpuscular HGB Conc 31.6 g/dl (32-36); Mean Corpuscular Hemoglobin 31.1 pg (26-34); Mean Corpuscular Volume 98.4 fl (80-100); Nucleated Red Blood Cells Absolute Auto 0.000 K/mm3 (0.0-0.012); Nucleated Red Blood Cells Perc 0.0 % (0.0-0.2); Platelet Count Result 252 k/mm3 (150-375); Red Blood Count 3.09 M/mm3 (4.2-5.4); White Blood Count 12.4 K/mm3 (4.5-10.0)
[2025-01-23 18:00] LABS: Alanine Aminotransferase 269 U/L (6-35); Albumin Level 2.8 g/dL (3.5-5.1); Alkaline Phosphatase 86 U/L (38-126); Anion Gap 7 mmol/L (4-12); Aspartate Amino Transferase 630 U/L (14-36); Bilirubin,Total 1.4 mg/dL (0.2-1.3); Blood Urea Nitrogen 24 mg/dL (7-17); Calcium 8.5 mg/dL (8.4-10.2); Carbon Dioxide 29 mmol/L (22-30); Chloride 101 mmol/L (98-107); Estimated CRCL calculation 20 ml/min; Estimated Glomerular Filt Rate 39; Glucose 321 mg/dL (65-110); Potassium 4.3 mmol/L (3.4-5.0); Sodium 137 mmol/L (137-145); Total Protein 6.4 g/dL (6.3-8.2)
[2025-01-23 18:01] VITALS: O2SAT 96
[2025-01-23 18:02] VITALS: O2SAT 96
[2025-01-23 18:23] LABS: Influenza A QL RT-PCR Negative (Negative); Influenza B QL RT-PCR Negative (Negative); RSV RNA, RT-PCR Negative (Negative); SARS-CoV-2 RNA PCR Negative (Negative)
[2025-01-23 19:28] LABS: NT Pro B Type Natriuretic Pept > 30000 pg/mL (19.9-100); Troponin I 0.168 ng/mL (0.000-0.034)
--- NOTE | 2025-01-23 20:45 | ED_ITS ---
HPI - SOB/Dyspnea General Chief Complaint: Shortness of Breath/Dyspnea Stated Complaint: shortness of breath Time Seen by Provider: 01/23/25 17:40 Source: patient and old records reviewed Mode of arrival: EMS Limitations: no limitations History of Present Illness HPI Narrative: 79 YEARS OLD WHITE FEMALE GOT DISCHARGED FROM OUR FACILITY YESTERDAY AFTER 2 WEEKS OF HOSPITALIZATION. HOME VISITING NURSE TODAY NOTICED THAT THE PULSE OXIMETRY RUNNING IN THE 86%. PATIENT REPORTS INTERMITTENT SHORTNESS OF BREATH. SHE DENIES ANY CHEST PAIN, FEVER, CHILLS, NAUSEA, VOMITING. PATIENT IS NOT ON HOME OXYGEN. Related Data Home Medications ?Medication ?Instructions ?Recorded ?Confirmed ?Last Taken ?Type omega-3 fatty acids 2,000 mg PO BID 02/06/24 01/09/25 01/08/25 History acetaminophen 500 mg capsule 1,000 mg PO Q6H PRN pain 02/13/24 01/09/25 Unknown History Allergies Allergy/AdvReac Type Severity Reaction Status Date / Time hydrocodone Allergy Severe LIGHT Verified 01/23/25 18:03 HEADED/VERTIGO iohexol (From contrast - CT, Allergy Severe Anaphylaxis Verified 01/23/25 18:03 X-RAY) meperidine Allergy Severe NAUSEA AND Verified 01/23/25 18:03 VOMITING propoxyphene Allergy Severe HIVES Verified 01/23/25 18:03 Sulfa (Sulfonamide Allergy Severe HIVES Verified 01/23/25 18:03 Antibiotics) Contrast Media Allergy Severe HIVES Uncoded 01/23/25 18:03 Review of Systems 2 Review of Systems: All systems reviewed & are unremarkable except as noted in HPI and below PMFSH Past Medical History Medical History Complete uterine prolapse Fungal colonization of urinary tract RENETTA (acute kidney injury) Abnormal urinalysis Impaired functional mobility, balance, gait, and endurance Kyphosis HUI (dyspnea on exertion) Adult BMI 19-24 kg/sq m Chronic kidney disease, stage 3 Hydroureteronephrosis Atrial fibrillation and flutter Diabetic retinopathy Pulmonary embolus Type 2 diabetes mellitus Arteriosclerotic heart disease Contusion of hip, left Vitamin D deficiency Gout Iron deficiency anemia Mixed hyperlipidemia Benign essential hypertension Surgical History Surgical History History of permanent cardiac pacemaker placement Family History Family History Father Carcinoma of colon Mother Diabetes mellitus Family history of diabetes mellitus in first degree relative Carcinoma of colon Lung cancer Sibling Alzheimer dementia Diabetes mellitus Heart disease Family history of diabetes mellitus in first degree relative Social History Social History Social History: Surrogate medical decision maker: Felipe Jin (son) and Karyna Menon (granddaughter). Code status: Full code. Smoking packs per day: 0 Smoking cigarettes per day: 0.0 Years smoked: 10 Smoking pack-years: 0.00 Smoking status: Former smoker Tobacco type: cigarettes Second hand tobacco smoke exposure: Yes Smoking end date: 07/24/74 Alcohol intake: former Substance use: never Substance use type: does not use Do You Feel Safe in your Home?: Yes Lack of Transportation: No Lack of Food: Never True Current Housing: I Have Housing Concerned About Future Housing: No Difficulty Paying Gas/Electric Bills: No Difficulty Paying for Meds: YES Currently Unemployed: No Education: Trade/Vocational Certificate Difficulty w/ Childcare or Family Care: No Living arrangements: alone Additional living arrangements comments: Lives alone with her black lab in [place]. Occupation/Education: retired Spiritual care concerns: No Exam 2 Narrative: GENERAL APPEARANCE: WELL-DEVELOPED, WELL-NOURISHED SKIN: NORMAL COLOR HEAD: NORMOCEPHALIC, NONTRAUMATIC EYES: CLEAR CONJUNCTIVA ENT: OROPHARYNX NORMAL, EARS NORMAL, NOSE NORMAL NECK: SUPPLE, NONTENDER CHEST AND RESPIRATORY: AIRWAY PATENT, NO RESPIRATORY DISTRESS, NO ACCESSORY MUSCLE USE HEART: REGULAR RATE/RHYTHM ABDOMEN: SOFT, NONTENDER, NO ORGANOMEGALY, QUIET BOWEL SOUNDS VASCULAR: NORMAL PERIPHERAL PULSES, NORMAL CAPILLARY REFILL. MUSCULOSKELETAL: NORMAL RANGE OF MOTION, NONTENDER BACK NEUROLOGIC: ALERT AND ORIENTED ?3, RETAIL PROPERTY MANAGER IS NORMAL TESTED, NO GROSS MOTOR DEFICIT Course Vital Signs Vital signs: Vital Signs Temperature 37.4 C 01/23/25 17:25 Pulse Rate 73 01/23/25 17:25 Respiratory Rate 18 01/23/25 17:25 Blood Pressure 149/43 H 01/23/25 17:25 Pulse Oximetry 91 01/23/25 17:25 Oxygen Delivery Room Air 01/23/25 17:25 Temperature 37.4 C 01/23/25 17:25 Pulse Rate 73 07/03/25 17:25 Respiratory Rate 18 01/23/25 17:25 Blood Pressure 149/43 H 01/23/25 17:25 Pulse Oximetry 96 01/23/25 18:02 Oxygen Delivery Nasal Cannula 01/23/25 18:02 Oxygen Flow Rate 2 01/23/25 18:02 MDM - SOB/Dyspnea MDM Narrative Medical decision making narrative: PATIENT CAME TO THE ED WITH HYPOXIA AND SHORTNESS OF BREATH VITAL SIGNS SHOWING BLOOD PRESSURE 149/43, SATURATION ON 2 L 91%. PATIENT NORMALLY NOT ON OXYGEN PHYSICAL EXAMINATION SHOWING MALNOURISHED PATIENT, WITH SLIGHT TACHYPNEA BUT ASYMPTOMATIC DIFFERENTIAL DIAGNOSIS INCLUDE CHF, PNEUMONIA, CARDIAC ARRHYTHMIA, CORONARY DISEASE, PLEURAL EFFUSION, ELECTROLYTE IMBALANCE, DEHYDRATION BLOOD WORKUP TODAY INCLUDES CBC, CMP, PRO BNP, TROPONIN SHOWED WBC 12.4, HEMOGLOBIN 9.6, BUN 24, CREATININE 1.3, GLUCOSE 321, AST 630 ALT 269, TROPONIN 0.168 PRO BMP 30,000 URINALYSIS SHOWED EVIDENCE OF INFECTION PATIENT TESTED NEGATIVE FOR COVID FLU AND RSV CHEST X-RAY SHOWED ATELECTASIS VERSUS PNEUMONITIS VERSUS PULMONARY EDEMA. PULMONARY EDEMA IS MY CONCERN WHICH IS CONSISTENT WITH PATIENT FINDINGS. ADMIT TO HOSPITALIST, DIAGNOSIS: CHF, AND N STEMI, RENETTA, URINARY TRACT INFECTION, ELEVATED LIVER ENZYMES Medical Records Attestation: I reviewed the patient's medical records. Lab Data Attestation: I reviewed the patient's lab results. 01/23/25 17:34 01/23/25 17:34 Labs: Lab Results 01/23/25 01/23/25 Range/Units 17:34 20:35 WBC 12.4 H (4.5-10.0) K/mm3 RBC 3.09 L (4.2-5.4) M/mm3 Hgb 9.6 L (12.0-15.0) g/dL Hct 30.4 L (37.0-47.0) % MCV 98.4 (80-100) fl MCH 31.1 (26-34) pg MCHC 31.6 L (32-36) g/dl RDW 14.6 H (11.5-14.5) % Plt Count 252 (150-375) k/mm3 MPV 9.4 (7.4-10.4) fl Immature Gran % (Auto) 0.7 H (0-0.5) % Neut % (Auto) 90.2 H (45.5-73.1) % Lymph % (Auto) 4.7 L (18.3-44.2) % [place] % (Auto) 4.0 (2.6-8.5) % Eos % (Auto) 0.0 (0-4.4) % Baso % (Auto) 0.4 (0.2-1.2) % Lymph # (Auto) 0.58 L (0.9-3.2) K/mm3 [place] # (Auto) 0.5 (0.1-0.6) K/mm3 Eos # (Auto) 0.0 (0-0.3) K/mm3 Baso # (Auto) 0.1 (0.0-0.1) K/mm3 Abs Immat Gran (auto) 0.09 H (0.00-0.031) K/mm3 Absolute Neuts (auto) 11.2 H (1.3-6.7) K/mm3 Absolute Nucleated RBC 0.000 (0.0-0.012) K/mm3 Nucleated RBC % 0.0 (0.0-0.2) % Sodium 137 (137-145) mmol/L Potassium 4.3 (3.4-5.0) mmol/L Chloride 101 (98-107) mmol/L Carbon Dioxide 29 (22-30) mmol/L Anion Gap 7 (4-12) mmol/L BUN 24 H (7-17) mg/dL Creatinine 1.32 H (0.7-1.0) mg/dL Estim Creat Clear Calc 20 ml/min Estimated GFR 39 L (59 - ) Glucose 321 H (65-110) mg/dL Calcium 8.5 (8.4-10.2) mg/dL Total Bilirubin 1.4 H (0.2-1.3) mg/dL AST 630 H (14-36) U/L ALT 269 H (6-35) U/L Alkaline Phosphatase 86 (38-126) U/L Troponin I 0.168 H* (0.000-0.034) ng/mL NT-Pro-B Natriuret Pep > 61543 H (19.9-100) pg/mL Total Protein 6.4 (6.3-8.2) g/dL Albumin 2.8 L (3.5-5.1) g/dL Lipase 23 (23-300) U/L Urine Color Dark yellow (Yellow) Urine Appearance Turbid H (Clear) Urine pH 5.5 (5.0-9.0) Ur Specific [place] 1.018 (1.001-1.035) Urine Protein 3+ H (Negative) mg/dL Urine Glucose (UA) Negative (Negative) mg/dL Urine Ketones Trace H (Negative) mg/dL Ur Blood (Man) 3+ H (Negative) Urine Nitrate Negative (Negative) Urine Bilirubin Negative (Negative) Urine Urobilinogen 1.0 (<2.0) mg/dL Add Ur Microanalysis Reviewed Leukocyte Esterase Rfl 3+ H (Negative) GERARD/UL Urine RBC 11-20 H (0-2) /hpf Urine WBC >100 H (0-3) /hpf Ur Squamous Epith Cells Many H (Few) /hpf Urine Bacteria 4+ H /hpf Urine Casts 11-20 Urine Yeast (Budding) Present H (None) /hpf Influenza A (RT-PCR) Negative (Negative) Influenza B (RT-PCR) Negative (Negative) RSV (RT-PCR) Negative (Negative) SARS-CoV-2 RNA (RT-PCR) Negative (Negative) Critical Care Time Critical Care Time Critical Care Time: No Discharge Plan Discharge Clinical Impression: CHF (congestive heart failure), Urinary tract infection, RENETTA (acute kidney injury), Non-STEMI (non-ST elevated myocardial infarction), Elevated liver enzymes, Diabetes mellitus with hyperglycemia Patient Disposition: Still a Patient Condition: Stable Additional Instructions: ADMIT TO HOSPITALIST Patient Language: Lao Prescriptions: No Action mirtazapine 30 mg tablet 30 mg PO QHS Qty: 90 1RF Rx Instructions: Please D/C the Mirtazapine 15mg. Thank you metformin 500 mg tablet extended release 24 hr 500 mg PO BID Qty: 180 1RF Patient Comments: doesn't take every day d/t causing diarrhea omega-3 fatty acids Capsule 2,000 mg PO BID apixaban 2.5 mg tablet 2.5 mg PO BID Qty: 60 1RF (DME) prothrombin time/INR test metr Misc See Rx Instructions .Route Qty: 1 0RF Rx Instructions: As directed amiodarone 200 mg tablet 200 mg PO DAILY 30 Days Qty: 0 0RF docusate sodium 100 mg Capsule 100 mg PO Q12H PRN (Reason: Constipation) Qty: 30 0RF polyethylene glycol 3350 [Miralax] 17 gram Powder In Packet 17 g PO QAM Qty: 14 0RF ferrous sulfate 325 mg (65 mg iron) tablet See Rx Instructions .ROUTE .COMPLEX Qty: 180 0RF Dose Instruction: TAKE 1 TABLET BY MOUTH TWICE A DAY Rx Instructions: TAKE 1 TABLET BY MOUTH TWICE A DAY furosemide 20 mg tablet See Rx Instructions .ROUTE .COMPLEX Qty: 90 0RF Dose Instruction: TAKE 1 TABLET BY MOUTH EVERY DAY IN THE MORNING Rx Instructions: TAKE 1 TABLET BY MOUTH EVERY OTHER MORNING acetaminophen 500 mg capsule 1,000 mg PO Q6H PRN (Reason: pain) Rx Instructions: do not exceed 4,000 mg in 24 hours cyanocobalamin (vitamin B-12) 1,000 mcg lozenge See Rx Instructions .ROUTE .COMPLEX Qty: 90 0RF Dose Instruction: PLACE 1 TABLET UNDER THE TONGUE ONCE DAILY, LET DISSOLVE FOR AT LEAST 30 SECONDS BEFORE SWALLOWING Rx Instructions: PLACE 1 TABLET UNDER THE TONGUE ONCE DAILY, LET DISSOLVE FOR AT LEAST 30 SECONDS BEFORE SWALLOWING lisinopril 5 mg tablet See Rx Instructions .ROUTE .COMPLEX Qty: 90 1RF Dose Instruction: TAKE 1 TABLET BY MOUTH EVERY DAY Rx Instructions: TAKE 1 TABLET BY MOUTH EVERY DAY cholecalciferol (vitamin D3) 50 mcg (2,000 unit) tablet See Rx Instructions .ROUTE .COMPLEX Qty: 90 0RF Dose Instruction: TAKE 1 TABLET BY MOUTH DAILY Rx Instructions: TAKE 1 TABLET BY MOUTH DAILY metoprolol tartrate 25 mg tablet 12.5 mg PO Q12H Qty: 45 3RF pantoprazole 40 mg tablet,delayed release (DR/EC) See Rx Instructions .ROUTE .COMPLEX Qty: 90 1RF Dose Instruction: TAKE 1 TABLET BY MOUTH EVERY MORNING Rx Instructions: TAKE 1 TABLET BY MOUTH EVERY MORNING atorvastatin 40 mg tablet See Rx Instructions .ROUTE .COMPLEX Qty: 90 1RF Dose Instruction: TAKE 1 TABLET BY MOUTH EVERY DAY Rx Instructions: TAKE 1 TABLET BY MOUTH EVERY DAY folic acid 1 mg tablet See Rx Instructions .ROUTE .COMPLEX Qty: 90 1RF Dose Instruction: TAKE 1 TABLET BY MOUTH EVERY DAY Rx Instructions: TAKE 1 TABLET BY MOUTH EVERY DAY magnesium oxide 400 mg (241.3 mg magnesium) tablet 400 mg PO DAILY Qty: 90 1RF Follow-up/Referrals: Bear Horan MD [Primary Care Provider] -
[2025-01-23 20:58] LABS: Add Urine Microscopic? YES; Appearance Urine Turbid (Clear); Budding Yeast Urine Present /hpf; Glucose Urine UA Negative (Negative); Leukocyte Esterase Ur 3+ LEU/UL (Negative); Need Manual Microscopic Reviewed; Nitrate Urine Negative (Negative); Specific Grav Ur 1.018 (1.001-1.035)
--- OUTSIDE RECORDS SUMMARY | 2025-01-23 20:59 | XMS_ITS | Referral Summary ---
Author Organization [facility] [address] [place] Address [address] [place] [phone] Care Team Providers Care Residential Property Tax Appraiser Name Role Phone Bear Horan MD Primary Care Provider [phone] Encounters Date Type Department Care Team Description 01/07/2025 Telephone [facility] Cardiology [address] [place] [phone] Flavio Royal MD 12/27/2024 Telephone [facility] Cardiology [address] [place] [address] [place] [phone] Flavio Royal MD Amiodarone refill 11/05/2024 9:45 AM CDT Ancillary Procedure [facility] Cardiology [address] [place] [phone] Atrial fibrillation and flutter (HCC) [I48.91, [...] by mouth daily with breakfast Active fish bid-myrdf-3-vit C-vit E 2,000-650-12 mg/2.5 gram emulsion in [...] Type: PPM; DDD No. 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 Presenting rhythm: AP VS. AP-88%, VETERINARY TECHNICIAN-3%. No AT/AF episodes noted. No Ventricular high rate episodes detected. Medications: Eliquis, Pacerone, Lopressor. See scanned report. Office pacemaker follow up: 02/05/2025. [employer] remote f/u due in 6 months. Deborah Kothari RN Flavio Royal MD CV CARDIAC SERVICES PROCE [facility] Final Result * Lipid panel [...] LAB BLOOD ORDERABLES Final Resul t [facility] [place] [facility] [place] [address] * (ABNORMAL) Hemoglobin A1c (10/22/2023 9:05 AM [...] ORDERABLES Final Resul t [facility] [place] [address] from Last 3 Months or Most Recently Relevant to Health Maintenance Insurance MEDICARE [facility] MEDICARE [facility] MEDICARE SUPPLEMENT Advance Directives For more information, please contact: [phone] * Full Code (Latest Code Status on File) Date Activated Date Inactivated Comments 10/22/2023 8:14 AM 10/23/2023 9:30 PM Care Teams Residential Property Tax Appraiser Relationship Specialty Start Date End Date Bear Horan MD [address] [facility] [address] [facility] [address] [place] [address] PCP - General Internal Medicine 07/13/23
--- OUTSIDE RECORDS SUMMARY | 2025-01-23 20:59 | XMS_ITS | Clinical Summary ---
Author Organization [place] [address] [place] Address [address] [place] [phone] Care Team Providers Care Director Of Mobile Marketing Name Role Phone Bear Horan MD Primary Care Provider Allergies Active Allergy Reactions Criticality Noted Date [...] by mouth daily with breakfast Active fish nxl-sfmik-0-vit C-vit E 2,000-650-12 mg/2.5 gram emulsion in [...] Type: PPM; DDD No. 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 Presenting rhythm: AP VS. AP-88%, NET ARCHITECT-3%. No AT/AF episodes noted. No Ventricular high [...] MD LAB BLOOD ORDERABLES Final Resul t [facility] One [facility] Department [place] [address] * (ABNORMAL) Hemoglobin A1c (10/22/2023 9:05 AM [...] Resul t [facility] One [facility] Department [place] [address] from Last 3 Months or Most Recently Relevant to Health Maintenance Insurance [facility]ICARE [facility] [id number] MEDICARE [facility] MEDICARE SUPPLEMENT Advance Directives For more information, please contact: [phone] * Full Code (Latest Code Status on File) Date Activated Date Inactivated Comments 10/22/2023 8:14 AM 10/23/2023 9:30 PM Care Teams Director Of Mobile Marketing Relationship Specialty Start Date End Date Bear Horan MD [address] [facility] [address] [place] [address] PCP - General Internal Medicine 07/13/23
--- OUTSIDE RECORDS SUMMARY | 2025-01-23 20:59 | XMS_ITS | Continuity of Care Document ---
Author Organization [facility] Address [address] [place] [address] [place] [address] Phone Care Team Providers Care Court Orderly Name Role Phone [facility] Unavailable Unavail able Gerson Bustamante Unavailable Unavailable Advance Directives Directive Yes / No Effective Date File Name No Information Encounters Encounter Description Practice Location Reason(s) For Visit Diagnoses Date Provider Providers Copied on Encounter [facility], [address], [place], [place], [id number], [place] tel:[phone] SEC [facility] No Information Aug- [address] [facility] [address] [facility] [address], [address], [place], [place], [id number] , [place]. tel:[phone] Consulting Provider: Gerosn Bustamante, [address] [facility], [place], [address]. tel:[phone] Family History Family Member Type Diagnosis Age [...]
[2025-01-23] MEDS: FUROSEMIDE INJ 40 MG/4 ML VIAL 60 MG IV PUSH (21:09)
[2025-01-23 21:23] LABS: Lipase 23 U/L (23-300)
--- NOTE | 2025-01-23 22:14 | P.HP_ITS ---
H&P: HPI History of Present Illness Date/Time: 01/23/25 22:14 Chief Complaint: Dyspnea Narrative: This is an 79-year-old female patient with past medical history of chronic kidney disease, type 2 diabetes mellitus, hypertension, chronic AFib on Eliquis therapy, chronic indwelling Maguire catheter who was just discharged from hospital yesterday after being treated for CHF exacerbation, UTI in [place]. After getting home patient noted that she became increasingly short of breath, worse with exertion and EMS was notified. Upon arrival they placed her on 2 L supplemental oxygen for hypoxia at 88% on room air. Patient does not wear supplemental oxygen at home. Upon return to the emergency room she complains worsening dyspnea, slight abdominal pain and denies any fevers/nausea/vomiting/diarrhea. She denies any acute cough or any other new concerns. Workups performed in the emergency room shows stable vital signs, EKG showing normal sinus rhythm with first-degree AV block 72 beats per minute. No recent e cho or any echo is noted in EMR. Chest x-ray showing left basilar atelectasis versus pneumonia and pulmonary edema. CBC with leukocytosis at 12.4, metabolic panel significant for mild R[place] higher than her baseline with creatinine of 1.32 and BUN of 24 as well as glucose of 321. Of note patient's AST is 630 and ALT is 269 these are grossly elevated as compared with her recent hospitalization of which she was discharged 2 days ago when they were in the 30s and 40s respectively. Troponin also now elevated at 0.168 and no historical elevation. BNP is greater than 30,000. Of note last BNP from 1 week ago was 7610. Patient does see Dr. Garcia for Cardiology, however has not been seen by Cardiology in her last hospitalization. Urinalysis today reflecting 3+ leukocyte esterase, greater than 100 wbc's, 4+ bacteria, 3+ protein, trace ketones and 3+ blood. Patient presenting with concerns for REN[place], transaminitis, heart failure exacerbation, he elevated troponin which is suspected to be due to demand ischemia and UTI. She is initiated on Lasix 60 mg IV push in the ER, Zosyn is ordered and CT scan of the abdomen pelvis is pending. She is being admitted in the current setting for continued treatment with antibiotics, diuresis, Cardiology consultation and depending upon outcome of CT scan of abdomen and pelvis may require surgical evaluation as well. Review of Systems Review of Systems: All systems reviewed & are unremarkable except as noted in HPI and below FOR[facility]LY [facility] Past Medical History Medical History (Updated 01/23/25 @ 22:37 by YRIS Anderson) Diabetes mellitus Elevated troponin Acute exacerbation of CHF (congestive heart failure) Complete uterine prolapse Fungal colonization of urinary tract RENETTA (acute kidney injury) Abnormal urinalysis Impaired functional mobility, balance, gait, and endurance Kyphosis HUI (dyspnea on exertion) Adult BMI 19-24 kg/sq m Chronic kidney disease, stage 3 Hydroureteronephrosis Atrial fibrillation and flutter Diabetic retinopathy Pulmonary embolus Type 2 diabetes mellitus Arteriosclerotic heart disease Contusion of hip, left Vitamin D deficiency Gout Iron deficiency anemia Mixed hyperlipidemia Benign essential hypertension Surgical History Surgical History History of permanent cardiac pacemaker placement Family History Family History Father Carcinoma of colon Mother Diabetes mellitus Family history of diabetes mellitus in first degree relative Carcinoma of colon Lung cancer Sibling Alzheimer dementia Diabetes mellitus Heart disease Family history of diabetes mellitus in first degree relative Social History Social History Social History: Surrogate medical decision maker: Felipe Katerashaad (son) and Karyna Menon (granddaughter). Code status: Full code. Smoking packs per day: 0 Smoking cigarettes per day: 0.0 Years smoked: 10 Smoking pack-years: 0.00 Smoking status: Former smoker Tobacco type: cigarettes Second hand tobacco smoke exposure: Yes Smoking end date: 07/24/74 Alcohol intake: former Substance use: never Substance use type: does not use Do You Feel Safe in your Home?: Yes Lack of Transportation: No Lack of Food: Never True Current Housing: I Have Housing Concerned About Future Housing: No Difficulty Paying Gas/Electric Bills: No Difficulty Paying for Meds: YES Currently Unemployed: No Education: Trade/Vocational Certificate Difficulty w/ Childcare or Family Care: No Living arrangements: alone Additional living arrangements comments: Lives alone with her juancho epstein in [place]. Occupation/Education: retired Spiritual care concerns: No Meds Home Medications and Allergies Home Medications ?Medication ?Instructions ?Recorded ?Confirmed ?Type ferrous sulfate 325 mg (65 mg See Rx Instructions .Route 12/28/22 01/09/25 Rx iron) tablet .COMPLEX #180 tabs furosemide 20 mg tablet See Rx Instructions .Route 04/10/23 01/09/25 Rx .COMPLEX #90 tabs omega-3 fatty acids 2,000 mg PO BID 02/06/24 01/09/25 History acetaminophen 500 mg capsule 1,000 mg PO Q6H PRN pain 02/13/24 01/09/25 History cyanocobalamin (vitamin B-12) See Rx Instructions .Route 02/22/24 01/09/25 Rx 1,000 mcg sublingual lozenge .COMPLEX #90 sandro lisinopril 5 mg tablet See Rx Instructions .Route 02/26/24 01/09/25 Rx .COMPLEX #90 tabs metformin 500 mg tablet,extended 500 mg PO BID #180 tabs 04/10/24 01/09/25 Rx release 24 hr mirtazapine 30 mg tablet 30 mg PO QHS #90 tabs 05/23/24 01/09/25 Rx cholecalciferol (vitamin D3) 50 See Rx Instructions .Route 06/18/24 01/09/25 Rx mcg (2,000 unit) tablet .COMPLEX #90 tabs metoprolol tartrate 25 mg tablet 12.5 mg (1/2 x 25 mg) PO Q12H #45 09/30/24 01/09/25 Rx tabs atorvastatin 40 mg tablet See Rx Instructions .Route 12/23/24 01/09/25 Rx .COMPLEX #90 tabs folic acid 1 mg tablet See Rx Instructions .Route 12/23/24 01/09/25 Rx .COMPLEX #90 tabs magnesium oxide 400 mg (241.3 mg 400 mg PO DAILY #90 tabs 12/23/24 01/09/25 Rx magnesium) tablet pantoprazole 40 mg tablet,delayed See Rx Instructions .Route 12/23/24 01/09/25 Rx release .COMPLEX #90 tabs apixaban 2.5 mg tablet 2.5 mg PO BID #60 tabs 01/10/25 Rx prothrombin time/INR test metr #1 ea 01/16/25 Rx amiodarone 200 mg tablet 200 mg PO DAILY 30 days #0 tabs 06/27/25 06/19/25 Rx docusate sodium 100 mg capsule 100 mg PO Q12H PRN Constipation 01/22/25 Rx #30 caps polyethylene glycol 3350 17 gram 17 g PO QAM #14 ea 01/22/25 Rx oral powder packet (Miralax) Allergies Allergy/AdvReac Type Severity Reaction Status Date / Time hydrocodone Allergy Severe LIGHT Verified 01/23/25 18:03 HEADED/VERTIGO iohexol (From contrast - CT, Allergy Severe Anaphylaxis Verified 01/23/25 18:03 X-RAY) meperidine Allergy Severe NAUSEA AND Verified 01/23/25 18:03 VOMITING propoxyphene Allergy Severe HIVES Verified 01/23/25 18:03 Sulfa (Sulfonamide Allergy Severe HIVES Verified 01/23/25 18:03 Antibiotics) Contrast Media Allergy Severe HIVES Uncoded 01/23/25 18:03 Vital Signs Vital Signs - 24 hr 01/23/25 17:25 01/23/25 18:01 01/23/25 18:02 Temperature 99.4 F Pulse Rate 73 Respiratory Rate 18 Blood Pressure 149/43 H Pulse Oximetry 91 96 96 Oxygen Delivery Room Air Nasal Cannula Nasal Cannula Oxygen Flow Rate 2 2 Exam Const: General: comfortable and no acute distress Other: Elderly female patient lying supine at this time a stretcher no acute distress. She has required supplemental oxygen that is not her baseline. HENMT: Face/Nose/Sinus: Normal nares present Mouth: Yes moist mucous membranes Eyes: General: appearance normal, both eyes and all related structures Sclera: sclerae normal Pupils: Equal, round and reactive pupils present EOM: EOMs intact bilaterally Neck: Neck: supple and no JVD Thyroid: abnormal thyroid Carotids: no bruits Lymphatic: lymphadenopathy not noted Chest: Other: Nontender Resp: Effort & Inspection: normal respiratory effort Auscultation: crackles bilateral (Bases) Cardio: Rate: regular rate Rhythm: regular rhythm Heart sounds: no gallops, no murmurs and no rubs Other: No peripheral edema appreciated. Patient appears to be euvolemic on physical exam as far as peripheral edema. GI: Inspection: non-distended GI Palp: Yes Soft to palpation, No Tenderness to palpation present (GI) and No Guarding due to palpation present (GI) Auscultation: normal bowel sounds Other: Negative Aquino sign Urinary Catheter: Urinary Catheter: patent and draining and urine cloudy Skin: General skin exam: normal color, no rashes or lesions noted and no erythema Lesions: no lesions noted Rashes: no rashes noted Wounds: no wounds Neuro: Speech: normal speech Motor exam (neuro): Abnormal motor strength present (Generalized, nonfocal weakness.) Sensory Exam: normal sensation Extrem: General: normal to inspection, no edema and no pedal edema Psych: Mental Status: mental status grossly normal Affect: normal affect H&P: Results Labs Labs: Short CBC 01/23/25 Range/Units 17:34 WBC 12.4 H (4.5-10.0) K/mm3 Hgb 9.6 L (12.0-15.0) g/dL Hct 30.4 L (37.0-47.0) % Plt Count 252 (150-375) k/mm3 BMP 01/23/25 17:34 Sodium 137 Potassium 4.3 Chloride 101 Carbon Dioxide 29 BUN 24 H Creatinine 1.32 H Glucose 321 H Calcium 8.5 Cardiac Enzymes 01/23/25 Range/Units 17:34 Troponin I 0.168 H* (0.000-0.034) ng/mL Liver Function 01/23/25 Range/Units 17:34 Total Bilirubin 1.4 H (0.2-1.3) mg/dL AST 630 H (14-36) U/L ALT 269 H (6-35) U/L Alkaline Phosphatase 86 (38-126) U/L Albumin 2.8 L (3.5-5.1) g/dL Urine 01/23/25 Range/Units 20:35 Urine Color Dark yellow (Yellow) Urine Appearance Turbid H (Clear) Urine pH 5.5 (5.0-9.0) Ur Specific [place] 1.018 (1.001-1.035) Urine Protein 3+ H (Negative) mg/dL Urine Glucose (UA) Negative (Negative) mg/dL Assessment and Plan Assessment and plan (1) Acute exacerbation of CHF (congestive heart failure): Code(s): I50.9 - Heart failure, unspecified Status: Acute Assessment and Plan: * Obtain echo as one is not on file * Telemetry * Continue diuresis with Lasix 40 mg IV push q.12 hours * Trend trops * Consult cardiology for maximization of Heart failure management. * daily weight * Accurate I&O * Trend and monitor daily labs and VS. * Physically appears euvolemic * CXR shows pulmonary edema. * BNP >30K, and was 7K last week. * Possible exacerbation of HF 2/2 current [place] 2/2 UTI and urinary retention. Appreciate Cardiology management. Pt is a pt of Dr. Moore. (2) Acute kidney injury: Code(s): N17.9 - Acute kidney failure, unspecified Status: Acute Assessment and Plan: * Baseline renal function w/Cr of 0.9. * Current Cr is 1.32 * Monitor and trend as pt is also receiving lasix, which in the current setting is needed for Heart Failure exacerbation. * If acute worsening of renal function, consider consulting Nephrology. * Trend creatinine and BUN. * Avoid unnecessary renal offending agents other than the lasix which is currently needed for CHF. (3) Elevated troponin: Code(s): R79.89 - Other specified abnormal findings of blood chemistry Status: Acute Assessment and Plan: * Etiology most likely demand ischemia from his heart failure exacerbation. * Trend trops x3 * Telemetry * Consult cardiology (4) Diabetes mellitus: Code(s): E11.9 - Type 2 diabetes mellitus without complications Status: Acute Assessment and Plan: * Hold oral hypoglycemics * Sliding scale insulin initiated * Hypoglycemic protocol * Check A1c * Cardiac diet/diabetic diet (5) Transaminitis: Code(s): R74.01 - Elevation of levels of liver transaminase levels Status: Acute Assessment and Plan: * Uncertain etiology in setting of heart failure exacerbation, the could be portal hypertension related * During most recent admission transaminases were in the 30s and 40s respectively. This was just a couple of days ago. Today they are an AST of 630 and an ALT of 269. * Patient asymptomatic of biliary colic. * CT abdomen and pelvis pending to rule out cholecystitis and/or choledocholithiasis * Right upper quadrant ultrasound ordered * Consider additional consults as needed based upon findings of CT scan. * Avoid Tylenol (6) Chronic atrial fibrillation: Code(s): I48.20 - Chronic atrial fibrillation, unspecified Status: Acute Assessment and Plan: * Continue Eliquis once doses confirmed verified * Telemetry * Rate controlled with metoprolol and amiodarone (7) Mixed hyperlipidemia: Code(s): E78.2 - Mixed hyperlipidemia Status: Chronic Assessment and Plan: * Hold statin with current transaminitis. * Heart healthy diet (8) Benign essential hypertension: Code(s): I10 - Essential (primary) hypertension Status: Chronic Assessment and Plan: * Trend vital signs * Reorder home medications once verified and confirmed. Quality VTE Prophylaxis VTE prophylaxis: pharmacologic ordered Hospitalist MIPS Advance Care Plan I have confirmed that the patient's Advanced Care Plan is present, code status is documented, or surrogate decision maker is listed in patient medical record.: Yes Medication Reconciliation I have utilized all available resources to obtain, update and review the patients current medications (includes all prescriptions, OTC, herbals, cannabis, and nutritional supplements).: Yes
[2025-01-23] MEDS: PIPERACILLIN/TAZ 2.25G/NS 50ML 2.25 GM/50 ML BAG IVPB (22:17)
[2025-01-23 23:29] VITALS: BP 129/43; PULSE 72; RESP 16; TEMP 36.8; O2SAT 98; BMI 17.2
--- NOTE | 2025-01-23 23:33 | ADMGEN ---
This patient, Saniya Jin, was admitted to IMU Room 212-01. Patient/family oriented to hospital policies and general routines including ID bracelet, bed and alarms, visiting hours, pain management, procedures, bathroom and other care routines, personal items, smoking policy, room service/diet, and visiting hours. Information on how to activate the Rapid Response Team has been discussed. Patient/Family are encouraged to report perceived risks to care and to ask questions if they do not understand what they are told or what they should do.
[2025-01-24] VITALS (18 sets, daily range): BP systolic 105–167; BP diastolic 47–86; PULSE 66–85; RESP 16–28; TEMP 36.8–38.4; O2SAT 94–98; BMI 17.2
[2025-01-24 01:27] LABS: Troponin I 0.148 ng/mL (0.000-0.034)
[2025-01-24 01:46] LABS: Hemoglobin A1C 11.9 % (<5.7)
[2025-01-24 04:01] LABS: Hematocrit 28.1 % (37.0-47.0); Hemoglobin 8.7 g/dL (12.0-15.0); Immature Granulocyte Percent A 1.1 % (0-0.5); Lymphocytes Absolute Auto 0.88 K/mm3 (0.9-3.2); Mean Corpuscular HGB Conc 31.0 g/dl (32-36); Mean Corpuscular Hemoglobin 30.6 pg (26-34); Mean Corpuscular Volume 98.9 fl (80-100); Nucleated Red Blood Cells Absolute Auto 0.000 K/mm3 (0.0-0.012); Nucleated Red Blood Cells Perc 0.0 % (0.0-0.2); Platelet Count Result 221 k/mm3 (150-375); Red Blood Count 2.84 M/mm3 (4.2-5.4); White Blood Count 9.4 K/mm3 (4.5-10.0)
[2025-01-24 04:12] LABS: INR 1.5; Prothrombin Time 18.0 Seconds (11.1-14.7)
[2025-01-24 04:13] LABS: Partial Thromboplastin Time 31.6 Seconds (22.3-36.8)
[2025-01-24 04:30] LABS: Alanine Aminotransferase 334 U/L (6-35); Albumin Level 2.4 g/dL (3.5-5.1); Alkaline Phosphatase 78 U/L (38-126); Anion Gap 5 mmol/L (4-12); Aspartate Amino Transferase 734 U/L (14-36); Bilirubin,Total 1.2 mg/dL (0.2-1.3); Blood Urea Nitrogen 28 mg/dL (7-17); Calcium 7.9 mg/dL (8.4-10.2); Carbon Dioxide 31 mmol/L (22-30); Chloride 99 mmol/L (98-107); Estimated CRCL calculation 21 ml/min; Estimated Glomerular Filt Rate 42; Glucose 285 mg/dL (65-110); Magnesium 1.6 mg/dL (1.6-2.3); Potassium 3.3 mmol/L (3.4-5.0); Sodium 135 mmol/L (137-145); Total Protein 5.4 g/dL (6.3-8.2)
[2025-01-24 04:32] LABS: Troponin I 0.134 ng/mL (0.000-0.034)
[2025-01-24] MEDS: PIPERACILLIN/TAZ 2.25G/NS 50ML 2.25 GM/50 ML BAG IVPB ×3 (05:13→18:12)
[2025-01-24] MEDS: FUROSEMIDE INJ 40 MG/4 ML VIAL IV PUSH ×2 (08:27→21:50)
[2025-01-24] MEDS: APIXABAN 2.5 MG TABLET PO ×2 (08:27→21:49)
[2025-01-24] MEDS: INSULIN ASPART (*BKC) 100 UNITS/ML SUB-Q ×3 (08:27→18:13)
[2025-01-24] MEDS: FERROUS SULFATE 325 MG TABLET DR PO ×2 (10:47→18:12)
[2025-01-24] MEDS: AMIODARONE HCL 200 MG TABLET PO (10:47)
[2025-01-24] MEDS: CYANOCOBALAMIN 1,000 MCG TABLET 1000 MCG BY MOUTH (10:47)
[2025-01-24] MEDS: PANTOPRAZOLE 40 MG TABLET BY MOUTH (10:48)
[2025-01-24] MEDS: CHOLECALCIFEROL (VITAMIN D3) 25 MCG (1,000 UNITS) TABLET 50 MCG BY MOUTH (10:48)
[2025-01-24] MEDS: ATORVASTATIN 40 MG TABLET BY MOUTH (10:49)
[2025-01-24] MEDS: OMEGA 3 POLYUNSAT FATTY ACIDS 1 GM CAP 2 GM PO ×2 (10:49→21:49)
[2025-01-24] MEDS: MAGNESIUM OXIDE 400 MG TABLET PO (10:49)
[2025-01-24] MEDS: FOLIC ACID 1 MG TABLET BY MOUTH (10:49)
[2025-01-24] MEDS: METOPROLOL TARTRATE 12.5 MG TABLET PO ×2 (10:49→21:49)
[2025-01-24] MEDS: POTASSIUM CHLORIDE 20 MEQ PACKET (FOR LIQUID) 40 MEQ PO (10:54)
--- NOTE | 2025-01-24 12:27 | PM.CNCAR ---
Assessment and Plan Assessment and plan (1) CHF (congestive heart failure): Code(s): I50.9 - Heart failure, unspecified Status: Acute Plan Acute on chronic diastolic heart failure Acute hypoxemic respiratory failure secondary to acute on chronic diastolic heart failure Paroxysmal atrial fibrillation History of cardiac pacemaker Diabetes mellitus type 2 Hypertension controlled Continue Eliquis 2.5 mg b.i.d. Lasix 40 mg IV b.i.d. and she has 2 4th oral therapy Continue amiodarone Continue lisinopril and metoprolol History of Present Illness History of Present Illness Consult date/time: 01/24/25 12:27 Reason For Visit: Acute hypoxic respiratory failure, CHF, N STEMI Narrative: A 18-year-old female patient presents to the hospital with progressive shortness of breath has been present for stress was was mild activity. Patient was recently admitted to hospital for several days for treatment of urinary tract infection and RENETTA. Soon after her discharge she was not feeling good and came back for shortness of breath. Patient was noted to have low oxygen presentation improved oxygen supplementation. Patient was given Lasix with significant improvement of her symptoms Review of Systems Review of Systems: All systems reviewed & are unremarkable except as noted in HPI and below PMFSH Past Medical History Medical History (Updated 01/23/25 @ 22:37 by YRIS Anderson) Diabetes mellitus Elevated troponin Acute exacerbation of CHF (congestive heart failure) Complete uterine prolapse Fungal colonization of urinary tract RENETTA (acute kidney injury) Abnormal urinalysis Impaired functional mobility, balance, gait, and endurance Kyphosis HUI (dyspnea on exertion) Adult BMI 19-24 kg/sq m Chronic kidney disease, stage 3 Hydroureteronephrosis Atrial fibrillation and flutter Diabetic retinopathy Pulmonary embolus Type 2 diabetes mellitus Arteriosclerotic heart disease Contusion of hip, left Vitamin D deficiency Gout Iron deficiency anemia Mixed hyperlipidemia Benign essential hypertension Surgical History Surgical History History of permanent cardiac pacemaker placement Family History Family History Father Carcinoma of colon Mother Diabetes mellitus Family history of diabetes mellitus in first degree relative Carcinoma of colon Lung cancer Sibling Alzheimer dementia Diabetes mellitus Heart disease Family history of diabetes mellitus in first degree relative Social History Social History Social History: Surrogate medical decision maker: Felipe Jin (son) and Karyna Menon (granddaughter). Code status: Full code. Smoking packs per day: 0 Smoking cigarettes per day: 0.0 Years smoked: 10 Smoking pack-years: 0.00 Smoking status: Never smoker Tobacco type: cigarettes Second hand tobacco smoke exposure: Yes Smoking end date: 07/24/74 Alcohol intake: never Substance use: never Substance use type: does not use Do You Feel Safe in your Home?: Yes Lack of Transportation: YES Lack of Food: Never True Current Housing: I Have Housing Concerned About Future Housing: No Difficulty Paying Gas/Electric Bills: No Difficulty Paying for Meds: No Currently Unemployed: No Education: Trade/Vocational Certificate Difficulty w/ Childcare or Family Care: No Living arrangements: alone Additional living arrangements comments: Lives alone with her juancho epstein in [place]. Occupation/Education: retired Spiritual care concerns: No Meds Home Medications and Allergies Home Medications ?Medication ?Instructions ?Recorded ?Confirmed ?Type ferrous sulfate 325 mg (65 mg See Rx Instructions .Route 12/28/22 01/23/25 Rx iron) tablet .COMPLEX #180 tabs furosemide 20 mg tablet See Rx Instructions .Route 04/10/23 01/23/25 Rx .COMPLEX #90 tabs omega-3 fatty acids 2,000 mg PO BID 02/06/24 01/23/25 History acetaminophen 500 mg capsule 1,000 mg PO Q6H PRN pain 02/13/24 01/23/25 History cyanocobalamin (vitamin B-12) See Rx Instructions .Route 02/22/24 01/23/25 Rx 1,000 mcg sublingual lozenge .COMPLEX #90 sandro lisinopril 5 mg tablet See Rx Instructions .Route 02/26/24 01/23/25 Rx .COMPLEX #90 tabs metformin 500 mg tablet,extended 500 mg PO BID #180 tabs 04/10/24 01/23/25 Rx release 24 hr cholecalciferol (vitamin D3) 50 See Rx Instructions .Route 06/18/24 01/23/25 Rx mcg (2,000 unit) tablet .COMPLEX #90 tabs metoprolol tartrate 25 mg tablet 12.5 mg (1/2 x 25 mg) PO Q12H #45 09/30/24 01/23/25 Rx tabs atorvastatin 40 mg tablet See Rx Instructions .Route 12/23/24 01/23/25 Rx .COMPLEX #90 tabs folic acid 1 mg tablet See Rx Instructions .Route 12/23/24 01/23/25 Rx .COMPLEX #90 tabs magnesium oxide 400 mg (241.3 mg 400 mg PO DAILY #90 tabs 12/23/24 01/23/25 Rx magnesium) tablet pantoprazole 40 mg tablet,delayed See Rx Instructions .Route 12/23/24 01/23/25 Rx release .COMPLEX #90 tabs apixaban 2.5 mg tablet 2.5 mg PO BID #60 tabs 01/10/25 01/23/25 Rx prothrombin time/INR test metr #1 ea 01/16/25 01/24/25 Rx amiodarone 200 mg tablet 200 mg PO DAILY 30 days #0 tabs 01/17/25 01/23/25 Rx docusate sodium 100 mg capsule 100 mg PO Q12H PRN Constipation 01/22/25 01/23/25 Rx #30 caps polyethylene glycol 3350 17 gram 17 g PO QAM #14 ea 01/22/25 01/23/25 Rx oral powder packet (Miralax) mirtazapine 30 mg tablet 30 mg PO QHS 01/23/25 01/23/25 History Allergies Allergy/AdvReac Type Severity Reaction Status Date / Time hydrocodone Allergy Severe LIGHT Verified 01/23/25 18:03 HEADED/VERTIGO iohexol (From contrast - CT, Allergy Severe Anaphylaxis Verified 01/23/25 18:03 X-RAY) meperidine Allergy Severe NAUSEA AND Verified 01/23/25 18:03 VOMITING propoxyphene Allergy Severe HIVES Verified 01/23/25 18:03 Sulfa (Sulfonamide Allergy Severe HIVES Verified 01/23/25 18:03 Antibiotics) Contrast Media Allergy Severe HIVES Uncoded 01/23/25 18:03 Vital Signs Vital Signs - 24 hr 01/23/25 17:25 01/23/25 18:01 01/23/25 18:02 Temperature 37.4 C Pulse Rate 73 Respiratory Rate 18 Blood Pressure 149/43 H Pulse Oximetry 91 96 96 Oxygen Delivery Room Air Nasal Cannula Nasal Cannula Oxygen Flow Rate 2 2 01/23/25 23:29 01/24/25 00:00 01/24/25 00:00 Temperature 36.8 C Pulse Rate 72 71 Respiratory Rate 16 Blood Pressure 129/43 L Pulse Oximetry 98 96 Oxygen Delivery Nasal Cannula Oxygen Flow Rate 2 01/24/25 00:00 01/24/25 02:00 01/24/25 04:00 Temperature 36.8 C 36.8 C Pulse Rate 80 70 80 Respiratory Rate 18 18 Blood Pressure 129/56 L 129/56 L Pulse Oximetry 97 97 Oxygen Delivery Oxygen Flow Rate 01/24/25 04:00 01/24/25 04:00 01/24/25 06:00 Temperature Pulse Rate 80 71 72 Respiratory Rate Blood Pressure Pulse Oximetry 97 Oxygen Delivery Nasal Cannula Oxygen Flow Rate 2 01/24/25 07:49 01/24/25 08:00 01/24/25 08:00 Temperature 38.4 C H Pulse Rate 76 74 Respiratory Rate 16 16 Blood Pressure 149/50 H Pulse Oximetry 94 95 98 Oxygen Delivery Nasal Cannula Nasal Cannula Oxygen Flow Rate 2 2 01/24/25 08:00 01/24/25 10:47 01/24/25 10:49 Temperature Pulse Rate 72 73 73 Respiratory Rate Blood Pressure Pulse Oximetry Oxygen Delivery Oxygen Flow Rate 01/24/25 11:51 Temperature 37.1 C Pulse Rate 74 Respiratory Rate 28 H Blood Pressure 105/86 Pulse Oximetry 97 Oxygen Delivery Oxygen Flow Rate Exam Narrative: GENERAL APPEARANCE: WELL-DEVELOPED, WELL-NOURISHED SKIN: NORMAL COLOR HEAD: NORMOCEPHALIC, NONTRAUMATIC EYES: CLEAR CONJUNCTIVA ENT: OROPHARYNX NORMAL, EARS NORMAL, NOSE NORMAL NECK: SUPPLE, NONTENDER CHEST AND RESPIRATORY: AIRWAY PATENT, NO RESPIRATORY DISTRESS, NO ACCESSORY MUSCLE USE HEART: REGULAR RATE/RHYTHM ABDOMEN: SOFT, NONTENDER, NO ORGANOMEGALY, QUIET BOWEL SOUNDS VASCULAR: NORMAL PERIPHERAL PULSES, NORMAL CAPILLARY REFILL. MUSCULOSKELETAL: NORMAL RANGE OF MOTION, NONTENDER BACK NEUROLOGIC: ALERT AND ORIENTED ?3, DATA ENTRY MANAGER IS NORMAL TESTED, NO GROSS MOTOR DEFICIT Results Labs and Meds 01/24/25 03:53 01/24/25 03:53 Lab results: Cardiac Enzymes 01/23/25 01/24/25 01/24/25 Range/Units 17:34 00:54 03:53 AST 630 H 734 H (14-36) U/L Troponin I 0.168 H* 0.148 H* 0.134 H* (0.000-0.034) ng/mL Coagulation 01/24/25 Range/Units 03:53 PT 18.0 H (11.1-14.7) Seconds APTT 31.6 (22.3-36.8) Seconds CBC 01/23/25 01/24/25 Range/Units 17:34 03:53 WBC 12.4 H 9.4 (4.5-10.0) K/mm3 RBC 3.09 L 2.84 L (4.2-5.4) M/mm3 Hgb 9.6 L 8.7 L (12.0-15.0) g/dL Hct 30.4 L 28.1 L (37.0-47.0) % Plt Count 252 221 (150-375) k/mm3 Lymph # (Auto) 0.58 L 0.88 L (0.9-3.2) K/mm3 [place] # (Auto) 0.5 0.4 (0.1-0.6) K/mm3 Eos # (Auto) 0.0 0.0 (0-0.3) K/mm3 Baso # (Auto) 0.1 0.1 (0.0-0.1) K/mm3 Comprehensive Metabolic Panel 01/23/25 01/24/25 Range/Units 17:34 03:53 Sodium 137 135 L (137-145) mmol/L Potassium 4.3 3.3 L (3.4-5.0) mmol/L Chloride 101 99 (98-107) mmol/L Carbon Dioxide 29 31 H (22-30) mmol/L BUN 24 H 28 H (7-17) mg/dL Creatinine 1.32 H 1.24 H (0.7-1.0) mg/dL Glucose 321 H 285 H (65-110) mg/dL Calcium 8.5 7.9 L (8.4-10.2) mg/dL AST 630 H 734 H (14-36) U/L ALT 269 H 334 H (6-35) U/L Alkaline Phosphatase 86 78 (38-126) U/L Total Protein 6.4 5.4 L (6.3-8.2) g/dL Albumin 2.8 L 2.4 L (3.5-5.1) g/dL Intake and Output 01/23/25 01/24/25 01/24/25 23:59 07:59 15:59 Intake Total 50 300 240 Output Total 250 Balance 50 50 240 Intake: IV 50 Piperacillin/Abran 2.25G/Ns 50Ml 50 2.25 gm In 50 ml @ 100 mls/hr IVPB Q8HR [facility] Rx#:[id number] Oral 300 240 Output: Catheter Urine 250 Urethral Catheter 250 Patient Weight 01/24/25 23:59 Weight 48.5 kg
--- NOTE | 2025-01-24 17:12 | P.PNIM_ITS ---
Progress Note: A&P Assessment and Plan (1) Acute exacerbation of CHF (congestive heart failure): Code(s): I50.9 - Heart failure, unspecified Status: Acute Assessment and Plan: * Obtain echo as one is not on file * Telemetry * Continue diuresis with Lasix 40 mg IV push q.12 hours * Trend trops * Consult cardiology for maximization of Heart failure management. * daily weight * Accurate I&O * Trend and monitor daily labs and VS. * Physically appears euvolemic * CXR shows pulmonary edema. * BNP >30K, and was 7K last week. * Possible exacerbation of HF 2/2 current [place] 2/2 UTI and urinary retention. Appreciate Cardiology management. Pt is a pt of Dr. Moore. (2) Acute kidney injury: Code(s): N17.9 - Acute kidney failure, unspecified Status: Acute Assessment and Plan: * Baseline renal function w/Cr of 0.9. * Current Cr is 1.32 * Monitor and trend as pt is also receiving lasix, which in the current setting is needed for Heart Failure exacerbation. * If acute worsening of renal function, consider consulting Nephrology. * Trend creatinine and BUN. * Avoid unnecessary renal offending agents other than the lasix which is currently needed for CHF. (3) Elevated troponin: Code(s): R79.89 - Other specified abnormal findings of blood chemistry Status: Acute Assessment and Plan: * Etiology most likely demand ischemia from his heart failure exacerbation. * Trend trops x3 * Telemetry * Consult cardiology (4) Diabetes mellitus: Code(s): E11.9 - Type 2 diabetes mellitus without complications Status: Acute Assessment and Plan: * Hold oral hypoglycemics * Sliding scale insulin initiated * Hypoglycemic protocol * Check A1c * Cardiac diet/diabetic diet (5) Transaminitis: Code(s): R74.01 - Elevation of levels of liver transaminase levels Status: Acute Assessment and Plan: * Uncertain etiology in setting of heart failure exacerbation, the could be portal hypertension related * During most recent admission transaminases were in the 30s and 40s respectively. This was just a couple of days ago. Today they are an AST of 630 and an ALT of 269. * Patient asymptomatic of biliary colic. * CT abdomen and pelvis pending to rule out cholecystitis and/or choledocholithiasis * Right upper quadrant ultrasound ordered * Consider additional consults as needed based upon findings of CT scan. * Avoid Tylenol (6) Chronic atrial fibrillation: Code(s): I48.20 - Chronic atrial fibrillation, unspecified Status: Acute Assessment and Plan: * Continue Eliquis once doses confirmed verified * Telemetry * Rate controlled with metoprolol and amiodarone (7) Mixed hyperlipidemia: Code(s): E78.2 - Mixed hyperlipidemia Status: Chronic Assessment and Plan: * Hold statin with current transaminitis. * Heart healthy diet (8) Benign essential hypertension: Code(s): I10 - Essential (primary) hypertension Status: Chronic Assessment and Plan: * Trend vital signs * Reorder home medications once verified and confirmed. Plan patient was just discharged and presented with worsening complained of shortness of breathe was found to have elevated BNP of 30,000 and increased leukocyte esterase, greater than 100 wbc's, 4+ bacteria, 3+ protein, patient is being diuresed with IV lasix and started the patient on Zosyn and urine culture is pending. patient has severe stage IV uterovaginal prolapse, had been refusing surgical intervention however had agreed this time to follow up with an urogyne for further evaluation. will follow up urine culture and cardiac echo. Subjective Date/time seen: 01/24/25 17:12 Interval history: Dyspnea H&P-Narrative: This is an 79-year-old female patient with past medical history of chronic kidney disease, type 2 diabetes mellitus, hypertension, chronic AFib on Eliquis therapy, chronic indwelling Maguire catheter who was just discharged from hospital yesterday after being treated for CHF exacerbation, UTI in [place]. After getting home patient noted that she became increasingly short of breath, worse with exertion and EMS was notified. Upon arrival they placed her on 2 L supplemental oxygen for hypoxia at 88% on room air. Patient does not wear supplemental oxygen at home. Upon return to the emergency room she complains worsening dyspnea, slight abdominal pain and denies any fevers/nausea/vomiting/diarrhea. She denies any acute cough or any other new concerns. Workups performed in the emergency room shows stable vital signs, EKG showing normal sinus rhythm with first-degree AV block 72 beats per minute. No recent echo or any echo is noted in EMR. Chest x-ray showing left basilar atelectasis versus pneumonia and pulmonary edema. CBC with leukocytosis at 12.4, metabolic panel significant for mild R[place] higher than her baseline with creatinine of 1.32 and BUN of 24 as well as glucose of 321. Of note patient's AST is 630 and ALT is 269 these are grossly elevated as compared with her recent hospitalization of which she was discharged 2 days ago when they were in the 30s and 40s respectively. Troponin also now elevated at 0.168 and no historical elevation. BNP is greater than 30,000. Of note last BNP from 1 week ago was 7610. Patient does see Dr. Garcia for Cardiology, however has not been seen by Cardiology in her last hospitalization. Urinalysis today reflecting 3+ leukocyte esterase, greater than 100 wbc's, 4+ bacteria, 3+ protein, trace ketones and 3+ blood. Patient presenting with concerns for R[place], transaminitis, heart failure exacerbation, he elevated troponin which is suspected to be due to demand ischemia and UTI. She is initiated on Lasix 60 mg IV push in the ER, Zosyn is ordered and CT scan of the abdomen pelvis is pending. She is being admitted in the current setting for continued treatment with antibiotics, diuresis, Cardiology consultation and depending upon outcome of CT scan of abdomen and pelvis may require surgical evaluation as well. patient was just discharged and presented with worsening complained of shortness of breathe was found to have elevated BNP of 30,000 and increased leukocyte esterase, greater than 100 wbc's, 4+ bacteria, 3+ protein, patient is being diuresed with IV lasix and started the patient on Zosyn and urine culture is pending. patient has severe stage IV uterovaginal prolapse, had been refusing surgical intervention however had agreed this time to follow up with an urogyne for further evaluation. will follow up urine culture and cardiac echo. Review of Systems Review of Systems: All systems reviewed & are unremarkable except as noted in HPI and below Exam Narrative: Appears chronically ill, elderly and frail Patient is comfortable, NAD HEENT: eyes are clear and none icteric LUNGS:CTA HEART: RR S1S2 ABD: BS+, Soft and nontender Lower extremities: no edema SKIN: nonjaundiced Neuro: grossly intact. Objective Data Vital Signs Vital Signs: Vital Signs - 24 hr 01/23/25 17:25 01/23/25 18:01 01/23/25 18:02 Temperature 37.4 C Pulse Rate 73 Respiratory Rate 18 Blood Pressure 149/43 H Pulse Oximetry 91 96 96 Oxygen Delivery Room Air Nasal Cannula Nasal Cannula Oxygen Flow Rate 2 2 01/23/25 23:29 01/24/25 00:00 01/24/25 00:00 Temperature 36.8 C Pulse Rate 72 71 Respiratory Rate 16 Blood Pressure 129/43 L Pulse Oximetry 98 96 Oxygen Delivery Nasal Cannula Oxygen Flow Rate 2 01/24/25 00:00 01/24/25 02:00 01/24/25 04:00 Temperature 36.8 C 36.8 C Pulse Rate 80 70 80 Respiratory Rate 18 18 Blood Pressure 129/56 L 129/56 L Pulse Oximetry 97 97 Oxygen Delivery Oxygen Flow Rate 01/24/25 04:00 01/24/25 04:00 01/24/25 06:00 Temperature Pulse Rate 80 71 72 Respiratory Rate Blood Pressure Pulse Oximetry 97 Oxygen Delivery Nasal Cannula Oxygen Flow Rate 2 01/24/25 07:49 01/24/25 08:00 01/24/25 08:00 Temperature 38.4 C H Pulse Rate 76 74 Respiratory Rate 16 16 Blood Pressure 149/50 H Pulse Oximetry 94 95 98 Oxygen Delivery Nasal Cannula Nasal Cannula Oxygen Flow Rate 2 2 01/24/25 08:00 01/24/25 10:00 01/24/25 10:47 Temperature Pulse Rate 72 71 73 Respiratory Rate Blood Pressure Pulse Oximetry Oxygen Delivery Oxygen Flow Rate 01/24/25 10:49 01/24/25 11:51 01/24/25 12:00 Temperature 37.1 C Pulse Rate 73 74 Respiratory Rate 28 H Blood Pressure 105/86 Pulse Oximetry 97 97 Oxygen Delivery Nasal Cannula Oxygen Flow Rate 2 01/24/25 12:00 01/24/25 16:00 Temperature 37.7 C H Pulse Rate 72 66 Respiratory Rate 16 Blood Pressure 167/64 H Pulse Oximetry 95 Oxygen Delivery Oxygen Flow Rate Intake/Output Intake/Output: Intake & Output 01/21/25 01/22/25 01/23/25 01/24/25 23:59 23:59 23:59 23:59 Intake Total 50 780 Output Total 250 Balance 50 530 Meds/Results Medications: Active Medications Generic Name Dose Route Start Last Admin Trade Name Freq PRN Reason Stop Dose Admin Acetaminophen 1,000 mg 01/24/25 09:43 Acetaminophen 500 Mg Tablet PO Q6H PRN pain 1-3 Acetaminophen 650 mg 01/24/25 10:06 Acetaminophen 325 Mg Tablet PO Q4H PRN Fever Amiodarone HCl 200 mg 01/24/25 10:05 01/24/25 10:47 Amiodarone Hcl 200 Mg Tablet PO 200 mg DAILY JACKIE Administration Apixaban 2.5 mg 01/24/25 21:00 Apixaban 2.5 Mg Tablet PO Q12HR JACKIE Atorvastatin Calcium 40 mg 01/24/25 10:05 01/24/25 10:49 Atorvastatin 40 Mg Tablet BY MOUTH 40 mg QAM JACKIE Administration Cyanocobalamin 1,000 mcg 01/24/25 10:20 01/24/25 10:47 Cyanocobalamin 1,000 Mcg Tablet BY MOUTH 1,000 mcg QAM JACKIE Administration Dextrose 12.5 gm 01/23/25 22:39 Dextrose 50% 25 Gm/50 Ml Syringe IV PUSH PRN PRN Hypoglycemia Protocol Docusate Sodium 100 mg 01/24/25 09:43 Docusate Sodium 100 Mg Capsule PO Q12H PRN Constipation Ferrous Sulfate 325 mg 01/24/25 10:15 01/24/25 10:47 Ferrous Sulfate [address] PO 325 mg BIDWM JACKIE Administration Fish Oil 2 gm 01/24/25 10:10 01/24/25 10:49 [place] 3 Polyunsat Fatty Acids 1 Gm Cap PO 2 gm Q12HR JACKIE Administration Folic Acid 1 mg 01/24/25 10:10 01/24/25 10:49 Folic Acid 1 Mg Tablet BY MOUTH 1 mg QAM JACKIE Administration Furosemide 40 mg 01/24/25 09:00 01/24/25 08:27 Furosemide Inj 40 Mg/4 Ml Vial IV PUSH 40 mg Q12HR JACKIE Administration Furosemide 20 mg 01/24/25 10:10 01/24/25 10:50 Furosemide 20 Mg Tablet BY MOUTH Not Given QAM JACKIE Glucagon 1 mg 01/23/25 22:39 Glucagon For Inj 1 Mg Vial IM PRN PRN Hypoglycemia Protocol Glucose 15 gm 01/23/25 22:39 Glucose Oral Gel 15 Gm Of Glucse In 37.5 Gm Tube PO PRN PRN Hypoglycemia Protocol Dextrose 1,000 mls @ 100 mls/hr 01/23/25 22:39 Dextrose 5% 1,000 Ml IVPB PRN PRN Hypoglycemia Protocol Piperacillin Sod/Tazobactam Sod 2.25 gm in 50 mls @ 100 mls/hr 01/24/25 12:00 01/24/25 14:15 Zosyn 2.25 Gm/Ns 50 Ml IVPB 100 mls/hr Q6HR JACKIE Administration Insulin Aspart 2 - 5 units 01/24/25 08:00 01/24/25 14:16 Insulin Aspart (*Bkc) 100 Units/Ml SUB-Q 3 units TIDWM JACKIE Administration Protocol Insulin Aspart 1 - 2 units 01/24/25 21:00 Insulin Aspart (*Bkc) 100 Units/Ml SUB-Q HS [facility] Protocol Lisinopril 5 mg 01/24/25 10:15 01/24/25 10:49 Lisinopril 5 Mg Tablet BY MOUTH 5 mg QAM [facility] Administration Magnesium Oxide 400 mg 01/24/25 10:10 01/24/25 10:49 Magnesium Oxide 400 Mg Tablet PO 400 mg DAILY JACKIE Administration Metoprolol Tartrate 12.5 mg 01/24/25 10:10 01/24/25 10:49 Metoprolol Tartrate 12.5 Mg Tablet PO 12.5 mg Q12HR JACKIE Administration Mirtazapine 30 mg 01/24/25 21:00 Mirtazapine 30 Mg Tablet PO QHS JACKIE Pantoprazole Sodium 40 mg 01/24/25 10:10 01/24/25 10:48 Pantoprazole 40 Mg Tablet BY MOUTH 40 mg QAM [facility] Administration Perflutren Lipid Microsphere 0 ml 01/23/25 22:38 Perflutren Lipid Microspheres 1.5 Ml Vial Diluted To 10 Ml Total Volume IV PUSH 01/26/25 22:38 ONCE PRN adequate visualization Protocol Polyethylene Glycol 17 gm 01/25/25 09:00 Polyethylene Glycol 3350 17 Gm Powd.Pack PO QAM [facility] Tramadol HCl 25 mg 01/23/25 22:39 Tramadol Hcl (*Crx) 25 Mg Tablet PO Q6H PRN Pain Rated 4-6 Vitamin D 50 mcg 01/24/25 10:15 01/24/25 10:48 Cholecalciferol (Vitamin D3) 25 Mcg (1,000 Units) Tablet BY MOUTH 50 mcg QAM [facility] Administration Radiology Results: ITS Impressions Chest X-Ray 01/23/25 18:15 IMPRESSION: Left basilar atelectasis versus pneumonia. Bilateral interstitial thickening which may indicate pneumonitis. Pulmonary nicolás ma also is possible. Underlying fibrotic changes are also noted. Possible nodule in the right upper lobe with surrounding fibrotic changes. 3 months follow-up advised. Abdomen/Pelvis CT 01/23/25 22:51 IMPRESSION: 1. No evidence of appendicitis, diverticulitis or intestinal obstruction. 2. Bilateral pleural effusion with adjacent atelectasis versus pneumonia. 3. Increased density of the liver. Clinical correlation advised. 4. Prolapse uterus with cystocele and urinary bladder stones. 5. Bilateral severe hydronephrotic changes. 6. Slightly thickened wall of the gallbladder with no stones. Ultrasound evaluation advised. Abdomen Ultrasound 01/23/25 23:19 IMPRESSION: Thickened wall of the gallbladder. Cholecystitis cannot be excluded. Clinical correlation advised. Otherwise, limited abdominal ultrasound. Labs Labs: Laboratory Results - last 24 hr 01/23/25 01/23/25 01/24/25 17:34 20:35 00:54 WBC 12.4 H RBC 3.09 L Hgb 9.6 L Hct 30.4 L MCV 98.4 MCH 31.1 MCHC 31.6 L RDW 14.6 H Plt Count 252 MPV 9.4 Immature Gran % (Auto) 0.7 H Neut % (Auto) 90.2 H Lymph % (Auto) 4.7 L Wilson % (Auto) 4.0 Eos % (Auto) 0.0 Baso % (Auto) 0.4 Lymph # (Auto) 0.58 L Wilson # (Auto) 0.5 Eos # (Auto) 0.0 Baso # (Auto) 0.1 Abs Immat Gran (auto) 0.09 H Absolute Neuts (auto) 11.2 H Absolute Nucleated RBC 0.000 Nucleated RBC % 0.0 PT INR APTT Sodium 137 Potassium 4.3 Chloride 101 Carbon Dioxide 29 Anion Gap 7 BUN 24 H Creatinine 1.32 H Estim Creat Clear Calc 20 Estimated GFR 39 L Glucose 321 H POC Capillary Glucose Hemoglobin A1c 11.9 H Calcium 8.5 Magnesium Total Bilirubin 1.4 H AST 630 H ALT 269 H Alkaline Phosphatase 86 Troponin I 0.168 H* 0.148 H* NT-Pro-B Natriuret Pep > 29036 H Total Protein 6.4 Albumin 2.8 L Lipase 23 Urine Color Dark yellow Urine Appearance Turbid H Urine pH 5.5 Ur Specific [place] 1.018 Urine Protein 3+ H Urine Glucose (UA) Negative Urine Ketones Trace H Ur Blood (Man) 3+ H Urine Nitrate Negative Urine Bilirubin Negative Urine Urobilinogen 1.0 Add Ur Microanalysis Reviewed Leukocyte Esterase Rfl 3+ H Urine RBC 11-20 H Urine WBC >100 H Ur Squamous Epith Cells Many H Urine Bacteria 4+ H Urine Casts 11-20 Urine Yeast (Budding) Present H Influenza A (RT-PCR) Negative Influenza B (RT-PCR) Negative RSV (RT-PCR) Negative SARS-CoV-2 RNA (RT-PCR) Negative 01/24/25 01/24/25 01/24/25 03:53 07:23 11:18 WBC 9.4 RBC 2.84 L Hgb 8.7 L Hct 28.1 L MCV 98.9 MCH 30.6 MCHC 31.0 L RDW 14.5 Plt Count 221 MPV 9.4 Immature Gran % (Auto) 1.1 H Neut % (Auto) 84.1 H Lymph % (Auto) 9.4 L Wilson % (Auto) 4.4 Eos % (Auto) 0.4 Baso % (Auto) 0.6 Lymph # (Auto) 0.88 L Wilson # (Auto) 0.4 Eos # (Auto) 0.0 Baso # (Auto) 0.1 Abs Immat Gran (auto) 0.10 H Absolute Neuts (auto) 7.9 H Absolute Nucleated RBC 0.000 Nucleated RBC % 0.0 PT 18.0 H INR 1.5 APTT 31.6 Sodium 135 L Potassium 3.3 L Chloride 99 Carbon Dioxide 31 H Anion Gap 5 BUN 28 H Creatinine 1.24 H Estim Creat Clear Calc 21 Estimated GFR 42 L Glucose 285 H POC Capillary Glucose 261 H 268 H Hemoglobin A1c Calcium 7.9 L Magnesium 1.6 Total Bilirubin 1.2 AST 734 H ALT 334 H Alkaline Phosphatase 78 Troponin I 0.134 H* NT-Pro-B Natriuret Pep Total Protein 5.4 L Albumin 2.4 L Lipase Urine Color Urine Appearance Urine pH Ur Specific [place] Urine Protein Urine Glucose (UA) Urine Ketones Ur Blood (Man) Urine Nitrate Urine Bilirubin Urine Urobilinogen Add Ur Microanalysis Leukocyte Esterase Rfl Urine RBC Urine WBC Ur Squamous Epith Cells Urine Bacteria Urine Casts Urine Yeast (Budding) Influenza A (RT-PCR) Influenza B (RT-PCR) RSV (RT-PCR) SARS-CoV-2 RNA (RT-PCR) 01/24/25 15:35 WBC RBC Hgb Hct MCV MCH MCHC RDW Plt Count MPV Immature Gran % (Auto) Neut % (Auto) Lymph % (Auto) Wilson % (Auto) Eos % (Auto) Baso % (Auto) Lymph # (Auto) Wilson # (Auto) Eos # (Auto) Baso # (Auto) Abs Immat Gran (auto) Absolute Neuts (auto) Absolute Nucleated RBC Nucleated RBC % PT INR APTT Sodium Potassium Chloride Carbon Dioxide Anion Gap BUN Creatinine Estim Creat Clear Calc Estimated GFR Glucose POC Capillary Glucose 221 H Hemoglobin A1c Calcium Magnesium Total Bilirubin AST ALT Alkaline Phosphatase Troponin I NT-Pro-B Natriuret Pep Total Protein Albumin Lipase Urine Color Urine Appearance Urine pH Ur Specific [place] Urine Protein Urine Glucose (UA) Urine Ketones Ur Blood (Man) Urine Nitrate Urine Bilirubin Urine Urobilinogen Add Ur Microanalysis Leukocyte Esterase Rfl Urine RBC Urine WBC Ur Squamous Epith Cells Urine Bacteria Urine Casts Urine Yeast (Budding) Influenza A (RT-PCR) Influenza B (RT-PCR) RSV (RT-PCR) SARS-CoV-2 RNA (RT-PCR) Quality VTE Prophylaxis VTE prophylaxis: pharmacologic ordered
[2025-01-24] MEDS: MIRTAZAPINE 30 MG TABLET PO (21:49)
[2025-01-25] VITALS (17 sets, daily range): BP systolic 105–132; BP diastolic 50–62; PULSE 70–75; RESP 12–20; TEMP 36.6–37.4; O2SAT 95–98
--- NOTE | 2025-01-25 | ECHO_ITS ---
Patient Info Name: Saniya Jin Age: 79 years : 1945 Gender: Female Ht: 66 in Wt: 104 lbs BSA: 1.47 m2 HR: 70 bpm BP: 121 / 53 mmHg Technical Quality: Good Exam Date: 01/25/2025 10:10 AM Patient Status: I Admit Date: 01/23/2025 Exam Type: CA echo dop color flow w con Complete two-dimensional, color flow and Doppler transthoracic echocardiogram is performed with contrast to opacify the left ventricle and to improve the deliniation of the left ventricle endocardial borders. Staff Referring Physician: Erica Corrigan Tobacco Educator: Bobbi Vanessa Attending Provider: Thee Shaw Contrast/Agitated Saline Contrast/Ag. Saline: Definity Amount: 2.00 ml Administered By: Bobbi Vanessa Existing IV Access: Yes IV Access Condition: patent with no signs of infiltration Summary 1. Left ventricular systolic function is normal, estimated at 50-55. 2. The left ventricular diastolic function is grade III diastolic dysfunction. 3. Left atrial chamber dimension is mildly enlarged. 4. The mitral valve has thickened leaflets. 5. There is moderate to severe mitral valve regurgitation. 6. There is moderate tricuspid valve regurgitation. 7. Moderate pulmonary hypertension, estimated pulmonary arterial systolic pressure is 49 mmHg. 8. Pleural effusion. Left Ventricle Left ventricular chamber dimension is normal. Left ventricular systolic function is normal, estimated at 50-55. There is no increased left ventricular wall thickness. Left ventricular septal wall motion is normal. The left ventricular diastolic function is grade III diastolic dysfunction. Right Ventricle Right ventricular chamber dimension is normal. Right ventricular systolic function is normal. Left Atria Left atrial chamber dimension is mildly enlarged. Right Atria Right atrial chamber dimension is normal. Aortic Valve The aortic valve is trileaflet. There is no aortic valve sclerosis. There is no aortic valve stenosis. There is no aortic valve regurgitation. Pulmonic Valve The pulmonic valve is normal. There is no pulmonic valve stenosis. There is no pulmonic regurgitation. Mitral Valve The mitral valve has thickened leaflets. There is no mitral valve stenosis. There is moderate to severe mitral valve regurgitation. Tricuspid Valve The tricuspid valve leaflets are normal. There is no significant tricuspid valve stenosis. There is moderate tricuspid valve regurgitation. Moderate pulmonary hypertension, estimated pulmonary arterial systolic pressure is 49 mmHg. Pericardium/Pleural The pericardium appears normal. There is no pericardial effusion. Inferior Vena Cava Normal inferior vena cava with >50% collapse upon inspiration consistent with normal right atrial pressure, 5 mmHg. Aorta The aortic root size at the sinus of Valsalva is normal. The prox ascending aorta size is normal. Left Ventricular Outflow Tract Name Value Normal LVOT 2D LVOT Diameter 1.6 cm LVOT Doppler LVOT Peak Velocity 98 cm/s LVOT Peak Gradient 4 mmHg LVOT Mean Gradient 2 mmHg LVOT VTI 24 cm LVOT Stroke Volume 51 ml LVOT CO 3.6 l/min LVOT CI 2.4 l/min/m2 Pulmonic Valve Name Value Normal RVOT Doppler RVOT Peak Velocity 62 cm/s RVOT Peak Gradient 2 mmHg PV Doppler PV Peak Velocity 71 cm/s PV Peak Gradient 2 mmHg Mitral Valve Name Value Normal MV Regurgitation Doppler MR Peak Gradient 124 mmHg MV Diastolic Function MV E Peak Velocity 108 cm/s MV A Peak Velocity 90 cm/s MV E/A 1.2 MV Decel Time (PW) 223 ms MV Annular TDI MV E/e' (Septal) 19.0 MV E/e' (Lateral) 12.5 MV E/e' (Average) 15.8 Tricuspid Valve Name Value Normal TV Regurgitation Doppler TR Peak Velocity 333 cm/s TR Peak Gradient 41 mmHg Estimated PAP/RSVP RA Pressure 5 mmHg <=5 PA Systolic Pressure 49 mmHg <36 RV Systolic Pressure 49 mmHg <36 Aortic Valve Name Value Normal AV Doppler AV Peak Velocity 130 cm/s AV Peak Gradient 7 mmHg AV Area (Cont Eq Tim) 1.6 cm2 AV DI (Tim) 0.75 AV Regurgitation 2D LVOT Area 2.1 cm2 Ventricles Name Value Normal LV Dimensions 2D/MM IVS Diastolic Thickness (2D) 0.9 cm 0.6-1.0 LVID Diastole (2D) 4.7 cm 3.8-5.2 LVIW Diastolic Thickness (2D) 1.0 cm 0.6-0.9 LVID Systole (2D) 3.3 cm 2.2-3.5 LVOT Diameter 1.6 cm LV Mass (2D Cubed) 159.65 g 67.00-162.00 LV Mass Index (2D Cubed) 109 g/m2 43-95 Relative Wall Thickness (2D) 0.43 <=0.42 LV Fractional Shortening/Ejection Fraction 2D/MM LV Fractional Shortening (2D) 31 % 27-45 LV EF (2D Teichholz) 59 % LV Diastolic Volume (4C MOD) 86 ml LV EF (4C MOD) 58 % LV Diastolic Volume (2C MOD) 86 ml LV EF (2C MOD) 49 % LV Diastolic Volume (BP MOD) 86 ml 46-106 LV Diastolic Volume Index (BP MOD) 59 ml/m2 29-61 LV Systolic Volume (BP MOD) 41 ml 14-42 LV Systolic Volume Index (BP MOD) 28 ml/m2 8-24 LV EF (BP MOD) 53 % 54-74 LV Diastolic Length (4C) 7.2 cm LV Systolic Length (4C) 6.0 cm LV Stroke Volume (4C MOD) 50 ml Atria Name Value Normal LA Dimensions LA Volume (4C A-L) 70 ml LA Volume (BP A-L) 70 ml RA Dimensions RA Systolic Major Witten Length (4C) 4.4 cm 2.2-2.8 RA Area (4C) 13.5 cm2 <=18.0 Report Signatures
[2025-01-25] MEDS: PIPERACILLIN/TAZ 2.25G/NS 50ML 2.25 GM/50 ML BAG IVPB ×5 (00:42→23:20)
[2025-01-25 04:38] LABS: Hematocrit 30.8 % (37.0-47.0); Hemoglobin 9.6 g/dL (12.0-15.0); Mean Corpuscular HGB Conc 31.2 g/dl (32-36); Mean Corpuscular Hemoglobin 30.4 pg (26-34); Mean Corpuscular Volume 97.5 fl (80-100); Platelet Count Result 224 k/mm3 (150-375); Red Blood Count 3.16 M/mm3 (4.2-5.4); White Blood Count 8.6 K/mm3 (4.5-10.0)
[2025-01-25 04:50] LABS: Anion Gap 5 mmol/L (4-12); Blood Urea Nitrogen 32 mg/dL (7-17); Calcium 8.1 mg/dL (8.4-10.2); Carbon Dioxide 34 mmol/L (22-30); Chloride 96 mmol/L (98-107); Estimated CRCL calculation 22 ml/min; Estimated Glomerular Filt Rate 36; Glucose 136 mg/dL (65-110); Magnesium 1.7 mg/dL (1.6-2.3); Potassium 3.0 mmol/L (3.4-5.0); Sodium 135 mmol/L (137-145)
[2025-01-25] MEDS: POTASSIUM CHLORIDE INJ 40 MEQ in SODIUM CHLORIDE 0.9% IV 500 ML 130 MEQ IVPB (09:55)
[2025-01-25] MEDS: AMIODARONE HCL 200 MG TABLET PO (09:56)
[2025-01-25] MEDS: MAGNESIUM OXIDE 400 MG TABLET PO ×2 (09:56→12:24)
[2025-01-25] MEDS: OMEGA 3 POLYUNSAT FATTY ACIDS 1 GM CAP 2 GM PO (09:56)
[2025-01-25] MEDS: CHOLECALCIFEROL (VITAMIN D3) 25 MCG (1,000 UNITS) TABLET 50 MCG BY MOUTH (09:56)
[2025-01-25] MEDS: POTASSIUM CHLORIDE 20 MEQ PACKET (FOR LIQUID) 40 MEQ PO (09:56)
[2025-01-25] MEDS: METOPROLOL TARTRATE 12.5 MG TABLET PO ×2 (09:57→22:31)
[2025-01-25] MEDS: ATORVASTATIN 40 MG TABLET BY MOUTH (09:57)
[2025-01-25] MEDS: APIXABAN 2.5 MG TABLET PO ×2 (09:57→22:31)
[2025-01-25] MEDS: FUROSEMIDE INJ 40 MG/4 ML VIAL IV PUSH (09:57)
[2025-01-25] MEDS: FOLIC ACID 1 MG TABLET BY MOUTH (09:57)
[2025-01-25] MEDS: CYANOCOBALAMIN 1,000 MCG TABLET 1000 MCG BY MOUTH (09:57)
[2025-01-25] MEDS: PANTOPRAZOLE 40 MG TABLET BY MOUTH (09:57)
[2025-01-25] MEDS: PERFLUTREN LIPID MICROSPHERES 1.5 ML VIAL DILUTED TO 10 ML TOTAL VOLUME IV PUSH (11:30)
--- NOTE | 2025-01-25 11:49 | IVDEFINITY ---
Prior to administration of IV Definity the patient was educated on the risks and benefits of the imaging enhancing agent including potential adverse side effects. The patient verbalized understanding. Allergies were verified. No exclusion criteria were identified and at least one of the following inclusion criteria were met: 1) physician request, 2) patient technically difficult to image (per the [place] [employer] guidelines of two or more segments not discernable within the apical view), or 3) questionable left ventricular function. ?
[2025-01-25] MEDS: INSULIN ASPART (*BKC) 100 UNITS/ML SUB-Q ×3 (12:23→22:36)
[2025-01-25] MEDS: FERROUS SULFATE 325 MG TABLET DR PO ×2 (12:24→17:06)
--- NOTE | 2025-01-25 13:30 | P.PNCA_ITS ---
Progress Note: A&P Assessment and Plan (1) Persistent atrial fibrillation with RVR: Code(s): I48.19 - Other persistent atrial fibrillation Status: Acute Plan Acute on chronic diastolic heart failure currently euvolemic Moderate severe mitral regurgitation Elevated troponin likely demand ischemia Acute hypoxemic respiratory failure secondary to acute on chronic diastolic heart failure Paroxysmal atrial fibrillation History of cardiac pacemaker Diabetes mellitus type 2 Hypertension controlled [place] stable kidney function Plan Further evaluation mitral regurgitation with transesophageal echocardiogram Continue Eliquis 2.5 mg b.i.d. DC IV Lasix and start oral diuretics tomorrow Continue amiodarone Continue lisinopril and metoprolol Subjective Date/time seen: 01/25/25 13:30 Interval history: No acute events Telemetry sinus rhythm alternating with paced atrial rhythm Review of Systems Review of Systems: All systems reviewed & are unremarkable except as noted in HPI and below Exam Narrative: GENERAL APPEARANCE: WELL-DEVELOPED, WELL-NOURISHED SKIN: NORMAL COLOR HEAD: NORMOCEPHALIC, NONTRAUMATIC EYES: CLEAR CONJUNCTIVA ENT: OROPHARYNX NORMAL, EARS NORMAL, NOSE NORMAL NECK: SUPPLE, NONTENDER CHEST AND RESPIRATORY: AIRWAY PATENT, NO RESPIRATORY DISTRESS, NO ACCESSORY MUSCLE USE HEART: REGULAR RATE/RHYTHM ABDOMEN: SOFT, NONTENDER, NO ORGANOMEGALY, QUIET BOWEL SOUNDS VASCULAR: NORMAL PERIPHERAL PULSES, NORMAL CAPILLARY REFILL. MUSCULOSKELETAL: NORMAL RANGE OF MOTION, NONTENDER BACK NEUROLOGIC: ALERT AND ORIENTED ?3, VALVE MECHANIC IS NORMAL TESTED, NO GROSS MOTOR DEFICIT Objective Data Vital Signs Vital Signs: Vital Signs - 24 hr 01/24/25 14:00 01/24/25 16:00 01/24/25 16:00 Temperature 37.7 C H Pulse Rate 72 66 Respiratory Rate 16 Blood Pressure 167/64 H Pulse Oximetry 95 98 Oxygen Delivery Nasal Cannula Oxygen Flow Rate 2 01/24/25 16:00 01/24/25 18:00 01/24/25 20:00 Temperature 36.8 C Pulse Rate 70 85 70 Respiratory Rate 24 H Blood Pressure 117/47 L Pulse Oximetry 97 Oxygen Delivery Oxygen Flow Rate 01/24/25 20:00 01/24/25 20:00 01/24/25 20:43 Temperature Pulse Rate 70 Respiratory Rate Blood Pressure Pulse Oximetry 94 Oxygen Delivery Room Air Nasal Cannula Oxygen Flow Rate 2 01/24/25 21:49 01/24/25 22:00 01/25/25 00:00 Temperature 37.1 C Pulse Rate 70 70 70 Respiratory Rate 20 Blood Pressure 128/58 L Pulse Oximetry 97 Oxygen Delivery Oxygen Flow Rate 01/25/25 00:00 01/25/25 00:00 01/25/25 02:00 Temperature Pulse Rate 70 70 Respiratory Rate Blood Pressure Pulse Oximetry 97 Oxygen Delivery Nasal Cannula Oxygen Flow Rate 1.5 01/25/25 04:00 01/25/25 04:00 01/25/25 04:00 Temperature 37.0 C Pulse Rate 70 70 Respiratory Rate 16 Blood Pressure 121/50 L Pulse Oximetry 98 98 Oxygen Delivery Nasal Cannula Oxygen Flow Rate 1 01/25/25 06:00 01/25/25 08:00 01/25/25 09:56 Temperature 36.6 C Pulse Rate 70 70 70 Respiratory Rate 16 Blood Pressure 121/53 L Pulse Oximetry 97 Oxygen Delivery Oxygen Flow Rate 01/25/25 09:57 01/25/25 11:44 Temperature 37.0 C Pulse Rate 70 70 Respiratory Rate 16 Blood Pressure 132/62 Pulse Oximetry 95 Oxygen Delivery Oxygen Flow Rate Intake/Output Intake/Output: Intake & Output 01/22/25 01/23/25 01/24/25 01/25/25 23:59 23:59 23:59 23:59 Intake Total 50 1400 220 Output Total 2250 1450 Balance 50 -342 -7170 Meds/Results Medications: Active Medications Generic Name Dose Route Start Last Admin Trade Name Freq PRN Reason Stop Dose Admin Acetaminophen 1,000 mg 01/24/25 09:43 Acetaminophen 500 Mg Tablet PO Q6H PRN pain 1-3 Acetaminophen 650 mg 01/24/25 10:06 Acetaminophen 325 Mg Tablet PO Q4H PRN Fever Amiodarone HCl 200 mg 01/24/25 10:05 01/25/25 09:56 Amiodarone Hcl 200 Mg Tablet PO 200 mg DAILY JACKIE Administration Apixaban 2.5 mg 01/24/25 21:00 01/25/25 09:57 Apixaban 2.5 Mg Tablet PO 2.5 mg Q12HR JACKIE Administration Atorvastatin Calcium 40 mg 01/24/25 10:05 01/25/25 09:57 Atorvastatin 40 Mg Tablet BY MOUTH 40 mg QAM JACKIE Administration Cyanocobalamin 1,000 mcg 01/24/25 10:20 01/25/25 09:57 Cyanocobalamin 1,000 Mcg Tablet BY MOUTH 1,000 mcg QAM JACKIE Administration Dextrose 12.5 gm 01/23/25 22:39 Dextrose 50% 25 Gm/50 Ml Syringe IV PUSH PRN PRN Hypoglycemia Protocol Docusate Sodium 100 mg 01/24/25 09:43 Docusate Sodium 100 Mg Capsule PO Q12H PRN Constipation Ferrous Sulfate 325 mg 01/24/25 10:15 01/25/25 12:24 Ferrous Sulfate [address] PO 325 mg BIDWM JACKIE Administration Fish Oil 2 gm 01/24/25 10:10 01/25/25 09:56 [place] 3 Polyunsat Fatty Acids 1 Gm Cap PO 2 gm Q12HR JACKIE Administration Folic Acid 1 mg 01/24/25 10:10 01/25/25 09:57 Folic Acid 1 Mg Tablet BY MOUTH 1 mg QAM JACKIE Administration Furosemide 40 mg 01/24/25 09:00 01/25/25 09:57 Furosemide Inj 40 Mg/4 Ml Vial IV PUSH 40 mg Q12HR JACKIE Administration Furosemide 20 mg 01/24/25 10:10 01/24/25 10:50 Furosemide 20 Mg Tablet BY MOUTH Not Given QAM JACKIE Glucagon 1 mg 01/23/25 22:39 Glucagon For Inj 1 Mg Vial IM PRN PRN Hypoglycemia Protocol Glucose 15 gm 01/23/25 22:39 Glucose Oral Gel 15 Gm Of Glucse In 37.5 Gm Tube PO PRN PRN Hypoglycemia Protocol Dextrose 1,000 mls @ 100 mls/hr 01/23/25 22:39 Dextrose 5% 1,000 Ml IVPB PRN PRN Hypoglycemia Protocol Piperacillin Sod/Tazobactam Sod 2.25 gm in 50 mls @ 100 mls/hr 01/24/25 12:00 01/25/25 06:45 Zosyn 2.25 Gm/Ns 50 Ml IVPB Infused Q6HR JACKIE Infusion Potassium Chloride 40 meq/ 520 mls @ 130 mls/hr 01/25/25 09:35 01/25/25 09:55 Sodium Chloride IVPB 01/25/25 13:34 130 mls/hr ONCE ONE Administration Insulin Aspart 2 - 5 units 01/24/25 08:00 01/25/25 12:23 Insulin Aspart (*Bkc) 100 Units/Ml SUB-Q 2 units TIDWM JACKIE Administration Protocol Insulin Aspart 1 - 2 units 01/24/25 21:00 01/24/25 21:38 Insulin Aspart (*Bkc) 100 Units/Ml SUB-Q Not Given HS [facility] Protocol Lisinopril 5 mg 01/24/25 10:15 01/25/25 09:57 Lisinopril 5 Mg Tablet BY MOUTH 5 mg QAM JACKIE Administration Magnesium Oxide 400 mg 01/24/25 10:10 01/25/25 09:56 Magnesium Oxide 400 Mg Tablet PO 400 mg DAILY JACKIE Administration Magnesium Oxide 400 mg 01/25/25 09:40 01/25/25 12:24 Magnesium Oxide 400 Mg Tablet PO 400 mg QAM JACKIE Administration Metoprolol Tartrate 12.5 mg 01/24/25 10:10 01/25/25 09:57 Metoprolol Tartrate 12.5 Mg Tablet PO 12.5 mg Q12HR JACKIE Administration Mirtazapine 30 mg 01/24/25 21:00 01/24/25 21:49 Mirtazapine 30 Mg Tablet PO 30 mg QHS JACKIE Administration Pantoprazole Sodium 40 mg 01/24/25 10:10 01/25/25 09:57 Pantoprazole 40 Mg Tablet BY MOUTH 40 mg QAM [facility] Administration Polyethylene Glycol 17 gm 01/25/25 09:00 01/25/25 09:56 Polyethylene Glycol 3350 17 Gm Powd.Pack PO 17 gm QAM [facility] Administration Tramadol HCl 25 mg 01/23/25 22:39 Tramadol Hcl (*Crx) 25 Mg Tablet PO Q6H PRN Pain Rated 4-6 Vitamin D 50 mcg 01/24/25 10:15 01/25/25 09:56 Cholecalciferol (Vitamin D3) 25 Mcg (1,000 Units) Tablet BY MOUTH 50 mcg QAM [facility] Administration Radiology Results: ITS Impressions Chest X-Ray 01/23/25 18:15 IMPRESSION: Left basilar atelectasis versus pneumonia. Bilateral interstitial thickening which may indicate pneumonitis. Pulmonary edema also is possible. Underlying fibrotic changes are also noted. Possible nodule in the right upper lobe with surrounding fibrotic changes. 3 months follow-up advised. Abdomen/Pelvis CT 01/23/25 22:51 IMPRESSION: 1. No evidence of appendicitis, diverticulitis or intestinal obstruction. 2. Bilateral pleural effusion with adjacent atelectasis versus pneumonia. 3. Increased density of the liver. Clinical correlation advised. 4. Prolapse uterus with cystocele and urinary bladder stones. 5. Bilateral severe hydronephrotic changes. 6. Slightly thickened wall of the gallbladder with no stones. Ultrasound evaluation advised. Abdomen Ultrasound 01/23/25 23:19 IMPRESSION: Thickened wall of the gallbladder. Cholecystitis cannot be excluded. Clinical correlation advised. Otherwise, limited abdominal ultrasound. Labs Labs: Laboratory Results - last 24 hr 01/24/25 01/24/25 01/25/25 15:35 20:51 04:00 WBC 8.6 RBC 3.16 L Hgb 9.6 L Hct 30.8 L MCV 97.5 MCH 30.4 MCHC 31.2 L RDW 14.2 Plt Count 224 MPV 9.8 Sodium 135 L Potassium 3.0 L Chloride 96 L Carbon Dioxide 34 H Anion Gap 5 BUN 32 H Creatinine 1.41 H Estim Creat Clear Calc 22 Estimated GFR 36 L Glucose 136 H POC Capillary Glucose 221 H 195 H Calcium 8.1 L Magnesium 1.7 01/25/25 01/25/25 07:39 11:24 WBC RBC Hgb Hct MCV MCH MCHC RDW Plt Count MPV Sodium Potassium Chloride Carbon Dioxide Anion Gap BUN Creatinine Estim Creat Clear Calc Estimated GFR Glucose POC Capillary Glucose 129 H 207 H Calcium Magnesium
--- NOTE | 2025-01-25 16:06 | PM.IMPN ---
Progress Note: A&P Assessment and Plan (1) Acute exacerbation of CHF (congestive heart failure): Code(s): I50.9 - Heart failure, unspecified Status: Acute Assessment and Plan: Obtain echo as one is not on file Telemetry Continue diuresis with Lasix 40 mg IV push q.12 hours Trend trops Consult cardiology for maximization of Heart failure management. daily weight Accurate I&O Trend and monitor daily labs and VS. Physically appears euvolemic CXR shows pulmonary edema. BNP >30K, and was 7K last week. Possible exacerbation of HF 2/2 current [place] 2/2 UTI and urinary retention. Appreciate Cardiology management. Pt is a pt of Dr. Moore. (2) Acute kidney injury: Code(s): N17.9 - Acute kidney failure, unspecified Status: Acute Assessment and Plan: Baseline renal function w/Cr of 0.9. Current Cr is 1.32 Monitor and trend as pt is also receiving lasix, which in the current setting is needed for Heart Failure exacerbation. If acute worsening of renal function, consider consulting Nephrology. Trend creatinine and BUN. Avoid unnecessary renal offending agents other than the lasix which is currently needed for CHF. (3) Elevated troponin: Code(s): R79.89 - Other specified abnormal findings of blood chemistry Status: Acute Assessment and Plan: Etiology most likely demand ischemia from his heart failure exacerbation. Trend trops x3 Telemetry Consult cardiology (4) Diabetes mellitus: Code(s): E11.9 - Type 2 diabetes mellitus without complications Status: Acute Assessment and Plan: Hold oral hypoglycemics Sliding scale insulin initiated Hypoglycemic protocol Check A1c Cardiac diet/diabetic diet (5) Transaminitis: Code(s): R74.01 - Elevation of levels of liver transaminase levels Status: Acute Assessment and Plan: Uncertain etiology in setting of heart failure exacerbation, the could be portal hypertension related During most recent admission transaminases were in the 30s and 40s respectively. This was just a couple of days ago. Today they are an AST of 630 and an ALT of 269. Patient asymptomatic of biliary colic. CT abdomen and pelvis pending to rule out cholecystitis and/or choledocholithiasis Right upper quadrant ultrasound ordered Consider additional consults as needed based upon findings of CT scan. Avoid Tylenol (6) Chronic atrial fibrillation: Code(s): I48.20 - Chronic atrial fibrillation, unspecified Status: Acute Assessment and Plan: Continue Eliquis once doses confirmed verified Telemetry Rate controlled with metoprolol and amiodarone (7) Mixed hyperlipidemia: Code(s): E78.2 - Mixed hyperlipidemia Status: Chronic Assessment and Plan: Hold statin with current transaminitis. Heart healthy diet (8) Benign essential hypertension: Code(s): I10 - Essential (primary) hypertension Status: Chronic Assessment and Plan: Trend vital signs Reorder home medications once verified and confirmed. 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 patient has severe stage IV uterovaginal prolapse, had been refusing surgical intervention however had agreed this time to follow up with an urogyne for further evaluation. will follow up urine culture and cardiac echo. today patient expressed to pet care technician she wish to be placed under hospice care on MondayJanuary 27 after she discuses with her family. Subjective Date/time seen: 01/25/25 16:06 Interval history: Dyspnea H&P-Narrative: This is an 79-year-old female patient with past medical history of chronic kidney disease, type 2 diabetes mellitus, hypertension, chronic AFib on Eliquis therapy, chronic indwelling Maguire catheter who was just discharged from hospital yesterday after being treated for CHF exacerbation, UTI in [place]. After getting home patient noted that she became increasingly short of breath, worse with exertion and EMS was notified. Upon arrival they placed her on 2 L supplemental oxygen for hypoxia at 88% on room air. Patient does not wear supplemental oxygen at home. Upon return to the emergency room she complains worsening dyspnea, slight abdominal pain and denies any fevers/nausea/vomiting/diarrhea. She denies any acute cough or any other new concerns. Workups performed in the emergency room shows stable vital signs, EKG showing normal sinus rhythm with first-degree AV block 72 beats per minute. No recent echo or any echo is noted in EMR. Chest x-ray showing left basilar atelectasis versus pneumonia and pulmonary edema. CBC with leukocytosis at 12.4, metabolic panel significant for mild [place] higher than her baseline with creatinine of 1.32 and BUN of 24 as well as glucose of 321. Of note patient's AST is 630 and ALT is 269 these are grossly elevated as compared with her recent hospitalization of which she was discharged 2 days ago when they were in the 30s and 40s respectively. Troponin also now elevated at 0.168 and no historical elevation. BNP is greater than 30,000. Of note last BNP from 1 week ago was 7610. Patient does see Dr. Garcia for Cardiology, however has not been seen by Cardiology in her last hospitalization. Urinalysis today reflecting 3+ leukocyte esterase, greater than 100 wbc's, 4+ bacteria, 3+ protein, trace ketones and 3+ blood. Patient presenting with concerns for [place], transaminitis, heart failure exacerbation, he elevated troponin which is suspected to be due to demand ischemia and UTI. She is initiated on Lasix 60 mg IV push in the ER, Zosyn is ordered and CT scan of the abdomen pelvis is pending. She is being admitted in the current setting for continued treatment with antibiotics, diuresis, Cardiology consultation and depending upon outcome of CT scan of abdomen and pelvis may require surgical evaluation as well. 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 patient has severe stage IV uterovaginal prolapse, had been refusing surgical intervention however had agreed this time to follow up with an urogyne for further evaluation. will follow up urine culture and cardiac echo. today patient expressed to pet care technician she wish to be placed under hospice care on MondayJanuary 27 after she discuses with her family. Review of Systems Review of Systems: All systems reviewed & are unremarkable except as noted in HPI and below Exam Narrative: Appears chronically ill, elderly and frail Patient is comfortable, NAD HEENT: eyes are clear and none icteric LUNGS:CTA HEART: RR S1S2 ABD: BS+, Soft and nontender Lower extremities: no edema SKIN: nonjaundiced Neuro: grossly intact. Objective Data Vital Signs Vital Signs: Vital Signs - 24 hr 01/24/25 18:00 01/24/25 20:00 01/24/25 20:00 Temperature 36.8 C Pulse Rate 85 70 Respiratory Rate 24 H Blood Pressure 117/47 L Pulse Oximetry 97 Oxygen Delivery Room Air Oxygen Flow Rate 01/24/25 20:00 01/24/25 20:43 01/24/25 21:49 Temperature Pulse Rate 70 70 Respiratory Rate Blood Pressure Pulse Oximetry 94 Oxygen Delivery Nasal Cannula Oxygen Flow Rate 2 01/24/25 22:00 01/25/25 00:00 01/25/25 00:00 Temperature 37.1 C Pulse Rate 70 70 Respiratory Rate 20 Blood Pressure 128/58 L Pulse Oximetry 97 97 Oxygen Delivery Nasal Cannula Oxygen Flow Rate 1.5 01/25/25 00:00 01/25/25 02:00 01/25/25 04:00 Temperature 37.0 C Pulse Rate 70 70 70 Respiratory Rate 16 Blood Pressure 121/50 L Pulse Oximetry 98 Oxygen Delivery Oxygen Flow Rate 01/25/25 04:00 01/25/25 04:00 01/25/25 06:00 Temperature Pulse Rate 70 70 Respiratory Rate Blood Pressure Pulse Oximetry 98 Oxygen Delivery Nasal Cannula Oxygen Flow Rate 1 01/25/25 08:00 01/25/25 08:00 01/25/25 08:00 Temperature 36.6 C Pulse Rate 70 70 Respiratory Rate 16 Blood Pressure 121/53 L Pulse Oximetry 97 95 Oxygen Delivery Nasal Cannula Oxygen Flow Rate 1 01/25/25 09:56 01/25/25 09:57 01/25/25 10:00 Temperature Pulse Rate 70 70 70 Respiratory Rate Blood Pressure Pulse Oximetry Oxygen Delivery Oxygen Flow Rate 01/25/25 11:44 01/25/25 12:00 01/25/25 12:00 Temperature 37.0 C Pulse Rate 70 70 Respiratory Rate 16 Blood Pressure 132/62 Pulse Oximetry 95 96 Oxygen Delivery Nasal Cannula Oxygen Flow Rate 1 01/25/25 14:00 Temperature Pulse Rate 70 Respiratory Rate Blood Pressure Pulse Oximetry Oxygen Delivery Oxygen Flow Rate Intake/Output Intake/Output: Intake & Output 01/22/25 01/23/25 01/24/25 01/25/25 23:59 23:59 23:59 23:59 Intake Total 50 1400 340 Output Total 2250 1450 Balance 50 -850 -1114 Meds/Results Medications: Active Medications Generic Name Dose Route Start Last Admin Trade Name Freq PRN Reason Stop Dose Admin Acetaminophen 1,000 mg 01/24/25 09:43 Acetaminophen 500 Mg Tablet PO Q6H PRN pain 1-3 Acetaminophen 650 mg 01/24/25 10:06 Acetaminophen 325 Mg Tablet PO Q4H PRN Fever Amiodarone HCl 200 mg 01/24/25 10:05 01/25/25 09:56 Amiodarone Hcl 200 Mg Tablet PO 200 mg DAILY JACKIE Administration Apixaban 2.5 mg 01/24/25 21:00 01/25/25 09:57 Apixaban 2.5 Mg Tablet PO 2.5 mg Q12HR JACKIE Administration Atorvastatin Calcium 40 mg 01/24/25 10:05 01/25/25 09:57 Atorvastatin 40 Mg Tablet BY MOUTH 40 mg QAM JACKIE Administration Cyanocobalamin 1,000 mcg 01/24/25 10:20 01/25/25 09:57 Cyanocobalamin 1,000 Mcg Tablet BY MOUTH 1,000 mcg QAM [facility] Administration Dextrose 12.5 gm 01/23/25 22:39 Dextrose 50% 25 Gm/50 Ml Syringe IV PUSH PRN PRN Hypoglycemia Protocol Docusate Sodium 100 mg 01/24/25 09:43 Docusate Sodium 100 Mg Capsule PO Q12H PRN Constipation Ferrous Sulfate 325 mg 01/24/25 10:15 01/25/25 12:24 Ferrous Sulfate [address] PO 325 mg BIDWM JACKIE Administration Fish Oil 2 gm 01/24/25 10:10 01/25/25 09:56 [place] 3 Polyunsat Fatty Acids 1 Gm Cap PO 2 gm Q12HR JACKIE Administration Folic Acid 1 mg 01/24/25 10:10 01/25/25 09:57 Folic Acid 1 Mg Tablet BY MOUTH 1 mg QAM [facility] Administration Furosemide 20 mg 01/24/25 10:10 01/24/25 10:50 Furosemide 20 Mg Tablet BY MOUTH Not Given QAM JACKIE Furosemide 40 mg 01/26/25 09:00 Furosemide 40 Mg Tablet PO DAILY JACKIE Glucagon 1 mg 01/23/25 22:39 Glucagon For Inj 1 Mg Vial IM PRN PRN Hypoglycemia Protocol Glucose 15 gm 01/23/25 22:39 Glucose Oral Gel 15 Gm Of Glucse In 37.5 Gm Tube PO PRN PRN Hypoglycemia Protocol Dextrose 1,000 mls @ 100 mls/hr 01/23/25 22:39 Dextrose 5% 1,000 Ml IVPB PRN PRN Hypoglycemia Protocol Piperacillin Sod/Tazobactam Sod 2.25 gm in 50 mls @ 100 mls/hr 01/24/25 12:00 01/25/25 13:15 Zosyn 2.25 Gm/Ns 50 Ml IVPB 100 mls/hr Q6HR JACKIE Administration Insulin Aspart 2 - 5 units 01/24/25 08:00 01/25/25 12:23 Insulin Aspart (*Bkc) 100 Units/Ml SUB-Q 2 units TIDWM JACKIE Administration Protocol Insulin Aspart 1 - 2 units 01/24/25 21:00 01/24/25 21:38 Insulin Aspart (*Bkc) 100 Units/Ml SUB-Q Not Given HS JACKIE Protocol Lisinopril 5 mg 01/24/25 10:15 01/25/25 09:57 Lisinopril 5 Mg Tablet BY MOUTH 5 mg QAM [facility] Administration Magnesium Oxide 400 mg 01/24/25 10:10 01/25/25 09:56 Magnesium Oxide 400 Mg Tablet PO 400 mg DAILY JACKIE Administration Magnesium Oxide 400 mg 01/25/25 09:40 01/25/25 12:24 Magnesium Oxide 400 Mg Tablet PO 400 mg QAM JACKIE Administration Metoprolol Tartrate 12.5 mg 01/24/25 10:10 01/25/25 09:57 Metoprolol Tartrate 12.5 Mg Tablet PO 12.5 mg Q12HR JACKIE Administration Mirtazapine 30 mg 01/24/25 21:00 01/24/25 21:49 Mirtazapine 30 Mg Tablet PO 30 mg QHS JACKIE Administration Pantoprazole Sodium 40 mg 01/24/25 10:10 01/25/25 09:57 Pantoprazole 40 Mg Tablet BY MOUTH 40 mg QAM JACKIE Administration Polyethylene Glycol 17 gm 01/25/25 09:00 01/25/25 09:56 Polyethylene Glycol 3350 17 Gm Powd.Pack PO 17 gm QAM JACKIE Administration Tramadol HCl 25 mg 01/23/25 22:39 Tramadol Hcl (*Crx) 25 Mg Tablet PO Q6H PRN Pain Rated 4-6 Vitamin D 50 mcg 01/24/25 10:15 01/25/25 09:56 Cholecalciferol (Vitamin D3) 25 Mcg (1,000 Units) Tablet BY MOUTH 50 mcg QAM JACKIE Administration Radiology Results: ITS Impressions Chest X-Ray 01/23/25 18:15 IMPRESSION: Left basilar atelectasis versus pneumonia. Bilateral interstitial thickening which may indicate pneumonitis. Pulmonary edema also is possible. Underlying fibrotic changes are also noted. Possible nodule in the right upper lobe with surrounding fibrotic changes. 3 months follow-up advised. Abdomen/Pelvis CT 01/23/25 22:51 IMPRESSION: 1. No evidence of appendicitis, diverticulitis or intestinal obstruction. 2. Bilateral pleural effusion with adjacent atelectasis versus pneumonia. 3. Increased density of the liver. Clinical correlation advised. 4. Prolapse uterus with cystocele and urinary bladder stones. 5. Bilateral severe hydronephrotic changes. 6. Slightly thickened wall of the gallbladder with no stones. Ultrasound evaluation advised. Abdomen Ultrasound 01/23/25 23:19 IMPRESSION: Thickened wall of the gallbladder. Cholecystitis cannot be excluded. Clinical correlation advised. Otherwise, limited abdominal ultrasound. Labs Labs: Laboratory Results - last 24 hr 01/24/25 01/25/25 01/25/25 20:51 04:00 07:39 WBC 8.6 RBC 3.16 L Hgb 9.6 L Hct 30.8 L MCV 97.5 MCH 30.4 MCHC 31.2 L RDW 14.2 Plt Count 224 MPV 9.8 Sodium 135 L Potassium 3.0 L Chloride 96 L Carbon Dioxide 34 H Anion Gap 5 BUN 32 H Creatinine 1.41 H Estim Creat Clear Calc 22 Estimated GFR 36 L Glucose 136 H POC Capillary Glucose 195 H 129 H Calcium 8.1 L Magnesium 1.7 01/25/25 11:24 WBC RBC Hgb Hct MCV MCH MCHC RDW Plt Count MPV Sodium Potassium Chloride Carbon Dioxide Anion Gap BUN Creatinine Estim Creat Clear Calc Estimated GFR Glucose POC Capillary Glucose 207 H Calcium Magnesium Quality VTE Prophylaxis VTE prophylaxis: pharmacologic ordered
[2025-01-25] MEDS: MIRTAZAPINE 30 MG TABLET PO (22:31)
--- NOTE | 2025-01-25 22:42 | WNDPHOTO ---
PHOTO ONLY - See Nursing Notes and/ or assessments for documentation.
--- NOTE | 2025-01-25 22:45 | WNDPHOTO ---
PHOTO ONLY - See Nursing Notes and/ or assessments for documentation.
--- NOTE | 2025-01-25 22:48 | WNDPHOTO ---
PHOTO ONLY - See Nursing Notes and/ or assessments for documentation.
[2025-01-26] VITALS (15 sets, daily range): BP systolic 106–139; BP diastolic 49–66; PULSE 70–78; RESP 16–20; TEMP 36.1–37; O2SAT 95–97
[2025-01-26 04:47] LABS: Hematocrit 30.2 % (37.0-47.0); Hemoglobin 9.6 g/dL (12.0-15.0); Mean Corpuscular HGB Conc 31.8 g/dl (32-36); Mean Corpuscular Hemoglobin 30.7 pg (26-34); Mean Corpuscular Volume 96.5 fl (80-100); Platelet Count Result 225 k/mm3 (150-375); Red Blood Count 3.13 M/mm3 (4.2-5.4); White Blood Count 8.5 K/mm3 (4.5-10.0)
[2025-01-26 05:02] LABS: Anion Gap 3 mmol/L (4-12); Blood Urea Nitrogen 28 mg/dL (7-17); Calcium 7.9 mg/dL (8.4-10.2); Carbon Dioxide 38 mmol/L (22-30); Chloride 92 mmol/L (98-107); Estimated CRCL calculation 22 ml/min; Estimated Glomerular Filt Rate 40; Glucose 131 mg/dL (65-110); Magnesium 1.5 mg/dL (1.6-2.3); Potassium 3.1 mmol/L (3.4-5.0); Sodium 133 mmol/L (137-145)
[2025-01-26] MEDS: PIPERACILLIN/TAZ 2.25G/NS 50ML 2.25 GM/50 ML BAG IVPB ×2 (05:52→11:28)
[2025-01-26] MEDS: METOPROLOL TARTRATE 12.5 MG TABLET PO ×2 (08:49→20:36)
[2025-01-26] MEDS: OMEGA 3 POLYUNSAT FATTY ACIDS 1 GM CAP 2 GM PO (08:49)
[2025-01-26] MEDS: AMIODARONE HCL 200 MG TABLET PO (08:50)
[2025-01-26] MEDS: ATORVASTATIN 40 MG TABLET BY MOUTH (08:50)
[2025-01-26] MEDS: FOLIC ACID 1 MG TABLET BY MOUTH (08:50)
[2025-01-26] MEDS: APIXABAN 2.5 MG TABLET PO ×2 (08:50→20:36)
[2025-01-26] MEDS: MAGNESIUM OXIDE 400 MG TABLET PO (08:50)
[2025-01-26] MEDS: CHOLECALCIFEROL (VITAMIN D3) 25 MCG (1,000 UNITS) TABLET 50 MCG BY MOUTH (08:50)
[2025-01-26] MEDS: PANTOPRAZOLE 40 MG TABLET BY MOUTH (08:50)
[2025-01-26] MEDS: CYANOCOBALAMIN 1,000 MCG TABLET 1000 MCG BY MOUTH (08:50)
[2025-01-26] MEDS: MAGNESIUM SULF 2 GM/WATER 50ML 2 GM/50 ML BAG IVPB (08:51)
[2025-01-26] MEDS: FUROSEMIDE 40 MG TABLET PO (08:51)
[2025-01-26] MEDS: FERROUS SULFATE 325 MG TABLET DR PO ×2 (08:51→18:06)
[2025-01-26] MEDS: POTASSIUM CHLORIDE 20 MEQ PACKET (FOR LIQUID) 40 MEQ PO (08:57)
[2025-01-26] MEDS: INSULIN ASPART (*BKC) 100 UNITS/ML SUB-Q (11:43)
--- NOTE | 2025-01-26 13:29 | P.PNCA_ITS ---
Progress Note: A&P Assessment and Plan (1) Persistent atrial fibrillation with RVR: Code(s): I48.19 - Other persistent atrial fibrillation Status: Acute Plan Acute on chronic diastolic heart failure currently euvolemic Moderate severe mitral regurgitation Elevated troponin likely demand ischemia Acute hypoxemic respiratory failure secondary to acute on chronic diastolic heart failure Paroxysmal atrial fibrillation History of cardiac pacemaker Diabetes mellitus type 2 Hypertension controlled R[place] stable kidney function Plan Further evaluation mitral regurgitation with transesophageal echocardiogram which can be performed as outpatient Continue Eliquis 2.5 mg b.i.d. Continue oral diuretics Lasix 40 mg daily Continue amiodarone Continue lisinopril and metoprolol Subjective Date/time seen: 01/26/25 13:29 Interval history: No acute events Review of Systems Review of Systems: All systems reviewed & are unremarkable except as noted in HPI and below Exam Narrative: GENERAL APPEARANCE: WELL-DEVELOPED, WELL-NOURISHED SKIN: NORMAL COLOR HEAD: NORMOCEPHALIC, NONTRAUMATIC EYES: CLEAR CONJUNCTIVA ENT: OROPHARYNX NORMAL, EARS NORMAL, NOSE NORMAL NECK: SUPPLE, NONTENDER CHEST AND RESPIRATORY: AIRWAY PATENT, NO RESPIRATORY DISTRESS, NO ACCESSORY MUSCLE USE HEART: REGULAR RATE/RHYTHM ABDOMEN: SOFT, NONTENDER, NO ORGANOMEGALY, QUIET BOWEL SOUNDS VASCULAR: NORMAL PERIPHERAL PULSES, NORMAL CAPILLARY REFILL. MUSCULOSKELETAL: NORMAL RANGE OF MOTION, NONTENDER BACK NEUROLOGIC: ALERT AND ORIENTED ?3, SENIOR PREMIUM AUDITOR IS NORMAL TESTED, NO GROSS MOTOR DEFICIT Objective Data Vital Signs Vital Signs: Vital Signs - 24 hr 01/25/25 14:00 01/25/25 16:00 01/25/25 16:00 Temperature 37.1 C Pulse Rate 70 70 Respiratory Rate 12 Blood Pressure 118/57 L Pulse Oximetry 96 95 Oxygen Delivery Nasal Cannula Oxygen Flow Rate 1 01/25/25 16:00 01/25/25 18:00 01/25/25 20:00 Temperature 37.4 C Pulse Rate 70 70 75 Respiratory Rate 20 Blood Pressure 130/56 L Pulse Oximetry 95 Oxygen Delivery Oxygen Flow Rate 01/25/25 20:00 01/25/25 20:00 01/25/25 22:00 Temperature Pulse Rate 70 70 Respiratory Rate Blood Pressure Pulse Oximetry 95 Oxygen Delivery Nasal Cannula Oxygen Flow Rate 1 01/25/25 22:31 01/25/25 23:37 01/26/25 00:00 Temperature 37.1 C Pulse Rate 70 70 Respiratory Rate 20 Blood Pressure 105/59 L Pulse Oximetry 96 96 Oxygen Delivery Nasal Cannula Oxygen Flow Rate 1 01/26/25 00:00 01/26/25 02:00 01/26/25 04:00 Temperature 36.6 C Pulse Rate 70 72 70 Respiratory Rate 20 Blood Pressure 117/60 Pulse Oximetry 96 Oxygen Delivery Oxygen Flow Rate 01/26/25 04:00 01/26/25 04:00 01/26/25 06:00 Temperature Pulse Rate 70 70 Respiratory Rate Blood Pressure Pulse Oximetry 96 Oxygen Delivery Nasal Cannula Oxygen Flow Rate 1 01/26/25 07:46 01/26/25 08:00 01/26/25 08:00 Temperature 37.0 C Pulse Rate 70 70 Respiratory Rate 20 Blood Pressure 139/56 L Pulse Oximetry 97 97 Oxygen Delivery Nasal Cannula Oxygen Flow Rate 1 01/26/25 08:49 01/26/25 08:50 01/26/25 10:00 Temperature Pulse Rate 70 70 70 Respiratory Rate Blood Pressure Pulse Oximetry Oxygen Delivery Oxygen Flow Rate 01/26/25 11:48 Temperature 36.6 C Pulse Rate 70 Respiratory Rate 16 Blood Pressure 119/49 L Pulse Oximetry 95 Oxygen Delivery Oxygen Flow Rate Intake/Output Intake/Output: Intake & Output 01/23/25 01/24/25 01/25/25 01/26/25 23:59 23:59 23:59 23:59 Intake Total 50 1400 1110 50 Output Total 2250 3750 550 Balance 50 -269 -0160 -500 Meds/Results Medications: Active Medications Generic Name Dose Route Start Last Admin Trade Name Freq PRN Reason Stop Dose Admin Acetaminophen 1,000 mg 01/24/25 09:43 Acetaminophen 500 Mg Tablet PO Q6H PRN pain 1-3 Acetaminophen 650 mg 01/24/25 10:06 Acetaminophen 325 Mg Tablet PO Q4H PRN Fever Amiodarone HCl 200 mg 01/24/25 10:05 01/26/25 08:50 Amiodarone Hcl 200 Mg Tablet PO 200 mg DAILY JACKIE Administration Apixaban 2.5 mg 01/24/25 21:00 01/26/25 08:50 Apixaban 2.5 Mg Tablet PO 2.5 mg Q12HR JACKIE Administration Atorvastatin Calcium 40 mg 01/24/25 10:05 01/26/25 08:50 Atorvastatin 40 Mg Tablet BY MOUTH 40 mg QAM JACKIE Administration Cyanocobalamin 1,000 mcg 01/24/25 10:20 01/26/25 08:50 Cyanocobalamin 1,000 Mcg Tablet BY MOUTH 1,000 mcg QAM JACKIE Administration Dextrose 12.5 gm 01/23/25 22:39 Dextrose 50% 25 Gm/50 Ml Syringe IV PUSH PRN PRN Hypoglycemia Protocol Docusate Sodium 100 mg 01/24/25 09:43 Docusate Sodium 100 Mg Capsule PO Q12H PRN Constipation Ferrous Sulfate 325 mg 01/24/25 10:15 01/26/25 08:51 Ferrous Sulfate [address] PO 325 mg BIDWM JACKIE Administration Fish Oil 2 gm 01/24/25 10:10 01/26/25 08:49 [place] 3 Polyunsat Fatty Acids 1 Gm Cap PO 2 gm Q12HR JACKIE Administration Folic Acid 1 mg 01/24/25 10:10 01/26/25 08:50 Folic Acid 1 Mg Tablet BY MOUTH 1 mg QAM JACKIE Administration Furosemide 20 mg 01/24/25 10:10 01/24/25 10:50 Furosemide 20 Mg Tablet BY MOUTH Not [facility] [place] 40 mg 01/26/25 09:00 01/26/25 08:51 Furosemide 40 Mg Tablet PO 40 mg DAILY JACKIE Administration Glucagon 1 mg 01/23/25 22:39 Glucagon For Inj 1 Mg Vial IM PRN PRN Hypoglycemia Protocol Glucose 15 gm 01/23/25 22:39 Glucose Oral Gel 15 Gm Of Glucse In 37.5 Gm Tube PO PRN PRN Hypoglycemia Protocol Dextrose 1,000 mls @ 100 mls/hr 01/23/25 22:39 Dextrose 5% 1,000 Ml IVPB PRN PRN Hypoglycemia Protocol Piperacillin Sod/Tazobactam Sod 2.25 gm in 50 mls @ 100 mls/hr 01/24/25 12:00 01/26/25 11:28 Zosyn 2.25 Gm/Ns 50 Ml IVPB 100 mls/hr Q6HR JACKIE Administration Insulin Aspart 2 - 5 units 01/24/25 08:00 01/26/25 11:43 Insulin Aspart (*Bkc) 100 Units/Ml SUB-Q 3 units TIDWM [facility] Administration Protocol Insulin Aspart 1 - 2 units 01/24/25 21:00 01/25/25 22:36 Insulin Aspart (*Bkc) 100 Units/Ml SUB-Q 1 units HS [facility] Administration Protocol Lisinopril 5 mg 01/24/25 10:15 01/26/25 08:50 Lisinopril 5 Mg Tablet BY MOUTH 5 mg QAM JACKIE Administration Magnesium Oxide 400 mg 01/24/25 10:10 01/26/25 08:50 Magnesium Oxide 400 Mg Tablet PO 400 mg DAILY JACKIE Administration Magnesium Oxide 400 mg 01/25/25 09:40 01/26/25 08:52 Magnesium Oxide 400 Mg Tablet PO 400 mg QAM JACKIE Administration Metoprolol Tartrate 12.5 mg 01/24/25 10:10 01/26/25 08:49 Metoprolol Tartrate 12.5 Mg Tablet PO 12.5 mg Q12HR JACKIE Administration Mirtazapine 30 mg 01/24/25 21:00 01/25/25 22:31 Mirtazapine 30 Mg Tablet PO 30 mg QHS JACKIE Administration Pantoprazole Sodium 40 mg 01/24/25 10:10 01/26/25 08:50 Pantoprazole 40 Mg Tablet BY MOUTH 40 mg QAM JACKIE Administration Polyethylene Glycol 17 gm 01/25/25 09:00 01/26/25 08:51 Polyethylene Glycol 3350 17 Gm Powd.Pack PO Not Given QAM JACKIE Tramadol HCl 25 mg 01/23/25 22:39 Tramadol Hcl (*Crx) 25 Mg Tablet PO Q6H PRN Pain Rated 4-6 Vitamin D 50 mcg 01/24/25 10:15 01/26/25 08:50 Cholecalciferol (Vitamin D3) 25 Mcg (1,000 Units) Tablet BY MOUTH 50 mcg QAM JACKIE Administration Radiology Results: ITS Impressions Chest X-Ray 01/23/25 18:15 IMPRESSION: Left basilar atelectasis versus pneumonia. Bilateral interstitial thickening which may indicate pneumonitis. Pulmonary edema also is possible. Underlying fibrotic changes are also noted. Possible nodule in the right upper lobe with surrounding fibrotic changes. 3 months follow-up advised. Abdomen/Pelvis CT 01/23/25 22:51 IMPRESSION: 1. No evidence of appendicitis, diverticulitis or intestinal obstruction. 2. Bilateral pleural effusion with adjacent atelectasis versus pneumonia. 3. Increased density of the liver. Clinical correlation advised. 4. Prolapse uterus with cystocele and urinary bladder stones. 5. Bilateral severe hydronephrotic changes. 6. Slightly thickened wall of the gallbladder with no stones. Ultrasound evaluation advised. Abdomen Ultrasound 01/23/25 23:19 IMPRESSION: Thickened wall of the gallbladder. Cholecystitis cannot be excluded. Clinical correlation advised. Otherwise, limited abdominal ultrasound. Labs Labs: Laboratory Results - last 24 hr 01/25/25 01/25/25 01/26/25 15:52 20:00 04:10 WBC 8.5 RBC 3.13 L Hgb 9.6 L Hct 30.2 L MCV 96.5 MCH 30.7 MCHC 31.8 L RDW 13.9 Plt Count 225 MPV 10.1 Sodium 133 L Potassium 3.1 L Chloride 92 L Carbon Dioxide 38 H Anion Gap 3 L BUN 28 H Creatinine 1.28 H Estim Creat Clear Calc 22 Estimated GFR 40 L Glucose 131 H POC Capillary Glucose 246 H 205 H Calcium 7.9 L Magnesium 1.5 L 01/26/25 01/26/25 07:34 11:20 WBC RBC Hgb Hct MCV MCH MCHC RDW Plt Count MPV Sodium Potassium Chloride Carbon Dioxide Anion Gap BUN Creatinine Estim Creat Clear Calc Estimated GFR Glucose POC Capillary Glucose 131 H 225 H Calcium Magnesium
--- NOTE | 2025-01-26 14:59 | P.PNIM_ITS ---
Progress Note: A&P Assessment and Plan (1) Acute exacerbation of CHF (congestive heart failure): Code(s): I50.9 - Heart failure, unspecified Status: Acute Assessment and Plan: * Obtain echo as one is not on file * Telemetry * Continue diuresis with Lasix 40 mg IV push q.12 hours * Trend trops * Consult cardiology for maximization of Heart failure management. * daily weight * Accurate I&O * Trend and monitor daily labs and VS. * Physically appears euvolemic * CXR shows pulmonary edema. * BNP >30K, and was 7K last week. * Possible exacerbation of HF 2/2 current [place] 2/2 UTI and urinary retention. Appreciate Cardiology management. Pt is a pt of Dr. Moore. (2) Acute kidney injury: Code(s): N17.9 - Acute kidney failure, unspecified Status: Acute Assessment and Plan: * Baseline renal function w/Cr of 0.9. * Current Cr is 1.32 * Monitor and trend as pt is also receiving lasix, which in the current setting is needed for Heart Failure exacerbation. * If acute worsening of renal function, consider consulting Nephrology. * Trend creatinine and BUN. * Avoid unnecessary renal offending agents other than the lasix which is currently needed for CHF. (3) Elevated troponin: Code(s): R79.89 - Other specified abnormal findings of blood chemistry Status: Acute Assessment and Plan: * Etiology most likely demand ischemia from his heart failure exacerbation. * Trend trops x3 * Telemetry * Consult cardiology (4) Diabetes mellitus: Code(s): E11.9 - Type 2 diabetes mellitus without complications Status: Acute Assessment and Plan: * Hold oral hypoglycemics * Sliding scale insulin initiated * Hypoglycemic protocol * Check A1c * Cardiac diet/diabetic diet (5) Transaminitis: Code(s): R74.01 - Elevation of levels of liver transaminase levels Status: Acute Assessment and Plan: * Uncertain etiology in setting of heart failure exacerbation, the could be portal hypertension related * During most recent admission transaminases were in the 30s and 40s respectively. This was just a couple of days ago. Today they are an AST of 630 and an ALT of 269. * Patient asymptomatic of biliary colic. * CT abdomen and pelvis pending to rule out cholecystitis and/or choledocholithiasis * Right upper quadrant ultrasound ordered * Consider additional consults as needed based upon findings of CT scan. * Avoid Tylenol (6) Chronic atrial fibrillation: Code(s): I48.20 - Chronic atrial fibrillation, unspecified Status: Acute Assessment and Plan: * Continue Eliquis once doses confirmed verified * Telemetry * Rate controlled with metoprolol and amiodarone (7) Mixed hyperlipidemia: Code(s): E78.2 - Mixed hyperlipidemia Status: Chronic Assessment and Plan: * Hold statin with current transaminitis. * Heart healthy diet (8) Benign essential hypertension: Code(s): I10 - Essential (primary) hypertension Status: Chronic Assessment and Plan: * Trend vital signs * Reorder home medications once verified and confirmed. 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 patient has severe stage IV uterovaginal prolapse, had been refusing surgical intervention however had agreed this time to follow up with an urogyne for further evaluation. will follow up urine culture and cardiac echo. on 01/25 patient had expressed to nurse wound care she wish to be placed under hospice care on MondayJanuary 27 and again today too and her POA is present in the room and she has agree with decision, patient will discuss with other family members on MondayJanuary 28 for the her final decision, will continue to monitor. Subjective Date/time seen: 01/26/25 14:59 Interval history: Dyspnea H&P-Narrative: This is an 79-year-old female patient with past medical history of chronic kidney disease, type 2 diabetes mellitus, hypertension, chronic AFib on Eliquis therapy, chronic indwelling Maguire catheter who was just discharged from hospital yesterday after being treated for CHF exacerbation, UTI in [place]. After getting home patient noted that she became increasingly short of breath, worse with exertion and EMS was notified. Upon arrival they placed her on 2 L supplemental oxygen for hypoxia at 88% on room air. Patient does not wear supplemental oxygen at home. Upon return to the emergency room she complains worsening dyspnea, slight abdominal pain and denies any fevers/nausea/vomiting/diarrhea. She denies any acute cough or any other new concerns. Workups performed in the emergency room shows stable vital signs, EKG showing normal sinus rhythm with first-degree AV block 72 beats per minute. No recent echo or any echo is noted in EMR. Chest x-ray showing left basilar atelectasis versus pneumonia and pulmonary edema. CBC with leukocytosis at 12.4, metabolic panel significant for mild R[place] higher than her baseline with creatinine of 1.32 and BUN of 24 as well as glucose of 321. Of note patient's AST is 630 and ALT is 269 these are grossly elevated as compared with her recent hospitalization of which she was discharged 2 days ago when they were in the 30s and 40s r espectively. Troponin also now elevated at 0.168 and no historical elevation. BNP is greater than 30,000. Of note last BNP from 1 week ago was 7610. Patient does see Dr. Garcia for Cardiology, however has not been seen by Cardiology in her last hospitalization. Urinalysis today reflecting 3+ leukocyte esterase, greater than 100 wbc's, 4+ bacteria, 3+ protein, trace ketones and 3+ blood. Patient presenting with concerns for [place], transaminitis, heart failure exacerbation, he elevated troponin which is suspected to be due to demand ischemia and UTI. She is initiated on Lasix 60 mg IV push in the ER, Zosyn is ordered and CT scan of the abdomen pelvis is pending. She is being admitted in the current setting for continued treatment with antibiotics, diuresis, Cardiology consultation and depending upon outcome of CT scan of abdomen and pelvis may require surgical evaluation as well. 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 patient has severe stage IV uterovaginal prolapse, had been refusing surgical intervention however had agreed this time to follow up with an urogyne for further evaluation. will follow up urine culture and cardiac echo. on 01/25 patient had expressed to nurse wound care she wish to be placed under hospice care on MondayJanuary 27 and again today too and her POA is present in the room and she has agree with decision, patient will discuss with other family members on MondayJanuary 28 for the her final decision, will continue to monitor. Review of Systems Review of Systems: All systems reviewed & are unremarkable except as noted in HPI and below Exam Narrative: Appears chronically ill, elderly and frail Patient is comfortable, NAD HEENT: eyes are clear and none icteric LUNGS:CTA HEART: RR S1S2 ABD: BS+, Soft and nontender Lower extremities: no edema SKIN: nonjaundiced Neuro: grossly intact. Objective Data Vital Signs Vital Signs: Vital Signs - 24 hr 01/25/25 16:00 01/25/25 16:00 01/25/25 16:00 Temperature 37.1 C Pulse Rate 70 70 Respiratory Rate 12 Blood Pressure 118/57 L Pulse Oximetry 96 95 Oxygen Delivery Nasal Cannula Oxygen Flow Rate 1 01/25/25 18:00 01/25/25 20:00 01/25/25 20:00 Temperature 37.4 C Pulse Rate 70 75 Respiratory Rate 20 Blood Pressure 130/56 L Pulse Oximetry 95 95 Oxygen Delivery Nasal Cannula Oxygen Flow Rate 1 01/25/25 20:00 01/25/25 22:00 01/25/25 22:31 Temperature Pulse Rate 70 70 70 Respiratory Rate Blood Pressure Pulse Oximetry Oxygen Delivery Oxygen Flow Rate 01/25/25 23:37 01/26/25 00:00 01/26/25 00:00 Temperature 37.1 C Pulse Rate 70 70 Respiratory Rate 20 Blood Pressure 105/59 L Pulse Oximetry 96 96 Oxygen Delivery Nasal Cannula Oxygen Flow Rate 1 01/26/25 02:00 01/26/25 04:00 01/26/25 04:00 Temperature 36.6 C Pulse Rate 72 70 Respiratory Rate 20 Blood Pressure 117/60 Pulse Oximetry 96 96 Oxygen Delivery Nasal Cannula Oxygen Flow Rate 1 01/26/25 04:00 01/26/25 06:00 01/26/25 07:46 Temperature 37.0 C Pulse Rate 70 70 70 Respiratory Rate 20 Blood Pressure 139/56 L Pulse Oximetry 97 Oxygen Delivery Oxygen Flow Rate 01/26/25 08:00 01/26/25 08:00 01/26/25 08:49 Temperature Pulse Rate 70 70 Respiratory Rate Blood Pressure Pulse Oximetry 97 Oxygen Delivery Nasal Cannula Oxygen Flow Rate 1 01/26/25 08:50 01/26/25 10:00 01/26/25 11:48 Temperature 36.6 C Pulse Rate 70 70 70 Respiratory Rate 16 Blood Pressure 119/49 L Pulse Oximetry 95 Oxygen Delivery Oxygen Flow Rate Intake/Output Intake/Output: Intake & Output 01/23/25 01/24/25 01/25/25 01/26/25 23:59 23:59 23:59 23:59 Intake Total 50 1400 1110 410 Output Total 2250 3750 550 Balance 46 -826 -7137 -250 Meds/Results Medications: Active Medications Generic Name Dose Route Start Last Admin Trade Name Freq PRN Reason Stop Dose Admin Acetaminophen 1,000 mg 01/24/25 09:43 Acetaminophen 500 Mg Tablet PO Q6H PRN pain 1-3 Acetaminophen 650 mg 01/24/25 10:06 Acetaminophen 325 Mg Tablet PO Q4H PRN Fever Amiodarone HCl 200 mg 01/24/25 10:05 01/26/25 08:50 Amiodarone Hcl 200 Mg Tablet PO 200 mg DAILY JACKIE Administration Apixaban 2.5 mg 01/24/25 21:00 01/26/25 08:50 Apixaban 2.5 Mg Tablet PO 2.5 mg Q12HR JACKIE Administration Atorvastatin Calcium 40 mg 01/24/25 10:05 01/26/25 08:50 Atorvastatin 40 Mg Tablet BY MOUTH 40 mg QAM JACKIE Administration Cyanocobalamin 1,000 mcg 01/24/25 10:20 01/26/25 08:50 Cyanocobalamin 1,000 Mcg Tablet BY MOUTH 1,000 mcg QAM JACKIE Administration Dextrose 12.5 gm 01/23/25 22:39 Dextrose 50% 25 Gm/50 Ml Syringe IV PUSH PRN PRN Hypoglycemia Protocol Docusate Sodium 100 mg 01/24/25 09:43 Docusate Sodium 100 Mg Capsule PO Q12H PRN Constipation Ferrous Sulfate 325 mg 01/24/25 10:15 01/26/25 08:51 Ferrous Sulfate [address] PO 325 mg BIDWM JACKIE Administration Fish Oil 2 gm 01/24/25 10:10 01/26/25 08:49 [place] 3 Polyunsat Fatty Acids 1 Gm Cap PO 2 gm Q12HR JACKIE Administration Folic Acid 1 mg 01/24/25 10:10 01/26/25 08:50 Folic Acid 1 Mg Tablet BY MOUTH 1 mg QAM JACKIE Administration Furosemide 20 mg 01/24/25 10:10 01/24/25 10:50 Furosemide 20 Mg Tablet BY MOUTH Not Given QAM [facility] Furosemide 40 mg 01/26/25 09:00 01/26/25 08:51 Furosemide 40 Mg Tablet PO 40 mg DAILY JACKIE Administration Glucagon 1 mg 01/23/25 22:39 Glucagon For Inj 1 Mg Vial IM PRN PRN Hypoglycemia Protocol Glucose 15 gm 01/23/25 22:39 Glucose Oral Gel 15 Gm Of Glucse In 37.5 Gm Tube PO PRN PRN Hypoglycemia Protocol Dextrose 1,000 mls @ 100 mls/hr 01/23/25 22:39 Dextrose 5% 1,000 Ml IVPB PRN PRN Hypoglycemia Protocol Piperacillin Sod/Tazobactam Sod 2.25 gm in 50 mls @ 100 mls/hr 01/24/25 12:00 01/26/25 11:28 Zosyn 2.25 Gm/Ns 50 Ml IVPB 100 mls/hr Q6HR JACKIE Administration Insulin Aspart 2 - 5 units 01/24/25 08:00 01/26/25 11:43 Insulin Aspart (*Bkc) 100 Units/Ml SUB-Q 3 units TIDWM JACKIE Administration Protocol Insulin Aspart 1 - 2 units 01/24/25 21:00 01/25/25 22:36 Insulin Aspart (*Bkc) 100 Units/Ml SUB-Q 1 units HS JACKIE Administration Protocol Lisinopril 5 mg 01/24/25 10:15 01/26/25 08:50 Lisinopril 5 Mg Tablet BY MOUTH 5 mg QAM JACKIE Administration Magnesium Oxide 400 mg 01/24/25 10:10 01/26/25 08:50 Magnesium Oxide 400 Mg Tablet PO 400 mg DAILY JACKIE Administration Magnesium Oxide 400 mg 01/25/25 09:40 01/26/25 08:52 Magnesium Oxide 400 Mg Tablet PO 400 mg QAM JACKIE Administration Metoprolol Tartrate 12.5 mg 01/24/25 10:10 01/26/25 08:49 Metoprolol Tartrate 12.5 Mg Tablet PO 12.5 mg Q12HR JACKIE Administration Mirtazapine 30 mg 01/24/25 21:00 01/25/25 22:31 Mirtazapine 30 Mg Tablet PO 30 mg QHS JACKIE Administration Pantoprazole Sodium 40 mg 01/24/25 10:10 01/26/25 08:50 Pantoprazole 40 Mg Tablet BY MOUTH 40 mg QAM JACKIE Administration Polyethylene Glycol 17 gm 01/25/25 09:00 01/26/25 08:51 Polyethylene Glycol 3350 17 Gm Powd.Pack PO Not Given QAM JACKIE Tramadol HCl 25 mg 01/23/25 22:39 Tramadol Hcl (*Crx) 25 Mg Tablet PO Q6H PRN Pain Rated 4-6 Vitamin D 50 mcg 01/24/25 10:15 01/26/25 08:50 Cholecalciferol (Vitamin D3) 25 Mcg (1,000 Units) Tablet BY MOUTH 50 mcg QAM JACKIE Administration Radiology Results: ITS Impressions Chest X-Ray 01/23/25 18:15 IMPRESSION: Left basilar atelectasis versus pneumonia. Bilateral interstitial thickening which may indicate pneumonitis. Pulmonary edema also is possible. Underlying fibrotic changes are also noted. Possible nodule in the right upper lobe with surrounding fibrotic changes. 3 months follow-up advised. Abdomen/Pelvis CT 01/23/25 22:51 IMPRESSION: 1. No evidence of appendicitis, diverticulitis or intestinal obstruction. 2. Bilateral pleural effusion with adjacent atelectasis versus pneumonia. 3. Increased density of the liver. Clinical correlation advised. 4. Prolapse uterus with cystocele and urinary bladder stones. 5. Bilateral severe hydronephrotic changes. 6. Slightly thickened wall of the gallbladder with no stones. Ultrasound evaluation advised. Abdomen Ultrasound 01/23/25 23:19 IMPRESSION: Thickened wall of the gallbladder. Cholecystitis cannot be excluded. Clinical correlation advised. Otherwise, limited abdominal ultrasound. Labs Labs: Laboratory Results - last 24 hr 01/25/25 01/25/25 01/26/25 15:52 20:00 04:10 WBC 8.5 RBC 3.13 L Hgb 9.6 L Hct 30.2 L MCV 96.5 MCH 30.7 MCHC 31.8 L RDW 13.9 Plt Count 225 MPV 10.1 Sodium 133 L Potassium 3.1 L Chloride 92 L Carbon Dioxide 38 H Anion Gap 3 L BUN 28 H Creatinine 1.28 H Estim Creat Clear Calc 22 Estimated GFR 40 L Glucose 131 H POC Capillary Glucose 246 H 205 H Calcium 7.9 L Magnesium 1.5 L 01/26/25 01/26/25 07:34 11:20 WBC RBC Hgb Hct MCV MCH MCHC RDW Plt Count MPV Sodium Potassium Chloride Carbon Dioxide Anion Gap BUN Creatinine Estim Creat Clear Calc Estimated GFR Glucose POC Capillary Glucose 131 H 225 H Calcium Magnesium Quality VTE Prophylaxis VTE prophylaxis: pharmacologic ordered
--- NOTE | 2025-01-26 15:21 | PC.NURSE ---
Pt transferred to room 213 at 1521. Report given to AYAZ Escalona.
--- NOTE | 2025-01-26 15:30 | PC.NURSE ---
This patient, Saniya Jin, was received from U 212 on 01/26/25 at 1530. Patient/family oriented to unit policies and routines. Report per AYAZ Maynard
--- NOTE | 2025-01-26 19:00 | PC.NURSE ---
On 01/26/25, the INDUSTRIAL SAFETY ENGINEER, Iqra Edmonds, provided care and completed [employer] documentation on this patient. I have reviewed the INDUSTRIAL SAFETY ENGINEER's documentation and agree with the findings.
[2025-01-26] MEDS: MIRTAZAPINE 30 MG TABLET PO (20:36)
[2025-01-27 06:17] LABS: Hematocrit 32.5 % (37.0-47.0); Hemoglobin 10.3 g/dL (12.0-15.0); Mean Corpuscular HGB Conc 31.7 g/dl (32-36); Mean Corpuscular Hemoglobin 30.4 pg (26-34); Mean Corpuscular Volume 95.9 fl (80-100); Platelet Count Result 229 k/mm3 (150-375); Red Blood Count 3.39 M/mm3 (4.2-5.4); White Blood Count 9.8 K/mm3 (4.5-10.0)
[2025-01-27 06:25] LABS: Anion Gap 4 mmol/L (4-12); Blood Urea Nitrogen 24 mg/dL (7-17); Calcium 8.1 mg/dL (8.4-10.2); Carbon Dioxide 38 mmol/L (22-30); Chloride 92 mmol/L (98-107); Estimated CRCL calculation 24 ml/min; Estimated Glomerular Filt Rate 45; Glucose 176 mg/dL (65-110); Magnesium 2.0 mg/dL (1.6-2.3); Potassium 3.5 mmol/L (3.4-5.0); Sodium 134 mmol/L (137-145)
[2025-01-27] MEDS: PANTOPRAZOLE 40 MG TABLET BY MOUTH (09:56)
[2025-01-27] MEDS: FUROSEMIDE 40 MG TABLET PO (09:56)
[2025-01-27] MEDS: ATORVASTATIN 40 MG TABLET BY MOUTH (09:56)
[2025-01-27] MEDS: FERROUS SULFATE 325 MG TABLET DR PO (09:56)
[2025-01-27] MEDS: CYANOCOBALAMIN 1,000 MCG TABLET 1000 MCG BY MOUTH (09:56)
[2025-01-27] MEDS: CHOLECALCIFEROL (VITAMIN D3) 25 MCG (1,000 UNITS) TABLET 50 MCG BY MOUTH (09:56)
[2025-01-27] MEDS: OMEGA 3 POLYUNSAT FATTY ACIDS 1 GM CAP 2 GM PO (09:56)
[2025-01-27] MEDS: FOLIC ACID 1 MG TABLET BY MOUTH (09:57)
[2025-01-27] MEDS: POTASSIUM CHLORIDE 20 MEQ PACKET (FOR LIQUID) 40 MEQ PO (09:57)
[2025-01-27] MEDS: APIXABAN 2.5 MG TABLET PO ×2 (09:57→23:17)
[2025-01-27] MEDS: MAGNESIUM OXIDE 400 MG TABLET PO (09:57)
[2025-01-27] MEDS: AMIODARONE HCL 200 MG TABLET PO (09:57)
[2025-01-27] MEDS: METOPROLOL TARTRATE 12.5 MG TABLET PO ×2 (10:10→23:17)
--- NOTE | 2025-01-27 10:10 | P.CDI_ITS ---
CDI Query Clarification Request BMI: 15.0 Nutritional Diagnostic Statement: Please refer to the comprehensive nutrition assessment for further information. If you agree with diagnosis of Moderate protein calorie malnutrition related to inadequate energy intake as evidenced by reduced po intake for greater than 1 month, a history of significant weight loss within the last year, and NFPE findings for moderate subcutaneous fat loss (cheeks) and severe muscle wasting (temples, clavicle). Please specify severity if known: * Mild * Moderate * Severe * Other/Unknown <Misti Hernandez RN - Last Filed: 01/28/25 08:16> Clarified Diagnosis Clarified Diagnosis: I agree with diagnosis of Moderate protein calorie malnutrition related to inadequate energy intake as evidenced by reduced po intake for greater than 1 month, a history of significant weight loss within the last year, and NFPE findings for moderate subcutaneous fat loss (cheeks) and severe muscle wasting (temples, clavicle). <Duane Kline MD - Last Filed: 02/10/25 07:48>
[2025-01-27] MEDS: INSULIN ASPART (*BKC) 100 UNITS/ML SUB-Q ×2 (12:20→17:14)
--- NOTE | 2025-01-27 13:19 | PCDIET ---
Noted new pressure injuries documented for pt. Right heel stage II, Left heel DTPI and sacrum DTPI. Will add GERALDO BID for wound healing.
[2025-01-27 13:57] VITALS: BP 126/53; PULSE 71; RESP 16; TEMP 37.2; O2SAT 100
--- NOTE | 2025-01-27 15:24 | P.PNIM_ITS ---
Progress Note: A&P Assessment and Plan (1) Acute exacerbation of CHF (congestive heart failure): Code(s): I50.9 - Heart failure, unspecified Status: Acute Assessment and Plan: * Obtain echo as one is not on file * Telemetry * Continue diuresis with Lasix 40 mg IV push q.12 hours * Trend trops * Consult cardiology for maximization of Heart failure management. * daily weight * Accurate I&O * Trend and monitor daily labs and VS. * Physically appears euvolemic * CXR shows pulmonary edema. * BNP >30K, and was 7K last week. * Possible exacerbation of HF 2/2 current [place] 2/2 UTI and urinary retention. Appreciate Cardiology management. Pt is a pt of Dr. Moore. (2) Acute kidney injury: Code(s): N17.9 - Acute kidney failure, unspecified Status: Acute Assessment and Plan: * Baseline renal function w/Cr of 0.9. * Current Cr is 1.32 * Monitor and trend as pt is also receiving lasix, which in the current setting is needed for Heart Failure exacerbation. * If acute worsening of renal function, consider consulting Nephrology. * Trend creatinine and BUN. * Avoid unnecessary renal offending agents other than the lasix which is currently needed for CHF. (3) Elevated troponin: Code(s): R79.89 - Other specified abnormal findings of blood chemistry Status: Acute Assessment and Plan: * Etiology most likely demand ischemia from his heart failure exacerbation. * Trend trops x3 * Telemetry * Consult cardiology (4) Diabetes mellitus: Code(s): E11.9 - Type 2 diabetes mellitus without complications Status: Acute Assessment and Plan: * Hold oral hypoglycemics * Sliding scale insulin initiated * Hypoglycemic protocol * Check A1c * Cardiac diet/diabetic diet (5) Transaminitis: Code(s): R74.01 - Elevation of levels of liver transaminase levels Status: Acute Assessment and Plan: * Uncertain etiology in setting of heart failure exacerbation, the could be portal hypertension related * During most recent admission transaminases were in the 30s and 40s respectively. This was just a couple of days ago. Today they are an AST of 630 and an ALT of 269. * Patient asymptomatic of biliary colic. * CT abdomen and pelvis pending to rule out cholecystitis and/or choledocholithiasis * Right upper quadrant ultrasound ordered * Consider additional consults as needed based upon findings of CT scan. * Avoid Tylenol (6) Chronic atrial fibrillation: Code(s): I48.20 - Chronic atrial fibrillation, unspecified Status: Acute Assessment and Plan: * Continue Eliquis once doses confirmed verified * Telemetry * Rate controlled with metoprolol and amiodarone (7) Mixed hyperlipidemia: Code(s): E78.2 - Mixed hyperlipidemia Status: Chronic Assessment and Plan: * Hold statin with current transaminitis. * Heart healthy diet (8) Benign essential hypertension: Code(s): I10 - Essential (primary) hypertension Status: Chronic Assessment and Plan: * Trend vital signs * Reorder home medications once verified and confirmed. 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 patient has severe stage IV uterovaginal prolapse, had been refusing surgical intervention however had agreed this time to follow up with an urogyne for further evaluation. will follow up urine culture and cardiac echo. on 01/25 patient had expressed to home care aide she wish to be placed under hospice care on MondayJanuary 28 and again on 01/27 her POA was present in the room and she has agree with decision, patient will discuss with other family members on MondayJanuary 28 for the her final decision, will continue to monitor. patient has no new complaints. Subjective Date/time seen: 01/27/25 15:24 Interval history: Dyspnea H&P-Narrative: This is an 79-year-old female patient with past medical history of chronic kidney disease, type 2 diabetes mellitus, hypertension, chronic AFib on Eliquis therapy, chronic indwelling Maguire catheter who was just discharged from hospital yesterday after being treated for CHF exacerbation, UTI in [place]. After getting home patient noted that she became increasingly short of breath, worse with exertion and EMS was notified. Upon arrival they placed her on 2 L supplemental oxygen for hypoxia at 88% on room air. Patient does not wear supplemental oxygen at home. Upon return to the emergency room she complains worsening dyspnea, slight abdominal pain and denies any fevers/nausea/vomiting/diarrhea. She denies any acute cough or any other new concerns. Workups performed in the emergency room shows stable vital signs, EKG showing normal sinus rhythm with first-degree AV block 72 beats per minute. No recent echo or any echo is noted in EMR. Chest x-ray showing left basilar atelectasis versus pneumonia and pulmonary edema. CBC with leukocytosis at 12.4, metabolic panel significant for mild R[place] higher than her baseline with creatinine of 1.32 and BUN of 24 as well as glucose of 321. Of note patient's AST is 630 and ALT is 269 these are grossly elevated as compared with her recent hospitalization of which she was discharged 2 days ago when they were in the 30s and 40s respectively. Troponin also now elevated at 0.168 and no historical elevation. BNP is greater than 30,000. Of note last BNP from 1 week ago was 7610. Patient does see Dr. Garcia for Cardiology, however has not been seen by Cardiology in her last hospitalization. Urinalysis today reflecting 3+ leukocyte esterase, greater than 100 wbc's, 4+ bacteria, 3+ protein, trace ketones and 3+ blood. Patient presenting with concerns for R[place], transaminitis, heart failure exacerbation, he elevated troponin which is suspected to be due to demand ischemia and UTI. She is initiated on Lasix 60 mg IV push in the ER, Zosyn is ordered and CT scan of the abdomen pelvis is pending. She is being admitted in the current setting for continued treatment with antibiotics, diuresis, C ardiology consultation and depending upon outcome of CT scan of abdomen and pelvis may require surgical evaluation as well. 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 patient has severe stage IV uterovaginal prolapse, had been refusing surgical intervention however had agreed this time to follow up with an urogyne for further evaluation. will follow up urine culture and cardiac echo. on 01/25 patient had expressed to home care aide she wish to be placed under hospice care on MondayJanuary 28 and again on 01/27 her POA was present in the room and she has agree with decision, patient will discuss with other family members on MondayJanuary 28 for the her final decision, will continue to monitor. patient has no new complaints. Review of Systems Review of Systems: All systems reviewed & are unremarkable except as noted in HPI and below Exam Narrative: Appears chronically ill, elderly and frail Patient is comfortable, NAD HEENT: eyes are clear and none icteric LUNGS:CTA HEART: RR S1S2 ABD: BS+, Soft and nontender Lower extremities: no edema SKIN: nonjaundiced Neuro: grossly intact. Objective Data Vital Signs Vital Signs: Vital Signs - 24 hr 01/26/25 15:30 01/26/25 16:00 01/26/25 20:36 Temperature 36.1 C L Pulse Rate 70 78 Respiratory Rate 20 Blood Pressure 122/66 Pulse Oximetry 95 97 Oxygen Delivery Nasal Cannula Oxygen Flow Rate 1 01/26/25 20:40 01/26/25 21:26 Temperature 36.5 C Pulse Rate 78 70 Respiratory Rate 20 16 Blood Pressure 106/51 L Pulse Oximetry 97 97 Oxygen Delivery Nasal Cannula Oxygen Flow Rate 2 Intake/Output Intake/Output: Intake & Output 01/24/25 01/25/25 01/26/25 01/27/25 23:59 23:59 23:59 23:59 Intake Total 1400 1110 460 290 Output Total 2250 3750 550 1200 Balance -850 -2640 -90 -910 Meds/Results Medications: Active Medications Generic Name Dose Route Start Last Admin Trade Name Barryq PRN Reason Stop Dose Admin Acetaminophen 1,000 mg 01/24/25 09:43 Acetaminophen 500 Mg Tablet PO Q6H PRN pain 1-3 Acetaminophen 650 mg 01/24/25 10:06 Acetaminophen 325 Mg Tablet PO Q4H PRN Fever Amiodarone HCl 200 mg 01/24/25 10:01/27/25 09:57 Amiodarone Hcl 200 Mg Tablet PO 200 mg DAILY JACKIE Administration Apixaban 2.5 mg 01/24/25 21:00 01/27/25 09:57 Apixaban 2.5 Mg Tablet PO 2.5 mg Q12HR JACKIE Administration Atorvastatin Calcium 40 mg 01/24/25 10:01/27/25 09:56 Atorvastatin 40 Mg Tablet BY MOUTH 40 mg QAM JACKIE Administration Cyanocobalamin 1,000 mcg 01/24/25 10:20 01/27/25 09:56 Cyanocobalamin 1,000 Mcg Tablet BY MOUTH 1,000 mcg QAM JACKIE Administration Dextrose 12.5 gm 01/23/25 22:39 Dextrose 50% 25 Gm/50 Ml Syringe IV PUSH PRN PRN Hypoglycemia Protocol Docusate Sodium 100 mg 01/24/25 09:43 Docusate Sodium 100 Mg Capsule PO Q12H PRN Constipation Ferrous Sulfate 325 mg 01/24/25 10:15 01/27/25 09:56 Ferrous Sulfate [address] PO 325 mg BIDWM JACKIE Administration Fish Oil 2 gm 01/24/25 10:10 01/27/25 09:56 [place] 3 Polyunsat Fatty Acids 1 Gm Cap PO 2 gm Q12HR JACKIE Administration Folic Acid 1 mg 01/24/25 10:10 01/27/25 09:57 Folic Acid 1 Mg Tablet BY MOUTH 1 mg QAM JACKIE Administration Furosemide 20 mg 01/24/25 10:10 01/24/25 10:50 Furosemide 20 Mg Tablet BY MOUTH Not Given QAM JACKIE Furosemide 40 mg 01/26/25 09:00 01/27/25 09:56 Furosemide 40 Mg Tablet PO 40 mg DAILY JACKIE Administration Glucagon 1 mg 01/23/25 22:39 Glucagon For Inj 1 Mg Vial IM PRN PRN Hypoglycemia Protocol Glucose 15 gm 01/23/25 22:39 Glucose Oral Gel 15 Gm Of Glucse In 37.5 Gm Tube PO PRN PRN Hypoglycemia Protocol Dextrose 1,000 mls @ 100 mls/hr 01/23/25 22:39 Dextrose 5% 1,000 Ml IVPB PRN PRN Hypoglycemia Protocol Insulin Aspart 2 - 5 units 01/24/25 08:00 01/27/25 12:20 Insulin Aspart (*Bkc) 100 Units/Ml SUB-Q 4 units TIDWM JACKIE Administration Protocol Insulin Aspart 1 - 2 units 01/24/25 21:00 01/26/25 22:46 Insulin Aspart (*Bkc) 100 Units/Ml SUB-Q Not Given HS JACKIE Protocol Lisinopril 5 mg 01/24/25 10:15 01/27/25 09:56 Lisinopril 5 Mg Tablet BY MOUTH 5 mg QAM JACKIE Administration Magnesium Oxide 400 mg 01/24/25 10:10 01/27/25 09:57 Magnesium Oxide 400 Mg Tablet PO 400 mg DAILY JACKIE Administration Metoprolol Tartrate 12.5 mg 01/24/25 10:10 01/27/25 10:10 Metoprolol Tartrate 12.5 Mg Tablet PO 12.5 mg Q12HR JACKIE Administration Mirtazapine 30 mg 01/24/25 21:00 01/26/25 20:36 Mirtazapine 30 Mg Tablet PO 30 mg QHS JACKIE Administration Pantoprazole Sodium 40 mg 01/24/25 10:10 01/27/25 09:56 Pantoprazole 40 Mg Tablet BY MOUTH 40 mg QAM JACKIE Administration Polyethylene Glycol 17 gm 01/25/25 09:00 01/27/25 09:57 Polyethylene Glycol 3350 17 Gm Powd.Pack PO 17 gm QAM JACKIE Administration Tramadol HCl 25 mg 01/23/25 22:39 Tramadol Hcl (*Crx) 25 Mg Tablet PO Q6H PRN Pain Rated 4-6 Vitamin D 50 mcg 01/24/25 10:15 01/27/25 09:56 Cholecalciferol (Vitamin D3) 25 Mcg (1,000 Units) Tablet BY MOUTH 50 mcg QAM JACKIE Administration Radiology Results: ITS Impressions Chest X-Ray 01/23/25 18:15 IMPRESSION: Left basilar atelectasis versus pneumonia. Bilateral interstitial thickening which may indicate pneumonitis. Pulmonary edema also is possible. Underlying fibrotic changes are also noted. Possible nodule in the right upper lobe with surrounding fibrotic changes. 3 months follow-up advised. Abdomen/Pelvis CT 01/23/25 22:51 IMPRESSION: 1. No evidence of appendicitis, diverticulitis or intestinal obstruction. 2. Bilateral pleural effusion with adjacent atelectasis versus pneumonia. 3. Increased density of the liver. Clinical correlation advised. 4. Prolapse uterus with cystocele and urinary bladder stones. 5. Bilateral severe hydronephrotic changes. 6. Slightly thickened wall of the gallbladder with no stones. Ultrasound evaluation advised. Abdomen Ultrasound 01/23/25 23:19 IMPRESSION: Thickened wall of the gallbladder. Cholecystitis cannot be excluded. Clinical correlation advised. Otherwise, limited abdominal ultrasound. Labs Labs: Laboratory Results - last 24 hr 01/26/25 01/27/25 01/27/25 16:48 05:27 08:22 WBC 9.8 RBC 3.39 L Hgb 10.3 L Hct 32.5 L MCV 95.9 MCH 30.4 MCHC 31.7 L RDW 13.5 Plt Count 229 MPV 9.9 Sodium 134 L Potassium 3.5 Chloride 92 L Carbon Dioxide 38 H Anion Gap 4 BUN 24 H Creatinine 1.16 H Estim Creat Clear Calc 24 Estimated GFR 45 L Glucose 176 H POC Capillary Glucose 156 H 167 H Calcium 8.1 L Magnesium 2.0 01/27/25 11:54 WBC RBC Hgb Hct MCV MCH MCHC RDW Plt Count MPV Sodium Potassium Chloride Carbon Dioxide Anion Gap BUN Creatinine Estim Creat Clear Calc Estimated GFR Glucose POC Capillary Glucose 337 H Calcium Magnesium Quality VTE Prophylaxis VTE prophylaxis: pharmacologic ordered
[2025-01-27 22:32] VITALS: BP 120/51; PULSE 70; RESP 28; TEMP 36.4; O2SAT 99
[2025-01-27 23:17] VITALS: PULSE 71
[2025-01-27] MEDS: MIRTAZAPINE 30 MG TABLET PO (23:18)
[2025-01-28 06:01] LABS: Hematocrit 30.0 % (37.0-47.0); Hemoglobin 9.4 g/dL (12.0-15.0); Mean Corpuscular HGB Conc 31.3 g/dl (32-36); Mean Corpuscular Hemoglobin 30.1 pg (26-34); Mean Corpuscular Volume 96.2 fl (80-100); Platelet Count Result 230 k/mm3 (150-375); Red Blood Count 3.12 M/mm3 (4.2-5.4); White Blood Count 9.1 K/mm3 (4.5-10.0)
[2025-01-28 06:16] LABS: Anion Gap 2 mmol/L (4-12); Blood Urea Nitrogen 28 mg/dL (7-17); Calcium 8.3 mg/dL (8.4-10.2); Carbon Dioxide 38 mmol/L (22-30); Chloride 92 mmol/L (98-107); Estimated CRCL calculation 29 ml/min; Estimated Glomerular Filt Rate 60; Glucose 240 mg/dL (65-110); Magnesium 1.8 mg/dL (1.6-2.3); Potassium 3.4 mmol/L (3.4-5.0); Sodium 132 mmol/L (137-145)
[2025-01-28 07:45] VITALS: RESP 18; O2SAT 99
[2025-01-28 08:00] VITALS: BP 136/67; PULSE 70; RESP 18; TEMP 36.5; O2SAT 99
--- NOTE | 2025-01-28 08:42 | P.DS_ITS ---
DS: Admitting Diagnosis Discharge Date 01/28/25 Admitting Diagnosis Dyspnea DS: Discharge Diagnosis Discharge Diagnosis (1) Acute exacerbation of CHF (congestive heart failure): Code(s): I50.9 - Heart failure, unspecified Status: Acute Assessment and Plan: * Obtain echo as one is not on file * Telemetry * Continue diuresis with Lasix 40 mg IV push q.12 hours * Trend trops * Consult cardiology for maximization of Heart failure management. * daily weight * Accurate I&O * Trend and monitor daily labs and VS. * Physically appears euvolemic * CXR shows pulmonary edema. * BNP >30K, and was 7K last week. * Possible exacerbation of HF 2/2 current [place] 2/2 UTI and urinary retention. Appreciate Cardiology management. Pt is a pt of Dr. Moore. (2) Acute kidney injury: Code(s): N17.9 - Acute kidney failure, unspecified Status: Acute Assessment and Plan: * Baseline renal function w/Cr of 0.9. * Current Cr is 1.32 * Monitor and trend as pt is also receiving lasix, which in the current setting is needed for Heart Failure exacerbation. * If acute worsening of renal function, consider consulting Nephrology. * Trend creatinine and BUN. * Avoid unnecessary renal offending agents other than the lasix which is currently needed for CHF. (3) Elevated troponin: Code(s): R79.89 - Other specified abnormal findings of blood chemistry Status: Acute Assessment and Plan: * Etiology most likely demand ischemia from his heart failure exacerbation. * Trend trops x3 * Telemetry * Consult cardiology (4) Diabetes mellitus: Code(s): E11.9 - Type 2 diabetes mellitus without complications Status: Acute Assessment and Plan: * Hold oral hypoglycemics * Sliding scale insulin initiated * Hypoglycemic protocol * Check A1c * Cardiac diet/diabetic diet (5) Transaminitis: Code(s): R74.01 - Elevation of levels of liver transaminase levels Status: Acute Assessment and Plan: * Uncertain etiology in setting of heart failure exacerbation, the could be portal hypertension related * During most recent admission transaminases were in the 30s and 40s respectively. This was just a couple of days ago. Today they are an AST of 630 and an ALT of 269. * Patient asymptomatic of biliary colic. * CT abdomen and pelvis pending to rule out cholecystitis and/or choledocholithiasis * Right upper quadrant ultrasound ordered * Consider additional consults as needed based upon findings of CT scan. * Avoid Tylenol (6) Chronic atrial fibrillation: Code(s): I48.20 - Chronic atrial fibrillation, unspecified Status: Acute Assessment and Plan: * Continue Eliquis once doses confirmed verified * Telemetry * Rate controlled with metoprolol and amiodarone (7) Mixed hyperlipidemia: Code(s): E78.2 - Mixed hyperlipidemia Status: Chronic Assessment and Plan: * Hold statin with current transaminitis. * Heart healthy diet (8) Benign essential hypertension: Code(s): I10 - Essential (primary) hypertension Status: Chronic Assessment and Plan: * Trend vital signs * Reorder home medications once verified and confirmed. 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 patient has severe stage IV uterovaginal prolapse, had been refusing surgical intervention however had agreed this time to follow up with an urogyne for f urther evaluation. will follow up urine culture and cardiac echo. on 01/25 patient had expressed to intensive care medicine specialist she wish to be placed under hospice care on MondayJanuary 28 and again on 01/27 her POA was present in the room and she has agree with decision, patient will discuss with other family members on MondayJanuary 28 for the her final decision, will continue to monitor. patient has no new complaints. 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 patient has severe stage IV uterovaginal prolapse, had been refusing surgical intervention however had agreed this time to follow up with an urogyne for further evaluation. will follow up urine culture and cardiac echo. on 01/25 patient had expressed to intensive care medicine specialist she wish to be placed under hospice care on MondayJanuary 28 and again on 01/27 her POA was present in the room and she has agree with decision, patient will discuss with other family members on MondayJanuary 28 for the her final decision, will continue to monitor. patient has no new complaints. patient will discharged and will be admitted under hospice care. Time Spent with Patient Time attestation: Total time spent providing and/or coordinating discharge services: Exam Narrative: Appears chronically ill, elderly and frail Patient is comfortable, NAD HEENT: eyes are clear and none icteric LUNGS:CTA HEART: RR S1S2 ABD: BS+, Soft and nontender Lower extremities: no edema SKIN: nonjaundiced Neuro: grossly intact. DS: Data Data Completed and Pending Labs on day of discharge: Labs from last 24 hours 01/28/25 01/27/25 01/27/25 05:35 20:32 17:09 WBC 9.1 RBC 3.12 L Hgb 9.4 L Hct 30.0 L MCV 96.2 MCH 30.1 MCHC 31.3 L RDW 13.5 Plt Count 230 MPV 9.8 Sodium 132 L Potassium 3.4 Chloride 92 L Carbon Dioxide 38 H Anion Gap 2 L BUN 28 H Creatinine 0.90 Estim Creat Clear Calc 29 Estimated GFR 60 Glucose 240 H POC Capillary Glucose 298 H 369 H Calcium 8.3 L Magnesium 1.8 01/27/25 11:54 WBC RBC Hgb Hct MCV MCH MCHC RDW Plt Count MPV Sodium Potassium Chloride Carbon Dioxide Anion Gap BUN Creatinine Estim Creat Clear Calc Estimated GFR Glucose POC Capillary Glucose 337 H Calcium Magnesium Discharge Plan Discharge Attending physician on discharge: Thee Shaw Consulting providers: Atul Padron; Aleyda Porter; Erica Corrigan; Lexis Ling; Jas Mott Discharging Clinician: Duane Kline Patient Disposition: Hospice - Home Activity: as tolerated Diet: as tolerated Discharge Instructions: patient is being discharge and will be admitted under [facility] hospice care Patient Language: [place] Stand Alone Forms: General Discharge Information Follow-up/Referrals: Bear Horan MD [Primary Care Provider] - Discharge Medications: Continued metformin 500 mg tablet extended release 24 hr 500 mg PO BID Qty: 180 1RF Patient Comments: doesn't take every day d/t causing diarrhea omega-3 fatty acids Capsule 2,000 mg PO BID apixaban 2.5 mg tablet 2.5 mg PO BID Qty: 60 1RF (DME) prothrombin time/INR test metr Misc See Rx Instructions .Route Qty: 1 0RF Rx Instructions: As directed amiodarone 200 mg tablet 200 mg PO DAILY 30 Days Qty: 0 0RF docusate sodium 100 mg Capsule 100 mg PO Q12H PRN (Reason: Constipation) Qty: 30 0RF polyethylene glycol 3350 [Miralax] 17 gram Powder In Packet 17 g PO QAM Qty: 14 0RF mirtazapine 30 mg tablet 30 mg PO QHS ferrous sulfate 325 mg (65 mg iron) tablet See Rx Instructions .ROUTE .COMPLEX Qty: 180 0RF Dose Instruction: TAKE 1 TABLET BY MOUTH TWICE A DAY Rx Instructions: TAKE 1 TABLET BY MOUTH TWICE A DAY furosemide 20 mg tablet See Rx Instructions .ROUTE .COMPLEX Qty: 90 0RF Dose Instruction: TAKE 1 TABLET BY MOUTH EVERY DAY IN THE MORNING Rx Instructions: TAKE 1 TABLET BY MOUTH EVERY OTHER MORNING acetaminophen 500 mg capsule 1,000 mg PO Q6H PRN (Reason: pain) Rx Instructions: do not exceed 4,000 mg in 24 hours cyanocobalamin (vitamin B-12) 1,000 mcg lozenge See Rx Instructions .ROUTE .COMPLEX Qty: 90 0RF Dose Instruction: PLACE 1 TABLET UNDER THE TONGUE ONCE DAILY, LET DISSOLVE FOR AT LEAST 30 SECONDS BEFORE SWALLOWING Rx Instructions: PLACE 1 TABLET UNDER THE TONGUE ONCE DAILY, LET DISSOLVE FOR AT LEAST 30 SECONDS BEFORE SWALLOWING lisinopril 5 mg tablet See Rx Instructions .ROUTE .COMPLEX Qty: 90 1RF Dose Instruction: TAKE 1 TABLET BY MOUTH EVERY DAY Rx Instructions: TAKE 1 TABLET BY MOUTH EVERY DAY cholecalciferol (vitamin D3) 50 mcg (2,000 unit) tablet See Rx Instructions .ROUTE .COMPLEX Qty: 90 0RF Dose Instruction: TAKE 1 TABLET BY MOUTH DAILY Rx Instructions: TAKE 1 TABLET BY MOUTH DAILY metoprolol tartrate 25 mg tablet 12.5 mg PO Q12H Qty: 45 3RF pantoprazole 40 mg tablet,delayed release (DR/EC) See Rx Instructions .ROUTE .COMPLEX Qty: 90 1RF Dose Instruction: TAKE 1 TABLET BY MOUTH EVERY MORNING Rx Instructions: TAKE 1 TABLET BY MOUTH EVERY MORNING atorvastatin 40 mg tablet See Rx Instructions .ROUTE .COMPLEX Qty: 90 1RF Dose Instruction: TAKE 1 TABLET BY MOUTH EVERY DAY Rx Instructions: TAKE 1 TABLET BY MOUTH EVERY DAY folic acid 1 mg tablet See Rx Instructions .ROUTE .COMPLEX Qty: 90 1RF Dose Instruction: TAKE 1 TABLET BY MOUTH EVERY DAY Rx Instructions: TAKE 1 TABLET BY MOUTH EVERY DAY magnesium oxide 400 mg (241.3 mg magnesium) tablet 400 mg PO DAILY Qty: 90 1RF Date of admission: 01/23/25 20:51 Primary Care Provider: Bear Horan Admitting Provider: Thee Shaw Attending physician on admission: Duane Kline Condition: Stable
[2025-01-28 09:49] VITALS: PULSE 70
[2025-01-28] MEDS: MAGNESIUM OXIDE 400 MG TABLET PO (09:49)
[2025-01-28] MEDS: METOPROLOL TARTRATE 12.5 MG TABLET PO (09:49)
[2025-01-28] MEDS: AMIODARONE HCL 200 MG TABLET PO (09:49)
[2025-01-28] MEDS: PANTOPRAZOLE 40 MG TABLET BY MOUTH (09:50)
[2025-01-28] MEDS: APIXABAN 2.5 MG TABLET PO (09:50)
[2025-01-28] MEDS: FUROSEMIDE 40 MG TABLET PO (09:50)
[2025-01-28] MEDS: POTASSIUM CHLORIDE 20 MEQ PACKET (FOR LIQUID) 40 MEQ PO (09:53)
[2025-01-28 15:30] VITALS: BP 133/59; PULSE 70; RESP 18; TEMP 36.2; O2SAT 100
== END 2025-01-28 17:08 | disposition hospice, home (50) | DRG 291 ==
LOC: ANHED 21:11 → ANHIMU 22:38 → ANH3MEDSUR 01-27 12:45 → ANHIMU 01-29 11:19
PROVIDERS: Emergency Medicine; Nurse Practitioner Adult Health; Physician Assistant; Admitting Provider Internal Medicine; Emergency Provider Emergency Medicine; PCP Internal Medicine; Visit Provider Family Medicine
DX: I13.0 Hypertensive heart and chronic kidney disease with heart failure and stage 1 through stage 4 chronic kidney disease, or unspecified chronic kidney disease (principal); I50.33 Acute on chronic diastolic (congestive) heart failure; J96.01 Acute respiratory failure with hypoxia; E46 Unspecified protein-calorie malnutrition; I24.89 Other forms of acute ischemic heart disease; N17.9 Acute kidney failure, unspecified; Z68.1 Body mass index [BMI] 19.9 or less, adult; I48.19 Other persistent atrial fibrillation; N39.0 Urinary tract infection, site not specified; N18.30 Chronic kidney disease, stage 3 unspecified; E78.2 Mixed hyperlipidemia; E11.22 Type 2 diabetes mellitus with diabetic chronic kidney disease; E11.319 Type 2 diabetes mellitus with unspecified diabetic retinopathy without macular edema; E11.65 Type 2 diabetes mellitus with hyperglycemia; I25.10 Atherosclerotic heart disease of native coronary artery without angina pectoris; D50.9 Iron deficiency anemia, unspecified; Z86.711 Personal history of pulmonary embolism; Z95.0 Presence of cardiac pacemaker; Z87.891 Personal history of nicotine dependence; Z79.01 Long term (current) use of anticoagulants; N81.4 Uterovaginal prolapse, unspecified
CPT/HCPCS: 36415; 71046; 74176; 76705; 80048; 80053; 81001; 82948; 83036; 83690; 83735; 83880; 84484; 85025; 85027; 85610; 85730; 87637; 93005; 96374; 99285; A9270; C8929; J1815; J1938; J2543; J3475; J3480; J7040; Q9957